=== PATIENT | male | born 1950 | race Hispanic/Latino ===

== ENCOUNTER 2022-02-12 20:23 | Emergency (ER) | payer OTHER ==
--- OUTSIDE RECORDS SUMMARY | 2022-02-12 20:30 | XMS REPORT | Clinical Summary ---
:1950 Author Organization [facility] MD [facility] Address [address] [place] [address] Care Team Providers Name Role Phone Jam Moses MD Unavailable [phone] Jay Rich MD Primary Care Provider Allergies No known active allergies Medications Medication Sig Dispensed Refills Start End Status Date Date acetaminophen Take 1 tablet 0 01/23/20 Ac tive (TYLENOL) 500 mg (500 mg) by 22 tabletIndications: mouth every 6 Spinal cord (six) hours as compression needed for mild pain. vit Take 1 capsule 30 capsule 0 01/23/20 Acti ve C,D-Oq-jnauq-lutein-z by mouth twice 22 eaxan 250-90-40-1 mg daily. capIndications: Spinal cord compression bisacodyl (DULCOLAX) Insert 1 30 suppository 0 01/23/20 Active 10 mg suppository 22 suppositoryIndication (10 mg) into s: Spinal cord the rectum at compression, bedtime. Neurogenic bowel Unwrap and remove each suppository from foil prior to insertion. lisinopril Take 1 tablet 30 tablet 0 01/24/20 Activ e (PRINIVIL,ZESTRIL) 10 (10 mg) by 22 mg tabletIndications: mouth every Spinal cord morning. compression, Penile cancer pantoprazole Take 1 tablet 30 tablet 0 01/24/20 Act cody (PROTONIX) 40 mg EC (40 mg) by 22 tabletIndications: mouth every Spinal cord morning before compression breakfast. traMADol (ULTRAM) 50 Take 1 tablet 30 tablet 0 01/23/20 Active mg tabletIndications: (50 mg) by 22 Spinal cord mouth every 6 compression (six) hours as needed for moderate pain. polyethylene glycol Take 17 g by 0 01/24/20 Active (MIRALAX) 17 g mouth daily. 22 packetIndications: Spinal cord compression, Neurogenic bowel senna (SENOKOT) 8.6 Take 3 tablets 90 tablet 0 01/24/20 Active mg tabletIndications: by mouth daily 22 Spinal cord with lunch. compression, Neurogenic bowel gabapentin Take 1 capsule 90 capsule 0 01/23/20 Act cody (NEURONTIN) 300 mg (300 mg) by capsuleIndications: mouth 3 Mass of thoracic (three) times structure a day. lisinopril Take 1 tablet 0 12/04/1901/23/ Disco ntinued (PRINIVIL,ZESTRIL) 40 by mouth every (Stop Taking mg tablet morning. at [facility]) metroNIDAZOLE Take 1 tablet 0 02/20/1903/05/ Di scontinued (FLAGYL) 500 mg by mouth 3 2021 (No t tablet (three) times Applic able) a day. cholecalciferol, Take 2,000 0 04/10/ Di scontinued vitamin D3, (VITAMIN Units by mouth 2021 (Not D3) 2,000 units tab daily. Applicable) tablet acetaminophen Take 325 mg by 0 04/10/ D iscontinued (TYLENOL) 325 mg mouth once as 2021 (Not tablet needed. Applicable ) traMADol (ULTRAM) 50 Take 1 tablet 12 tablet 0 03/10/19 03/03 / Discontinued mg tabletIndications: (50 mg) by 2021 (Therapy Carcinoma, NOS of mouth every 8 completed) penis, NOS (eight) hours as needed for severe pain. methocarbamol Take 1 tablet 12 tablet 0 03/10/19 03/03/ Di scontinued (ROBAXIN) 500 mg (500 mg) by 2021 ( Therapy tabletIndications: mouth every 8 completed) Carcinoma, NOS of (eight) hours penis, NOS as needed for muscle spasms. docusate sodium Take 1 capsule 60 capsule 0 03/10/1912/18/ Discontinued (Colace) 100 mg (100 mg) by 2021 (T herapy capsuleIndications: mouth 2 (two) completed) Carcinoma, NOS of times a day as penis, NOS needed for constipation. hyoscyamine sulfate Dissolve 1 6 tablet 0 03/10/19 03/03/ Discontinued (ANASPAZ) 0.125 mg tablet ([phone] (Therapy disintegrating mg) on the comp leted) tabletIndications: tongue every 8 Carcinoma, NOS of (eight) hours penis, NOS as needed for cramping. Do not take one day prior to urinary catheter removal. cephalexin (Keflex) Take 1 capsule 20 capsule 0 03/10/19 02/0 6/ 500 mg (500 mg) by 2021 capsuleIndications: mouth 4 (four) Carcinoma, NOS of times a day penis, NOS for 5 days. tamsulosin (FLOMAX) Take 1 capsule 30 capsule 0 03/10/1912/09 0/ Discontinued 0.4 mg 24 hr (0.4 mg) by 2021 (Ther apy capsuleIndications: mouth at completed) Carcinoma, NOS of bedtime. penis, NOS cephalexin (KEFLEX) Take 1 capsule 60 capsule 0 04/17/19 04/0 8/ 500 mg (500 mg) by 2021 capsuleIndications: mouth every 12 Carcinoma, NOS of (twelve) hours penis, NOS for 30 days. apixaban (Eliquis) Take 1 tablet 56 tablet 0 04/17/19 04/06/ 2.5 mg (2.5 mg) by 2021 tabletIndications: mouth every 12 Carcinoma, NOS of (twelve) hours penis, NOS for 28 days. acetaminophen Take 1 tablet 0 04/17/1912/29/ Di scontinued (Tylenol Extra (500 mg) by 2021 Strength) 500 mg mouth every 6 tabletIndications: (six) hours as Carcinoma, NOS of needed for penis, NOS mild pain. methylPREDNISolone TAKE BY MOUTH 0 11/25/1912/18/ Discontinued (MEDROL DOSEPACK) 4 DIRECTED ON 2021 (Not mg tablet INSIDE OF Applicable ) PACKAGE celecoxib (CeleBREX) TAKE 1 CAPSULE 0 10/30/1912/09 0/ Discontinued 200 mg capsule BY MOUTH TWICE 2021 (Not DAILY WITH Applicabl e) FOOD NEEDED methocarbamol TAKE 1 TABLET 0 11/25/1912/18/ Di scontinued (ROBAXIN) 750 mg BY MOUTH THREE 2021 (Not tablet TIMES DAILY Appli cable) NEEDED acetaminophen-codeine Take 1 tablet 60 tablet 0 12/23/1901/08 6/ Discontinued (Tylenol-Codeine #3) by mouth every 2021 (Stop Taking 300 mg-30 mg 6 (six) hours at Discharge) tabletIndications: as needed for Mass of thoracic moderate pain. structure gabapentin Take 1 capsule 60 capsule 1 12/23/19 continued (NEURONTIN) 300 mg (300 mg) by 2021 (Reorder) capsuleIndications: mouth 3 Mass of thoracic (three) times structure a day. Active Problems Problem Noted Date Secondary malignant neoplasm of bone 01/07/2022 Thoracic back pain 12/24/2021 Mass of chest wall 12/18/2021 Lymphedema 06/09/2021 Penile cancer 02/27/2021 Cancer Staging: Clinical stage from 02/27: Stage IIB (cT3, cN0, cM0) - Signed by Jay Rich MD on 04/14/2021 Hypertension 02/27/2021 Pelvic pain 02/03/2021 Paraparesis Other abnormality of gait Other fatigue Resolved Problems Problem Noted Date Resolved Date Other acute postoperative pain Encounters Date Type Specialty Care Team Description 02/03/2022 Documentation Urology Clark Herrera RN 01/23/2022 Orders Only Neurosurgery Sid Hernandez NP Postoperativ e visit (Primary Dx) 01/18/2022 Documentation Radiation Oncology Hsuam Avila MD 01/16/2022 Documentation Radiation Oncology Husam Avila MD 01/08/2022 Documentation Radiation Oncology Husam Avila MD 01/08/2022 Documentation Radiation Oncology Husam Avila MD 01/05/2022 Hospital Encounter Radiation Oncology Jay Rich MD 01/05/2022 Orders Only Radiation Oncology Ivis Jones APN 12/30/2021 Travel 12/30/2021 Orders Only Thoracic Surgery Mary Johns ANP 12/29/2021 Ancillary Procedure 12/29/2021 Anesthesia Event Jacoby Blount MD Kelly, Tamra M, CRNA 12/29/2021 Hospital Encounter Neuro/Rehab Olson, Thoracic back pain (Primary Dx); - MD Rell Spinal cord compression; 01/23/2022 Rubio Penile cancer; [place], Hypertension; Abelopher Other acute pos toperative pain; MD Kiko Pelvic pain; Damion Rashid MD Mass of chest wall; Lety Easley MD Lymphedema; Secondary malig nant neoplasm of bone; Other fatigue; Other abnormali ty of gait; Paraparesis; Mass of thoraci c structure; Neurogenic nelia l 12/29/2021 Surgery Bergeron LAMINECTOMY OF Kira, [facility] MD Kiko EXTRADURAL LESI ON; T2/3 decompress ion, C7-T4 fusion 12/29/2021 Hospital Encounter Radiology Mary Johns, Mediast inal mass ANP Veronique Underwood MD 12/29/2021 Telephone Thoracic Surgery Poly Núñez RN 12/29/2021 Travel 12/29/2021 Orders Only Thoracic Surgery Mary Johns ANP 12/26/2021 Hospital Encounter Lab Caitlyn Tineo, NOS cancer E, PA 12/26/2021 Hospital Encounter Radiology Layla, Encounter for other preprocedural examination (Primary Dx); MD Jay Mass of chest wall; Raysa Garcia Penis, NOS can cer GRACIELA Hoover 12/26/2021 Travel 12/26/2021 Orders Only Michelle Penis, NOS canc er Sharita Roland, ROXANNA (Primary Dx) 12/26/2021 Documentation Sharita Martinez RN 12/25/2021 Ancillary Procedure Radiology Mary Johns, Malign ant neoplasm ANP of upper lobe, right bronchus or fariha g 12/25/2021 Travel 12/24/2021 Telephone Thoracic Surgery Mary Johns ANP 12/23/2021 Ancillary Procedure Radiology Mary Johns, Medias tinal mass; ANP Malignant neopl asm of upper lobe, right bronchus or lung 12/23/2021 Hospital Encounter Lab Mary Johns, Mass of chest wall ANP 12/23/2021 Orders Only Radiology Caitlyn Tineo PA 12/23/2021 Travel 12/22/2021 Hospital Encounter Pulmonology Mary Johns Mediast inal mass ANP 12/22/2021 Consult Thoracic Surgery Roberto Grant, Mass of c hest wall (Primary Dx); Carcinoma, NOS of penis, NOS 12/22/2021 Orders Only Thoracic Surgery Mary Johns, Mass of c hest wall (Primary Dx); ANP Mass of thoraci c structure 12/22/2021 Orders Only Thoracic Surgery Roberto Grant, Mass of t horacic MD structure (Prim annmarie Dx) 12/22/2021 Travel 12/19/2021 Orders Only Neurosurgery Queen Lucasa Mass of tho racic structure (Primary Dx); A, 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 Hypertension 12/18/2021 Office Visit Urology Layla, Carcinoma, NOS of MD Jay penis, NOS 12/18/2021 Orders Only Radiology Marylin Ramirez MD 12/18/2021 Travel 12/18/2021 Orders Only Thoracic Surgery Mary Johns, Malignant neoplasm of upper lobe, right bronchus or lung (Primary Dx); ANP Mediastinal mas s 12/17/2021 Hospital Encounter Radiology Shilpa Monsalve, Carcin wild, NOS of PA penis, NOS 12/17/2021 Hospital Encounter Lab Layla, Carcinoma , NOS of MD Jay penis, NOS 12/17/2021 Travel 12/11/2021 Orders Only Urology [place], Carcinoma, NOS of Clarksebastian Thomas RN penis, NOS (Pr imary Dx) 12/11/2021 Orders Only Urology [place], Carcinoma, NOS of Clarksebastian Thomas RN penis, NOS (Pr imary Dx) 11/19/2021 Telephone Urology Jessica Van RN 10/08/2021 Telephone Urology Jessica Van RN 10/02/2021 Office Visit Urology Layla, Carcinoma, NOS of MD Jay penis, NOS 10/02/2021 Travel 10/01/2021 Ancillary Procedure Radiology Shilpa Monsalve, Carci noma, NOS of PA penis, NOS 10/01/2021 Hospital Encounter Lab Shilpa Monsalve, Carcin wild, NOS of PA penis, NOS 10/01/2021 Travel 07/29/2021 Hospital Encounter Physical Therapy Layla, Lymph edema MD Mary Thompson Kathleen, LIZBETH 07/29/2021 Travel 07/10/2021 Hospital Encounter Physical Therapy Layla, Lymph edema (Primary MD Jay Dx) Shahab iKdd, PT 07/10/2021 Travel 06/19/2021 Hospital Encounter Physical Therapy Layla, Lymph edema MD Bernabe Thompson Marc Anthony, PT 06/19/2021 Travel 06/09/2021 Hospital Encounter Physical Therapy Layla, Lymph edema (Primary Dx); MD Jay Carcinoma, NOS of penis, NOS Mary Gemma, PT 06/09/2021 Travel 05/29/2021 Office Visit Urology Layla, Carcinoma, NOS of MD Jay penis, NOS (Mica jose f Dx) 05/29/2021 Travel 05/28/2021 Telephone Urology Jessica Van RN 05/01/2021 Office Visit Urology Layla, Carcinoma, NOS of MD Jay penis, NOS 05/01/2021 Travel 04/11/2021 Surgery Layla, ROBOTIC ASSISTE D MD Jay INGUINAL LYMPHADENECTOMY 04/11/2021 Anesthesia Event Justo Blount MD 04/11/2021 Hospital Encounter Uro/Ortho/GI Layla, Carcinoma , NOS of - MD Jay penis, NOS 04/16/2021 04/11/2021 Travel 04/10/2021 Office Visit Urology Layla, Carcinoma, NOS of MD Jay penis, NOS 04/10/2021 Orders Only Urology Shilpa Monsalve PA 04/10/2021 Travel 04/09/2021 Anesthesia Event Anesthesiology Josefa Macias MA 04/09/2021 POEM Appointments Anesthesiology [facility], Carcinom a, NOS of penis, NOS; MD Jay Pre-surgery edda luation 04/09/2021 Hospital Encounter Lab Layla, Carcinoma , NOS of MD Jay penis, NOS 04/09/2021 Clinical Support Deng Rich, Suspected C OVID-19 (Primary Dx); MD Jay Carcinoma, NOS of penis, NOS Savannah Paulson RN 04/09/2021 Travel 03/27/2021 Orders Only Urology Shilpa Monsalve, Carcinoma, N OS of PA penis, NOS (Mica jose f Dx) 03/13/2021 Office Visit Urology Layla, Carcinoma, NOS of MD Jay penis, NOS (Mica jose f Dx) 03/13/2021 Travel 03/12/2021 Telephone Guicho Reilly NP 03/07/2021 Anesthesia Event Alexys Armenta MD 03/07/2021 Surgery Layla, COMPLETE AMPUTA TION MD Jay OF PENIS 03/07/2021 Hospital Encounter Transition Layla, Carcinoma , NOS of - MD Jay penis, NOS 03/11/2021 03/07/2021 Travel 03/06/2021 Anesthesia Event Anesthesiology Fina iMms MA 03/05/2021 POEM Appointments Anesthesiology Jay Rich MD 03/05/2021 Consult Internal Medicine Layla, Hypertensi on (Primary Dx); MD Jay Carcinoma, NOS of penis, NOS; Edward Contreras, Prediabetes 03/05/2021 Clinical Support Deng Rich, Suspected C OVID-19 (Primary Dx); MD Jay Carcinoma, NOS of penis, NOS Kati Alvarez, ROXANNA 03/05/2021 Travel 03/01/2021 Ancillary Procedure Radiology Layla, Carcinom a, NOS of MD Jay penis, NOS 03/01/2021 Hospital Encounter Radiology Layla, Carcinoma , NOS of MD Jay penis, NOS 03/01/2021 Hospital Encounter Lab Layla, Carcinoma , NOS of MD Jay penis, NOS 03/01/2021 Travel 02/27/2021 Office Visit Urology Layla, Carcinoma, NOS of MD Jay penis, NOS (Mica kohler Dx) 02/27/2021 NPR Patient Access Services 02/27/2021 Documentation Urology Rach Kelly 02/27/2021 Documentation Urology Rach Kelly 02/27/2021 Prep for Surgery Urology Tommy De La Torre Carcinoma , NOS of MD Jasbir penis, NOS (Mica jose f Dx) 02/27/2021 Travel after 02/12/2021 Surgical History Surgery Date Site/Laterality Comments MA AMPUTATION PENIS 03/07/2021 Midline Procedure: C OMPLETE COMPLETE AMPUTATION OF PE NIS; Surgeon: Jay Rich MD; Location[place]; Service: UROLOGY MA 03/07/2021 Midline Procedure: EXTER NAL URETHROTOMY/URETHROSTOMY URETHRO STOMY OF EXTERNAL XT SPX PERINEAL URETHRA PERINEAL URETHRA; Surgeon: Jay Rich MD; Location: [facility]; Service: UROLOGY MA INGUINOFEM LMPHADEC 04/11/2021 Bilateral Procedure : ROBOTIC SUPFC W/PEL LMPHADEC ASSISTED IN GUINAL LYMPHADENECTOMY; Surgeon: Jay Rich MD; Location: MAIN O R; Service: UROLOGY MA PERALTA EXC/EVAC ISPI LES 12/29/2021 - Spine/N/A Procedu re: LAMINECTOMY OF OTH/THN MAGUI XDRL THORACIC 12/30/2021 THORAC IC SPINE FOR EVACUATION OF EX TRADURAL LESION; T2/3 decompression, C 7-T4 fusion; Surgeon: Noel Motley MD ; Location: MAIN O R; Service: NEUROSU RGERY Medical devices from this surgery are in t he Medical Devices section. MA STEREOTACTIC COMPUTER 12/29/2021 - N/A Procedu re: STEREOTACTIC ASSISTED PX SPINAL 12/30/2021 COMPUTER-ASSI STED SPINAL PROCEDURE; Surge on: Noel Motley MD ; Location: MAIN O R; Service: NEUROSU RGERY Medical devices from this surgery are in t he Medical Devices section. Medical History Medical History Date Comments Hypertension Controlled on losart an Family History Medical History Relation Name Comments Benign prostatic hyperplasia Father Hypertension Father Hypertension Mother Relation Name Status Comments Father Mother Social History Tobacco Use Types Packs/Day Years Used Date Smoking Tobacco: Former Cigarettes 0.1 2 Smokeless Tobacco: Never Alcohol Use Standard Drinks/Week Comments Not Asked 0 (1 standard drink = 0.6 oz pure alcoho l) Occasional Education Answer Date Recorded What is the highest level of school you have High school gra duate 03/05/2021 completed or the highest degree you have received? Sex Assigned at Date Recorded Not on file Job Start Date Occupation Industry Not on file Not on file Not on file Obstetrics History Last Filed Vital Signs Vital Sign Reading Time Taken Comments Blood Pressure 106/65 01/23/2022 7:13 AM LOAN SERVICING REPRESENTATIVE Pulse 60 01/23/2022 7:13 AM LOAN SERVICING REPRESENTATIVE Temperature 37.2 C (99 F) 01/23/2022 7:13 AM LOAN SERVICING REPRESENTATIVE Respiratory Rate 17 01/23/2022 7:13 AM LOAN SERVICING REPRESENTATIVE Oxygen Saturation 94% 01/23/2022 7:13 AM LOAN SERVICING REPRESENTATIVE Inhaled Oxygen Concentration - - Weight 92.5 kg (203 lb 14.8 oz) 12/30/2021 11:31 AM LOAN SERVICING REPRESENTATIVE Height 166.5 cm (5' 5.55") 12/30/2021 11:31 AM LOAN SERVICING REPRESENTATIVE Body Mass Index 33.37 12/30/2021 11:31 AM LOAN SERVICING REPRESENTATIVE Plan of Treatment Date Type Specialty Care Team Description 02/13/2022 Office Visit Neurosurgery Noel Ramos MD [address], [place] [address] (Wo rk) 02/20/2022 Follow-Up Physical Medicine and Aleisha Andrade APN [address] [place], [place] [address] (Wo rk) Health Maintenance Due Date Last Done Comments COVID-19 Vaccination (#1) 1950 Medical Devices Implanted Type Area Sparmaker Device Shelf Model / Serial / Identifier Expiration Lot Date Dbx Mix 10cc - [id number] Skin/T N/A: MUSCULOSKELETAL 07/29/2023 [id number] / Implanted: Qty: 1 on 12/29/2021 by Noel Cerna MD at [facility] issue Spine TRANSPLANT FND 0232 [id number] / 30 Mm Crosslink N/A: PRICE KATERIN 2 [id number] / Implanted: Qty: 1 on 12/29/2021 by Noel Cerna MD at [facility] Spine / Procedures Procedure Name Priority Date/Time Associated Comments Diagnosis MANUAL DIFFERENTIAL AM 01/21/2022 6:25 Resul ts for this AM LOAN SERVICING REPRESENTATIVE procedure are i n the results section. Results CBC AM 01/21/2022 6:25 Results for this AM LOAN SERVICING REPRESENTATIVE procedure are i n the results section. CALCIUM LEVEL TOTAL AM 01/21/2022 6:25 Resul ts for this AM LOAN SERVICING REPRESENTATIVE procedure are i n the results section. .GLOMERULAR FILTRATION AM 01/21/2022 6:25 Re sults for this RATE AM LOAN SERVICING REPRESENTATIVE procedure are i n the results section. SERUM CREATININE AM 01/21/2022 6:25 Results for this AM LOAN SERVICING REPRESENTATIVE procedure are i n the results section. ELECTROLYTE PANEL AM 01/21/2022 6:25 Results for this AM LOAN SERVICING REPRESENTATIVE procedure are i n the results section. BLOOD UREA NITROGEN AM 01/21/2022 6:25 Resul ts for this AM LOAN SERVICING REPRESENTATIVE procedure are i n the results section. GLUCOSE LEVEL AM 01/21/2022 6:25 Results for this AM LOAN SERVICING REPRESENTATIVE procedure are i n the results section. C REACTIVE PROTEIN AM 01/21/2022 6:25 Result s for this AM LOAN SERVICING REPRESENTATIVE procedure are i n the results section. PREALBUMIN AM 01/21/2022 6:25 Results for this AM LOAN SERVICING REPRESENTATIVE procedure are i n the results section. COMPLETE BLOOD COUNT W/ AM 01/21/2022 6:25 DIFFERENTIAL AM LOAN SERVICING REPRESENTATIVE BASIC METABOLIC PANEL, AM 01/21/2022 6:25 CALCIUM TOTAL AM LOAN SERVICING REPRESENTATIVE MANUAL DIFFERENTIAL AM 01/19/2022 5:45 Resul ts for this AM LOAN SERVICING REPRESENTATIVE procedure are i n the results section. Results CBC AM 01/19/2022 5:45 Results for this AM LOAN SERVICING REPRESENTATIVE procedure are i n the results section. CALCIUM LEVEL TOTAL AM 01/19/2022 5:45 Resul ts for this AM LOAN SERVICING REPRESENTATIVE procedure are i n the results section. .GLOMERULAR FILTRATION AM 01/19/2022 5:45 Re sults for this RATE AM LOAN SERVICING REPRESENTATIVE procedure are i n the results section. SERUM CREATININE AM 01/19/2022 5:45 Results for this AM LOAN SERVICING REPRESENTATIVE procedure are i n the results section. ELECTROLYTE PANEL AM 01/19/2022 5:45 Results for this AM LOAN SERVICING REPRESENTATIVE procedure are i n the results section. BLOOD UREA NITROGEN AM 01/19/2022 5:45 Resul ts for this AM LOAN SERVICING REPRESENTATIVE procedure are i n the results section. GLUCOSE LEVEL AM 01/19/2022 5:45 Results for this AM LOAN SERVICING REPRESENTATIVE procedure are i n the results section. COMPLETE BLOOD COUNT W/ AM 01/19/2022 5:45 DIFFERENTIAL AM LOAN SERVICING REPRESENTATIVE BASIC METABOLIC PANEL, AM 01/19/2022 5:45 CALCIUM TOTAL AM LOAN SERVICING REPRESENTATIVE MANUAL DIFFERENTIAL AM 01/16/2022 6:08 Resul ts for this AM LOAN SERVICING REPRESENTATIVE procedure are i n the results section. Results CBC AM 01/16/2022 6:08 Results for this AM LOAN SERVICING REPRESENTATIVE procedure are i n the results section. CALCIUM LEVEL TOTAL AM 01/16/2022 6:08 Resul ts for this AM LOAN SERVICING REPRESENTATIVE procedure are i n the results section. .GLOMERULAR FILTRATION AM 01/16/2022 6:08 Re sults for this RATE AM LOAN SERVICING REPRESENTATIVE procedure are i n the results section. SERUM CREATININE AM 01/16/2022 6:08 Results for this AM LOAN SERVICING REPRESENTATIVE procedure are i n the results section. ELECTROLYTE PANEL AM 01/16/2022 6:08 Results for this AM LOAN SERVICING REPRESENTATIVE procedure are i n the results section. BLOOD UREA NITROGEN AM 01/16/2022 6:08 Resul ts for this AM LOAN SERVICING REPRESENTATIVE procedure are i n the results section. GLUCOSE LEVEL AM 01/16/2022 6:08 Results for this AM LOAN SERVICING REPRESENTATIVE procedure are i n the results section. COMPLETE BLOOD COUNT W/ AM 01/16/2022 6:08 DIFFERENTIAL AM LOAN SERVICING REPRESENTATIVE BASIC METABOLIC PANEL, AM 01/16/2022 6:08 CALCIUM TOTAL AM LOAN SERVICING REPRESENTATIVE XR ABDOMEN 1 VW PORTABLE STAT 01/14/2022 11:38 Results for this AM LOAN SERVICING REPRESENTATIVE procedure are i n the results section. MANUAL DIFFERENTIAL AM 01/14/2022 7:24 Resul ts for this AM LOAN SERVICING REPRESENTATIVE procedure are i n the results section. Results CBC AM 01/14/2022 7:24 Results for this AM LOAN SERVICING REPRESENTATIVE procedure are i n the results section. CALCIUM LEVEL TOTAL AM 01/14/2022 7:24 Resul ts for this AM LOAN SERVICING REPRESENTATIVE procedure are i n the results section. .GLOMERULAR FILTRATION AM 01/14/2022 7:24 Re sults for this RATE AM LOAN SERVICING REPRESENTATIVE procedure are i n the results section. SERUM CREATININE AM 01/14/2022 7:24 Results for this AM LOAN SERVICING REPRESENTATIVE procedure are i n the results section. ELECTROLYTE PANEL AM 01/14/2022 7:24 Results for this AM LOAN SERVICING REPRESENTATIVE procedure are i n the results section. BLOOD UREA NITROGEN AM 01/14/2022 7:24 Resul ts for this AM LOAN SERVICING REPRESENTATIVE procedure are i n the results section. GLUCOSE LEVEL AM 01/14/2022 7:24 Results for this AM LOAN SERVICING REPRESENTATIVE procedure are i n the results section. C REACTIVE PROTEIN AM 01/14/2022 7:24 Result s for this AM LOAN SERVICING REPRESENTATIVE procedure are i n the results section. PREALBUMIN AM 01/14/2022 7:24 Results for this AM LOAN SERVICING REPRESENTATIVE procedure are i n the results section. COMPLETE BLOOD COUNT W/ AM 01/14/2022 7:24 DIFFERENTIAL AM LOAN SERVICING REPRESENTATIVE BASIC METABOLIC PANEL, AM 01/14/2022 7:24 CALCIUM TOTAL AM LOAN SERVICING REPRESENTATIVE MANUAL DIFFERENTIAL AM 01/12/2022 6:42 Resul ts for this AM LOAN SERVICING REPRESENTATIVE procedure are i n the results section. Results CBC AM 01/12/2022 6:42 Results for this AM LOAN SERVICING REPRESENTATIVE procedure are i n the results section. CALCIUM LEVEL TOTAL AM 01/12/2022 6:42 Resul ts for this AM LOAN SERVICING REPRESENTATIVE procedure are i n the results section. .GLOMERULAR FILTRATION AM 01/12/2022 6:42 Re sults for this RATE AM LOAN SERVICING REPRESENTATIVE procedure are i n the results section. SERUM CREATININE AM 01/12/2022 6:42 Results for this AM LOAN SERVICING REPRESENTATIVE procedure are i n the results section. ELECTROLYTE PANEL AM 01/12/2022 6:42 Results for this AM LOAN SERVICING REPRESENTATIVE procedure are i n the results section. BLOOD UREA NITROGEN AM 01/12/2022 6:42 Resul ts for this AM LOAN SERVICING REPRESENTATIVE procedure are i n the results section. GLUCOSE LEVEL AM 01/12/2022 6:42 Results for this AM LOAN SERVICING REPRESENTATIVE procedure are i n the results section. COMPLETE BLOOD COUNT W/ AM 01/12/2022 6:42 DIFFERENTIAL AM LOAN SERVICING REPRESENTATIVE BASIC METABOLIC PANEL, AM 01/12/2022 6:42 CALCIUM TOTAL AM LOAN SERVICING REPRESENTATIVE MANUAL DIFFERENTIAL AM 01/09/2022 6:06 Resul ts for this AM LOAN SERVICING REPRESENTATIVE procedure are i n the results section. Results CBC AM 01/09/2022 6:06 Results for this AM LOAN SERVICING REPRESENTATIVE procedure are i n the results section. CALCIUM LEVEL TOTAL AM 01/09/2022 6:06 Resul ts for this AM LOAN SERVICING REPRESENTATIVE procedure are i n the results section. .GLOMERULAR FILTRATION AM 01/09/2022 6:06 Re sults for this RATE AM LOAN SERVICING REPRESENTATIVE procedure are i n the results section. SERUM CREATININE AM 01/09/2022 6:06 Results for this AM LOAN SERVICING REPRESENTATIVE procedure are i n the results section. ELECTROLYTE PANEL AM 01/09/2022 6:06 Results for this AM LOAN SERVICING REPRESENTATIVE procedure are i n the results section. BLOOD UREA NITROGEN AM 01/09/2022 6:06 Resul ts for this AM LOAN SERVICING REPRESENTATIVE procedure are i n the results section. GLUCOSE LEVEL AM 01/09/2022 6:06 Results for this AM LOAN SERVICING REPRESENTATIVE procedure are i n the results section. COMPLETE BLOOD COUNT W/ AM 01/09/2022 6:06 DIFFERENTIAL AM LOAN SERVICING REPRESENTATIVE BASIC METABOLIC PANEL, AM 01/09/2022 6:06 CALCIUM TOTAL AM LOAN SERVICING REPRESENTATIVE MANUAL DIFFERENTIAL AM 01/07/2022 5:47 Resul ts for this AM LOAN SERVICING REPRESENTATIVE procedure are i n the results section. Results CBC AM 01/07/2022 5:47 Results for this AM LOAN SERVICING REPRESENTATIVE procedure are i n the results section. CALCIUM LEVEL TOTAL AM 01/07/2022 5:47 Resul ts for this AM LOAN SERVICING REPRESENTATIVE procedure are i n the results section. .GLOMERULAR FILTRATION AM 01/07/2022 5:47 Re sults for this RATE AM LOAN SERVICING REPRESENTATIVE procedure are i n the results section. SERUM CREATININE AM 01/07/2022 5:47 Results for this AM LOAN SERVICING REPRESENTATIVE procedure are i n the results section. ELECTROLYTE PANEL AM 01/07/2022 5:47 Results for this AM LOAN SERVICING REPRESENTATIVE procedure are i n the results section. BLOOD UREA NITROGEN AM 01/07/2022 5:47 Resul ts for this AM LOAN SERVICING REPRESENTATIVE procedure are i n the results section. GLUCOSE LEVEL AM 01/07/2022 5:47 Results for this AM LOAN SERVICING REPRESENTATIVE procedure are i n the results section. C REACTIVE PROTEIN AM 01/07/2022 5:47 Result s for this AM LOAN SERVICING REPRESENTATIVE procedure are i n the results section. PREALBUMIN AM 01/07/2022 5:47 Results for this AM LOAN SERVICING REPRESENTATIVE procedure are i n the results section. COMPLETE BLOOD COUNT W/ AM 01/07/2022 5:47 DIFFERENTIAL AM LOAN SERVICING REPRESENTATIVE BASIC METABOLIC PANEL, AM 01/07/2022 5:47 CALCIUM TOTAL AM LOAN SERVICING REPRESENTATIVE POC GLUCOSE SCREEN Routine 01/06/2022 5:54 Result s for this PM LOAN SERVICING REPRESENTATIVE procedure are i n the results section. POC GLUCOSE SCREEN Routine 01/06/2022 1:05 Result s for this PM LOAN SERVICING REPRESENTATIVE procedure are i n the results section. POC GLUCOSE SCREEN Routine 01/06/2022 7:48 Result s for this AM LOAN SERVICING REPRESENTATIVE procedure are i n the results section. HSV/VZV DNA DETECTION Now 01/06/2022 6:08 Res ults for this AM LOAN SERVICING REPRESENTATIVE procedure are i n the results section. WOUND CULTURE W/ GRAM Now 01/06/2022 6:08 Res ults for this STAIN AM LOAN SERVICING REPRESENTATIVE procedure are i n the results section. POC GLUCOSE SCREEN Routine 01/05/2022 10:45 Resul ts for this PM LOAN SERVICING REPRESENTATIVE procedure are i n the results section. POC GLUCOSE SCREEN Routine 01/05/2022 7:27 Result s for this PM LOAN SERVICING REPRESENTATIVE procedure are i n the results section. POC GLUCOSE SCREEN Routine 01/05/2022 2:36 Result s for this PM LOAN SERVICING REPRESENTATIVE procedure are i n the results section. POC GLUCOSE SCREEN Routine 01/05/2022 8:08 Result s for this AM LOAN SERVICING REPRESENTATIVE procedure are i n the results section. MANUAL DIFFERENTIAL AM 01/05/2022 6:33 Resul ts for this AM LOAN SERVICING REPRESENTATIVE procedure are i n the results section. Results CBC AM 01/05/2022 6:33 Results for this AM LOAN SERVICING REPRESENTATIVE procedure are i n the results section. CALCIUM LEVEL TOTAL AM 01/05/2022 6:33 Resul ts for this AM LOAN SERVICING REPRESENTATIVE procedure are i n the results section. .GLOMERULAR FILTRATION AM 01/05/2022 6:33 Re sults for this RATE AM LOAN SERVICING REPRESENTATIVE procedure are i n the results section. SERUM CREATININE AM 01/05/2022 6:33 Results for this AM LOAN SERVICING REPRESENTATIVE procedure are i n the results section. ELECTROLYTE PANEL AM 01/05/2022 6:33 Results for this AM LOAN SERVICING REPRESENTATIVE procedure are i n the results section. BLOOD UREA NITROGEN AM 01/05/2022 6:33 Resul ts for this AM LOAN SERVICING REPRESENTATIVE procedure are i n the results section. GLUCOSE LEVEL AM 01/05/2022 6:33 Results for this AM LOAN SERVICING REPRESENTATIVE procedure are i n the results section. COMPLETE BLOOD COUNT W/ AM 01/05/2022 6:33 DIFFERENTIAL AM LOAN SERVICING REPRESENTATIVE BASIC METABOLIC PANEL, AM 01/05/2022 6:33 CALCIUM TOTAL AM LOAN SERVICING REPRESENTATIVE POC GLUCOSE SCREEN Routine 01/04/2022 10:24 Resul ts for this PM LOAN SERVICING REPRESENTATIVE procedure are i n the results section. POC GLUCOSE SCREEN Routine 01/04/2022 6:23 Result s for this PM LOAN SERVICING REPRESENTATIVE procedure are i n the results section. POC GLUCOSE SCREEN Routine 01/04/2022 11:32 Resul ts for this AM LOAN SERVICING REPRESENTATIVE procedure are i n the results section. POC GLUCOSE SCREEN Routine 01/04/2022 7:33 Result s for this AM LOAN SERVICING REPRESENTATIVE procedure are i n the results section. POC GLUCOSE SCREEN Routine 01/03/2022 10:41 Resul ts for this PM LOAN SERVICING REPRESENTATIVE procedure are i n the results section. POC GLUCOSE SCREEN Routine 01/03/2022 6:28 Result s for this PM LOAN SERVICING REPRESENTATIVE procedure are i n the results section. POC GLUCOSE SCREEN Routine 01/03/2022 12:42 Resul ts for this PM LOAN SERVICING REPRESENTATIVE procedure are i n the results section. MANUAL DIFFERENTIAL Routine 01/03/2022 7:38 Resul ts for this AM LOAN SERVICING REPRESENTATIVE procedure are i n the results section. Results CBC Routine 01/03/2022 7:38 Results for this AM LOAN SERVICING REPRESENTATIVE procedure are i n the results section. CALCIUM LEVEL TOTAL Routine 01/03/2022 7:38 Resul ts for this AM LOAN SERVICING REPRESENTATIVE procedure are i n the results section. .GLOMERULAR FILTRATION Routine 01/03/2022 7:38 Re sults for this RATE AM LOAN SERVICING REPRESENTATIVE procedure are i n the results section. SERUM CREATININE Routine 01/03/2022 7:38 Results for this AM LOAN SERVICING REPRESENTATIVE procedure are i n the results section. ELECTROLYTE PANEL Routine 01/03/2022 7:38 Results for this AM LOAN SERVICING REPRESENTATIVE procedure are i n the results section. BLOOD UREA NITROGEN Routine 01/03/2022 7:38 Resul ts for this AM LOAN SERVICING REPRESENTATIVE procedure are i n the results section. GLUCOSE LEVEL Routine 01/03/2022 7:38 Results for this AM LOAN SERVICING REPRESENTATIVE procedure are i n the results section. COMPLETE BLOOD COUNT W/ Routine 01/03/2022 7:38 DIFFERENTIAL AM LOAN SERVICING REPRESENTATIVE BASIC METABOLIC PANEL, Routine 01/03/2022 7:38 CALCIUM TOTAL AM LOAN SERVICING REPRESENTATIVE POC GLUCOSE SCREEN Routine 01/03/2022 7:32 Result s for this AM LOAN SERVICING REPRESENTATIVE procedure are i n the results section. POC GLUCOSE SCREEN Routine 01/02/2022 10:14 Resul ts for this PM LOAN SERVICING REPRESENTATIVE procedure are i n the results section. POC GLUCOSE SCREEN Routine 01/02/2022 7:49 Result s for this PM LOAN SERVICING REPRESENTATIVE procedure are i n the results section. POC GLUCOSE SCREEN Routine 01/02/2022 4:24 Result s for this PM LOAN SERVICING REPRESENTATIVE procedure are i n the results section. POC GLUCOSE SCREEN Routine 01/02/2022 8:13 Result s for this AM LOAN SERVICING REPRESENTATIVE procedure are i n the results section. MANUAL DIFFERENTIAL Routine 01/02/2022 6:50 Resul ts for this AM LOAN SERVICING REPRESENTATIVE procedure are i n the results section. Results CBC Routine 01/02/2022 6:50 Results for this AM LOAN SERVICING REPRESENTATIVE procedure are i n the results section. CALCIUM LEVEL TOTAL Routine 01/02/2022 6:50 Resul ts for this AM LOAN SERVICING REPRESENTATIVE procedure are i n the results section. .GLOMERULAR FILTRATION Routine 01/02/2022 6:50 Re sults for this RATE AM LOAN SERVICING REPRESENTATIVE procedure are i n the results section. SERUM CREATININE Routine 01/02/2022 6:50 Results for this AM LOAN SERVICING REPRESENTATIVE procedure are i n the results section. ELECTROLYTE PANEL Routine 01/02/2022 6:50 Results for this AM LOAN SERVICING REPRESENTATIVE procedure are i n the results section. BLOOD UREA NITROGEN Routine 01/02/2022 6:50 Resul ts for this AM LOAN SERVICING REPRESENTATIVE procedure are i n the results section. GLUCOSE LEVEL Routine 01/02/2022 6:50 Results for this AM LOAN SERVICING REPRESENTATIVE procedure are i n the results section. COMPLETE BLOOD COUNT W/ Routine 01/02/2022 6:50 DIFFERENTIAL AM LOAN SERVICING REPRESENTATIVE BASIC METABOLIC PANEL, Routine 01/02/2022 6:50 CALCIUM TOTAL AM LOAN SERVICING REPRESENTATIVE POC GLUCOSE SCREEN Routine 01/01/2022 10:03 Resul ts for this PM LOAN SERVICING REPRESENTATIVE procedure are i n the results section. POC GLUCOSE SCREEN Routine 01/01/2022 7:03 Result s for this PM LOAN SERVICING REPRESENTATIVE procedure are i n the results section. POC GLUCOSE SCREEN Routine 01/01/2022 1:48 Result s for this PM LOAN SERVICING REPRESENTATIVE procedure are i n the results section. POC GLUCOSE SCREEN Routine 01/01/2022 8:25 Result s for this AM LOAN SERVICING REPRESENTATIVE procedure are i n the results section. MANUAL DIFFERENTIAL Routine 01/01/2022 6:11 Resul ts for this AM LOAN SERVICING REPRESENTATIVE procedure are i n the results section. Results CBC Routine 01/01/2022 6:11 Results for this AM LOAN SERVICING REPRESENTATIVE procedure are i n the results section. CALCIUM LEVEL TOTAL Routine 01/01/2022 6:11 Resul ts for this AM LOAN SERVICING REPRESENTATIVE procedure are i n the results section. .GLOMERULAR FILTRATION Routine 01/01/2022 6:11 Re sults for this RATE AM LOAN SERVICING REPRESENTATIVE procedure are i n the results section. SERUM CREATININE Routine 01/01/2022 6:11 Results for this AM LOAN SERVICING REPRESENTATIVE procedure are i n the results section. ELECTROLYTE PANEL Routine 01/01/2022 6:11 Results for this AM LOAN SERVICING REPRESENTATIVE procedure are i n the results section. BLOOD UREA NITROGEN Routine 01/01/2022 6:11 Resul ts for this AM LOAN SERVICING REPRESENTATIVE procedure are i n the results section. GLUCOSE LEVEL Routine 01/01/2022 6:11 Results for this AM LOAN SERVICING REPRESENTATIVE procedure are i n the results section. COMPLETE BLOOD COUNT W/ Routine 01/01/2022 6:11 DIFFERENTIAL AM LOAN SERVICING REPRESENTATIVE BASIC METABOLIC PANEL, Routine 01/01/2022 6:11 CALCIUM TOTAL AM LOAN SERVICING REPRESENTATIVE POC GLUCOSE SCREEN Routine 12/31/2021 10:24 Resul ts for this PM LOAN SERVICING REPRESENTATIVE procedure are i n the results section. PREALBUMIN Routine 12/31/2021 7:14 Results for this PM LOAN SERVICING REPRESENTATIVE procedure are i n the results section. C REACTIVE PROTEIN Routine 12/31/2021 7:14 Result s for this PM LOAN SERVICING REPRESENTATIVE procedure are i n the results section. POC GLUCOSE SCREEN Routine 12/31/2021 7:11 Result s for this PM LOAN SERVICING REPRESENTATIVE procedure are i n the results section. XR CHEST 1 VW PORTABLE Routine 12/31/2021 4:04 Re sults for this PM LOAN SERVICING REPRESENTATIVE procedure are i n the results section. POC GLUCOSE SCREEN Routine 12/31/2021 1:06 Result s for this PM LOAN SERVICING REPRESENTATIVE procedure are i n the results section. POC GLUCOSE SCREEN Routine 12/31/2021 7:25 Result s for this AM LOAN SERVICING REPRESENTATIVE procedure are i n the results section. MANUAL DIFFERENTIAL Routine 12/31/2021 2:42 Resul ts for this AM LOAN SERVICING REPRESENTATIVE procedure are i n the results section. Results CBC Routine 12/31/2021 2:42 Results for this AM LOAN SERVICING REPRESENTATIVE procedure are i n the results section. CALCIUM LEVEL TOTAL Routine 12/31/2021 2:42 Resul ts for this AM LOAN SERVICING REPRESENTATIVE procedure are i n the results section. .GLOMERULAR FILTRATION Routine 12/31/2021 2:42 Re sults for this RATE AM LOAN SERVICING REPRESENTATIVE procedure are i n the results section. SERUM CREATININE Routine 12/31/2021 2:42 Results for this AM LOAN SERVICING REPRESENTATIVE procedure are i n the results section. ELECTROLYTE PANEL Routine 12/31/2021 2:42 Results for this AM LOAN SERVICING REPRESENTATIVE procedure are i n the results section. BLOOD UREA NITROGEN Routine 12/31/2021 2:42 Resul ts for this AM LOAN SERVICING REPRESENTATIVE procedure are i n the results section. GLUCOSE LEVEL Routine 12/31/2021 2:42 Results for this AM LOAN SERVICING REPRESENTATIVE procedure are i n the results section. COMPLETE BLOOD COUNT W/ Routine 12/31/2021 2:42 DIFFERENTIAL AM LOAN SERVICING REPRESENTATIVE BASIC METABOLIC PANEL, Routine 12/31/2021 2:42 CALCIUM TOTAL AM LOAN SERVICING REPRESENTATIVE POC GLUCOSE SCREEN Routine 12/30/2021 10:04 Resul ts for this PM LOAN SERVICING REPRESENTATIVE procedure are i n the results section. POC GLUCOSE SCREEN Routine 12/30/2021 6:17 Result s for this PM LOAN SERVICING REPRESENTATIVE procedure are i n the results section. BLOOD UREA NITROGEN STAT 12/30/2021 12:27 Resu lts for this PM LOAN SERVICING REPRESENTATIVE procedure are i n the results section. CALCIUM LEVEL TOTAL STAT 12/30/2021 12:27 Resu lts for this PM LOAN SERVICING REPRESENTATIVE procedure are i n the results section. .GLOMERULAR FILTRATION STAT 12/30/2021 12:27 R esults for this RATE PM LOAN SERVICING REPRESENTATIVE procedure are i n the results section. SERUM CREATININE STAT 12/30/2021 12:27 Results for this PM LOAN SERVICING REPRESENTATIVE procedure are i n the results section. ELECTROLYTE PANEL STAT 12/30/2021 12:27 Result s for this PM LOAN SERVICING REPRESENTATIVE procedure are i n the results section. GLUCOSE LEVEL STAT 12/30/2021 12:27 Results fo r this PM LOAN SERVICING REPRESENTATIVE procedure are i n the results section. MANUAL DIFFERENTIAL STAT 12/30/2021 12:27 Resu lts for this PM LOAN SERVICING REPRESENTATIVE procedure are i n the results section. Results CBC STAT 12/30/2021 12:27 Results for this PM LOAN SERVICING REPRESENTATIVE procedure are i n the results section. BASIC METABOLIC PANEL, STAT 12/30/2021 12:27 CALCIUM TOTAL PM LOAN SERVICING REPRESENTATIVE COMPLETE BLOOD COUNT W/ STAT 12/30/2021 12:27 DIFFERENTIAL PM LOAN SERVICING REPRESENTATIVE IOCT IMAGE GUIDANCE Routine 12/30/2021 10:28 Resu lts for this AM LOAN SERVICING REPRESENTATIVE procedure are i n the results section. POC GLUCOSE SCREEN Routine 12/30/2021 9:38 Result s for this AM LOAN SERVICING REPRESENTATIVE procedure are i n the results section. PATHOLOGY SURGICAL Routine 12/30/2021 7:35 Thoracic back pain Results for this INTERPRETATION AM LOAN SERVICING REPRESENTATIVE procedure are in the results section. OR TEG PATH FINAL REVIEW STAT 12/30/2021 6:50 Results for this AM LOAN SERVICING REPRESENTATIVE procedure are i n the results section. OR TEG PATH REVIEW 1 STAT 12/30/2021 6:50 Resu lts for this AM LOAN SERVICING REPRESENTATIVE procedure are i n the results section. OR TEG1 HEP STAT 12/30/2021 6:50 Results for this AM LOAN SERVICING REPRESENTATIVE procedure are i n the results section. OR TEG S1 STAT 12/30/2021 6:50 Results for this AM LOAN SERVICING REPRESENTATIVE procedure are i n the results section. OR TEG COAG 1 STAT 12/30/2021 6:50 AM LOAN SERVICING REPRESENTATIVE OR ARTERIAL BLOOD GAS STAT 12/30/2021 6:50 Res ults for this PLUS AM LOAN SERVICING REPRESENTATIVE procedure are i n the results section. POC HEMOCUE HEMOGLOBIN Routine 12/30/2021 5:52 Re sults for this AM LOAN SERVICING REPRESENTATIVE procedure are i n the results section. POC GLUCOSE SCREEN Routine 12/30/2021 5:52 Result s for this AM LOAN SERVICING REPRESENTATIVE procedure are i n the results section. TRANSFUSE RED BLOOD Routine 12/30/2021 4:46 CELLS AM LOAN SERVICING REPRESENTATIVE OR ARTERIAL BLOOD GAS STAT 12/30/2021 4:41 Res ults for this PLUS AM LOAN SERVICING REPRESENTATIVE procedure are i n the results section. OR ARTERIAL BLOOD GAS STAT 12/30/2021 4:00 Res ults for this PLUS AM LOAN SERVICING REPRESENTATIVE procedure are i n the results section. OR ARTERIAL BLOOD GAS STAT 12/30/2021 2:25 Res ults for this PLUS AM LOAN SERVICING REPRESENTATIVE procedure are i n the results section. OR ARTERIAL BLOOD GAS STAT 12/29/2021 10:56 Re sults for this PLUS PM LOAN SERVICING REPRESENTATIVE procedure are i n the results section. PREPARE FRESH FROZEN Routine 12/29/2021 10:31 Res ults for this PLASMA PM LOAN SERVICING REPRESENTATIVE procedure are i n the results section. PREPARE PLATELETS Routine 12/29/2021 10:30 Result s for this PM LOAN SERVICING REPRESENTATIVE procedure are i n the results section. PREPARE RBC Routine 12/29/2021 10:30 Results for this PM LOAN SERVICING REPRESENTATIVE procedure are i n the results section. CT CHEST ABDOMEN PELVIS STAT 12/29/2021 9:11 R esults for this W CONTRAST PM LOAN SERVICING REPRESENTATIVE procedure are i n the results section. INTRAOP MOBILE CT ([facility] 12/29/2021 9:[address]) PM LOAN SERVICING REPRESENTATIVE STEREOTACTIC 12/29/2021 9:06 Thoracic back pain COMPUTER-ASSISTED SPINAL PM LOAN SERVICING REPRESENTATIVE PROCEDURE LAMINECTOMY OF THORACIC 12/29/2021 9:06 Thoracic back pain SPINE FOR EVACUATION OF PM LOAN SERVICING REPRESENTATIVE EXTRADURAL LESION TMP CROSSMATCH STAT 12/29/2021 8:51 Results fo r this INTERPRETATION PM LOAN SERVICING REPRESENTATIVE procedure are in the results section. TMP INTERPRETATION STAT 12/29/2021 8:51 Result s for this ANTIBODY SCREEN NEGATIVE PM LOAN SERVICING REPRESENTATIVE pro cedure are in the results section. CLOT EXPIRATION DATE STAT 12/29/2021 8:51 Resu lts for this PM LOAN SERVICING REPRESENTATIVE procedure are i n the results section. ANTIBODY SCREEN STAT 12/29/2021 8:51 Results f or this PM LOAN SERVICING REPRESENTATIVE procedure are i n the results section. ABORH STAT 12/29/2021 8:51 Results for this PM LOAN SERVICING REPRESENTATIVE procedure are i n the results section. TYPE AND SCREEN STAT 12/29/2021 8:51 PM LOAN SERVICING REPRESENTATIVE MRI CERVICAL THORACIC STAT 12/29/2021 8:18 Res ults for this LUMBAR SPINE W WO PM LOAN SERVICING REPRESENTATIVE procedure are in CONTRAST the results section. FRACTIONATED BILIRUBIN Now 12/29/2021 5:29 Re sults for this PM LOAN SERVICING REPRESENTATIVE procedure are i n the results section. TOTAL PROTEIN Now 12/29/2021 5:29 Results for this PM LOAN SERVICING REPRESENTATIVE procedure are i n the results section. ASPARTATE Now 12/29/2021 5:29 Results for this AMINOTRANSFERASE PM LOAN SERVICING REPRESENTATIVE procedure a re in the results section. ALANINE AMINOTRANSFERASE Now 12/29/2021 5:29 Results for this PM LOAN SERVICING REPRESENTATIVE procedure are i n the results section. ALKALINE PHOSPHATASE Now 12/29/2021 5:29 Resu lts for this PM LOAN SERVICING REPRESENTATIVE procedure are i n the results section. ALBUMIN LEVEL Now 12/29/2021 5:29 Results for this PM LOAN SERVICING REPRESENTATIVE procedure are i n the results section. CALCIUM LEVEL TOTAL Now 12/29/2021 5:29 Resul ts for this PM LOAN SERVICING REPRESENTATIVE procedure are i n the results section. .GLOMERULAR FILTRATION Now 12/29/2021 5:29 Re sults for this RATE PM LOAN SERVICING REPRESENTATIVE procedure are i n the results section. SERUM CREATININE Now 12/29/2021 5:29 Results for this PM LOAN SERVICING REPRESENTATIVE procedure are i n the results section. ELECTROLYTE PANEL Now 12/29/2021 5:29 Results for this PM LOAN SERVICING REPRESENTATIVE procedure are i n the results section. BLOOD UREA NITROGEN Now 12/29/2021 5:29 Resul ts for this PM LOAN SERVICING REPRESENTATIVE procedure are i n the results section. GLUCOSE LEVEL Now 12/29/2021 5:29 Results for this PM LOAN SERVICING REPRESENTATIVE procedure are i n the results section. MANUAL DIFFERENTIAL STAT 12/29/2021 5:29 Resul ts for this PM LOAN SERVICING REPRESENTATIVE procedure are i n the results section. Results CBC STAT 12/29/2021 5:29 Results for this PM LOAN SERVICING REPRESENTATIVE procedure are i n the results section. APTT Now 12/29/2021 5:29 Results for this PM LOAN SERVICING REPRESENTATIVE procedure are i n the results section. PROTHROMBIN TIME Now 12/29/2021 5:29 Results for this PM LOAN SERVICING REPRESENTATIVE procedure are i n the results section. PHOSPHORUS LEVEL Now 12/29/2021 5:29 Results for this PM LOAN SERVICING REPRESENTATIVE procedure are i n the results section. MAGNESIUM LEVEL Now 12/29/2021 5:29 Results f or this PM LOAN SERVICING REPRESENTATIVE procedure are i n the results section. COMPREHENSIVE METABOLIC Now 12/29/2021 5:29 PANEL PM LOAN SERVICING REPRESENTATIVE COMPLETE BLOOD COUNT W/ Now 12/29/2021 5:29 DIFFERENTIAL PM LOAN SERVICING REPRESENTATIVE COVID-19 (SARS-COV-2) Now 12/29/2021 5:29 Res ults for this ASYMPTOMATIC-LT PM LOAN SERVICING REPRESENTATIVE procedure ar e in the results section. IR CT GUIDED BIOPSY Routine 12/29/2021 2:37 Mediastinal mass R esults for this MUSCLE/SOFT TISSUE CHEST PM LOAN SERVICING REPRESENTATIVE pro cedure are in WALL 60 the results section. PATHOLOGY BIOPSY Routine 12/29/2021 2:09 Mediastinal mass Resu lts for this INTERPRETATION PM LOAN SERVICING REPRESENTATIVE procedure are in the results section. INTRA-OPERATIVE Routine 12/29/2021 7:29 Results f or this MONITORING (IOM) AM LOAN SERVICING REPRESENTATIVE procedure a re in the results section. MANUAL DIFFERENTIAL Routine 12/26/2021 3:21 Resul ts for this PM LOAN SERVICING REPRESENTATIVE procedure are i n the results section. Results CBC Routine 12/26/2021 3:21 Results for this PM LOAN SERVICING REPRESENTATIVE procedure are i n the results section. RESEARCH PROTOCOL Routine 12/26/2021 3:21 Penis, NOS cancer R esults for this [id number] PM LOAN SERVICING REPRESENTATIVE procedure are in the results section. PROTHROMBIN TIME Routine 12/26/2021 3:21 Results for this PM LOAN SERVICING REPRESENTATIVE procedure are i n the results section. COMPLETE BLOOD COUNT W/ Routine 12/26/2021 3:21 DIFFERENTIAL PM LOAN SERVICING REPRESENTATIVE MRI BRAIN W WO CONTRAST Routine 12/25/2021 9:17 Malignant neop lasm Results for this AM LOAN SERVICING REPRESENTATIVE of upper lobe, procedure are in right bronchus or the result s lung section. PETCT CONTRAST ENHANCED Routine 12/23/2021 10:31 Mediast inal mass Results for this INITIAL TREATMENT AM LOAN SERVICING REPRESENTATIVE Malignant neoplasm proc edure are in STRATEGY of upper lobe, the results right bronchus or section. lung MD NGS BLOOD CONTROL Routine 12/23/2021 7:05 Resu lts for this AM LOAN SERVICING REPRESENTATIVE procedure are i n the results section. HP LB LIQUID BIOPSY Routine 12/23/2021 7:05 PANEL V1 INTERPRETATION AM LOAN SERVICING REPRESENTATIVE AND REPORT HP LB ROS1 FUSION Routine 12/23/2021 7:05 Mass of chest wall R esults for this ANALYSIS COLLECTION, AM LOAN SERVICING REPRESENTATIVE procedu re are in BLOOD the results section. HP LB RET FUSION Routine 12/23/2021 7:05 Mass of chest wall Re sults for this ANALYSIS COLLECTION, AM LOAN SERVICING REPRESENTATIVE procedu re are in BLOOD the results section. HP LB MET MUTATION Routine 12/23/2021 7:05 Mass of chest wall Results for this ANALYSIS COLLECTION, AM LOAN SERVICING REPRESENTATIVE procedu re are in BLOOD the results section. HP LB ERBB2 FULL GENE Routine 12/23/2021 7:05 Mass of chest wa ll Results for this MUTATION ANALYSIS AM LOAN SERVICING REPRESENTATIVE procedure are in COLLECTION, BLOOD the result s section. HP LB EML4/ALK FUSION Routine 12/23/2021 7:05 Mass of chest wa ll Results for this ANALYSIS COLLECTION, AM LOAN SERVICING REPRESENTATIVE procedu re are in BLOOD the results section. HP LB BRAF MUTATION Routine 12/23/2021 7:05 Mass of chest wall Results for this ANALYSIS COLLECTION, AM LOAN SERVICING REPRESENTATIVE procedu re are in BLOOD the results section. SPIROMETRY W/O DILATORS, Routine 12/22/2021 2:59 Mediastinal mass Results for this DLCO AND BODY PM LOAN SERVICING REPRESENTATIVE procedure are in PLETHSMOGRAPHIC LUNG the res ults VOLUMES section. CT CHEST W CONTRAST Routine 12/17/2021 9:59 Carcinoma, NOS of Results for this PM LOAN SERVICING REPRESENTATIVE penis, NOS procedure are i n the results section. FRACTIONATED BILIRUBIN Routine 12/17/2021 6:34 Carcinoma, NOS of Results for this PM LOAN SERVICING REPRESENTATIVE penis, NOS procedure are i n the results section. TOTAL PROTEIN Routine 12/17/2021 6:34 Carcinoma, NOS of Result s for this PM LOAN SERVICING REPRESENTATIVE penis, NOS procedure are i n the results section. ASPARTATE Routine 12/17/2021 6:34 Carcinoma, NOS of Results for this AMINOTRANSFERASE PM LOAN SERVICING REPRESENTATIVE penis, NOS procedure a re in the results section. ALANINE AMINOTRANSFERASE Routine 12/17/2021 6:34 Carcinoma, NO S of Results for this PM LOAN SERVICING REPRESENTATIVE penis, NOS procedure are i n the results section. ALKALINE PHOSPHATASE Routine 12/17/2021 6:34 Carcinoma, NOS of Results for this PM LOAN SERVICING REPRESENTATIVE penis, NOS procedure are i n the results section. ALBUMIN LEVEL Routine 12/17/2021 6:34 Carcinoma, NOS of Result s for this PM LOAN SERVICING REPRESENTATIVE penis, NOS procedure are i n the results section. CALCIUM LEVEL TOTAL Routine 12/17/2021 6:34 Carcinoma, NOS of Results for this PM LOAN SERVICING REPRESENTATIVE penis, NOS procedure are i n the results section. .GLOMERULAR FILTRATION Routine 12/17/2021 6:34 Carcinoma, NOS of Results for this RATE PM LOAN SERVICING REPRESENTATIVE penis, NOS procedure are i n the results section. SERUM CREATININE Routine 12/17/2021 6:34 Carcinoma, NOS of Res ults for this PM LOAN SERVICING REPRESENTATIVE penis, NOS procedure are i n the results section. ELECTROLYTE PANEL Routine 12/17/2021 6:34 Carcinoma, NOS of Re sults for this PM LOAN SERVICING REPRESENTATIVE penis, NOS procedure are i n the results section. BLOOD UREA NITROGEN Routine 12/17/2021 6:34 Carcinoma, NOS of Results for this PM LOAN SERVICING REPRESENTATIVE penis, NOS procedure are i n the results section. GLUCOSE LEVEL Routine 12/17/2021 6:34 Carcinoma, NOS of Result s for this PM LOAN SERVICING REPRESENTATIVE penis, NOS procedure are i n the results section. COMPREHENSIVE METABOLIC Routine 12/17/2021 6:34 Carcinoma, NOS of PANEL PM LOAN SERVICING REPRESENTATIVE penis, NOS CT PELVIS W CONTRAST Routine 10/01/2021 10:20 Carcinoma, NOS o f Results for this AM CDT penis, NOS procedure are i n the results section. POC CREATININE Routine 10/01/2021 8:39 Results fo r this AM CDT procedure are i n the results section. FRACTIONATED BILIRUBIN Routine 10/01/2021 8:37 Carcinoma, NOS of Results for this AM CDT penis, NOS procedure are i n the results section. TOTAL PROTEIN Routine 10/01/2021 8:37 Carcinoma, NOS of Result s for this AM CDT penis, NOS procedure are i n the results section. ASPARTATE Routine 10/01/2021 8:37 Carcinoma, NOS of Results for this AMINOTRANSFERASE AM CDT penis, NOS procedure a re in the results section. ALANINE AMINOTRANSFERASE Routine 10/01/2021 8:37 Carcinoma, NO S of Results for this AM CDT penis, NOS procedure are i n the results section. ALKALINE PHOSPHATASE Routine 10/01/2021 8:37 Carcinoma, NOS of Results for this AM CDT penis, NOS procedure are i n the results section. ALBUMIN LEVEL Routine 10/01/2021 8:37 Carcinoma, NOS of Result s for this AM CDT penis, NOS procedure are i n the results section. CALCIUM LEVEL TOTAL Routine 10/01/2021 8:37 Carcinoma, NOS of Results for this AM CDT penis, NOS procedure are i n the results section. .GLOMERULAR FILTRATION Routine 10/01/2021 8:37 Carcinoma, NOS of Results for this RATE AM CDT penis, NOS procedure are i n the results section. SERUM CREATININE Routine 10/01/2021 8:37 Carcinoma, NOS of Res ults for this AM CDT penis, NOS procedure are i n the results section. ELECTROLYTE PANEL Routine 10/01/2021 8:37 Carcinoma, NOS of Re sults for this AM CDT penis, NOS procedure are i n the results section. BLOOD UREA NITROGEN Routine 10/01/2021 8:37 Carcinoma, NOS of Results for this AM CDT penis, NOS procedure are i n the results section. GLUCOSE LEVEL Routine 10/01/2021 8:37 Carcinoma, NOS of Result s for this AM CDT penis, NOS procedure are i n the results section. COMPREHENSIVE METABOLIC Routine 10/01/2021 8:37 Carcinoma, NOS of PANEL AM CDT penis, NOS CALCIUM LEVEL TOTAL AM 04/16/2021 3:22 Resul ts for this AM LOAN SERVICING REPRESENTATIVE procedure are i n the results section. .GLOMERULAR FILTRATION AM 04/16/2021 3:22 Re sults for this RATE AM LOAN SERVICING REPRESENTATIVE procedure are i n the results section. SERUM CREATININE AM 04/16/2021 3:22 Results for this AM LOAN SERVICING REPRESENTATIVE procedure are i n the results section. ELECTROLYTE PANEL AM 04/16/2021 3:22 Results for this AM LOAN SERVICING REPRESENTATIVE procedure are i n the results section. BLOOD UREA NITROGEN AM 04/16/2021 3:22 Resul ts for this AM LOAN SERVICING REPRESENTATIVE procedure are i n the results section. GLUCOSE LEVEL AM 04/16/2021 3:22 Results for this AM LOAN SERVICING REPRESENTATIVE procedure are i n the results section. BASIC METABOLIC PANEL, AM 04/16/2021 3:22 CALCIUM TOTAL AM LOAN SERVICING REPRESENTATIVE COMPLETE BLOOD COUNT W/ AM 04/16/2021 3:22 R esults for this INDICES AM LOAN SERVICING REPRESENTATIVE procedure are i n the results section. CALCIUM LEVEL TOTAL AM 04/15/2021 3:28 Resul ts for this AM LOAN SERVICING REPRESENTATIVE procedure are i n the results section. .GLOMERULAR FILTRATION AM 04/15/2021 3:28 Re sults for this RATE AM LOAN SERVICING REPRESENTATIVE procedure are i n the results section. SERUM CREATININE AM 04/15/2021 3:28 Results for this AM LOAN SERVICING REPRESENTATIVE procedure are i n the results section. ELECTROLYTE PANEL AM 04/15/2021 3:28 Results for this AM LOAN SERVICING REPRESENTATIVE procedure are i n the results section. BLOOD UREA NITROGEN AM 04/15/2021 3:28 Resul ts for this AM LOAN SERVICING REPRESENTATIVE procedure are i n the results section. GLUCOSE LEVEL AM 04/15/2021 3:28 Results for this AM LOAN SERVICING REPRESENTATIVE procedure are i n the results section. BASIC METABOLIC PANEL, AM 04/15/2021 3:28 CALCIUM TOTAL AM LOAN SERVICING REPRESENTATIVE COMPLETE BLOOD COUNT W/ AM 04/15/2021 3:28 R esults for this INDICES AM LOAN SERVICING REPRESENTATIVE procedure are i n the results section. XR CHEST 1 VW PORTABLE STAT 04/14/2021 11:52 R esults for this PM LOAN SERVICING REPRESENTATIVE procedure are i n the results section. CALCIUM LEVEL TOTAL AM 04/14/2021 2:54 Resul ts for this AM LOAN SERVICING REPRESENTATIVE procedure are i n the results section. .GLOMERULAR FILTRATION AM 04/14/2021 2:54 Re sults for this RATE AM LOAN SERVICING REPRESENTATIVE procedure are i n the results section. SERUM CREATININE AM 04/14/2021 2:54 Results for this AM LOAN SERVICING REPRESENTATIVE procedure are i n the results section. ELECTROLYTE PANEL AM 04/14/2021 2:54 Results for this AM LOAN SERVICING REPRESENTATIVE procedure are i n the results section. BLOOD UREA NITROGEN AM 04/14/2021 2:54 Resul ts for this AM LOAN SERVICING REPRESENTATIVE procedure are i n the results section. GLUCOSE LEVEL AM 04/14/2021 2:54 Results for this AM LOAN SERVICING REPRESENTATIVE procedure are i n the results section. BASIC METABOLIC PANEL, AM 04/14/2021 2:54 CALCIUM TOTAL AM LOAN SERVICING REPRESENTATIVE COMPLETE BLOOD COUNT W/ AM 04/14/2021 2:54 R esults for this INDICES AM LOAN SERVICING REPRESENTATIVE procedure are i n the results section. CALCIUM LEVEL TOTAL AM 04/13/2021 2:29 Resul ts for this AM LOAN SERVICING REPRESENTATIVE procedure are i n the results section. .GLOMERULAR FILTRATION AM 04/13/2021 2:29 Re sults for this RATE AM LOAN SERVICING REPRESENTATIVE procedure are i n the results section. SERUM CREATININE AM 04/13/2021 2:29 Results for this AM LOAN SERVICING REPRESENTATIVE procedure are i n the results section. ELECTROLYTE PANEL AM 04/13/2021 2:29 Results for this AM LOAN SERVICING REPRESENTATIVE procedure are i n the results section. BLOOD UREA NITROGEN AM 04/13/2021 2:29 Resul ts for this AM LOAN SERVICING REPRESENTATIVE procedure are i n the results section. GLUCOSE LEVEL AM 04/13/2021 2:29 Results for this AM LOAN SERVICING REPRESENTATIVE procedure are i n the results section. BASIC METABOLIC PANEL, AM 04/13/2021 2:29 CALCIUM TOTAL AM LOAN SERVICING REPRESENTATIVE COMPLETE BLOOD COUNT W/ AM 04/13/2021 2:29 R esults for this INDICES AM LOAN SERVICING REPRESENTATIVE procedure are i n the results section. CALCIUM LEVEL TOTAL AM 04/12/2021 4:15 Resul ts for this AM LOAN SERVICING REPRESENTATIVE procedure are i n the results section. .GLOMERULAR FILTRATION AM 04/12/2021 4:15 Re sults for this RATE AM LOAN SERVICING REPRESENTATIVE procedure are i n the results section. SERUM CREATININE AM 04/12/2021 4:15 Results for this AM LOAN SERVICING REPRESENTATIVE procedure are i n the results section. ELECTROLYTE PANEL AM 04/12/2021 4:15 Results for this AM LOAN SERVICING REPRESENTATIVE procedure are i n the results section. BLOOD UREA NITROGEN AM 04/12/2021 4:15 Resul ts for this AM LOAN SERVICING REPRESENTATIVE procedure are i n the results section. BASIC METABOLIC PANEL, AM 04/12/2021 4:15 CALCIUM TOTAL AM LOAN SERVICING REPRESENTATIVE CLOT EXPIRATION DATE Routine 04/12/2021 4:13 Resu lts for this AM LOAN SERVICING REPRESENTATIVE procedure are i n the results section. TMP INTERPRETATION Routine 04/12/2021 4:13 Result s for this ANTIBODY SCREEN NEGATIVE AM LOAN SERVICING REPRESENTATIVE pro cedure are in the results section. ANTIBODY SCREEN Now 04/12/2021 4:13 Carcinoma, NOS of Resu lts for this AM LOAN SERVICING REPRESENTATIVE penis, NOS procedure are i n the results section. ABORH Now 04/12/2021 4:13 Carcinoma, NOS of Results for this AM LOAN SERVICING REPRESENTATIVE penis, NOS procedure are i n the results section. COMPLETE BLOOD COUNT W/ AM 04/12/2021 4:13 R esults for this INDICES AM LOAN SERVICING REPRESENTATIVE procedure are i n the results section. TYPE AND SCREEN Now 04/12/2021 4:13 Carcinoma, NOS of AM LOAN SERVICING REPRESENTATIVE penis, NOS ANION GAP Routine 04/11/2021 5:10 Results for this PM LOAN SERVICING REPRESENTATIVE procedure are i n the results section. MANUAL DIFFERENTIAL STAT 04/11/2021 5:10 Resul ts for this PM LOAN SERVICING REPRESENTATIVE procedure are i n the results section. Results CBC STAT 04/11/2021 5:10 Results for this PM LOAN SERVICING REPRESENTATIVE procedure are i n the results section. .GLOMERULAR FILTRATION Now 04/11/2021 5:10 Re sults for this RATE PM LOAN SERVICING REPRESENTATIVE procedure are i n the results section. SERUM CREATININE Now 04/11/2021 5:10 Results for this PM LOAN SERVICING REPRESENTATIVE procedure are i n the results section. COMPLETE BLOOD COUNT W/ Now 04/11/2021 5:10 DIFFERENTIAL PM LOAN SERVICING REPRESENTATIVE PHOSPHORUS LEVEL Now 04/11/2021 5:10 Results for this PM LOAN SERVICING REPRESENTATIVE procedure are i n the results section. MAGNESIUM LEVEL Now 04/11/2021 5:10 Results f or this PM LOAN SERVICING REPRESENTATIVE procedure are i n the results section. GLUCOSE, RANDOM Now 04/11/2021 5:10 Results f or this PM LOAN SERVICING REPRESENTATIVE procedure are i n the results section. SERUM CREATININE Now 04/11/2021 5:10 PM LOAN SERVICING REPRESENTATIVE BLOOD UREA NITROGEN Now 04/11/2021 5:10 Resul ts for this PM LOAN SERVICING REPRESENTATIVE procedure are i n the results section. CARBON DIOXIDE LEVEL Now 04/11/2021 5:10 Resu lts for this PM LOAN SERVICING REPRESENTATIVE procedure are i n the results section. CHLORIDE LEVEL Now 04/11/2021 5:10 Results f or this PM LOAN SERVICING REPRESENTATIVE procedure are i n the results section. POTASSIUM LEVEL Now 04/11/2021 5:10 Results f or this PM LOAN SERVICING REPRESENTATIVE procedure are i n the results section. SODIUM LEVEL Now 04/11/2021 5:10 Results for this PM LOAN SERVICING REPRESENTATIVE procedure are i n the results section. PATHOLOGY SURGICAL Routine 04/11/2021 11:06 Carcinoma, NOS of Results for this INTERPRETATION AM LOAN SERVICING REPRESENTATIVE penis, NOS procedure are in the results section. ROBOTIC ASSISTED 04/11/2021 6:04 Carcinoma, NOS of INGUINAL LYMPHADENECTOMY AM LOAN SERVICING REPRESENTATIVE penis, NOS Special Needs AA@[id number] URINALYSIS WITH STAT 04/10/2021 9:16 AM Result s for this MICROSCOPIC IF INDICATED LOAN SERVICING REPRESENTATIVE pro cedure are in the results section. TMP INTERPRETATION Routine 04/09/2021 8:56 AM Res ults for this ANTIBODY SCREEN NEGATIVE LOAN SERVICING REPRESENTATIVE pro cedure are in the results section. CLOT EXPIRATION DATE Routine 04/09/2021 8:56 AM R esults for this LOAN SERVICING REPRESENTATIVE procedure are i n the results section. ANTIBODY SCREEN Routine 04/09/2021 8:56 AM Carcinoma, NOS of R esults for this LOAN SERVICING REPRESENTATIVE penis, NOS procedure are i n the results section. ABORH Routine 04/09/2021 8:56 AM Carcinoma, NOS of Resu lts for this LOAN SERVICING REPRESENTATIVE penis, NOS procedure are i n the results section. FRACTIONATED BILIRUBIN Routine 04/09/2021 8:56 AM Carcinoma, N OS of Results for this LOAN SERVICING REPRESENTATIVE penis, NOS procedure are i n the results section. TOTAL PROTEIN Routine 04/09/2021 8:56 AM Carcinoma, NOS of Res ults for this LOAN SERVICING REPRESENTATIVE penis, NOS procedure are i n the results section. ASPARTATE Routine 04/09/2021 8:56 AM Carcinoma, NOS of Resu lts for this AMINOTRANSFERASE LOAN SERVICING REPRESENTATIVE penis, NOS procedure a re in the results section. ALANINE AMINOTRANSFERASE Routine 04/09/2021 8:56 AM Carcinoma, NOS of Results for this LOAN SERVICING REPRESENTATIVE penis, NOS procedure are i n the results section. ALKALINE PHOSPHATASE Routine 04/09/2021 8:56 AM Carcinoma, NOS of Results for this LOAN SERVICING REPRESENTATIVE penis, NOS procedure are i n the results section. ALBUMIN LEVEL Routine 04/09/2021 8:56 AM Carcinoma, NOS of Res ults for this LOAN SERVICING REPRESENTATIVE penis, NOS procedure are i n the results section. CALCIUM LEVEL TOTAL Routine 04/09/2021 8:56 AM Carcinoma, NOS of Results for this LOAN SERVICING REPRESENTATIVE penis, NOS procedure are i n the results section. .GLOMERULAR FILTRATION Routine 04/09/2021 8:56 AM Carcinoma, N OS of Results for this RATE LOAN SERVICING REPRESENTATIVE penis, NOS procedure are i n the results section. SERUM CREATININE Routine 04/09/2021 8:56 AM Carcinoma, NOS of Results for this LOAN SERVICING REPRESENTATIVE penis, NOS procedure are i n the results section. ELECTROLYTE PANEL Routine 04/09/2021 8:56 AM Carcinoma, NOS of Results for this LOAN SERVICING REPRESENTATIVE penis, NOS procedure are i n the results section. BLOOD UREA NITROGEN Routine 04/09/2021 8:56 AM Carcinoma, NOS of Results for this LOAN SERVICING REPRESENTATIVE penis, NOS procedure are i n the results section. GLUCOSE LEVEL Routine 04/09/2021 8:56 AM Carcinoma, NOS of Res ults for this LOAN SERVICING REPRESENTATIVE penis, NOS procedure are i n the results section. MANUAL DIFFERENTIAL Routine 04/09/2021 8:56 AM Carcinoma, NOS of Results for this LOAN SERVICING REPRESENTATIVE penis, NOS procedure are i n the results section. Results CBC Routine 04/09/2021 8:56 AM Carcinoma, NOS of Resu lts for this LOAN SERVICING REPRESENTATIVE penis, NOS procedure are i n the results section. TYPE AND SCREEN Routine 04/09/2021 8:56 AM Carcinoma, NOS of LOAN SERVICING REPRESENTATIVE penis, NOS HEMOGLOBIN A1C Routine 04/09/2021 8:56 AM Carcinoma, NOS of Re sults for this LOAN SERVICING REPRESENTATIVE penis, NOS procedure are i n the results section. COMPREHENSIVE METABOLIC Routine 04/09/2021 8:56 AM Carcinoma, NOS of PANEL LOAN SERVICING REPRESENTATIVE penis, NOS COMPLETE BLOOD COUNT W/ Routine 04/09/2021 8:56 AM Carcinoma, NOS of DIFFERENTIAL LOAN SERVICING REPRESENTATIVE penis, NOS COVID-19 (SARS-COV-2) Routine 04/09/2021 8:09 AM Suspected Results for this PCR ASYMPTOMATIC LOAN SERVICING REPRESENTATIVE COVID-19 procedure a re in the results section. CALCIUM LEVEL TOTAL AM 03/11/2021 2:40 AM Re sults for this LOAN SERVICING REPRESENTATIVE procedure are i n the results section. .GLOMERULAR FILTRATION AM 03/11/2021 2:40 AM Results for this RATE LOAN SERVICING REPRESENTATIVE procedure are i n the results section. SERUM CREATININE AM 03/11/2021 2:40 AM Resul ts for this LOAN SERVICING REPRESENTATIVE procedure are i n the results section. ELECTROLYTE PANEL AM 03/11/2021 2:40 AM Resu lts for this LOAN SERVICING REPRESENTATIVE procedure are i n the results section. BLOOD UREA NITROGEN AM 03/11/2021 2:40 AM Re sults for this LOAN SERVICING REPRESENTATIVE procedure are i n the results section. GLUCOSE LEVEL AM 03/11/2021 2:40 AM Results for this LOAN SERVICING REPRESENTATIVE procedure are i n the results section. PHOSPHORUS LEVEL AM 03/11/2021 2:40 AM Resul ts for this LOAN SERVICING REPRESENTATIVE procedure are i n the results section. MAGNESIUM LEVEL AM 03/11/2021 2:40 AM Result s for this LOAN SERVICING REPRESENTATIVE procedure are i n the results section. BASIC METABOLIC PANEL, AM 03/11/2021 2:40 AM CALCIUM TOTAL LOAN SERVICING REPRESENTATIVE COMPLETE BLOOD COUNT W/ AM 03/11/2021 2:40 AM Results for this INDICES LOAN SERVICING REPRESENTATIVE procedure are i n the results section. US FINE NEEDLE ASPIRATION Routine 03/10/2021 10:16 Results for this AM LOAN SERVICING REPRESENTATIVE procedure are i n the results section. US LOWER EXTREMITY Routine 03/10/2021 10:16 Resul ts for this LIMITED LEFT AM LOAN SERVICING REPRESENTATIVE procedure are i n the results section. CYTOLOGY IMAGE-GUIDED FNA Routine 03/10/2021 8:32 AM Carcinoma , NOS of Results for this INTERPRETATION LOAN SERVICING REPRESENTATIVE penis, NOS procedure are in the results section. CALCIUM LEVEL TOTAL AM 03/10/2021 2:21 AM Re sults for this LOAN SERVICING REPRESENTATIVE procedure are i n the results section. .GLOMERULAR FILTRATION AM 03/10/2021 2:21 AM Results for this RATE LOAN SERVICING REPRESENTATIVE procedure are i n the results section. SERUM CREATININE AM 03/10/2021 2:21 AM Resul ts for this LOAN SERVICING REPRESENTATIVE procedure are i n the results section. ELECTROLYTE PANEL AM 03/10/2021 2:21 AM Resu lts for this LOAN SERVICING REPRESENTATIVE procedure are i n the results section. BLOOD UREA NITROGEN AM 03/10/2021 2:21 AM Re sults for this LOAN SERVICING REPRESENTATIVE procedure are i n the results section. GLUCOSE LEVEL AM 03/10/2021 2:21 AM Results for this LOAN SERVICING REPRESENTATIVE procedure are i n the results section. PHOSPHORUS LEVEL AM 03/10/2021 2:21 AM Resul ts for this LOAN SERVICING REPRESENTATIVE procedure are i n the results section. MAGNESIUM LEVEL AM 03/10/2021 2:21 AM Result s for this LOAN SERVICING REPRESENTATIVE procedure are i n the results section. BASIC METABOLIC PANEL, AM 03/10/2021 2:21 AM CALCIUM TOTAL LOAN SERVICING REPRESENTATIVE COMPLETE BLOOD COUNT W/ AM 03/10/2021 2:21 AM Results for this INDICES LOAN SERVICING REPRESENTATIVE procedure are i n the results section. CALCIUM LEVEL TOTAL AM 03/09/2021 2:58 AM Re sults for this LOAN SERVICING REPRESENTATIVE procedure are i n the results section. .GLOMERULAR FILTRATION AM 03/09/2021 2:58 AM Results for this RATE LOAN SERVICING REPRESENTATIVE procedure are i n the results section. SERUM CREATININE AM 03/09/2021 2:58 AM Resul ts for this LOAN SERVICING REPRESENTATIVE procedure are i n the results section. ELECTROLYTE PANEL AM 03/09/2021 2:58 AM Resu lts for this LOAN SERVICING REPRESENTATIVE procedure are i n the results section. BLOOD UREA NITROGEN AM 03/09/2021 2:58 AM Re sults for this LOAN SERVICING REPRESENTATIVE procedure are i n the results section. GLUCOSE LEVEL AM 03/09/2021 2:58 AM Results for this LOAN SERVICING REPRESENTATIVE procedure are i n the results section. PHOSPHORUS LEVEL AM 03/09/2021 2:58 AM Resul ts for this LOAN SERVICING REPRESENTATIVE procedure are i n the results section. MAGNESIUM LEVEL AM 03/09/2021 2:58 AM Result s for this LOAN SERVICING REPRESENTATIVE procedure are i n the results section. BASIC METABOLIC PANEL, AM 03/09/2021 2:58 AM CALCIUM TOTAL LOAN SERVICING REPRESENTATIVE COMPLETE BLOOD COUNT W/ AM 03/09/2021 2:58 AM Results for this INDICES LOAN SERVICING REPRESENTATIVE procedure are i n the results section. CALCIUM LEVEL TOTAL AM 03/08/2021 4:00 AM Re sults for this LOAN SERVICING REPRESENTATIVE procedure are i n the results section. .GLOMERULAR FILTRATION AM 03/08/2021 4:00 AM Results for this RATE LOAN SERVICING REPRESENTATIVE procedure are i n the results section. SERUM CREATININE AM 03/08/2021 4:00 AM Resul ts for this LOAN SERVICING REPRESENTATIVE procedure are i n the results section. ELECTROLYTE PANEL AM 03/08/2021 4:00 AM Resu lts for this LOAN SERVICING REPRESENTATIVE procedure are i n the results section. BLOOD UREA NITROGEN AM 03/08/2021 4:00 AM Re sults for this LOAN SERVICING REPRESENTATIVE procedure are i n the results section. GLUCOSE LEVEL AM 03/08/2021 4:00 AM Results for this LOAN SERVICING REPRESENTATIVE procedure are i n the results section. PHOSPHORUS LEVEL AM 03/08/2021 4:00 AM Resul ts for this LOAN SERVICING REPRESENTATIVE procedure are i n the results section. MAGNESIUM LEVEL AM 03/08/2021 4:00 AM Result s for this LOAN SERVICING REPRESENTATIVE procedure are i n the results section. BASIC METABOLIC PANEL, AM 03/08/2021 4:00 AM CALCIUM TOTAL LOAN SERVICING REPRESENTATIVE COMPLETE BLOOD COUNT W/ AM 03/08/2021 4:00 AM Results for this INDICES LOAN SERVICING REPRESENTATIVE procedure are i n the results section. ANION GAP Routine 03/07/2021 6:08 PM Results f or this LOAN SERVICING REPRESENTATIVE procedure are i n the results section. .GLOMERULAR FILTRATION Now 03/07/2021 6:08 PM Results for this RATE LOAN SERVICING REPRESENTATIVE procedure are i n the results section. SERUM CREATININE Now 03/07/2021 6:08 PM Resul ts for this LOAN SERVICING REPRESENTATIVE procedure are i n the results section. HEMATOCRIT Now 03/07/2021 6:08 PM Results f or this LOAN SERVICING REPRESENTATIVE procedure are i n the results section. HEMOGLOBIN Now 03/07/2021 6:08 PM Results f or this LOAN SERVICING REPRESENTATIVE procedure are i n the results section. GLUCOSE, RANDOM Now 03/07/2021 6:08 PM Result s for this LOAN SERVICING REPRESENTATIVE procedure are i n the results section. SERUM CREATININE Now 03/07/2021 6:08 PM LOAN SERVICING REPRESENTATIVE BLOOD UREA NITROGEN Now 03/07/2021 6:08 PM Re sults for this LOAN SERVICING REPRESENTATIVE procedure are i n the results section. CARBON DIOXIDE LEVEL Now 03/07/2021 6:08 PM R esults for this LOAN SERVICING REPRESENTATIVE procedure are i n the results section. CHLORIDE LEVEL Now 03/07/2021 6:08 PM Results for this LOAN SERVICING REPRESENTATIVE procedure are i n the results section. POTASSIUM LEVEL Now 03/07/2021 6:08 PM Result s for this LOAN SERVICING REPRESENTATIVE procedure are i n the results section. SODIUM LEVEL Now 03/07/2021 6:08 PM Results f or this LOAN SERVICING REPRESENTATIVE procedure are i n the results section. PATHOLOGY SURGICAL STAT 03/07/2021 1:48 PM Carcinoma, NOS o f Results for this INTERPRETATION LOAN SERVICING REPRESENTATIVE penis, NOS procedure are in the results section. EXTERNAL URETHROSTOMY OF 03/07/2021 12:03 Carcinoma, N OS of EXTERNAL PERINEAL URETHRA PM LOAN SERVICING REPRESENTATIVE penis, NOS Special Needs AA@[id number] COMPLETE AMPUTATION OF PENIS 03/07/2021 12:03 PM LOAN SERVICING REPRESENTATIVE Carcinoma, NOS of penis, NOS Special Needs AA@[id number] TMP INTERPRETATION Routine 03/07/2021 9:38 AM Res ults for this ANTIBODY SCREEN NEGATIVE LOAN SERVICING REPRESENTATIVE pro cedure are in the results section. CLOT EXPIRATION DATE Routine 03/07/2021 9:38 AM R esults for this LOAN SERVICING REPRESENTATIVE procedure are i n the results section. ANTIBODY SCREEN Now 03/07/2021 9:38 AM Result s for this LOAN SERVICING REPRESENTATIVE procedure are i n the results section. ABORH Now 03/07/2021 9:38 AM Results f or this LOAN SERVICING REPRESENTATIVE procedure are i n the results section. TYPE AND SCREEN Now 03/07/2021 9:38 AM LOAN SERVICING REPRESENTATIVE COVID-19 (SARS-COV-2) Routine 03/05/2021 11:19 Suspected Results for this PCR ASYMPTOMATIC AM LOAN SERVICING REPRESENTATIVE COVID-19 procedure a re in the results section. EKG, 12-LEAD (SCHEDULED) Routine 03/05/2021 Carcinoma, NOS o f penis, NOS CT CHEST ABDOMEN W Routine 03/01/2021 2:09 PM Carcinoma, NOS o f Results for this CONTRAST LOAN SERVICING REPRESENTATIVE penis, NOS procedure are i n the results section. MRI PELVIS W WO CONTRAST Routine 03/01/2021 1:54 PM Carcinoma, NOS of Results for this PENIS LOAN SERVICING REPRESENTATIVE penis, NOS procedure are i n the results section. TMP INTERPRETATION Routine 03/01/2021 10:34 Resul ts for this ANTIBODY SCREEN NEGATIVE AM LOAN SERVICING REPRESENTATIVE pro cedure are in the results section. CLOT EXPIRATION DATE Routine 03/01/2021 10:34 Res ults for this AM LOAN SERVICING REPRESENTATIVE procedure are i n the results section. URINALYSIS WITH REFLEX TO Routine 03/01/2021 10:34 Results for this MICROSCOPIC REFERENCE LAB AM LOAN SERVICING REPRESENTATIVE pr ocedure are in the results section. ANTIBODY SCREEN Routine 03/01/2021 10:34 Carcinoma, NOS of Res ults for this AM LOAN SERVICING REPRESENTATIVE penis, NOS procedure are i n the results section. ABORH Routine 03/01/2021 10:34 Carcinoma, NOS of Result s for this AM LOAN SERVICING REPRESENTATIVE penis, NOS procedure are i n the results section. FRACTIONATED BILIRUBIN Routine 03/01/2021 10:34 Carcinoma, NOS of Results for this AM LOAN SERVICING REPRESENTATIVE penis, NOS procedure are i n the results section. TOTAL PROTEIN Routine 03/01/2021 10:34 Carcinoma, NOS of Resul ts for this AM LOAN SERVICING REPRESENTATIVE penis, NOS procedure are i n the results section. ASPARTATE Routine 03/01/2021 10:34 Carcinoma, NOS of Result s for this AMINOTRANSFERASE AM LOAN SERVICING REPRESENTATIVE penis, NOS procedure a re in the results section. ALANINE AMINOTRANSFERASE Routine 03/01/2021 10:34 Carcinoma, N OS of Results for this AM LOAN SERVICING REPRESENTATIVE penis, NOS procedure are i n the results section. ALKALINE PHOSPHATASE Routine 03/01/2021 10:34 Carcinoma, NOS o f Results for this AM LOAN SERVICING REPRESENTATIVE penis, NOS procedure are i n the results section. ALBUMIN LEVEL Routine 03/01/2021 10:34 Carcinoma, NOS of Resul ts for this AM LOAN SERVICING REPRESENTATIVE penis, NOS procedure are i n the results section. CALCIUM LEVEL TOTAL Routine 03/01/2021 10:34 Carcinoma, NOS of Results for this AM LOAN SERVICING REPRESENTATIVE penis, NOS procedure are i n the results section. .GLOMERULAR FILTRATION Routine 03/01/2021 10:34 Carcinoma, NOS of Results for this RATE AM LOAN SERVICING REPRESENTATIVE penis, NOS procedure are i n the results section. SERUM CREATININE Routine 03/01/2021 10:34 Carcinoma, NOS of Re sults for this AM LOAN SERVICING REPRESENTATIVE penis, NOS procedure are i n the results section. ELECTROLYTE PANEL Routine 03/01/2021 10:34 Carcinoma, NOS of R esults for this AM LOAN SERVICING REPRESENTATIVE penis, NOS procedure are i n the results section. BLOOD UREA NITROGEN Routine 03/01/2021 10:34 Carcinoma, NOS of Results for this AM LOAN SERVICING REPRESENTATIVE penis, NOS procedure are i n the results section. GLUCOSE LEVEL Routine 03/01/2021 10:34 Carcinoma, NOS of Resul ts for this AM LOAN SERVICING REPRESENTATIVE penis, NOS procedure are i n the results section. MANUAL DIFFERENTIAL Routine 03/01/2021 10:34 Carcinoma, NOS of Results for this AM LOAN SERVICING REPRESENTATIVE penis, NOS procedure are i n the results section. Results CBC Routine 03/01/2021 10:34 Carcinoma, NOS of Result s for this AM LOAN SERVICING REPRESENTATIVE penis, NOS procedure are i n the results section. TYPE AND SCREEN Routine 03/01/2021 10:34 Carcinoma, NOS of AM LOAN SERVICING REPRESENTATIVE penis, NOS THYROID STIMULATING Routine 03/01/2021 10:34 Carcinoma, NOS of Results for this HORMONE AM LOAN SERVICING REPRESENTATIVE penis, NOS procedure are i n the results section. THYROXINE Routine 03/01/2021 10:34 Carcinoma, NOS of Result s for this AM LOAN SERVICING REPRESENTATIVE penis, NOS procedure are i n the results section. HEMOGLOBIN A1C Routine 03/01/2021 10:34 Carcinoma, NOS of Resu lts for this AM LOAN SERVICING REPRESENTATIVE penis, NOS procedure are i n the results section. COMPREHENSIVE METABOLIC Routine 03/01/2021 10:34 Carcinoma, NO S of PANEL AM LOAN SERVICING REPRESENTATIVE penis, NOS COMPLETE BLOOD COUNT W/ Routine 03/01/2021 10:34 Carcinoma, NO S of DIFFERENTIAL AM LOAN SERVICING REPRESENTATIVE penis, NOS CONFIRM ABORH TYPE Routine 03/01/2021 10:32 Resul ts for this AM LOAN SERVICING REPRESENTATIVE procedure are i n the results section. after 02/12/2021 Results .Serum Creatinine (01/21/2022 6:25 AM LOAN SERVICING REPRESENTATIVE)Only the most recent of29 results within the time period is included. athologist Signature Creatinine 0.76 0.67 - 1.17 [facility] mg/dL [facility] Specimen Anatomical Collection Method Collection Time Receive d Time (Source) Location / / Volume Laterality Blood 01/21/2022 6:25 AM 6:44 LOAN SERVICING REPRESENTATIVE AM LOAN SERVICING REPRESENTATIVE Yessi Webb DO LAB BLOOD ORDERABLES Performing Organization Address City/State/ZIP Code Phon e Number [facility] Unless otherwise noted, [place] [address] [place] all lab tests performed by: Division of Pathology and Laboratory Medicine [address] (ABNORMAL) .CBC (01/21/2022 6:25 AM LOAN SERVICING REPRESENTATIVE)Only the most recent of18 resultswithin the time period is included. athologist Signature WBC 6.2 4.0 - 11.0 [place] [facility] RBC 3.80 (L) 4.50 - MT MD 6.00 M/uL [facility] Hgb 10.8 (L) 14.0 - MT MD 18.0 gm/dL [facility] Hct 33.4 (L) 40.0 - MT 54.0 % [facility] MCV 88 82 - 98 fL [facility] MCH 28.4 27.0 - MT MD 31.0 pg [facility] MCHC 32.3 31.0 - [place] MD 36.0 gm/dL [facility] RDW-SD 45.1 35.1 - MT 46.3 [facility] RDW-CV 14.1 12.0 - MT 15.5 % [facility] Platelet count 264 140 - 440 [place] K/uL [facility] MPV 9.3 4.0 - 10.4 MT [facility] INRBC 0.0 <=0.0 % [facility] Comment: The INRBC (instrument NRBC) value reflec ts the enumeration of nucleated red blood cells contained i n a 200uL sample of whole blood analyzed by the instrumen t. This value may differ from the NRBC value reported in a manual differential, which is based on a 100 cell differentia l. Specimen Anatomical Collection Method Collection Time Receive d Time (Source) Location / / Volume Laterality Blood 01/21/2022 6:25 AM 6:36 LOAN SERVICING REPRESENTATIVE AM LOAN SERVICING REPRESENTATIVE Yessi Webb DO LAB BLOOD ORDERABLES Performing Organization Address City/State/ZIP Code Phon e Number [facility] Unless otherwise noted, [place] [address] [place] all lab tests performed by: Division of Pathology and Laboratory Medicine [address] [facility] Glomerular Filtration Rate (01/21/2022 6:25 AM LOAN SERVICING REPRESENTATIVE)Only the most recent of29 resultswithin the time period is included. P athologist Signature eGFR 96 >=60 [place] mL/min/1.73 [facility] sq. m Comment: The eGFRcr is calculated with the 2020 KD-EPI creatinine equation using creatinine, patient's age, and sex for adults 18 years of age and older. Other factors, especially muscle mass, may affect accuracy and need to be considered. According to the Kidney Disease: Improvi ng Global Outcomes (KDIGO) CKD Work Group 2012 Clinical Practice Guideline, chronic kidney disease (CKD) is defined as the abnormalities of kidney structure or function, present for more than 3 months, with implications for health. CKD should be c lassified by cause, GFR category, and albuminuria category. KDIGO guidelines provide the following GFR categories Stage Description GFR mL/min/1.73 m2 G1* Normal or high >= 90 G2* Mildly decreased 60-89 G3a Mildly to moderately decreased 45-59 G3b Moderately to severely decreased 30- 44 G4 Severely decreased 15-29 G5 Kidney failure <15 *In the absence of evidence of kidney da mage, neither G1 nor G2 fulfill criteria for CKD. Specimen Anatomical Collection Method Collection Time Receive d Time (Source) Location / / Volume Laterality Blood 01/21/2022 6:25 AM 6:44 LOAN SERVICING REPRESENTATIVE AM LOAN SERVICING REPRESENTATIVE Yessi Mathewsuy ZainHarry LORENZO LAB BLOOD ORDERABLES Performing Organization Address City/State/ZIP Code Phon e Number [facility] Unless otherwise noted, [place] [address] [place] all lab tests performed by: Division of Pathology and Laboratory Medicine [address] (ABNORMAL) Differential (01/21/2022 6:25 AM LOAN SERVICING REPRESENTATIVE)Only the most recent of18 resultswithin the time period is included. athologist Signature Neutrophil % 65.9 42.0 - [facility] 66.0 % [facility] Lymphocyte % 12.2 (L) 24.0 - [facility] 44.0 % [facility] Monocyte % 8.3 (H) 2.0 - 7.0 [facility] % [facility] Eosinophil % 11.7 (H) 1.0 - 4.0 [facility] Basophil % 0.8 0.0 - 1.0 [facility] IGRE % 1.1 (H) 0.0 - 0.4 [facility] Comment: IGRE % count includes Metamyelo cytes, Myelocytes, and Promyelocytes. Neutrophil Abs 4.10 1.70 - 7.30 K/uL [facility] Lymphocyte Abs 0.76 (L) 1.00 - 4.80 K/uL [facility] Monocyte Abs 0.52 0.08 - 0.70 K/uL [facility] Eosinophil Abs 0.73 (H) 0.04 - 0.40 K/uL [facility] Basophil Abs 0.05 0.00 - 0.10 K/uL [facility] IG Abs 0.07 (H) 0.00 - 0.04 K/uL [facility] Specimen Anatomical Collection Method Collection Time Receive d Time (Source) Location / / Volume Laterality Blood 01/21/2022 6:25 AM 2 6:36 LOAN SERVICING REPRESENTATIVE AM LOAN SERVICING REPRESENTATIVE Yessi Irina RonMonica LORENZO LAB BLOOD ORDERABLES Performing Organization Address City/[facility] [address]/ZIP Code Phon e Number [facility] Unless otherwise noted, [address] all lab tests performed by: Division of Pathology and Laboratory Medicine [address] [place], [place] [id number] CRP (01/21/2022 6:25 AM LOAN SERVICING REPRESENTATIVE)Only the most recent of4 resultswithin the time period is included. P athologist Signature CRP 49.25 mg/L [facility] Comment: Reference ranges for HS CRP assay are as follows: Reference ranges when used to assess car diac risk: <1.00 mg/L Low cardiovascular risk 1.00-3.00 mg/L Average cardiovascular risk >3.00 mg/L High cardiovascular risk. Reference ranges when used to assess inf lammatory responses: Less than or equal to 10.00 mg/L. Specimen Anatomical Collection Method Collection Time Receive d Time (Source) Location / / Volume Laterality Blood 01/21/2022 6:25 AM 2 6:44 LOAN SERVICING REPRESENTATIVE AM LOAN SERVICING REPRESENTATIVE Lashonda CROSS LAB BLOOD ORDERABLES Performing Organization Address City/[facility] [address]/ZIP Code Phon e Number [facility] Unless otherwise noted, [address] all lab tests performed by: Division of Pathology and Laboratory Medicine [facility]5 [facility] BUN (01/21/2022 6:25 AM LOAN SERVICING REPRESENTATIVE)Only the most recent of29 resultswithin the time period is included. P athologist Signature BUN 15 6 - 23 [facility] mg/dL [facility] Specimen Anatomical Collection Method Collection Time Receive d Time (Source) Location / / Volume Laterality Blood 01/21/2022 6:25 AM 2 6:44 LOAN SERVICING REPRESENTATIVE AM LOAN SERVICING REPRESENTATIVE Yessi Irina RonMonica DO LAB BLOOD ORDERABLES Performing Organization Address City/[facility] [address]/ZIP [facility] Phon e Number [facility] Unless otherwise noted, [address] all lab tests performed by: Division of Pathology and Laboratory Medicine [facility] (ABNORMAL) Prealbumin (01/21/2022 6:25 AM LOAN SERVICING REPRESENTATIVE)Only the most recent of4 results within the time period is included. athologist Signature Prealbumin 14.0 (L) 20.0 - 40.0 [facility] mg/dL [facility] Specimen Anatomical Collection Method Collection Time Receive d Time (Source) Location / / Volume Laterality Blood 01/21/2022 6:25 AM 2 7:16 LOAN SERVICING REPRESENTATIVE AM LOAN SERVICING REPRESENTATIVE Lashonda CROSS LAB BLOOD ORDERABLES Performing Organization Address City/[facility] [address]/[facility] Phon e Number [facility] Unless otherwise noted, [address] all lab tests performed by: Division of Pathology and Laboratory Medicine [address] (ABNORMAL) Glucose Level (01/21/2022 6:25 AM LOAN SERVICING REPRESENTATIVE)Only the most recent of26 resultswithin the time period is included. athologist Signature Glucose Level 120 (H) 70 - 99 [facility] mg/dL [facility] Comment: Effective 09/04/15, the glucose reference intervals have been updated based on [place] Diabetes [employer] guidelines (Standards of Medical Care in Diabetes 2016. Diabetes Care 2016; 39: S13-S22). Fasting blood glucose: Normal: 70-99 mg/dL Impaired fasting glucose (increased risk for diabetes or pre-diabetes): 100- 125 mg/dL Diabetes mellitus: >/=126 mg/dL Random blood glucose: Normal: 70-199 mg/dL Note: Random glucose >100 mg/dL is assoc iated with increased risk for diabetes Specimen Anatomical Collection Method Collection Time Receive d Time (Source) Location / / Volume Laterality Blood 01/21/2022 6:25 AM 2 6:44 LOAN SERVICING REPRESENTATIVE AM LOAN SERVICING REPRESENTATIVE Yessi Webb DO LAB BLOOD ORDERABLES Performing Organization Address City/[facility] [address]/ZIP [facility] Phon e Number [facility] Unless otherwise noted, [address] all lab tests performed by: Division of Pathology and Laboratory Medicine [address] Calcium Level (01/21/2022 6:25 AM LOAN SERVICING REPRESENTATIVE)Only the most recent of27 resultswithin the time period is included. athologist Signature Calcium Lvl 8.9 8.4 - 10.2 [facility] mg/dL [facility] Specimen Anatomical Collection Method Collection Time Receive d Time (Source) Location / / Volume Laterality Blood 01/21/2022 6:25 AM 2 6:44 LOAN SERVICING REPRESENTATIVE AM LOAN SERVICING REPRESENTATIVE Yessi RonHarry LAB BLOOD ORDERABLES Performing Organization Address City/[facility] [address]/ZIP Code Phon e Number [facility] Unless otherwise noted, [address] all lab tests performed by: Division of Pathology and Laboratory Medicine [address] [place] [address] Electrolyte Panel (01/21/2022 6:25 AM LOAN SERVICING REPRESENTATIVE)Only the most recent of27 results within the time period is included. athologist Signature Sodium Lvl 140 136 - 145 [facility] mEq/L [facility] Potassium Lvl 4.7 3.5 - 5.1 [facility] mEq/L [facility] Chloride 104 98 - 107 [facility] mEq/L [facility] CO2 27 22 - 29 [facility] mEq/L [facility] Anion Gap 9 4 - 14 [facility] mEq/L [facility] Specimen Anatomical Collection Method Collection Time Receive d Time (Source) Location / / Volume Laterality Blood 01/21/2022 6:25 AM 2 6:44 LOAN SERVICING REPRESENTATIVE AM LOAN SERVICING REPRESENTATIVE Yessi EasleyMcdonald LAB BLOOD ORDERABLES Performing Organization Address City/[facility] [address]/ZIP Code Phon e Number [facility] Unless otherwise noted, [address] all lab tests performed by: Division of Pathology and Laboratory Medicine [address] [place] [address] XR Abdomen 1 View Portable (01/14/2022 11:38 AM LOAN SERVICING REPRESENTATIVE) Anatomical Region Laterality Modality Abdomen Digital Radiography Specimen (Source) Anatomical Collection Method Collection Time Re ceived Time Location / / Volume Laterality 01/14/2022 12:02 PM LOAN SERVICING REPRESENTATIVE Impressions 01/14/2022 12:15 PM LOAN SERVICING REPRESENTATIVE 1. Nonobstructive bowel gas pattern. 2. 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 Thoracic back pain Indication: Constipation Comparison: CT 12/29/2021 Technique: XR ABDOMEN 1 VW PORTABLE Findings: The bowel gas pattern is nonobstructive. Moderate nonspecific gaseous distention of the stomach. Moderate to large retained stool in the descending and sigmoid colon. The imaged lung bases are grossly clear. The regional osseous structures are inta ct. Procedure Note Caitlyn Gotti MD - 01/14/2022Formatt ing of this note might be different from the original. 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 Thoracic back pain Indication: Constipation Comparison: CT 12/29/2021 Technique: XR ABDOMEN 1 VW PORTABLE Findings: The bowel gas pattern is nonobstructive. Moderate nonspecific gaseous distention of the stomach. Moderate to large retained stool in the descending and sigmoid colon. The imaged lung bases are grossly clear. The regional osseous structures are inta ct. IMPRESSION: 1. Nonobstructive bowel gas pattern. 2. Moderate to large amount of retained stool in the descending and sigmoid colon Aleisha Andrade APN IMG DIAGNOSTIC IMAGING ORDE FALGUNI (ABNORMAL) POC Glucose Screen (01/06/2022 5:54 PM LOAN SERVICING REPRESENTATIVE)Only the most recent of31 resultswithin the time period is included. athologist Signature POC Glucose 133 (H) 70 - 99 [facility] mg/dL Comment: Capillary blood samples, e.g. obtained b y fingerstick, may have inaccurate results in patients with decreased peripheral blood flow. Method description: All results are alexys ured using Electrochemistry test methodology. The glucose in the sample mixes with the reagents on the test strip. The reaction produces an electric current. The amount of current produced is proportion al to the glucose concentration in the blood. PO Sample Type Capillary POC [facility] Performing Lab [facility] POC [facility]EL[facility] R Comment: [facility], [facility] [place] [address]; Lab Direct or: Alexia Palmer MD Specimen Anatomical Collection Method Collection Time Receive d Time (Source) Location / / Volume Laterality Blood 01/06/2022 5:54 PM 5:54 LOAN SERVICING REPRESENTATIVE PM LOAN SERVICING REPRESENTATIVE Damion Rashid MD POCT ORDERABLES - DEVICE Performing Organization Address City/State/ZIP Code Phon e Number POC [facility] HSV/VZV DNA Detection (01/06/2022 6:08 AM LOAN SERVICING REPRESENTATIVE) P athologist Signature HSV/VZV Forehead OTIS LY Specimen [facility] HSV-1 DNA Negative Negative [facility] HSV-2 DNA Negative Negative [facility] VZV DNA Negative Negative [facility] Comment: HSV 1+2/VZV DNA is a nucleic acid amplif ication test (NAAT) intended for the qualitative detection and differentiation of herpes simplex virus type 1, herpes simplex virus type 2, and varicella-zoster v irus DNA isolated and purified from cuta neous or mucocutaneous lesions from symptomatic p atients. Reference Range: DNA Negative When invalid results are obtained, a new specimen should be collected for repeat testing if clinically indicated. Specimen Anatomical Collection Method Collection Time Receive d Time (Source) Location / / Volume Laterality Lesion 01/06/2022 6:08 AM 7:05 LOAN SERVICING REPRESENTATIVE AM LOAN SERVICING REPRESENTATIVE Bridgett OWENS MICROBIOLOGY - GENERAL ORDER SYLVAIN Performing Organization Address City/State/ZIP Code Phon e Number [facility] Unless otherwise noted, [address] all lab tests performed by: Division of Pathology and Laboratory Medicine [address] (ABNORMAL) Wound Culture w/Gram Stain (01/06/2022 6:08 AM LOAN SERVICING REPRESENTATIVE) Component Value Ref Test Analysis Performed At Patholo gist Range Method Time Signature Final Report Many Staphylococcus coagulase negative OTIS LY Susceptibility performed upon request. Plates will be held for 5 days [facility] Path Review The results have been review ed and electronically signed by Pathologist: MT MD MISTI LAI MD #[id number] [facility] Gram Stain No WBC's seen. MT Report No organisms seen. [facility] Specimen Anatomical Collection Method Collection Time Receive d Time (Source) Location / / Volume Laterality Lesion (Cheek) 01/06/2022 6:08 AM 022 7:19 LOAN SERVICING REPRESENTATIVE AM LOAN SERVICING REPRESENTATIVE Bridgett OWENS MICROBIOLOGY - GENERAL ORDER SYLVAIN Performing Organization Address City/State/ZIP Code Phon e Number [facility] Unless otherwise noted, [address] all lab tests performed by: Division of Pathology and Laboratory Medicine [address] XR Chest 1 View Portable (12/31/2021 4:04 PM LOAN SERVICING REPRESENTATIVE)Only the most recent of2 resultswithin the time period is included. Anatomical Region Laterality Modality Chest Digital Radiography Specimen (Source) Anatomical Collection Method Collection Time Re ceived Time Location / / Volume Laterality 12/31/2021 4:24 PM LOAN SERVICING REPRESENTATIVE Impressions 12/31/2021 4:29 PM LOAN SERVICING REPRESENTATIVE Interval placement of cervicothoracic spine fixation hardware Linear opacity in the left lower lung li era represent atelectasis Narrative 12/31/2021 4:29 PM LOAN SERVICING REPRESENTATIVE FULL RESULT: Examination: XR CHEST 1 VW PORTABLE, 4:04 PM Clinical History: Thoracic back pain, pe nile cancer Indication: Baseline Chest X-Ray Comparison: 04/14/2021, CT 12/29/2021 Technique: Single portable anteroposteri or radiograph of the chest. Findings: The cardiomediastinal silhouette is unch anged. There is linear left lower lung opacity. Lytic changes of right posterior third rib is again noted. There is interval placement of cervicothoracic spine fi xation hardware. No pneumothorax or pleu ral effusion Procedure Note Brook Aragon MD - 12/31/2021 FULL RESULT: Examination: XR CHEST 1 VW PORTABLE, 4:04 PM Clinical History: Thoracic back pain, pe nile cancer Indication: Baseline Chest X-Ray Comparison: 04/14/2021, CT 12/29/2021 Technique: Single portable anteroposteri or radiograph of the chest. Findings: The cardiomediastinal silhouette is unch anged. There is linear left lower lung opacity. Lytic changes of right posterior third rib is again noted. There is interval placement of cervicothoracic spine fixation hardware. No pneumothorax or pleural effusion IMPRESSION: Interval placement of cervicothoracic sp ine fixation hardware Linear opacity in the left lower lung li era represent atelectasis Damion Rashid MD IMG DIAGNOSTIC IMAGING ORDER SYLVAIN iOCT Image Guidance (12/30/2021 10:28 AM LOAN SERVICING REPRESENTATIVE) Specimen (Source) Anatomical Location Collection Method / Collectio n Time Received Time / Laterality Volume Narrative Systemgenerated, Documentation - 022 10:29 AM LOAN SERVICING REPRESENTATIVE This procedure requires no interpretatio n from the radiologist. Noel Motley MD IMG CT ORDER SYLVAIN Pathology Surgical Interpretation (12/30/2021 7:35 AM LOAN SERVICING REPRESENTATIVE)Only the most recent of3 resultswithin the time period is included. Component Value Ref Test Analysis Performed Pathologis t Range Method Time At Signature Submitted Thoracic back pain 01/08/2022 [facility] Clinical [M54.6] 11:09 AM History LOAN SERVICING REPRESENTATIVE Diagnosis A: Spine, T2-T3 tumor: 01/08/2022 [facility] Electronically METASTATIC SQUAMOUS CELL CAR CINOMA INVOLVING BONE AND FIBROADIPOSE TISSUE, CONSISTENT WITH PATIENT'S KNOWN PENILE PRIMARY. 11:09 AM signed by Mario Marie MD on 01/08/2022 at 11:09 AM Gross A: 01/08/2022 [facility] Description Spine, t2-t3 tumor---permane nt---or 35---: Consists of multiple barone- brown to barone-white fragments of bone aggregating to 6.2 x 5.0 x 3.0 cm. [employer] Operator sections are submitted in cassettes A1-A6 following decalcification. DF 11:09 AM LOAN SERVICING REPRESENTATIVE Biomarker A3 01/08/2022 [facility] Block(s) 11:09 AM LOAN SERVICING REPRESENTATIVE Disclaimer "Some tests 01/08/2022 [facility] reported here may 11:09 AM have been LOAN SERVICING REPRESENTATIVE developed and performance characteristics determined by [facility] Pathology and Laboratory Medicine. These tests have not been specifically cleared or approved by the U.S. Food and Drug Administration. If applicable, controls were reviewed and showed appropriate reactivity." Specimen Anatomical Collection Method Collection Time Receive d Time (Source) Location / / Volume Laterality Tissue (Spine) 12/30/2021 7:35 AM 022 8:05 LOAN SERVICING REPRESENTATIVE AM LOAN SERVICING REPRESENTATIVE Noel Motley MD LAB PATHOLOG Y ORDERABLES Performing Organization Address City/State/ZIP Code Phon e Number [facility] [employer] [facility], [place] [phone] [place] TEG Path Final Review (12/30/2021 6:50 AM LOAN SERVICING REPRESENTATIVE) Patholo gist Method Time Signature OR TEG Path SEE TEG UT MD Review Final PATH REVIEW [facility] Comment: JONATHON CONDE MD, PhD - [id number] Dictated by: JONATHON CONDE MD, PhD - [id number] Dictated Date/Time: 12.31.2021 9:[address] Transcribed Date/Time: 12.31.2021 9:00 AM LOAN SERVICING REPRESENTATIVE Electronically Signed By: Josue GE, PhD - [id number] on 12.31.2021 9:00 AM C Specimen Anatomical Collection Method Collection Time Receive d Time (Source) Location / / Volume Laterality Blood 12/30/2021 6:50 AM 6:50 LOAN SERVICING REPRESENTATIVE AM LOAN SERVICING REPRESENTATIVE Jacoby Blount MD LAB BLOOD ORDERABLES Performing Organization Address City/State/ZIP Code Phon e Number [facility] Unless otherwise noted, [place], [place] [id number] [place] [address] all lab tests performed by: Division of Pathology and Laboratory Medicine [address] [place] TEG Path Review 1 (12/30/2021 6:50 AM LOAN SERVICING REPRESENTATIVE) Component Value Ref Test Analysis Performed Pathologis t Range Method Time At Signature OR TEG Path THE RESULTS OF THE MT MD Review 1 PLAIN AND HEPARINASE JC CHANNELS ARE SIMILAR CANCER AND INDICATIVE OF A CENTER HYPERCOAGULABILITY WITH ENHANCED ENZYMATIC ACTIVITY WELL PLATELET-FIBRINOGEN INTERACTION. SUGGEST CLINICOPATHOLOGICAL CORRELATION. Comment: JONATHON CONDE MD, PhD - [id number] Dictated by: JONATHON CONDE MD, PhD - [id number] Dictated Date/Time: 12.30.2021 8:[address] Transcribed Date/Time: 12.30.2021 8:49 AM LOAN SERVICING REPRESENTATIVE Electronically Signed By: Josue GE, PhD - [id number] on 12.30.2021 8:49 AM C Specimen Anatomical Collection Method Collection Time Receive d Time (Source) Location / / Volume Laterality Blood 12/30/2021 6:50 AM 6:50 LOAN SERVICING REPRESENTATIVE AM LOAN SERVICING REPRESENTATIVE Jacoby Blount MD LAB BLOOD ORDERABLES Performing Organization Address City/State/ZIP Code Phon e Number [facility] Unless otherwise noted, [place] [address] CENTER all lab tests performed by: Division of Pathology and Laboratory Medicine [address] (ABNORMAL) OR TEG S1 (12/30/2021 6:50 AM LOAN SERVICING REPRESENTATIVE) Analysis Performed At Patho logist Time Signature OR TEG 1 Date 12/30/2021 [facility] OR TEG 1 Time 07:26 [facility] OR T1 SP 3.6 minute(s) [facility] Comment: R minus SP (0.7-1.1 minutes) OR T1 R 3.9 (L) 5.0 - 10.0 minute(s) MT AND [facility] OR T1 K 1.1 1.0 - 3.0 minute(s) MT MD [facility] OR T1 Angle 74.5 (H) 53.0 - 72.0 degrees MT MD [facility] OR T1 MA 73.2 (H) 50.0 - 70.0 mm [facility] OR T1 G 13.6 (H) 4.5 - 11.0 K d/sc [place] MD [facility] OR T1 EPL 0.0 0.0 - 15.0 % [facility] OR T1 CI 3.9 (H) -3.0 - 3.0 [facility] Comment: The Thrombelastograph (TEG) 5000 analyze r is a non-invasive diagnostic instrument designed to monitor and analyze the coagulation state of a blood sample in order to assist in the assessment of patient clinical hemostasis condition. The TEG uses a stationary cylindrical cup that oscillat es a patient sample at an angle of 4 45 . Each rotation cycle lasts 10 seconds. A pin suspended in the sample by a torsion wire monitors the motion and records the changes in the resulting clot. (Applies to OR T1 Angle, OR T1 Cl, OR T1 EPL, OR T1 G, OR T1 K, OR T1 MA, OR T1 R, and OR T1 SP) The population for which this test may b e used has been modified, validated and extended for use on patients of age 11 years or older by the Division of Pathology and Laboratory Medicine. This laboratory is certified under the Clinical Laboratory Improvement Amendments (CLIA) as qualifi ed to perform high complexity clinical laboratory testing. Specimen Anatomical Collection Method Collection Time Receive d Time (Source) Location / / Volume Laterality Blood 12/30/2021 6:50 AM 6:59 LOAN SERVICING REPRESENTATIVE AM LOAN SERVICING REPRESENTATIVE Jacoby Blount MD LAB BLOOD ORDERABLES Performing Organization Address City/State/ZIP Code Phon e Number [facility] Unless otherwise noted, [place] [address] [place] all lab tests performed by: Division of Pathology and Laboratory Medicine [address] (ABNORMAL) OR TEG1 Hep (12/30/2021 6:50 AM LOAN SERVICING REPRESENTATIVE) Analysis Performed At Patho logist Time Signature OR TEG 1 Date 12/30/2021 [facility] OR TEG 1 Time 07:27 [facility] OR T1 SP Hep 3.7 minute(s) [facility] Comment: R HEP minus SP HEP (0.7-1.1 min utes) OR T1 R Hep 4.0 (L) 5.0 - 10.0 minute(s) [facility] T1 K Hep 1.2 1.0 - 3.0 minute(s) MT MD [facility] OR T1 Angle Hep 73.7 (H) 53.0 - 72.0 degrees [facility] OR T1 MA Hep 72.0 (H) 50.0 - 70.0 mm MT [facility] OR T1 G Hep 12.8 (H) 4.5 - 11.0 K d/sc MT MD [place] [facility] OR T1 EPL Hep 0.0 0.0 - 15.0 % MT MD POLO Carty [facility] OR T1 CI Hep 3.6 (H) -3.0 - 3.0 [facility] Comment: The Thrombelastograph (TEG) 5000 analyze r is a non-invasive diagnostic instrument designed to monitor and analyze the coagulation state of a blood sample in order to assist in the assessment of patient clinical hemostasis condition. The TEG uses a stationary cylindrical cup that oscillat es a patient sample at an angle of 4 45 . Each rotation cycle lasts 10 seconds. A pin suspended in the sample by a torsion wire monitors the motion and records the changes in the resulting clot. ( Applies to OR T1 Angle Hep, OR T1 Cl H ep, OR T1 EPL Hep, OR T1 G Hep, OR T1 K Hep, OR T1 MA Hep, OR T1 R Hep, and OR T1 SP Hep) The population for which this test may b e used has been modified, validated and extended for use on patients of age 11 years or older by the Division of Pathology and Laboratory Medicine. This laboratory is certified under the Clinical Laboratory Improvement Amendments (CLIA) as qualifi ed to perform high complexity clinical laboratory testing. Specimen Anatomical Collection Method Collection Time Receive d Time (Source) Location / / Volume Laterality Blood 12/30/2021 6:50 AM 6:59 LOAN SERVICING REPRESENTATIVE AM LOAN SERVICING REPRESENTATIVE Jacoby Blount MD LAB BLOOD ORDERABLES Performing Organization Address City/State/ZIP Code Phon e Number [facility] Unless otherwise noted, [place] [address] [place] all lab tests performed by: Division of Pathology and Laboratory Medicine [address] (ABNORMAL) OR ABG+ (ABG, Na, K, Cl, Glu, Hct, Lactate, Ion Ca) (12/30/2021 6:50 AM LOAN SERVICING REPRESENTATIVE)Only the most recent of5 resultswithin the time period is included. P athologist Signature OR Sodium, 141 136 - 146 [facility] arterial mEq/L [facility] [place] Comment: Methodology: The ABL90 Flex Plus analyze r is an in vitro diagnostic portable, automated analyzer that measures electrolytes in whole blood. This analyzer uses potentiometry to measure K+, Na+, and Cl- . The potential of an electrode chain is measured by a voltmeter, and related to the concent ration of the sample. OR Potassium, arterial 4.1 3.4 - 4.5 mEq/L U [facility] Comment: Methodology: The ABL90 Flex Plus analyze r is an in vitro diagnostic portable, automated analyzer that measures electrolytes in whole blood. This analyzer uses potentiometry to measure K+, Na+, and Cl- . The potential of an electrode chain is measured by a voltmeter, and related to the concent ration of the sample. OR Chloride, arterial 109 (H) 98 - 106 mEq/L [facility] Comment: Methodology: The ABL90 Flex Plus analyze r is an in vitro diagnostic portable, automated analyzer that measures electrolytes in whole blood. This analyzer uses potentiometry to measure K+, Na+, and Cl- . The potential of an electrode chain is measured by a voltmeter, and related to the concent ration of the sample. OR Glucose, arterial 179 (H) 70 - 105 mg/dL [facility] Comment: Methodology: The ABL90 Flex Plus analyze r is an in vitro diagnostic portable, automated analyzer that measures metabolites in whole blood. This analyzer uses amperometry to measure glucose and lactate. The magnitude of an electrical current that flows through an electrode chain is proportion al to the concentration of the substance that is oxidized or reduced at an electrode in the chain. OR Hemoglobin, arterial 12.0 (L) 13.5 - 17.5 g/dL [facility] Comment: Methodology: The ABL90 Flex Plus analyze r is an in vitro diagnostic portable, automated analyzer that measures hemoglobin in whole blood. This analyzer uses spectrophotometry to measure hemoglobin. Light passes through a cuvette that contains a hemolyzed blood sample. Hematocrit is de rived from the total hemoglobin multiplied by the standard value 0.0301. OR Hematocrit, arterial 37 (L) 42 - 52 % [facility] OR Lactate, arterial 1.5 (H) 0.4 - 0.8 mmol/L [facility] Comment: Methodology: The ABL90 Flex Plus analyze r is an in vitro diagnostic portable, automated analyzer that measures metabolites in whole blood. This analyzer uses amperometry to measure glucose and lactate. The magnitude of an electrical current that flows through an electrode chain is proportion al to the concentration of the substance that is oxidized or reduced at an electrode in the chain. OR Ion calcium, arterial 1.15 1.15 - 1.29 mmol/L [facility] Comment: Methodology: The ABL90 Flex Plus analyze r is an in vitro diagnostic portable, automated analyzer that measures electrolytes in whole blood. This analyzer uses potentiometry to measure Ca2+. The potential of an electrode chain is measured by a voltmeter, and related to the concentrat ion of the sample. OR pH Art 7.38 7.35 - 7.45 [facility] OR pCO2 Art 42.2 35.0 - 48.0 mmHg [facility] OR pO2 Art 187 (H) 83 - 108 mmHg [facility] OR HCO3 Art 25 21 - 28 mmol/L [facility] Comment: Methodology: The ABL90 Flex Plus analyze r is an in vitro diagnostic portable, automated analyzer that measures electrolytes in whole blood. This analyzer uses potentiometry to measure K+, Na+, Cl-, and HCO3. The potential of an electrode chain is measured by a voltmeter, and related to the concentration of the sample. OR Anion Gap, arterial 8 7 - 16 mmol/L [facility] Comment: Methodology: The ABL90 Flex Plus analyze r is an in vitro diagnostic portable, automated analyzer that measures electrolytes in whole blood. This analyzer uses potentiometry to measure electrolytes. Th e potential of an electrode chain is leslye sured by a voltmeter, and related to the concentrat ion of the sample. Anion gap is derived as the difference between the concentration of cations and anions. OR Base Excess Art -1 -2 - 3 mmol/L MT MD [facility] OR O2 Sat Art 100 (H) 95 - 99 % [facility] Comment: The ABL90 Flex Plus analyzer is an in vi tro diagnostic portable, automated analyzer that measures pH, blood gas, electrolytes, hemoglobin, glucose and lactate in whole blood. This analyzer uses the meth [employer]gent[employer] noted to perform quantitative measurement of the parameters listed when tested or as noted with indicated analytes. 1) K+, Na+ and Cl-, Anion Gap, Glucose , Lactate, Hemoglobin, and HCO3 -NOTE: Methodology is noted with specific analyte(s) when reported. 2) pH and pCO2 are measured by potenti ometry. The potential of an electrode chain is measured by a voltmeter, and related to the concentration of the sample. 3) pO2 is measured by optical pO2. The optical system for pO2 is based on the ability of O2 to reduce the intensity and time constant of the phosphorescence from a phosphorescent dye that is in contact with the sample. 4) sO2 is measured by spectrophotometr y. Light passes through a cuvette that contains a hemolyzed blood sample. The absorption spectrum is used to calculate oximetry parameters. FLOW/ FiO2 50% MT MD [facility] Art Draw Site Art Line [facility] Art Kiko Test Not Performed MT MD LANDON ESCAMILLA [facility] Specimen Anatomical Collection Method Collection Time Receive d Time (Source) Location / / Volume Laterality Blood (Arterial 12/30/2021 6:50 AM 2021 6:57 Line) LOAN SERVICING REPRESENTATIVE AM LOAN SERVICING REPRESENTATIVE Narrative [facility] - 6:59 AM LOAN SERVICING REPRESENTATIVE 50% fio2 Jacoby Blount MD LAB BLOOD ORDERABLES Performing Organization Address [facility] [address]/ZIP [facility] Phon e Number [facility] Unless otherwise noted, [place] [address] [place] all lab tests performed by: Division of Pathology and Laboratory Medicine [address] [place] [address] (ABNORMAL) POC [facility] (12/30/2021 5:52 AM LOAN SERVICING REPRESENTATIVE) athologist Signature POC [facility] 12.2 (L) 14.0 - 18.0 POC [facility] gm/dL Comment: Method description: The hemoglobin emma ntration in blood is determined as azidemethemoglobin utilizing a microcuvette with a dry reagent system and a dual wavelength photometer. Sodium deoxycholate lyses the erythrocytes, releasing the hemoglobin. Sodium nitrite converts the hemoglobin m ethemoglobin then the sodium azide converts this product to azidemethemoglobin. The absorbance is measured and the hemoglobin level is calculated. Measurements are taken at 570nm and 880 nm to correct for any turbidity in the sample. Performing Lab [facility] POC [facility] R Comment: [facility], [address] [place] [address], [place] [address]; Lab Direct or: Alexia Palmer MD Specimen Anatomical Collection Method Collection Time Receive d Time (Source) Location / / Volume Laterality Blood 12/30/2021 5:52 AM 5:52 LOAN SERVICING REPRESENTATIVE AM LOAN SERVICING REPRESENTATIVE Noel Motley MD POCT ORDERAB LES - DEVICE Performing Organization Address [facility] [address]/[facility] Phon e Number POC [facility] Transfuse RBC: (12/30/2021 4:57 AM LOAN SERVICING REPRESENTATIVE) Jacoby Blount MD BLOOD TRANSFUSION ORDERABLES Prepare fresh frozen plasma:Transfusion Indications: O.R. Patient; Main OR 35, 4 Units (12/29/2021 10:31 PM LOAN SERVICING REPRESENTATIVE) athologist [facility] Product 4 [facility] Comment: Fresh Frozen Plasma Available - Order Form 03 when ready for product issue. Unit Number [id number] [facility] Product Code [id number] [facility] Unit Expiration [id number] [facility] Unit Blood Type 6200 [facility] Product Code Text PLASMA IR CPD UT MD ACOSTA [facility]ANNERANDI [facility] Unit Irradiated IRRADIATED UT MD POLO Carty [facility] Dispense Status RETURNED UT [facility] Unit Blood Type A Positive MT MD POLO Carty [facility] Comment: Unit Number [id number] [facility] Product Code [id number] [facility] Unit Expiration MT MD LANDON ESCAMILLA [facility] Unit Blood Type 6200 [facility] Product Code Text PLASMA IR CPD UT [facility] Unit Irradiated IRRADIATED UT MD POLO Carty [facility] Dispense Status RETURNED UT [facility] Unit Blood Type A Positive MT MD POLO Carty [facility] Comment: Unit Number [id number] MT [facility] Product Code [id number] [facility] Unit Expiration MT MD L[facility]ON [facility]A [facility] Unit Blood Type 5100 [facility] Product Code Text PLASMA IR CPD UT MD ACOSTA [facility]AN[facility]I [facility] Unit Irradiated IRRADIATED UT MD POLO Carty [facility] Dispense Status RETURNED MT [facility] Unit Blood Type O Positive MT MD POLO Carty [facility] Comment: Unit Number [id number] MT [facility] Product Code [id number] [facility] Unit Expiration UT MD [facility] Unit Blood Type 5100 UT [facility] Product Code Text PLASMA IR CPD UT MD [facility] [place] Unit Irradiated IRRADIATED UT MD POLO Carty [facility] Dispense Status RETURNED UT [facility] Unit Blood Type O Positive MT MD [facility] Comment: Unit Number [id number] MT [facility] Product Code [id number] MT [facility] Unit Expiration [id number] MT [facility] ANDI [facility] Unit Blood Type 5100 [facility] Product Code Text PLASMA IR CPD UT [facility] Unit Irradiated IRRADIATED MT [facility] Dispense Status RETURNED [facility] Unit Blood Type O Positive MT [facility] Comment: Unit Number [id number] [facility] Product Code [id number] MT [facility] Unit Expiration [id number] MT LANDONNEPTALI ESCAMILLA [facility] Unit Blood Type 5100 [facility] Product Code Text PLASMA IR CPD [facility] Unit Irradiated IRRADIATED MT [facility] Machelle [facility] Dispense Status RETURNED [facility] Unit Blood Type O Positive MT [facility] Comment: Unit Number [id number] [facility] Product Code [id number] MT [facility] Unit Expiration [id number] MT [facility] ANDI [facility] Unit Blood Type 9500 [facility] Product Code Text PLASMA IR CPD UT [facility] Unit Irradiated IRRADIATED MT [facility] Dispense Status RETURNED [facility] Unit Blood Type O Negative MT [facility] Comment: Unit Number [id number] [facility] Product Code [id number] MT [facility] Unit Expiration MT LANDON ANDI [facility] Unit Blood Type 9500 [facility] Product Code Text PLASMA IR CPD MT MD ACOSTA BANNERANDI [facility] Unit Irradiated IRRADIATED MT MD POLO Carty [facility] Dispense Status RETURNED [facility] Unit Blood Type O Negative MT [facility] Machelle [facility] Comment: Specimen Anatomical Collection Method Collection Time Receive d Time (Source) Location / / Volume Laterality Blood 12/29/2021 10:31 12/29/2021 PM LOAN SERVICING REPRESENTATIVE 10:30 PM LOAN SERVICING REPRESENTATIVE Jacoby Blount MD BLOOD BANK PRODUCT ORDERABLE S Performing Organization Address City/State/ZIP Code Phon e Number [facility] Unless otherwise noted, [address] all lab tests performed by: Division of Pathology and Laboratory Medicine [address] [place] [address] Prepare platelets:Transfusion Indications: O.R. Patient; Main OR 35, 1 Units (12/29/2021 10:30 PM LOAN SERVICING REPRESENTATIVE) athologist Signature PLT Product Approved [facility] Comment: Platelet order has been approve d. Order Form 3 when ready for product issue. Expect 2 hours for platelet concentratio n. Unit Number [id number] [facility] Product Code [id number] MT [facility] Unit Expiration [id number] MT LANDON ANDI [facility] Unit Blood Type 5100 [facility] Product Code Text PLATELET Aph IR LR BacM bag 1 [facility] Unit Irradiated IRRADIATED MT MD POLO Carty [facility] Dispense Status RETURNED [facility] Unit Blood Type O Positive MT [facility] Machelle [facility] Comment: Specimen Anatomical Collection Method Collection Time Receive d Time (Source) Location / / Volume Laterality Blood 12/29/2021 10:30 12/29/2021 PM LOAN SERVICING REPRESENTATIVE 10:30 PM LOAN SERVICING REPRESENTATIVE Jacoby Blount MD BLOOD BANK PRODUCT ORDERABLE S Performing Organization Address City/State/ZIP Code Phon e Number [facility] Unless otherwise noted, [place] [address] [place] all lab tests performed by: Division of Pathology and Laboratory Medicine [address] [place] [address] Prepare RBC:MAIN OR 35, 4 Units (12/29/2021 10:30 PM LOAN SERVICING REPRESENTATIVE) [facility] Method Time Signature Unit Number [id number] [facility] Product Code [id number] [facility] Unit [id number] [facility] Expiration [facility] Unit Blood 5100 [facility] Product Code RBCIRLR CPD AS1 [facility] Text 500mL [facility] Crossmatch [facility] Expiration [facility] Unit IRRADIATED [facility] Dispense RETURNED [facility] Unit Blood O Positive [facility] Comment: Product Boiler Tube Blower Location .BPAM [facility] Comment: Unit Number [id number] [facility] Product Code [id number] [facility] Unit Expiration MT MD [facility] Unit Blood Type 5100 [facility] Product Code Text RBCIRLR CPD AS1 500mL [facility] Crossmatch Expiration Date [facility] Unit Irradiated IRRADIATED MT [facility] Dispense Status RETURNED [facility] Unit Blood Type O Positive MT [facility] Comment: Product Boiler Tube Blower Location .[facility] Comment: Unit Number [id number] [facility] Product Code [id number] [facility] Unit Expiration [facility] Unit Blood Type 5100 [facility] Product Code Text RBCIRLR Aph ACDA AS3 Bag 1 [facility] Crossmatch Expiration Date [facility] Unit Irradiated IRRADIATED [facility] Dispense Status ISSUED [facility] Unit Blood Type O Positive [facility] Product Boiler Tube Blower Location .[facility] Comment: Unit Number [id number] [facility] Product Code [id number] [facility] Unit Expiration [id number] [facility] Unit Blood Type 5100 [facility] Product Code Text RBCIRLR Aph ACDA AS3 Bag 1 [facility] Crossmatch Expiration Date [facility] Unit Irradiated IRRADIATED [facility] Dispense Status RETURNED [facility] Unit Blood Type O Positive [facility] Comment: Product Boiler Tube Blower Location .[facility] Comment: Specimen Anatomical Collection Method Collection Time Receive d Time (Source) Location / / Volume Laterality Blood 12/29/2021 10:30 12/29/2021 PM LOAN SERVICING REPRESENTATIVE 10:30 PM LOAN SERVICING REPRESENTATIVE Jacoby Blount MD BLOOD BANK PRODUCT ORDERABLE S Performing Organization Address City/State/ZIP Code Phon e Number [facility] Unless otherwise noted, [place] [address] [place] all lab tests performed by: Division of Pathology and Laboratory Medicine [address] [facility] CT Chest Abdomen Pelvis with Contrast (12/29/2021 9:11 PM LOAN SERVICING REPRESENTATIVE) Anatomical Region Laterality Modality Abdomen, Pelvis, Chest Computed Tomograp hy Specimen (Source) Anatomical Collection Method Collection Time Re ceived Time Location / / Volume Laterality 12/29/2021 9:24 PM LOAN SERVICING REPRESENTATIVE Impressions 12/29/2021 9:55 PM LOAN SERVICING REPRESENTATIVE 1. 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 2. Stable soft tissue anterior and infer ior to symphysis pubis concerning for recurrent disease. 3. Stable bilateral external iliac metas tatic lymphadenopathy. Narrative 12/29/2021 9:55 PM LOAN SERVICING REPRESENTATIVE Examination: CT CHEST ABDOMEN PELVIS W C ONTRAST, 12/29/2021 9:11 PM Clinical History: Thoracic back pain Indication: Cancer complication or comor bidity assessment, Cancer staging or restaging, eval disease burden/evidence mets Comparison: PET/CT on 12/23/[address] chest chest and abdomen on 03/01/2021 Technique: CT of the chest, abdomen, and pelvis was performed with intravenous contrast. Findings: Chest: Heart: Heart normal in size. No pericard ial effusion. Lymph nodes: Stable prominent left axill annmarie lymph node measuring 0.9 x 1.1 cm unchanged since 03/01/2021. No mediastinal or hilar lymphadenopathy. Lungs and pleura: Bibasilar atelectasis. No consolidation, pleural effusion or pneumothorax. Abdomen/pelvis: Liver, gallbladder, bile ducts: Stable h epatic cysts No suspicious hepatic lesion. No biliary ductal dilatation. Gallbladder is unremarkable. Pancreas: No pancreatic lesion. No pancr eatic duct dilatation. Spleen:Normal in size. No splenic lesion . Adrenals:Unremarkable. No nodule. Kidneys:No hydronephrosis. No suspicious renal mass. Bowel and Mesentery:No bowel wall thicke lynn. No bowel obstruction. No mesenteric mass. Lymph Nodes: Bilateral external iliac ly mphadenopathy, FDG avid on PET/CT (series 6, image 288 and 285) measuring 0.9 x 1.7 cm on the right and 0.8 x 0.9 cm on the left concerning for metastatic disease . No retroperitoneal, mesenteric or ingu inal lymphadenopathy. Vessels:Patent. Bladder:No bladder wall thickening. Reproductive organs: Post total penectom y. A 2.6 x 2.3 cm soft tissue, anterior and inferior to symphysis pubis (series 6, image 313) concerning for recurrent disease. Smaller soft tissue on 10/01/2021 presumed to be postsurgical changes. Enlarged prostate measuring 6.8 x 5.9 cm with mass effect on posterior bladder wall. Musculoskeletal/Soft tissues: Stable right posterior second and third rib destructive mass with soft tissue component involving posterior chest wall and T2 and T3 vertebral bodies resulting in significant spinal narrowing at T2 and T3 level with concern for cord compressi on measuring 8.5 x 5.8 cm (6, image 34). The mass involves vertebral bodies, right transverse process, lamina, pedicle and spinous process. Small fat-containing left inguinal hernia. Procedure Note Joellen Lux MD - 12/29/2021 Examination: CT CHEST ABDOMEN PELVIS W Sarai DOS SANTOS, 12/29/2021 9:11 PM Clinical History: Thoracic back pain Indication: Cancer complication or comor bidity assessment, Cancer staging or restaging, eval disease burden/evidence mets Comparison: PET/CT on 12/23/[address] chest chest and abdomen on 03/01/2021 Technique: CT of the chest, abdomen, and pelvis was performed with intravenous contrast. Findings: Chest: Heart: Heart normal in size. No pericard ial effusion. Lymph nodes: Stable prominent left axill annmarie lymph node measuring 0.9 x 1.1 cm unchanged since 03/01/2021. No mediastinal or hilar lymphadenopathy. Lungs and pleura: Bibasilar atelectasis. No consolidation, pleural effusion or pneumothorax. Abdomen/pelvis: Liver, gallbladder, bile ducts: Stable h epatic cysts No suspicious hepatic lesion. No biliary ductal dilatation. Gallbladder is unremarkable. Pancreas: No pancreatic lesion. No pancr eatic duct dilatation. Spleen:Normal in size. No splenic lesion . Adrenals:Unremarkable. No nodule. Kidneys:No hydronephrosis. No suspicious renal mass. Bowel and Mesentery:No bowel wall thicke lynn. No bowel obstruction. No mesenteric mass. Lymph Nodes: Bilateral external iliac ly mphadenopathy, FDG avid on PET/CT (series 6, image 288 and 285) measuring 0.9 x 1.7 cm on the right and 0.8 x 0.9 cm on the left concerning for metastatic disease. No retroperitoneal, mesenteric or inguinal lymphadenopathy. Vessels:Patent. Bladder:No bladder wall thickening. Reproductive organs: Post total penectom y. A 2.6 x 2.3 cm soft tissue, anterior and inferior to symphysis pubis (series 6, image 313) concerning for recurrent disease. Smaller soft tissue on 10/01/2021 presumed to be postsurgical changes. Enlarged prostate measuring 6.8 x 5.9 cm with mass effect on posterior bladder wall. Musculoskeletal/Soft tissues: Stable right posterior second and third rib destructive mass with soft tissue component involving posterior chest wall and T2 and T3 vertebral bodies resulting in significant spinal narrowing at T2 and T3 level with concern for cord compression measuring 8 .5 x 5.8 cm (6, image 34). The mass involves vertebral bodies, right transverse process, lamina, pedicle and spinous process. Small fat-containing left inguinal hernia. IMPRESSION: 1. 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 2. Stable soft tissue anterior and infer ior to symphysis pubis concerning for recurrent disease. 3. Stable bilateral external iliac metas tatic lymphadenopathy. Rell Olson MD IMG CT ORDERABLES Clot Expiration Date (12/29/2021 8:51 PM LOAN SERVICING REPRESENTATIVE)Only the most recent of5 results within the time period is included. [facility] Method Time Signature T & S 01/01/2022 MT Expiration [facility] Specimen Anatomical Collection Method Collection Time Receive d Time (Source) Location / / Volume Laterality Blood 12/29/2021 8:51 PM 2 9:25 LOAN SERVICING REPRESENTATIVE PM LOAN SERVICING REPRESENTATIVE Noel Motley MD BLOOD BANK T EST ORDERABLES Performing Organization Address City/[facility] [address]/[facility] Phon e Number [facility] Unless otherwise noted, [address] all lab tests performed by: Division of Pathology and Laboratory Medicine [address] [place] [address] Eugenia TMP Interpretation Antibody Screen Negative (12/29/2021 8:51 PM LOAN SERVICING REPRESENTATIVE)Only the most recent of5 resultswithin the time period is included. [facility] Signature TMP Auto Neg At the [place] [facility] plasma shows no evidence of RBC alloantibodi es. Comment: KADI FINCH MD, PhD - [id number] Dictated by: KADI FINCH MD, Ph D - [id number] Dictated Date/Time: 12.30.2021 6:[address] Transcribed Date/Time: 12.30.2021 6:58 AM LOAN SERVICING REPRESENTATIVE Electronically Signed By: KADI FINCH MD, PhD - [id number] on 12.30.2021 6:58 AM C Specimen Anatomical Collection Method Collection Time Receive d Time (Source) Location / / Volume Laterality Blood 12/29/2021 8:51 PM 2 9:25 LOAN SERVICING REPRESENTATIVE PM LOAN SERVICING REPRESENTATIVE Noel Motley MD BLOOD BANK T EST ORDERABLES Performing Organization Address City/[facility] [address]/[facility] Phon e Number [facility] Unless otherwise noted, [address] all lab tests performed by: Division of Pathology and Laboratory Medicine [facility] Josue Bello TMP Interpretation Crossmatch (12/29/2021 8:51 PM LOAN SERVICING REPRESENTATIVE) [facility] Signature TMP XM Interp RBC units MT crossmatched for [facility] acceptable. Comment: KADI FINCH MD, PhD - [id number] Dictated by: KADI FINCH MD, Ph D - [id number] Dictated Date/Time: 12.30.2021 6:[address] Transcribed Date/Time: 12.30.2021 6:58 AM LOAN SERVICING REPRESENTATIVE Electronically Signed By: KADI FINCH MD, PhD - [id number] on 12.30.2021 6:58 AM C Specimen Anatomical Collection Method Collection Time Receive d Time (Source) Location / / Volume Laterality Blood 12/29/2021 8:51 PM 2 9:25 LOAN SERVICING REPRESENTATIVE PM LOAN SERVICING REPRESENTATIVE Noel Motley MD BLOOD BANK T EST ORDERABLES Performing Organization Address City/[facility] [address]/ZIP [facility] Phon e Number [facility] Unless otherwise noted, [address] all lab tests performed by: Division of Pathology and Laboratory Medicine [facility] ABORh (12/29/2021 8:51 PM LOAN SERVICING REPRESENTATIVE)Only the most recent of5 resultswithin the time period is included. athologist Signature ABORh. O POS [facility] Specimen Anatomical Collection Method Collection Time Receive d Time (Source) Location / / Volume Laterality Blood 12/29/2021 8:51 PM 2 9:25 LOAN SERVICING REPRESENTATIVE PM LOAN SERVICING REPRESENTATIVE Noel Motley MD BLOOD BANK T EST ORDERABLES Performing Organization Address City/State/[facility] Phon e Number [facility] Unless otherwise noted, [address] all lab tests performed by: Division of Pathology and Laboratory Medicine [facility]5 [facility] Antibody Screen (12/29/2021 8:51 PM LOAN SERVICING REPRESENTATIVE)Only the most recent of5 resultswithin the time period is included. P athologist Signature ABSC. Negative ABSC [facility] Specimen Anatomical Collection Method Collection Time Receive d Time (Source) Location / / Volume Laterality Blood 12/29/2021 8:51 PM 9:25 LOAN SERVICING REPRESENTATIVE PM LOAN SERVICING REPRESENTATIVE Noel Motley MD BLOOD BANK T EST ORDERABLES Performing Organization Address City/State/ZIP Code Phon e Number [facility] Unless otherwise noted, [place] [address] CENTER all lab tests performed by: Division of Pathology and Laboratory Medicine [address] [facility] MRI CERVICAL THORACIC LUMBAR SPINE W WO CONTRAST (12/29/2021 8:18 PM LOAN SERVICING REPRESENTATIVE) Anatomical Region Laterality Modality Spine, C-spine, T-spine, L-spine Magneti c Resonance Specimen (Source) Anatomical Collection Method Collection Time Re ceived Time Location / / Volume Laterality 12/29/2021 8:18 PM LOAN SERVICING REPRESENTATIVE Impressions 12/29/2021 8:38 PM LOAN SERVICING REPRESENTATIVE 1. Grade 3 cord compression at T2 and T3 due to pathologic fracture and metastatic involvement of posterior elements. Instability cannot be excluded. Dr. Marie discussed the findings with Dr. Olson at 7:30 PM on 12/29/2021. 2. No leptomeningeal metastasis. Narrative 12/29/2021 8:38 PM LOAN SERVICING REPRESENTATIVE FULL RESULT: Examination: MRI CERVICAL THORACIC LUMBA R SPINE W WO CONTRAST, 12/29/2021 8:18 PM. Clinical History: Thoracic back pain Indication: mass and new weakness, spina l level numbness below ~T4-5 in bilateral torso/legs Comparison: PET/CT 12/23/2021. Technique: Multiplanar, multisequence magnetic resonance imaging of the cervical, thoracic and lumbosacral spine was performed without and with intravenous contrast. Findings: Cervical Spine: Alignment is within norm al limits. Marrow signal is homogeneous. No abnormal cord signal or enhancement is identified. Thoracic Spine: Kyphosis of the thoracic spine is centered at T2-3. Pathologic fractures are present at T2 and T3 with circumferential epidural disease involving the anterior and posterior elements. Gra de 3 cord compression is noted around im age 31 of series 24 at T2 and T3. The dorsal epidural disease extends superiorly to the top of T1 and inferiorly to the T4-5 disc space level. Faint enhancement w ithin the T7 vertebral body may be heman gioma rather than metastasis given central T1 hyperintensity on image 11 of series 6. No abnormal cord signal or enhancement is identified. Lumbar Spine: Alignment is within norm al limits. Marrow signal is homogeneous. The conus ends at L1-L2. There is no significant canal stenosis or neural foraminal narrowing. No leptomeningeal disease is seen. Procedure Note Marisabel Beltran MD - 12/29/2021Formatting o f this note might be different from the original. FULL RESULT: Examination: MRI CERVICAL THORACIC LUMBA R SPINE W WO CONTRAST, 12/29/2021 8:18 PM. Clinical History: Thoracic back pain Indication: mass and new weakness, spina l level numbness below ~T4-5 in bilateral torso/legs Comparison: PET/CT 12/23/2021. Technique: Multiplanar, multisequence ma gnetic resonance imaging of the cervical, thoracic and lumbosacral spine was performed without and with intravenous contrast. Findings: Cervical Spine: Alignment is within norm al limits. Marrow signal is homogeneous. No abnormal cord signal or enhancement is identified. Thoracic Spine: Kyphosis of the thoracic spine is centered at T2-3. Pathologic fractures are present at T2 and T3 with circumferential epidural disease involving the anterior and posterior elements. Grade 3 cord compression is noted around image 3 1 of series 24 at T2 and T3. The dorsal epidural disease extends superiorly to the top of T1 and inferiorly to the T4-5 disc space level. Faint enhancement within the T7 vertebral body may be hemangioma rather than metas tasis given central T1 hyperintensity on image 11 of series 6. No abnormal cord signal or enhancement is identified. Lumbar Spine: Alignment is within normal limits. Marrow signal is homogeneous. The conus ends at L1-L2. There is no significant canal stenosis or neural foraminal narrowing. No leptomeningeal disease is seen. IMPRESSION: 1. Grade 3 cord compression at T2 and T3 due to pathologic fracture and metastatic involvement of posterior elements. Instability cannot be excluded. Dr. Marie discussed the findings with Dr. Olson at 7:30 PM on 12/29/2021. 2. No leptomeningeal metastasis. Rell Olson MD IMG MRI ORDERABLES COVID-19 (SARS-CoV-2)Asymptomatic-LT (12/29/2021 5:29 PM LOAN SERVICING REPRESENTATIVE) [facility] Method Time Signature COVID19 Not Detected Not Detected OTIS LY (SARS-CoV-2) [facility] COVID19 SARS Inpatient MT Indication Admission [facility] Covid 19 See Note [facility] Comment: The javid SARS-CoV-2 nucleic acid test f or use on the javid Liv System is a real-time RT-PCR assay intended for the qualitative detection of SARS-CoV-2 (COVID-19) viral RNA in nasopharyngeal swabs from either individuals suspected of COVID-1 9 by their healthcare provider or from any individu al, including individuals without symptoms or other reasons to suspect COVID-19. A fact sheet for patients provided by the retail banker ([employer]) can be reviewed at: https://www.[employer]ive[employer].gov/media/256263/downloa d. A fact sheet for Health Care providers is provided by the retail banker ([employer]) and can be reviewed at: https://www.[employer].gov/media/342774/download Results must be interpreted within the c ontext of all relevant clinical and laboratory findings and should not form the sole basis for a diagnosis or treatment decision. Positive results do not rule out bacterial infection or co- infection with other viruses. Negative results do not preclud e SARS-CoV-2 infection and must be combined with clinical observations, patient history, and/or epidemiological information. This assay has been authorized by the A for use only under Emergency Use Authorization (EUA) in laboratories that have been CLIA-certified to perform moderate-complexity and high-complexity tests. The Microbiology Laboratory at [facility], CLIA Accreditation #[id number] [place] CAP Accreditation #[id number], verified the performance characteristics of this assay. Internal controls are used to monitor all stages of the test process. Specimen (Source) Anatomical Collection Method Collection Time Re ceived Time Location / / Volume Laterality Nasopharyngeal Swab 12/29/2021 5:29 12/29 PM LOAN SERVICING REPRESENTATIVE 6:13 PM LOAN SERVICING REPRESENTATIVE Caroline England MD MICROBIOLOGY - GENERAL ORDER SYLVIAN Performing Organization Address City/State/ZIP Code Phon e Number [facility] Unless otherwise noted, [place] [address] [place] all lab tests performed by: Division of Pathology and Laboratory Medicine [address] Fractionated Bilirubin (12/29/2021 5:29 PM LOAN SERVICING REPRESENTATIVE)Only the most recent of5 results within the time period is included. athologist Signature Bili Total 0.4 <=1.2 mg/dL [facility] Comment: Indocyanine Green (ICG) may cause falsel y elevated bilirubin results. Total and direct bilirubin must not be measured from samples containing indocyanine green. False elevation of total bilirubin can b e seen in patients with IgG concentrations above 28 g/L. Bili Direct <0.2 <=0.3 mg/dL [facility] Comment: Indocyanine Green (ICG) may cau se falsely elevated bilirubin results. Total and direct bilirubin must not be measure d from samples containing indocyanine green. Bili Indirect See Note 0.0 - 0.9 mg/dL [place] MD [facility] Comment: Unable to calculate Indirect Bi lirubin result due to some parameters are outside reportable range Specimen Anatomical Collection Method Collection Time Receive d Time (Source) Location / / Volume Laterality Blood 12/29/2021 5:29 PM 2 5:41 LOAN SERVICING REPRESENTATIVE PM LOAN SERVICING REPRESENTATIVE Caroline England MD LAB BLOOD ORDERABLES Performing Organization Address City/[facility] [address]/[facility] Phon e Number [facility] Unless otherwise noted, [address] all lab tests performed by: Division of Pathology and Laboratory Medicine [address] aPTT (12/29/2021 5:29 PM LOAN SERVICING REPRESENTATIVE) athologist [facility] aPTT 30.1 22.8 - 34.2 [facility] Specimen Anatomical Collection Method Collection Time Receive d Time (Source) Location / / Volume Laterality Blood 12/29/2021 5:29 PM 2 5:38 LOAN SERVICING REPRESENTATIVE PM LOAN SERVICING REPRESENTATIVE Caroline England MD LAB BLOOD ORDERABLES Performing Organization Address City/[facility] [address]/[facility] Phon e Number [facility] Unless otherwise noted, [address] all lab tests performed by: Division of Pathology and Laboratory Medicine [facility]5 [facility] (ABNORMAL) Prothrombin Time with INR (12/29/2021 5:29 PM LOAN SERVICING REPRESENTATIVE)Only the most recent of2 resultswithin the time period is included. athologist Signature PT 13.9 11.9 - 14.1 [facility] INR 1.13 (H) 0.89 - 1.10 [facility] Specimen Anatomical Collection Method Collection Time Receive d Time (Source) Location / / Volume Laterality Blood 12/29/2021 5:29 PM 2 5:38 LOAN SERVICING REPRESENTATIVE PM LOAN SERVICING REPRESENTATIVE Caroline England MD LAB BLOOD ORDERABLES Performing Organization Address City/[facility] [address]/ZIP Code Phon e Number [facility] Unless otherwise noted, [address] all lab tests performed by: Division of Pathology and Laboratory Medicine [address] (ABNORMAL) ALT (12/29/2021 5:29 PM LOAN SERVICING REPRESENTATIVE)Only the most recent of5 resultswithin the time period is included. P athologist Signature ALT 56 (H) <=41 U/L [facility] Specimen Anatomical Collection Method Collection Time Receive d Time (Source) Location / / Volume Laterality Blood 12/29/2021 5:29 PM 2 5:41 LOAN SERVICING REPRESENTATIVE PM LOAN SERVICING REPRESENTATIVE Caroline England MD LAB BLOOD ORDERABLES Performing Organization Address City/[facility] [address]/[facility] Phon e Number [facility] Unless otherwise noted, [address] all lab tests performed by: Division of Pathology and Laboratory Medicine [address] Aspartate Aminotransferase (12/29/2021 5:29 PM LOAN SERVICING REPRESENTATIVE)Only the most recent of5 resultswithin the time period is included. P athologist Signature AST 30 <=40 U/L [facility] [facility] Specimen Anatomical Collection Method Collection Time Receive d Time (Source) Location / / Volume Laterality Blood 12/29/2021 5:29 PM 2 5:41 LOAN SERVICING REPRESENTATIVE PM LOAN SERVICING REPRESENTATIVE Caroline England MD LAB BLOOD ORDERABLES Performing Organization Address City/[facility] [address]/[facility] Phon e Number [facility] Unless otherwise noted, [address] all lab tests performed by: Division of Pathology and Laboratory Medicine [address] Total Protein (12/29/2021 5:29 PM LOAN SERVICING REPRESENTATIVE)Only the most recent of5 resultswithin the time period is included. P athologist Signature Total Protein 7.4 6.4 - 8.3 [facility] g/dL [facility] Specimen Anatomical Collection Method Collection Time Receive d Time (Source) Location / / Volume Laterality Blood 12/29/2021 5:29 PM 2 5:41 LOAN SERVICING REPRESENTATIVE PM LOAN SERVICING REPRESENTATIVE Caroline England MD LAB BLOOD ORDERABLES Performing Organization Address City/[facility] [address]/ZIP Code Phon e Number [facility] Unless otherwise noted, [address] all lab tests performed by: Division of Pathology and Laboratory Medicine [address] Phosphorus Level (12/29/2021 5:29 PM LOAN SERVICING REPRESENTATIVE)Only the most recent of6 resultswithin the time period is included. P athologist Signature Phosphorus 3.3 2.5 - 4.5 [facility] mg/dL [facility] Specimen Anatomical Collection Method Collection Time Receive d Time (Source) Location / / Volume Laterality Blood 12/29/2021 5:29 PM 2 5:41 LOAN SERVICING REPRESENTATIVE PM LOAN SERVICING REPRESENTATIVE Caroline England MD LAB BLOOD ORDERABLES Performing Organization Address City/[facility] [address]/ZIP Code Phon e Number [facility] Unless otherwise noted, [address] all lab tests performed by: Division of Pathology and Laboratory Medicine [address] (ABNORMAL) Alkaline Phosphatase (12/29/2021 5:29 PM LOAN SERVICING REPRESENTATIVE)Only the most recent of5 resultswithin the time period is included. P athologist Signature Alk Phos 151 (H) 40 - 129 [facility] U/L [facility] Specimen Anatomical Collection Method Collection Time Receive d Time (Source) Location / / Volume Laterality Blood 12/29/2021 5:29 PM 2 5:41 LOAN SERVICING REPRESENTATIVE PM LOAN SERVICING REPRESENTATIVE Caroline England MD LAB BLOOD ORDERABLES Performing Organization Address City/[facility] [address]/ZIP [facility] Phon e Number [facility] Unless otherwise noted, [address] all lab tests performed by: Division of Pathology and Laboratory Medicine [address] Magnesium Level (12/29/2021 5:29 PM LOAN SERVICING REPRESENTATIVE)Only the most recent of6 resultswithin the time period is included. P athologist Signature Magnesium 2.1 1.6 - 2.6 [facility] mg/dL [facility] Specimen Anatomical Collection Method Collection Time Receive d Time (Source) Location / / Volume Laterality Blood 12/29/2021 5:29 PM 2 5:41 LOAN SERVICING REPRESENTATIVE PM LOAN SERVICING REPRESENTATIVE Caroline England MD LAB BLOOD ORDERABLES Performing Organization Address City/State/ZIP Code Phon e Number [facility] Unless otherwise noted, [address] all lab tests performed by: Division of Pathology and Laboratory Medicine [address] [place] [address] Albumin Level (12/29/2021 5:29 PM LOAN SERVICING REPRESENTATIVE)Only the most recent of5 resultswithin the time period is included. athologist Signature Albumin Lvl 4.1 3.5 - 5.2 [facility] gm/dL [facility] Specimen Anatomical Collection Method Collection Time Receive d Time (Source) Location / / Volume Laterality Blood 12/29/2021 5:29 PM 2 5:41 LOAN SERVICING REPRESENTATIVE PM LOAN SERVICING REPRESENTATIVE Caroline England MD LAB BLOOD ORDERABLES Performing Organization Address City/[facility] [address]/[facility] Code Phon e Number [facility] Unless otherwise noted, [address] all lab tests performed by: Division of Pathology and Laboratory Medicine [facility]5 [facility] IR CT GUIDED BIOPSY MUSCLE/SOFT TISSUE CHEST WALL (12/29/2021 2:37 PM LOAN SERVICING REPRESENTATIVE) Anatomical Region Laterality Modality Soft Tissue/Muscle Computed Tomography Specimen (Source) Anatomical Location Collection Method / Collectio n Time Received Time / Laterality Volume Narrative 12/29/2021 3:01 PM LOAN SERVICING REPRESENTATIVE Table formatting from the original result was not included. Date of Procedure: 12/29/21 Attending Physician: Veronique Underwood MD [place] Operator: Robert Maza Pre Procedure Diagnosis: Mediastinal m ass Post Procedure Diagnosis: Unchanged Indication: New mass / nodule for tiss ue diagnosis and Research sampling Protocol Number: [id number] Title of Procedure: Percutaneous Computed Tomography-Guided Biopsy Operative Findings: Percutaneous image-guided biopsy of >1cm right posterior chest wall mass. Consent: The procedure, risks, indicat ions and alternatives were explained. All questions were answered a nd informed consent was obtained. I have reviewed the history and physical dictated by the mid-level practitioner / fellow. Sedation/Anesthesia: Moderate sedation for pain control and a nxiety was administered by a dedicated nurse under my supervision. There was continuous monitoring of oxygen saturation, heart rate and interm ittent monitoring of blood pressure during the procedure. Medicat ion given was midazolam and fentanyl. I was present for the admin istration of the medications indicated above. Procedure Events Event Event Time Sedation Start 12/29/2021 2:10 PM Sedation End 12/29/2021 2:25 PM Procedure in Detail: A time out was performed prior to the st art of the procedure and the correct patient, procedure, presence of consent, site, and side were confirmed with all members of the team. With the patient in the prone position, the skin overlying the area of interest was prepped and draped in the u sual sterile fashion. Lidocaine 1% was used for local anesthesia. Using a posterior approach under Compute d Tomography image-guidance, a 17 gauge needle was advanced down to the [facility] posterior chest wall mass. An image was obtained and placed into the edical record. Samples were obtained for evaluation. Sampling: Core Biopsy: An 18 gauge needle use d to obtain samples for surgical pathology evaluation. Total number of samples: 4 Research Biopsy: An 18 gauge needl e was used to obtain 5 core samples as per protocol. Specimens Disposition: Diagnostic Biopsy: The biopsy sampl es were submitted to pathology. Research Biopsy: The samples were s ubmitted to the appropriate research staff in the designated media as outline d in the protocol. Additional Comments: None Estimated Blood Loss: Minimal Immediate Complications: None Disposition: PACU Plan: 1. No follow-up with Interventional Radi ology required. I certify my physical presence at the [facility] of the procedure. I personally reviewed the image(s) and the MARINO's inte rpretation and agree with the written report. Mary GRIMES IMG IR ORDERABLES Pathology Biopsy Interpretation (12/29/2021 2:09 PM LOAN SERVICING REPRESENTATIVE) Component Value Ref Test Analysis Performed Pathologis t Range Method Time At Signature Submitted Mediastinal mass 12/30/2021 [facility] Clinical [R22.2] 12:05 PM History LOAN SERVICING REPRESENTATIVE Diagnosis A: Right chest wall, biopsy: 12/30/2021 [facility] Electronically SQUAMOUS CELL CARCINOMA INVOLVING FIBROUS TISSUE. (SEE COMME NT) 12:05 PM signed by LOAN SERVICING REPRESENTATIVE Rena gerber MD on 12/10 CESILIA/FUENTES at 12:05 P M Comment The patient has a 12/30/2021 [facility] known history of 12:05 PM penile squamous LOAN SERVICING REPRESENTATIVE cell carcinoma. [employer] Tractor Operator scanned slides from the previous specimen ([id number]) were reviewed, and show a similar morphology. In this clinical context, a metastatic squamous cell carcinoma is favored. However, a primary squamous cell carcinoma of chest wall/mediastinum cannot be entirely excluded. Clinical correlation is recommended. Gross A: 12/30/2021 [facility] Description Chest wall, right, biopsy: F our pink-red core biopsies ranging from 0.6 to 1.7 cm in length with a diameter of 0.1 cm, entirely submitted in A1. GM 12:05 PM LOAN SERVICING REPRESENTATIVE Biomarker Tumor: A1 12/30/2021 [facility] Block(s) 12:05 PM LOAN SERVICING REPRESENTATIVE Disclaimer "Some tests 12/30/2021 [facility] reported here may 12:05 PM have been LOAN SERVICING REPRESENTATIVE developed and performance characteristics determined by [facility] Pathology and Laboratory Medicine. These tests have not been specifically cleared or approved by the U.S. Food and Drug Administration. If applicable, controls were reviewed and showed appropriate reactivity." Specimen Anatomical Collection Method Collection Time Receive d Time (Source) Location / / Volume Laterality Tissue (Chest 12/29/2021 2:09 PM 12/30/19 3:10 Wall, Right) LOAN SERVICING REPRESENTATIVE PM LOAN SERVICING REPRESENTATIVE Mary Johns ANP LAB PATHOLOGY ORDERABLES Performing Organization Address City/State/ZIP Code Phon e Number [facility] [employer] [facility] [place] [address] [address] Intra-operative monitoring (IOM) (12/29/2021 7:29 AM LOAN SERVICING REPRESENTATIVE) Specimen (Source) Anatomical Location Collection Method / Collectio n Time Received Time / Laterality Volume Narrative Derick Zhou MD - 12/29/2021 7:29 AM LOAN SERVICING REPRESENTATIVE Derick Zhou MD 12/30/2021 8:12 AM Procedure: Spinal Cord monitoring using SSEPs & H waves. CPT codes: 70361, 92909, 37449 Somatosensory Evoked Potentials: Patient was fitted with bipolar stimulating stick-on electrodes placed o sandy bilateral median/ulnar nerves at the wrist and prince ateral posterior tibial nerves at the ankle. Recording electro santosh were placed over bilateral popliteal fossas and bilateral erb s point to monitor peripheral nerve transmission. Needle electrodes were affixed to the patient's scalp at the following loc ations: Cz, FPz, C3, and C4. A non-cephalic electrode was place d in one earlobe. A stick-on ground electrode was affixed to the patient's shoulder. Stimulation was done with a recurrent el ectrical stimulus of 0.2 -0.3 ms duration, repeated at 4.7 Hz. Cu rrent of 25-100 Amps was delivered in a staggered fashion to left and right extremities while responses were averaged until stab le waveforms were obtained (usually between 50 and 200 swe eps). Somatosensory evoked potentials (SSEPs) were recorded from scalp electrodes over the left and right somatosensory co rtex. Baseline recording was made after the patient was anestheti zed and positioned. Waveforms were saved for later compariso n during the operation. Latency and amplitude of the major evoke d components was noted. H waves: Bilateral tibial H waves were a ttempted from soleus/gastrocnemius muscles following p opliteal fossa stimulation. Results/Impression: Bilateral tibial a nd bilateral median SSEP and tibial H waves were obtained. Only r ight H wave is present at baseline. Bilateral tibial ssep are poor ly formed and low amplitude, left worse than right. The ab ove signals are overall stable. We anticipate preservation of po sterior column functions with no direct mechanical insult to the spinal cord and overall preservation of global spinal cord funct ion. Derick Zhou M.D. ([id number]) Tech Monitoring Time: 8 h Phys Monitoring Time: 6 h 12/30/21 Monitoring end time: 9(next day) Monitoring start time: 2329 Noel Motley MD NEUROLOGY OR DERABLES Research Protocol [id number] (12/26/2021 3:21 PM LOAN SERVICING REPRESENTATIVE) athologist Signature Research Prot [id number] [facility] Specimen Anatomical Collection Method Collection Time Receive d Time (Source) Location / / Volume Laterality Blood 12/26/2021 3:21 PM 4:00 LOAN SERVICING REPRESENTATIVE PM LOAN SERVICING REPRESENTATIVE Jay Rich MD [facility] Z CODES Performing Organization Address City/State/ZIP Code Phon e Number [facility] Unless otherwise noted, [place] [address] CENTER all lab tests performed by: Division of Pathology and Laboratory Medicine [facility]5 [facility] MRI Brain with and without Contrast (12/25/2021 9:17 AM LOAN SERVICING REPRESENTATIVE) Anatomical Region Laterality Modality Head Magnetic Resonance Specimen (Source) Anatomical Collection Method Collection Time Re ceived Time Location / / Volume Laterality 12/26/2021 3:03 PM LOAN SERVICING REPRESENTATIVE Impressions 12/27/2021 8:36 AM LOAN SERVICING REPRESENTATIVE No evidence of intracranial metastasis. Narrative 12/27/2021 8:36 AM LOAN SERVICING REPRESENTATIVE FULL RESULT: EXAMINATION: MRI BRAIN W WO CONTRAST on 12/25/2021 9:17 AM HISTORY: Malignant neoplasm of upper lob e, right bronchus or lung INDICATION: Cancer staging or restaging, 9 cm upper thoracic mass invading T spine COMPARISON: PET/CT dated 12/23/2021 TECHNIQUE: Multi-sequence MRI of the bra in with and without intravenous contrast as per standard departmental protocol. FINDINGS: No abnormal parenchymal or leptomeningea l enhancement is seen. There is no mass effect, midline shift or abnormal restricted diffusion. The ventricles and cerebral sulci are age-appropriate. No extra-ax ial fluid collection is seen. Scattered T2/FLAIR hyperintensities in the subcortical and periventricular white matter likely reflect chronic microangiopathic changes. No abnormal susceptibility artifact is noted in the brain parenchyma. The orbits and mastoid air cells are unr emarkable. There is trace mucosal thickening of the left maxillary sinus. No destructive osseous lesion is identified. Procedure Note Keyona Barron MD - 12/27/2021 FULL RESULT: EXAMINATION: MRI BRAIN W WO CONTRAST on 12/25/2021 9:17 AM HISTORY: Malignant neoplasm of upper lob e, right bronchus or lung INDICATION: Cancer staging or restaging, 9 cm upper thoracic mass invading T spine COMPARISON: PET/CT dated 12/23/2021 TECHNIQUE: Multi-sequence MRI of the bra in with and without intravenous contrast as per standard departmental protocol. FINDINGS: No abnormal parenchymal or leptomeningea l enhancement is seen. There is no mass effect, midline shift or abnormal restricted diffusion. The ventricles and cerebral sulci are age-appropriate. No extra-axial fluid collection is seen. Scattered T2/FLAIR h yperintensities in the subcortical and periventricular white matter likely reflect chronic microangiopathic changes. No abnormal susceptibility artifact is noted in the brain parenchyma. The orbits and mastoid air cells are unr emarkable. There is trace mucosal thickening of the left maxillary sinus. No destructive osseous lesion is identified. IMPRESSION: No evidence of intracranial metastasis. Mary GRIMES IMG MRI ORDERABLES PETCT Contrast Enhanced Initial Treatment Strategy (12/23/2021 10:31 AM LOAN SERVICING REPRESENTATIVE) Anatomical Region Laterality Modality Whole Body Positron Emission To mography (PET) Specimen (Source) Anatomical Collection Method Collection Time Re ceived Time Location / / Volume Laterality 12/23/2021 2:47 PM LOAN SERVICING REPRESENTATIVE Impressions 12/23/2021 3:05 PM LOAN SERVICING REPRESENTATIVE 1. T3 and right third rib mass presumably is a metastasis and appears to narrow the spinal canal. Local involvement extent would be better assessed with MRI. 2. Bilateral inguinal avid lymph nodes are concerning for tumor involvement. 3. Focal avidity anterior to the pubis may be related to the urethra reconstruction but is concerning for residual or recurrent tumor. 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 Indication: Staging. Determine initial t reatment strategy. Comparison: Chest CT 12/17/[address] exams Technique: F-18 fluorodeoxyglucose (FDG) 8.7 mCi was administered intravenously via left antecubital vein. To allow for distribution and uptake of radiotracer, the patient was asked to rest quietly fo r approximately 60-90 minutes. PET/CT imaging was performed from the skull vertex to upper thighs. CT scanning was done for attenuation correction, image registration, and diagnosis with scan paramete rs optimized to minimize radiation expos ure to the patient. SUV measurements are reported as maximum SUV based on body weight unless otherwise specified. Intravenous contrast media was administered. Findings: Head and Neck: No intracranial abnormali ty. The orbits and paranasal sinuses are normal. No cervical adenopathy. Chest: Cardiac chamber sizes are normal. Minimal left circumflex coronary calcifications. There is no mediastinal adenopathy. Scarring or atelectasis in the lower lungs. A minute nodule seen on the prio r exam are obscured by the atelectasis t tha. No suspicious pulmonary nodules. No pleural effusion. Abdomen and Pelvis: Hepatic cysts. The l iver is otherwise unremarkable. The spleen, pancreas, adrenals, kidneys and gallbladder are unremarkable. There is no mesenteric adenopathy. There is no retroperi toneal adenopathy. The prostate is mildl y enlarged but without focal lesion. The urinary bladder is normal. There are small inguinal lymph nodes bilaterally that are mildly FDG avid. No pelvic adenopath y. Focal avidity at the base of the peni s resection margin just anterior to the pubis appears to be slightly above the urethral reconstruction and there may have been some enhancing soft tissue at about this location on the prior CT exam. Musculoskeletal: Scattered small sclerot ic bone lesions in the pelvis have been present previously and are not FDG avid, likely benign. Destructive lytic lesion involving the third posterior right rib a nd an adjacent vertebral body is markedl y FDG avid, SUV max 16. The soft tissue component appears to narrow the spinal canal at this level and involves more than half of the vertebral body anteriorly. P osterior elements involvement extends ac ross the midline to include the spinous process and left lamina. No other bone lesions are demonstrated. Procedure Note Nikolas North MD - 12/23/2021Formatt ing of this note might be different from the original. 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 Indication: Staging. Determine initial t reatment strategy. Comparison: Chest CT 12/17/[address] exams Technique: F-18 fluorodeoxyglucose (FDG) 8.7 mCi was administered intravenously via left antecubital vein. To allow for distribution and uptake of radiotracer, the patient was asked to rest quietly for approximately 60-90 minutes. PET/CT imag ing was performed from the skull vertex to upper thighs. CT scanning was done for attenuation correction, image registration, and diagnosis with scan parameters optimized to minimize radiation exposure to the patie nt. SUV measurements are reported as maximum SUV based on body weight unless otherwise specified. Intravenous contrast media was administered. Findings: Head and Neck: No intracranial abnormali ty. The orbits and paranasal sinuses are normal. No cervical adenopathy. Chest: Cardiac chamber sizes are normal. Minimal left circumflex coronary calcifications. There is no mediastinal adenopathy. Scarring or atelectasis in the lower lungs. A minute nodule seen on the prior exam are obscured by the atelectasis today. No pires spicious pulmonary nodules. No pleural effusion. Abdomen and Pelvis: Hepatic cysts. The l iver is otherwise unremarkable. The spleen, pancreas, adrenals, kidneys and gallbladder are unremarkable. There is no mesenteric adenopathy. There is no retroperitoneal adenopathy. The prostate is mildly enlarged but with out focal lesion. The urinary bladder is normal. There are small inguinal lymph nodes bilaterally that are mildly FDG avid. No pelvic adenopathy. Focal avidity at the base of the penis resection margin just anterior to the pubis appears to be slightly above the urethral reconstruction and there may have been some enhancing soft tissue at about this location on the prior CT exam. Musculoskeletal: Scattered small sclerot ic bone lesions in the pelvis have been present previously and are not FDG avid, likely benign. Destructive lytic lesion involving the third posterior right rib and an adjacent vertebral body is markedly FDG avid, SUV max 16. The soft tissue component appears to narrow the spinal canal at this level and involves more than half of the vertebral body anteriorly. Posterior elements involvement extends across the midline to include th e spinous process and left lamina. No other bone lesions are demonstrated. IMPRESSION: 1. T3 and right third rib mass presumabl y is a metastasis and appears to narrow the spinal canal. Local involvement extent would be better assessed with MRI. 2. Bilateral inguinal avid lymph nodes a re concerning for tumor involvement. 3. Focal avidity anterior to the pubis m ay be related to the urethra reconstruction but is concerning for residual or recurrent tumor. Mary GRIMES IM PETCT ORDERABLES LB Liquid Biopsy Panel V1 Interpretation and Report (12/23/2021 7:05 AM LOAN SERVICING REPRESENTATIVE) Specimen Anatomical Collection Method Collection Time Receive d Time (Source) Location / / Volume Laterality 12/23/2021 7:05 AM 2 LOAN SERVICING REPRESENTATIVE 10:47 AM LOAN SERVICING REPRESENTATIVE Narrative This result has an attachment that is no t available. Mary GRIMES MDA [facility] ([place] L[facility]) LB EML4/ALK Fusion Analysis Collection, Blood (12/23/2021 7:05 AM LOAN SERVICING REPRESENTATIVE) athologist Signature Molecular Yes [facility] (Received) Specimen Anatomical Collection Method Collection Time Receive d Time (Source) Location / / Volume Laterality Blood 12/23/2021 7:05 AM 2 LOAN SERVICING REPRESENTATIVE 10:47 AM LOAN SERVICING REPRESENTATIVE Mary GRIMES MDA HP MD BLOOD COLLECTIONS Performing Organization Address City/State/ZIP Code Phon e Number [facility] Unless otherwise noted, [address] all lab tests performed by: Division of Pathology and Laboratory Medicine [address] LB ROS1 Fusion Analysis Collection, Blood (12/23/2021 7:05 AM LOAN SERVICING REPRESENTATIVE) athologist Signature Molecular Yes [facility] (Received) Specimen Anatomical Collection Method Collection Time Receive d Time (Source) Location / / Volume Laterality Blood 12/23/2021 7:05 AM 2 LOAN SERVICING REPRESENTATIVE 10:47 AM LOAN SERVICING REPRESENTATIVE Mary GRIMES MDA HP MD BLOOD COLLECTIONS Performing Organization Address City/State/ZIP Code Phon e Number [facility] Unless otherwise noted, [address] all lab tests performed by: Division of Pathology and Laboratory Medicine [facility] LB RET Fusion Analysis Collection, Blood (12/23/2021 7:05 AM LOAN SERVICING REPRESENTATIVE) athologist Signature Molecular Yes [facility] (Received) Specimen Anatomical Collection Method Collection Time Receive d Time (Source) Location / / Volume Laterality Blood 12/23/2021 7:05 AM 2 LOAN SERVICING REPRESENTATIVE 10:47 AM LOAN SERVICING REPRESENTATIVE Mary GRIMES MDA HP MD BLOOD COLLECTIONS Performing Organization Address City/State/ZIP Code Phon e Number [facility] Unless otherwise noted, [address] all lab tests performed by: Division of Pathology and Laboratory Medicine [address] LB MET Mutation Analysis Collection, Blood (12/23/2021 7:05 AM LOAN SERVICING REPRESENTATIVE) athologist Signature Molecular Yes [facility] (Received) Specimen Anatomical Collection Method Collection Time Receive d Time (Source) Location / / Volume Laterality Blood 12/23/2021 7:05 AM 2 LOAN SERVICING REPRESENTATIVE 10:47 AM LOAN SERVICING REPRESENTATIVE Mary GRIMES MDA HP MD BLOOD COLLECTIONS Performing Organization Address City/[facility] [address]/ZIP Code Phon e Number [facility] Unless otherwise noted, [address] all lab tests performed by: Division of Pathology and Laboratory Medicine Chelsea WOOD [id number] Full Gene Mutation Analysis Collection, Blood (12/23/2021 7:05 AM LOAN SERVICING REPRESENTATIVE) athologist Signature Molecular Yes [facility] (Received) Specimen Anatomical Collection Method Collection Time Receive d Time (Source) Location / / Volume Laterality Blood 12/23/2021 7:05 AM 2 LOAN SERVICING REPRESENTATIVE 10:47 AM LOAN SERVICING REPRESENTATIVE Mary GRIMES MDA HP MD BLOOD COLLECTIONS Performing Organization Address City/[facility] [address]/ZIP Code Phon e Number [facility] Unless otherwise noted, [address] all lab tests performed by: Division of Pathology and Laboratory Medicine Chelsea Bello LB BRAF Mutation Analysis Collection, Blood (12/23/2021 7:05 AM LOAN SERVICING REPRESENTATIVE) athologist Signature Molecular Yes [facility] (Received) Specimen Anatomical Collection Method Collection Time Receive d Time (Source) Location / / Volume Laterality Blood 12/23/2021 7:05 AM 2 LOAN SERVICING REPRESENTATIVE 10:47 AM LOAN SERVICING REPRESENTATIVE Mary GRIMES MDA HP MD BLOOD COLLECTIONS Performing Organization Address City/[facility] [address]/ZIP Code Phon e Number [facility] Unless otherwise noted, [address] all lab tests performed by: Division of Pathology and Laboratory Medicine Chelsea Bello MD NGS Blood Control (12/23/2021 7:05 AM LOAN SERVICING REPRESENTATIVE) athologist Signature Molecular Yes [facility] (Received) Specimen Anatomical Collection Method Collection Time Receive d Time (Source) Location / / Volume Laterality Blood 12/23/2021 7:05 AM 2 LOAN SERVICING REPRESENTATIVE 10:48 AM LOAN SERVICING REPRESENTATIVE Mary GRIMES MDA IP HP MOLECULAR DIAG IF ORDERABLES Performing Organization Address City/[facility] [address]/ZIP Code Phon e Number [facility] Unless otherwise noted, [address] all lab tests performed by: Division of Pathology and Laboratory Medicine [address] (ABNORMAL) SPIROMETRY W/O DILATORS, DLCO AND BODY PLETHSMOGRAPHIC LUNG VOLUMES (12/22/2021 2:59 PM LOAN SERVICING REPRESENTATIVE) Analysis Performed At Patho logist Time Signature FVC (L) pre 2.816 (L) 3.032 - 12/22/2021 [facility] 4.735 L 2:07 PM LOAN SERVICING REPRESENTATIVE FEV1 (L) pre 2.173 2.116 - 12/22/2021 [facility] 3.556 L 2:07 PM LOAN SERVICING REPRESENTATIVE FEV1/FVC (%) 77.177 63.719 - 12/22/2021 [facility] pre 83.075 % 2:07 PM LOAN SERVICING REPRESENTATIVE DLCO_SB 19.557 12.230 - 12/22/2021 [facility] ml/(min*mmHg) 28.817 2:07 PM LOAN SERVICING REPRESENTATIVE ml/(min*mm Hg) TLC (L) 4.635 (L) 5.351 - 12/22/2021 [facility] 7.654 L 2:07 PM LOAN SERVICING REPRESENTATIVE RV (L) 1.819 (L) 1.885 - 12/22/2021 [facility] 3.233 L 2:07 PM LOAN SERVICING REPRESENTATIVE RV/TLC (%) 39.245 32.668 - 12/22/2021 [facility] 50.632 % 2:07 PM LOAN SERVICING REPRESENTATIVE FVC (% pred) 73 % 12/22/2021 [facility] pre 2:07 PM LOAN SERVICING REPRESENTATIVE FEV1 (%pred) 77 % 12/22/2021 [facility] pre 2:07 PM LOAN SERVICING REPRESENTATIVE FEV1/FVC (% 105 % 12/22/2021 [facility] pred) pre 2:07 PM LOAN SERVICING REPRESENTATIVE TLC (% pred) 71 % 12/22/2021 [facility] 2:07 PM LOAN SERVICING REPRESENTATIVE RV (% pred) 71 % 12/22/2021 [place] 2:07 PM LOAN SERVICING REPRESENTATIVE RV/TLC (% 94 % 12/22/2021 [facility] pred) 2:07 PM LOAN SERVICING REPRESENTATIVE DLCO_SB (% 95 % 12/22/2021 [facility] pred) 2:07 PM LOAN SERVICING REPRESENTATIVE Specimen (Source) Anatomical Collection Method Collection Time Re ceived Time Location / / Volume Laterality 12/22/2021 1:45 PM LOAN SERVICING REPRESENTATIVE Narrative This result has an attachment that is no t available. Mary GRIMES PFT ORDERABLES Performing Organization Address City/State/ZIP Code Phon e Number [facility] Chest with Contrast (12/17/2021 9:59 PM LOAN SERVICING REPRESENTATIVE) Anatomical Region Laterality Modality Chest Computed Tomography Specimen (Source) Anatomical Collection Method Collection Time Re ceived Time Location / / Volume Laterality 12/18/2021 9:30 AM LOAN SERVICING REPRESENTATIVE Impressions 12/18/2021 9:39 AM LOAN SERVICING REPRESENTATIVE 1. Interval development of soft tissue mass posterior right upper chest wall eroding posterior right third and fourth ribs with involvement of the T3 and T4 vertebral body with likely moderate to cain re central canal narrowing. Contrast-enh anced spine/chest wall MRI could be obtained for further evaluation. 2. There are a few tiny pulmonary nodu les, likely stable. Attention CT follow-up. Narrative 12/18/2021 9:39 AM LOAN SERVICING REPRESENTATIVE FULL RESULT: Examination: CT CHEST W CONTRAST, 022 9:59 PM Clinical History: Carcinoma, NOS of peni s, NOS Indication: Other reason than lung cance r screening, suspected PE, or incidental pulmonary nodule, Chest mass Comparison: 03/01/2021 Technique: CT of the chest was performed using intravenous contrast. FINDINGS: 1. Partially visualized lower neck/thy roid with no acute findings. 2. No pericardial effusion. Trace freddy nary vascular calcifications. No central pulmonary embolus. 3. No suspicious adenopathy. 4. There are a few tiny nodular densit ies including series 3 images 56, 57, and 75, marked with arrows that are likely similar, with small size and differences in slice selection limiting comparison. 5. Limited upper abdomen. Small hiatal hernia. Tiny hepatic hypodensities similar. 6. Bones and soft tissues show interva l development of an ill-defined soft tissue mass measuring approximately 90 x 51 mm series 2 image 28 in the posterior right chest wall eroding posterior right th ird rib and right aspect of the T3 verte bral body including posterior elements. Probable significant tumor narrowing of the canal. Lesser erosive changes posterior right fourth rib and T4 vertebral body additionally noted. Procedure Note Andres Barlow MD - 11/10/2022 FULL RESULT: Examination: CT CHEST W CONTRAST, 022 9:59 PM Clinical History: Carcinoma, NOS of peni s, NOS Indication: Other reason than lung cance r screening, suspected PE, or incidental pulmonary nodule, Chest mass Comparison: 03/01/2021 Technique: CT of the chest was performed using intravenous contrast. FINDINGS: 1. Partially visualized lower neck/thyro id with no acute findings. 2. No pericardial effusion. Trace day ry vascular calcifications. No central pulmonary embolus. 3. No suspicious adenopathy. 4. There are a few tiny nodular densitie s including series 3 images 56, 57, and 75, marked with arrows that are likely similar, with small size and differences in slice selection limiting comparison. 5. Limited upper abdomen. Small hiatal h ernia. Tiny hepatic hypodensities similar. 6. Bones and soft tissues show interval development of an ill-defined soft tissue mass measuring approximately 90 x 51 mm series 2 image 28 in the posterior right chest wall eroding posterior right third rib and right aspect of the T3 vertebral body includin g posterior elements. Probable significant tumor narrowing of the canal. Lesser erosive changes posterior right fourth rib and T4 vertebral body additionally noted. IMPRESSION: 1. Interval development of soft tissue m ass posterior right upper chest wall eroding posterior right third and fourth ribs with involvement of the T3 and T4 vertebral body with likely moderate to severe central canal narrowing. Contrast-enhanced spine/chest wall MRI could be obtained for further evaluation. 2. There are a few tiny pulmonary nodule s, likely stable. Attention CT follow-up. Shilpa OWENS [place] CT ORDERABLES CT Pelvis with Contrast (10/01/2021 10:20 AM CDT) Anatomical Region Laterality Modality Pelvis Computed Tomography Specimen (Source) Anatomical Collection Method Collection Time Re ceived Time Location / / Volume Laterality 10/01/2021 10:59 AM CDT Impressions 10/01/2021 11:18 AM CDT Baseline postoperative exam with no spec ific evidence for metastatic disease in the pelvis. Other findings as above. Narrative 10/01/2021 11:18 AM CDT FULL RESULT: Examination: CT PELVIS W CONTRAST, 2021 10:20 AM Clinical History: Carcinoma, NOS of peni s, NOS Indication: Cancer staging or restaging, Clark Bartlett is a 71 year old male with penile cancer. In January 2021 the patient went to the emergency room after developing gross hematuria. During that eval uation a CT scan of the abdomen and pelv is was performed that showed what was felt to be nonspecific inguinal Comparison: Correlation with pelvic MRI 03/01/2021 Technique: CT of the pelvis was performe d with intravenous contrast. Findings: No enlarged retroperitoneal lymph nodes in the pelvis. There has been interval resection of bilateral inguinal lymph nodes. There is edema in the subcutaneous tissues of the anterior thighs. Skin thicke lynn and edema is seen at the mons pubis . There also has been interval radical penectomy. Prostate is enlarged. The urinary bladde r is unremarkable as visualized. Diverticulosis in the colon. No ascites. Small left fat-containing inguinal hernia. Osseous structures are stable. Procedure Note Anastasia Cast MD - 10/01/2021 FULL RESULT: Examination: CT PELVIS W CONTRAST, 2021 10:20 AM Clinical History: Carcinoma, NOS of peni s, NOS Indication: Cancer staging or restaging, Clark Bartlett is a 71 year old male with penile cancer. In January 2021 the patient went to the emergency room after developing gross hematuria. During that evaluation a CT scan of the abdomen and pelvis was pe rformed that showed what was felt to be nonspecific inguinal Comparison: Correlation with pelvic MRI 03/01/2021 Technique: CT of the pelvis was performe d with intravenous contrast. Findings: No enlarged retroperitoneal lymph nodes in the pelvis. There has been interval resection of bilateral inguinal lymph nodes. There is edema in the subcutaneous tissues of the anterior thighs. Skin thickening and edema is seen at the mons pubis. There also ca s been interval radical penectomy. Prostate is enlarged. The urinary bladde r is unremarkable as visualized. Diverticulosis in the colon. No ascites. Small left fat-containing inguinal hernia. Osseous structures are stable. IMPRESSION: Baseline postoperative exam with no spec ific evidence for metastatic disease in the pelvis. Other findings as above. Shilpa OWENS IMG CT ORDERABLES POC Creatinine (10/01/2021 8:39 AM CDT) P athologist Signature POC Crea 0.8 0.6 - 1.3 POC [facility] mg/dL Comment: Medications, especially hydroxyurea or s upplements, such as ascorbate, can interfere with test results causing a falsely and significantly higher result than expected. If a problem is suspected with a patient's result, a sample should be sent to the laboratory for confirmatory testing. Method description: The i-STAT is an sam lyzer used for in vitro quantification of various analytes in whole blood. The device uses a single disposable cartridge which contains microfabricated sensors, a calibration solution, fluidics system, and a waste chamber. Each test cartridge contains ch emically sensitive biosensors on a silicon chip that are configured to perform specific tests. The microfabricated sensors measure analyte concentration by an electrochemical assay. POC eGFR-AA 104 >=60 mL/min/1.73 m2 POC TEL[facility] OR Comment: Normal eGFR >= 60 mL/min/1.73 m2 The eGFR is calculated using the CKD-EPI equation. The eGFR declines with age. eGFR <60 mL/min/1.73 m2 is considered as "decreased" This equation should only be used for patients 18 and older. According to the National [employer] ion's Kidney Disease Outcome Quality Initiative (KDOQI) classification and 2012 Kidney Disease Improving Global Outcomes (KDIGO) Clinical Practice Guideline, the stage of CKD should be categorized based on estimated GFR. Stage Description GFR mL/min/1.73 m2 1 Kidney damage with normal or high GFR >=90 2 Kidney damage with mild decrease in GF R 60-89 3a Mild to moderate decrease in GFR 45-59 3b Moderate to severe decrease in GFR 30-44 4 Severe decrease in GFR 15-29 5 Kidney failure <15 (or dialysis) POC eGFR-TASHA 90 >=60 mL/min/1.73 m2 POC [facility] Comment: Normal eGFR >= 60 mL/min/1.73 m2 The eGFR is calculated using the CKD-EPI equation. The eGFR declines with age. eGFR <60 mL/min/1.73 m2 is considered as "decreased" This equation should only be used for patients 18 and older. According to the National [employer] ion's Kidney Disease Outcome Quality Initiative (KDOQI) classification and 2012 Kidney Disease Improving Global Outcomes (KDIGO) Clinical Practice Guideline, the stage of CKD should be categorized based on estimated GFR. Stage Description GFR mL/min/1.73 m2 1 Kidney damage with normal or high GFR >=90 2 Kidney damage with mild decrease in GF R 60-89 3a Mild to moderate decrease in GFR 45-59 3b Moderate to severe decrease in GFR 30-44 4 Severe decrease in GFR 15-29 5 Kidney failure <15 (or dialysis) POC Clean Dev Yes POC [facility] Performing Lab [facility] POC TELCO R Comment: [facility], [address] [facility] [facility] [address], [place] [address]; Lab Direct or: Alexia Palmer MD Specimen Anatomical Collection Method Collection Time Receive d Time (Source) Location / / Volume Laterality Blood 10/01/2021 8:39 AM 8:39 CDT AM CDT Shilpa OWENS POCT ORDERABLES - DEVICE Performing Organization Address City/State/ZIP Code Phon e Number POC [facility] (ABNORMAL) Complete Blood Count w/o Differential (04/16/2021 3:22 AM LOAN SERVICING REPRESENTATIVE)Only the most recent of9 resultswithin the time period is included. P athologist Signature WBC 7.5 4.0 - 11.0 [facility] RBC 4.07 (L) 4.50 - MT MD 6.00 [facility] Hgb 11.5 (L) 14.0 - MT MD 18.0 gm/dL [facility] Hct 34.6 (L) 40.0 - [place] MD 54.0 % [facility] MCV 85 82 - 98 [facility] MCH 28.3 27.0 - [place] MD 31.0 pg [facility] MCHC 33.2 31.0 - [place] MD 36.0 gm/dL [facility] RDW-SD 49.2 (H) 35.1 - MT MD 46.3 [facility] RDW-CV 15.9 (H) 12.0 - MT MD 15.5 % [facility] Platelet count 213 140 - 440 [facility] MPV 10.0 4.0 - 10.4 [facility] INRBC 0.0 <=0.0 % [facility] Comment: The INRBC (instrument NRBC) value reflec ts the enumeration of nucleated red blood cells contained i n a 200uL sample of whole blood analyzed by the instrumen t. This value may differ from the NRBC value reported in a manual differential, which is based on a 100 cell differentia l. Specimen Anatomical Collection Method Collection Time Receive d Time (Source) Location / / Volume Laterality Blood 04/16/2021 3:22 AM 2 3:44 LOAN SERVICING REPRESENTATIVE AM LOAN SERVICING REPRESENTATIVE Stu Reno MD LAB BLOOD ORDERABLES Performing Organization Address City/[facility] [address]/ZIP [facility] Phon e Number [facility] Unless otherwise noted, [address] all lab tests performed by: Division of Pathology and Laboratory Medicine [facility] Glucose, Random (04/11/2021 5:10 PM LOAN SERVICING REPRESENTATIVE)Only the most recent of2 resultswithin the time period is included. athologist Signature Glucose Random 204 (H) 70 - 199 [facility] mg/dL [facility] Comment: Effective 09/04/15, the glucose reference intervals have been updated based on [place] Diabetes Association guidelines (Standards of Medical Care in Diabetes 2016. Diabetes Care 2016; 39: S13-S22). Fasting blood glucose: Normal: 70-99 mg/dL Impaired fasting glucose (increased risk for diabetes or pre-diabetes): 100- 125 mg/dL Diabetes mellitus: >/=126 mg/dL Random blood glucose: Normal: 70-199 mg/dL Note: Random glucose >100 mg/dL is assoc iated with increased risk for diabetes Specimen Anatomical Collection Method Collection Time Receive d Time (Source) Location / / Volume Laterality Blood 04/11/2021 5:10 PM 2 5:25 LOAN SERVICING REPRESENTATIVE PM LOAN SERVICING REPRESENTATIVE Stu Reno MD LAB BLOOD ORDERABLES Performing Organization Address City/State/ZIP Code Phon e Number [facility] Unless otherwise noted, [address] all lab tests performed by: Division of Pathology and Laboratory Medicine [address] (ABNORMAL) Anion Gap (04/11/2021 5:10 PM LOAN SERVICING REPRESENTATIVE)Only the most recent of2 results within the time period is included. athologist Signature Anion Gap 15 (H) 4 - 14 [facility] mEq/L [facility] Specimen Anatomical Collection Method Collection Time Receive d Time (Source) Location / / Volume Laterality Blood 04/11/2021 5:10 PM 2 5:25 LOAN SERVICING REPRESENTATIVE PM LOAN SERVICING REPRESENTATIVE Stu Reno MD LAB BLOOD ORDERABLES Performing Organization Address City/[facility] [address]/[facility] Phon e Number [facility] Unless otherwise noted, [address] all lab tests performed by: Division of Pathology and Laboratory Medicine [address] Sodium Level (04/11/2021 5:10 PM LOAN SERVICING REPRESENTATIVE)Only the most recent of2 resultswithin the time period is included. P athologist Signature Sodium Lvl 140 136 - 145 [facility] mEq/L [facility] Specimen Anatomical Collection Method Collection Time Receive d Time (Source) Location / / Volume Laterality Blood 04/11/2021 5:10 PM 2 5:25 LOAN SERVICING REPRESENTATIVE PM LOAN SERVICING REPRESENTATIVE Stu Reno MD LAB BLOOD ORDERABLES Performing Organization Address [facility] [address]/[facility] e Number [facility] Unless otherwise noted, [address] all lab tests performed by: Division of Pathology and Laboratory Medicine [address] Potassium Level (04/11/2021 5:10 PM LOAN SERVICING REPRESENTATIVE)Only the most recent of2 resultswithin the time period is included. P athologist Signature Potassium Lvl 5.0 3.5 - 5.1 [facility] mEq/L [facility] Specimen Anatomical Collection Method Collection Time Receive d Time (Source) Location / / Volume Laterality Blood 04/11/2021 5:10 PM 2 5:25 LOAN SERVICING REPRESENTATIVE PM LOAN SERVICING REPRESENTATIVE Stu Reno MD LAB BLOOD ORDERABLES Performing Organization Address City/[facility] [address]/[facility] Phon e Number [facility] Unless otherwise noted, [address] all lab tests performed by: Division of Pathology and Laboratory Medicine [address] Chloride Level (04/11/2021 5:10 PM LOAN SERVICING REPRESENTATIVE)Only the most recent of2 resultswithin the time period is included. P athologist Signature Chloride 104 98 - 107 [facility] mEq/L [facility] Specimen Anatomical Collection Method Collection Time Receive d Time (Source) Location / / Volume Laterality Blood 04/11/2021 5:10 PM 2 5:25 LOAN SERVICING REPRESENTATIVE PM LOAN SERVICING REPRESENTATIVE Stu Reno MD LAB BLOOD ORDERABLES Performing Organization Address City/State/ZIP Code Phon e Number [facility] Unless otherwise noted, [address] all lab tests performed by: Division of Pathology and Laboratory Medicine [address] [place] [address] (ABNORMAL) Carbon Dioxide Level (04/11/2021 5:10 PM LOAN SERVICING REPRESENTATIVE)Only the most recent of2 resultswithin the time period is included. P athologist Signature CO2 21 (L) 22 - 29 [facility] mEq/L [facility] Specimen Anatomical Collection Method Collection Time Receive d Time (Source) Location / / Volume Laterality Blood 04/11/2021 5:10 PM 2 5:25 LOAN SERVICING REPRESENTATIVE PM LOAN SERVICING REPRESENTATIVE Stu Reno MD LAB BLOOD ORDERABLES Performing Organization Address City/[facility] [address]/ZIP Code Phon e Number [facility] Unless otherwise noted, [address] all lab tests performed by: Division of Pathology and Laboratory Medicine [address] [place] [address] Urinalysis w/Microscopic if Indicated (04/10/2021 9:16 AM LOAN SERVICING REPRESENTATIVE) Patholo gist Method Time Signature UA Color Straw Straw-Yel [facility] UA Appear Clear Clear [facility] UA Glucose NEG NEG mg/dL [facility] UA Bili NEG NEG [facility] UA Ketones NEG NEG mg/dL [facility] UA Spec Grav 1.014 1.003 - [place] MD 1.035 [facility] UA Blood NEG NEG [facility] UA pH 6.0 5.0 - 9.0 [facility] UA Protein NEG NEG mg/dL [facility] UA Urobilinogen NEG NEG [facility] UA Nitrite NEG NEG [facility] UA Leuk Est NEG NEG [facility] UA Comment See Comment [facility] Comment: No microscopic exam performed, physiochemical findings are negative Specimen Anatomical Collection Method Collection Time Receive d Time (Source) Location / / Volume Laterality Urine 04/10/2021 9:16 AM 2 9:34 LOAN SERVICING REPRESENTATIVE AM LOAN SERVICING REPRESENTATIVE Jay Rich MD URINE ORDERABLES Performing Organization Address City/State/ZIP Code Phon e Number [facility] Unless otherwise noted, [address] all lab tests performed by: Division of Pathology and Laboratory Medicine [address] (ABNORMAL) Hemoglobin A1c (04/09/2021 8:56 AM LOAN SERVICING REPRESENTATIVE)Only the most recent of2 resultswithin the time period is included. P athologist Signature A1C 6.0 (H) 4.3 - 5.6 % [facility] Comment: HbA1c values >=6.5% are diagnostic of di abetes mellitus. Diagnosis should be confirmed by repeat testing. Therapeutic Action suggested: >8.0% HbA1 c; Goal of therapy: <7.0% HbA1c Specimen Anatomical Collection Method Collection Time Receive d Time (Source) Location / / Volume Laterality Blood 04/09/2021 8:56 AM 9:42 LOAN SERVICING REPRESENTATIVE AM LOAN SERVICING REPRESENTATIVE Jay Rich MD LAB BLOOD ORDERABLES Performing Organization Address City/State/ZIP Code Phon e Number [facility] Unless otherwise noted, [address] all lab tests performed by: Division of Pathology and Laboratory [facility]le Bello MD COVID-19 (DARON-CoV-2) PCR Asymptomatic (04/09/2021 8:09 AM LOAN SERVICING REPRESENTATIVE)Only the most recent of2 resultswithin the time period is included. Component Value Ref Range Test Analysis Performed Pathologis t Method Time At Signature COVID19 SARS Pre-OR Procedure OTIS LY Indication [facility] COVID19 SARS Not Detected Not OTIS LY Result Detected [facility] COVID SARS SARS-CoV-2 NOT Detected. [place] [facility] Reference Range: Not Detected [facility] Methodology: The [employer] Real Time SARS-CoV-2 assay is a qualitative real-time reverse candles pourer polymerase chain reaction (hedge fund accountant-PCR) test to detect RNA from SARS-CoV-2 in nasal, nasopharyngeal and oropharyngeal swabs from patients with signs and symptoms of infection who ar e suspected of COVID-19 by their health care provider. The [employer] RealTime SARS-CoV-2 performed on the [place] [employer] System is a dual target assay with primers and probes for the RdRp and N genes. Results must be interpreted within the context of all relevant clinical and laboratory findings, and epidemiological risk factors. Positive results are indicative of the presence of SARS-CoV-2 RNA; clinical correlation with patient history and other diagnostic information is ne cessary to determine patient infection status. Positive results do not rule out bacterial infection or co-infection with other viruses. Negative results do not preclude SARS- CoV-2 infection and should not be used as the sole basis for patient management decisions. The [employer] RealTime SARS-CoV -2 assay is for in vitro diagnostic use under FDA Emergency Use Authorization only. Testing is limited to laboratories certified under the Clinical Laboratory Improvement Eileen ndments of 1988 (CLIA), 42U.S.C. 263a, to perform high complexity tests. The T est was performed by the CLIA-certified, high- complexity Molecular Diagnostics Laboratory (MDL) at [facility] under the Food and Drug Administration (FDA) s Emergency Use Authorization. Factsheet for patients: https://www.Qwikwirenderson.org/AbbottFac tSheetPatients Factsheet for healthcare pro viders: https://www.Qwikwirenderson.org/AbbottFactSheetHCP Test performed by: The [facility] Molecular Diagnostic Lab [address] [place] [address] Specimen (Source) Anatomical Collection Method Collection Time Re ceived Time Location / / Volume Laterality Nasopharyngeal Swab 04/09/2021 8:09 04/09 AM LOAN SERVICING REPRESENTATIVE 10:08 AM LOAN SERVICING REPRESENTATIVE Jay Rich MD MICROBIOLOGY - GENERAL ORDER SYLVAIN Performing Organization Address City/State/ZIP Code Phon e Number [facility] Unless otherwise noted, [place] [address] CENTER all lab tests performed by: Division of Pathology and Laboratory Medicine [address] [place] [address] US Fine Needle Aspiration (03/10/2021 10:16 AM LOAN SERVICING REPRESENTATIVE) Anatomical Region Laterality Modality Ultrasound Specimen (Source) Anatomical Collection Method Collection Time Re ceived Time Location / / Volume Laterality 03/10/2021 10:38 AM LOAN SERVICING REPRESENTATIVE Impressions 03/10/2021 10:48 AM LOAN SERVICING REPRESENTATIVE 1. Multiple prominent lymph nodes in the left groin. 2. Percutaneous ultrasound-guided fine-n eedle aspiration of the largest lymph node in the left groin. Preliminary cytopathology results indicate a benign node. Narrative 03/10/2021 10:48 AM LOAN SERVICING REPRESENTATIVE FULL RESULT: Examination: US LOWER EXTREMITY LIMITED LEFT, US FINE NEEDLE ASPIRATION, 03/10/2021 10:16 AM Clinical History: Penile cancer Indication: Enlarged lymph nodes, evalua te for metastatic disease Comparison: MRI 03/01/2021 Technique: Grayscale and color Doppler ultrasound of the left groin was performed. Subsequently, an ultrasound-guided fine-needle aspiration was performed, as described in detail below. Findings: Ultrasound evaluation sonographic evalua tion of the left groin demonstrates several prominent lymph nodes, the largest of which measures 1.4 x 0.9 cm. This lymph node is rounded and no fatty hilum is detected. The procedure(s) and associated risks, b enefits, and alternatives were explained in detail to the patient, who agreed to proceed and signed an informed consent form. All questions were answered. A timeo ut was performed verifying the correct p rocedure, correct name and correct site. The skin was prepped in the usual sterile fashion with ChloraPrep. Lidocaine 1 percent was administered for local anesthe jessi. Under direct sonographic guidance, the fine needle aspiration biopsy was performed using a 21-gauge needle and 2 passes were made. Preprocedure Diagnosis: Enlarged lymph n odes, possibly reactive Postprocedure Diagnosis: Enlarged lymph nodes, reactive Preliminary cytology results were negati ve for malignancy and final results are pending. Estimated Blood Loss: Negligible. Immediate Complications: There were no i mmediate complications, and the patient was discharged in good condition. Procedure Note Jocy Caballero MD - 03/10/2021Format ting of this note might be different from the original. FULL RESULT: Examination: US LOWER EXTREMITY LIMITED LEFT, US FINE NEEDLE ASPIRATION, 03/10/2021 10:16 AM Clinical History: Penile cancer Indication: Enlarged lymph nodes, evalua te for metastatic disease Comparison: MRI 03/01/2021 Technique: Grayscale and color Doppler u ltrasound of the left groin was performed. Subsequently, an ultrasound-guided fine-needle aspiration was performed, as described in detail below. Findings: Ultrasound evaluation sonographic evalua tion of the left groin demonstrates several prominent lymph nodes, the largest of which measures 1.4 x 0.9 cm. This lymph node is rounded and no fatty hilum is detected. The procedure(s) and associated risks, b enefits, and alternatives were explained in detail to the patient, who agreed to proceed and signed an informed consent form. All questions were answered. A timeout was performed verifying the correct procedur e, correct name and correct site. The skin was prepped in the usual sterile fashion with ChloraPrep. Lidocaine 1 percent was administered for local anesthesia. Under direct sonographic guidance, the fine needle as piration biopsy was performed using a 21-gauge needle and 2 passes were made. Preprocedure Diagnosis: Enlarged lymph n odes, possibly reactive Postprocedure Diagnosis: Enlarged lymph nodes, reactive Preliminary cytology results were negati ve for malignancy and final results are pending. Estimated Blood Loss: Negligible. Immediate Complications: There were no i mmediate complications, and the patient was discharged in good condition. IMPRESSION: 1. Multiple prominent lymph nodes in the left groin. 2. Percutaneous ultrasound-guided fine-n eedle aspiration of the largest lymph node in the left groin. Preliminary cytopathology results indicate a benign node. Jay Rich MD IMG US ORDERABLES US Lower Extremity Limited Left (03/10/2021 10:16 AM LOAN SERVICING REPRESENTATIVE) Anatomical Region Laterality Modality Leg, Extremity Ultrasound Specimen (Source) Anatomical Collection Method Collection Time Re ceived Time Location / / Volume Laterality 03/10/2021 10:38 AM LOAN SERVICING REPRESENTATIVE Impressions 03/10/2021 10:48 AM LOAN SERVICING REPRESENTATIVE 1. Multiple prominent lymph nodes in the left groin. 2. Percutaneous ultrasound-guided fine-n eedle aspiration of the largest lymph node in the left groin. Preliminary cytopathology results indicate a benign node. Narrative 03/10/2021 10:48 AM LOAN SERVICING REPRESENTATIVE FULL RESULT: Examination: US LOWER EXTREMITY LIMITED LEFT, US FINE NEEDLE ASPIRATION, 03/10/2021 10:16 AM Clinical History: Penile cancer Indication: Enlarged lymph nodes, evalua te for metastatic disease Comparison: MRI 03/01/2021 Technique: Grayscale and color Doppler ultrasound of the left groin was performed. Subsequently, an ultrasound-guided fine-needle aspiration was performed, as described in detail below. Findings: Ultrasound evaluation sonographic evalua tion of the left groin demonstrates several prominent lymph nodes, the largest of which measures 1.4 x 0.9 cm. This lymph node is rounded and no fatty hilum is detected. The procedure(s) and associated risks, b enefits, and alternatives were explained in detail to the patient, who agreed to proceed and signed an informed consent form. All questions were answered. A timeo ut was performed verifying the correct p rocedure, correct name and correct site. The skin was prepped in the usual sterile fashion with ChloraPrep. Lidocaine 1 percent was administered for local anesthe jessi. Under direct sonographic guidance, the fine needle aspiration biopsy was performed using a 21-gauge needle and 2 passes were made. Preprocedure Diagnosis: Enlarged lymph n odes, possibly reactive Postprocedure Diagnosis: Enlarged lymph nodes, reactive Preliminary cytology results were negati ve for malignancy and final results are pending. Estimated Blood Loss: Negligible. Immediate Complications: There were no i mmediate complications, and the patient was discharged in good condition. Procedure Note Jocy Caballero MD - 03/10/2021Format ting of this note might be different from the original. FULL RESULT: Examination: US LOWER EXTREMITY LIMITED LEFT, US FINE NEEDLE ASPIRATION, 03/10/2021 10:16 AM Clinical History: Penile cancer Indication: Enlarged lymph nodes, evalua te for metastatic disease Comparison: MRI 03/01/2021 Technique: Grayscale and color Doppler u ltrasound of the left groin was performed. Subsequently, an ultrasound-guided fine-needle aspiration was performed, as described in detail below. Findings: Ultrasound evaluation sonographic evalua tion of the left groin demonstrates several prominent lymph nodes, the largest of which measures 1.4 x 0.9 cm. This lymph node is rounded and no fatty hilum is detected. The procedure(s) and associated risks, b enefits, and alternatives were explained in detail to the patient, who agreed to proceed and signed an informed consent form. All questions were answered. A timeout was performed verifying the correct procedur e, correct name and correct site. The skin was prepped in the usual sterile fashion with ChloraPrep. Lidocaine 1 percent was administered for local anesthesia. Under direct sonographic guidance, the fine needle as piration biopsy was performed using a 21-gauge needle and 2 passes were made. Preprocedure Diagnosis: Enlarged lymph n odes, possibly reactive Postprocedure Diagnosis: Enlarged lymph nodes, reactive Preliminary cytology results were negati ve for malignancy and final results are pending. Estimated Blood Loss: Negligible. Immediate Complications: There were no i mmediate complications, and the patient was discharged in good condition. IMPRESSION: 1. Multiple prominent lymph nodes in the left groin. 2. Percutaneous ultrasound-guided fine-n eedle aspiration of the largest lymph node in the left groin. Preliminary cytopathology results indicate a benign node. Jay Rich MD IMG US ORDERABLES Cytology Image-Guided FNA Interpretation (03/10/2021 8:32 AM LOAN SERVICING REPRESENTATIVE) Component Value Ref Test Analysis Performed Pathologis t Range Method Time At Signature Gross A: 03/11/2021 [facility] Description Specimens procured: 3:02 PM 4 Diff Quik; 8 Pap Stain Slides LOAN SERVICING REPRESENTATIVE 10 ml, slightly cloudy bloody fluid in RPMI 1 Cell Block Date/Time Placed in Formalin: 03/10/21 11:30AM Size: 1.5 cm Immediate assessment for specimen adequacy was made x1 by Dr Al Mendez. Immediate Adequate 03/11/2021 [facility] Assessment cellularity, 3:02 PM favor benign LOAN SERVICING REPRESENTATIVE Major [facility]/benign 03/11/2021 [facility] Elect ronically Classification 3:02 PM lidya d by Oumar Mendze MD on 03/11/2021 a t 3:02 PM Diagnosis A. Lymph node, left groin, fine needle aspiration: 03/11/2021 [facility] Electronically 3:02 PM signed by Oumar No metastatic carcinoma identified REBEKA Mendez MD on Lymphoid tissue present 03/11/2021 at 3:02 PM Comment The cell block 03/11/2021 [facility] contributes to 3:02 PM the above LOAN SERVICING REPRESENTATIVE diagnosis. Retained/Biomark SR: 12 S, 1 CB 03/11/2021 [facility] er Testing 3:02 PM LOAN SERVICING REPRESENTATIVE Informational Some tests 03/11/2021 [facility] Points reported here may 3:02 PM have been LOAN SERVICING REPRESENTATIVE developed and performance characteristics determined by [facility] Pathology and Laboratory Medicine. These tests have not been specifically cleared or approved by the U.S. Food and Drug Administration. Specimen Anatomical Collection Method Collection Time Receive d Time (Source) Location / / Volume Laterality Fine Needle Asp 03/10/2021 8:32 AM 2021 9:56 (Groin, Left) LOAN SERVICING REPRESENTATIVE AM LOAN SERVICING REPRESENTATIVE Jay Rich MD LAB CYTOLOGY ORDERABLES Performing Organization Address City/State/ZIP Code Phon e Number [facility] [employer] [facility] [place] [address] [address] (ABNORMAL) Hemoglobin (03/07/2021 6:08 PM LOAN SERVICING REPRESENTATIVE) P athologist Signature Hgb 12.2 (L) 14.0 - 18.0 [facility] gm/dL CANCER CENTER Specimen Anatomical Collection Method Collection Time Receive d Time (Source) Location / / Volume Laterality Blood 03/07/2021 6:08 PM 2 6:15 LOAN SERVICING REPRESENTATIVE PM LOAN SERVICING REPRESENTATIVE Jay Rich MD LAB BLOOD ORDERABLES Performing Organization Address City/[facility] [address]/ZIP Code Phon e Number [facility] Unless otherwise noted, [address] all lab tests performed by: Division of Pathology and Laboratory Medicine [id number] (ABNORMAL) Hematocrit (03/07/2021 6:08 PM LOAN SERVICING REPRESENTATIVE) athologist Signature Hct 38.5 (L) 40.0 - 54.0 [facility] % CANCER CENTER Specimen Anatomical Collection Method Collection Time Receive d Time (Source) Location / / Volume Laterality Blood 03/07/2021 6:08 PM 2 6:15 LOAN SERVICING REPRESENTATIVE PM LOAN SERVICING REPRESENTATIVE Jay Rich MD LAB BLOOD ORDERABLES Performing Organization Address City/[facility] [address]/[facility] Phon e Number [facility] Unless otherwise noted, [address] all lab tests performed by: Division of Pathology and Laboratory Medicine [address] EKG, 12-Lead (Scheduled) (03/05/2021) Specimen (Source) Anatomical Location Collection Method / Collectio n Time Received Time / Laterality Volume Narrative This result has an attachment that is no t available. Jay Rich MD ECG ORDERABLES Performing Organization Address City/[facility] [address]/[facility] Phon e Number [facility] Chest Abdomen with Contrast (03/01/2021 2:09 PM LOAN SERVICING REPRESENTATIVE) Anatomical Region Laterality Modality Chest, Abdomen Computed Tomography Specimen (Source) Anatomical Collection Method Collection Time Re ceived Time Location / / Volume Laterality 03/03/2021 1:23 PM LOAN SERVICING REPRESENTATIVE Impressions 03/03/2021 1:25 PM LOAN SERVICING REPRESENTATIVE No CT evidence of metastases in the thor ax, abdomen. Narrative 03/03/2021 1:25 PM LOAN SERVICING REPRESENTATIVE FULL RESULT: Examination: CT CHEST ABDOMEN W CONTRAST , 03/01/2021 2:09 PM Clinical History: Carcinoma, NOS of peni s, NOS Indication: Suspected penile cancer Comparison: None Technique: CT of the chest and abdomen w as performed with intravenous contrast. Findings: Thorax: There is no evidence of abnormal ly enlarged mediastinal, hilar or axillary adenopathy identified. No evidence of supraclavicular adenopathy seen. No definite evidence of pulmonary parenchymal me tastases is seen. There is a linear opac ity in the right upper lobe on image 36 extending to the pleura, likely secondary to scarring. Perivascular groundglass opacity in the left lower lobe on image 78 is likely secondary to superadded infec tion/inflammation. No pleural or pericardial effusion. ABDOMEN: There are a few scattered well- demarcated low-attenuation lesions in the liver compatible with cysts. No definite evidence of metastases. The gallbladder appears normal. There is no biliary dil atation. The adrenal glands, the kidneys , the pancreas and the spleen are unremarkable. No evidence of retroperitoneal adenopathy Procedure Note Bhargavi Valenzuela MD - 03/03/2021Form atting of this note might be different from the original. FULL RESULT: Examination: CT CHEST ABDOMEN W CONTRAST , 03/01/2021 2:09 PM Clinical History: Carcinoma, NOS of peni s, NOS Indication: Suspected penile cancer Comparison: None Technique: CT of the chest and abdomen w as performed with intravenous contrast. Findings: Thorax: There is no evidence of abnormal ly enlarged mediastinal, hilar or axillary adenopathy identified. No evidence of supraclavicular adenopathy seen. No definite evidence of pulmonary parenchymal metastases is seen. There is a linear opacity in the right u pper lobe on image 36 extending to the pleura, likely secondary to scarring. Perivascular groundglass opacity in the left lower lobe on image 78 is likely secondary to superadded infection/inflammation. No pleural or pe ricardial effusion. ABDOMEN: There are a few scattered well- demarcated low-attenuation lesions in the liver compatible with cysts. No definite evidence of metastases. The gallbladder appears normal. There is no biliary dilatation. The adrenal glands, the kidneys, the pancrea s and the spleen are unremarkable. No evidence of retroperitoneal adenopathy IMPRESSION: No CT evidence of metastases in the thor ax, abdomen. Jay Rich MD IMG CT ORDERABLES MRI Pelvis with and without Contrast - Penis (03/01/2021 1:54 PM LOAN SERVICING REPRESENTATIVE) Anatomical Region Laterality Modality Pelvis Magnetic Resonance Specimen (Source) Anatomical Collection Method Collection Time Re ceived Time Location / / Volume Laterality 03/03/2021 9:00 AM LOAN SERVICING REPRESENTATIVE Impressions 03/03/2021 11:23 AM LOAN SERVICING REPRESENTATIVE * A 5.5 x 5.7 x 6.2 cm penile mass centered within the mid to tip of the penile shaft replacing the normal corpus spongiosum and corpora cavernosa. The penile urethra is narrowed with intraluminal sof t tissue suspicious for urethral invasio n. * Suspicious left lymph node/regional metastasis. Other indeterminate bilateral inguinal nodes. * Prostatomegaly. I personally reviewed these image(s) chanamartha easley with the resident's/fellow's interpretations, certify that if a procedure was performed I was physically present, and agree with the final report. Narrative 03/03/2021 11:23 AM LOAN SERVICING REPRESENTATIVE FULL RESULT: EXAMINATION: MRI PELVIS W WO CONTRAST PE NIS on 03/01/2021 1:54 PM CLINICAL HISTORY: Male, 71 years old wit h a penile mass for over a year in the context of gross hematuria, nonspecific inguinal and pelvic lymphadenopathy, enlarged prostate, bilateral epididymal cysts. INDICATION: Suspected penile cancer COMPARISON: None TECHNIQUE: MRI PELVIS W WO CONTRAST PENIS. Coronal dynamic postcontrast images, targeted on the penile lesion. FINDINGS: Oncological findings: Tumor: There is a 5.5 x 5.7 x 6.2 cm (AP X TRV X CC) heterogeneously enhancing mass with diffusion restriction, centered within the mid to tip of the penile shaft (series , 08/31 15/46 and 1550/166). The tu mor appears to involve the corpus spongi osum as well as both corpora cavernosa, especially from the mid shaft to the penile tip (series 10 image 6, 2; coronal dynamic series 13 image 775, 421). The peni le urethra is narrowed with intraluminal soft tissue (series /25), suspicious for urethral invasion. The proximal urethra is dilated (sagittal series 7 image 24). Vascular: The visualized lower aorta and IVC appea r patent. The internal iliac branches appear patent. Joe: The 1.1 x 1.6 cm left inguinal lymph nod e appears suspicious for joe metastasis given its morphology (series /). Additional smaller bilateral inguinal nodes appear indeterminate. Metastases: None identified. Other findings: PERITONEAL CAVITY/PERITONEUM: No suspicious peritoneal findings. GASTROINTESTINAL TRACT: No evidence of obstruction or adynamic i leus. No colonic wall thickening or surrounding inflammatory changes. OSSEOUS STRUCTURES: No suspicious bone findings. Degenerativ e changes of the spine. URINARY BLADDER: No bladder wall thickening, focal mass o r calculus. PELVIC VISCERA: Prostate size is enlarged, measuring 5.6 x 6.3 x 5.7 (AP X TRV X CC). Normal seminal vesicles. Procedure Note Luis M Easley MD - 03/03/2021 FULL RESULT: EXAMINATION: MRI PELVIS W WO CONTRAST PE NIS on 03/01/2021 1:54 PM CLINICAL HISTORY: Male, 71 years old wit h a penile mass for over a year in the context of gross hematuria, nonspecific inguinal and pelvic lymphadenopathy, enlarged prostate, bilateral epididymal cysts. INDICATION: Suspected penile cancer COMPARISON: None TECHNIQUE: MRI PELVIS W WO CONTRAST PENIS. Coronal dynamic postcontrast images, targeted on the penile lesion. FINDINGS: Oncological findings: Tumor: There is a 5.5 x 5.7 x 6.2 cm (AP X TRV X CC) heterogeneously enhancing mass with diffusion restriction, centered within the mid to tip of the penile shaft (series /, 08/31 15/46 and 1550/166). The tumor appears to involve the corpus spongiosum as well as both corpora cavernosa, especially from the mid shaft to the penile tip (series 10 image 6, 2; coronal dynamic series 13 image 775, 421). The penile urethra is narrowed with intraluminal soft tissue (series / 25), suspicious for urethral invasion. The proximal urethra is dilated (sagittal series 7 image 24). Vascular: The visualized lower aorta and IVC appea r patent. The internal iliac branches appear patent. Joe: The 1.1 x 1.6 cm left inguinal lymph nod e appears suspicious for joe metastasis given its morphology (series /). Additional smaller bilateral inguinal nodes appear indeterminate. Metastases: None identified. Other findings: PERITONEAL CAVITY/PERITONEUM: No suspicious peritoneal findings. GASTROINTESTINAL TRACT: No evidence of obstruction or adynamic i leus. No colonic wall thickening or surrounding inflammatory changes. OSSEOUS STRUCTURES: No suspicious bone findings. Degenerativ e changes of the spine. URINARY BLADDER: No bladder wall thickening, focal mass o r calculus. PELVIC VISCERA: Prostate size is enlarged, measuring 5.6 x 6.3 x 5.7 (AP X TRV X CC). Normal seminal vesicles. IMPRESSION: * A 5.5 x 5.7 x 6.2 cm penile mass cente red within the mid to tip of the penile shaft replacing the normal corpus spongiosum and corpora cavernosa. The penile urethra is narrowed with intraluminal soft tissue suspicious for urethral invasion. * Suspicious left lymph node/regional me tastasis. Other indeterminate bilateral inguinal nodes. * Prostatomegaly. I personally reviewed these image(s) chana easley with the resident's/fellow's interpretations, certify that if a procedure was performed I was physically present, and agree with the final report. Jay Rich MD IMG MRI ORDERABLES Urinalysis with Reflex to Microscopic Reference Lab (03/01/2021 10:34 AM LOAN SERVICING REPRESENTATIVE) Patholo gist Method Time Signature UA Color YELLOW YELLOW QUEST UA Appear CLEAR CLEAR [facility] Bili NEGATIVE NEGATIVE [facility] Ketones NEGATIVE NEGATIVE [facility] Spec Grav 1.018 1.001 - 1.035 [facility] Blood NEGATIVE NEGATIVE [facility] pH 5.5 5.0 - 8.0 [facility] Protein NEGATIVE NEGATIVE [facility] Nitrite NEGATIVE NEGATIVE [facility] Leuk Est NEGATIVE NEGATIVE [facility] Comment: Lab test performed by: Lab Mnemonic: [facility] [address] [id number] POLINA MOTLEY MD UA Glucose NEGATIVE NEGATIVE [facility] Specimen Anatomical Collection Method Collection Time Receive d Time (Source) Location / / Volume Laterality Urine 03/01/2021 10:34 03/01/2021 AM LOAN SERVICING REPRESENTATIVE 12:27 PM LOAN SERVICING REPRESENTATIVE Jay Rich MD URINE ORDERABLES Performing Organization Address City/State/ZIP Code Phon e Number [facility] (03/01/2021 10:34 AM LOAN SERVICING REPRESENTATIVE) athologist Signature TSH 2.06 0.27 - 4.20 [place] [facility] mcunit/mL [facility] Specimen Anatomical Collection Method Collection Time Receive d Time (Source) Location / / Volume Laterality Blood 03/01/2021 10:34 03/01/2021 AM LOAN SERVICING REPRESENTATIVE 10:53 AM LOAN SERVICING REPRESENTATIVE Jay Rich MD LAB BLOOD ORDERABLES Performing Organization Address City/State/ZIP Code Phon e Number [facility] Unless otherwise noted, [address] all lab tests performed by: Division of Pathology and Laboratory Medicine [address] T4 (03/01/2021 10:34 AM LOAN SERVICING REPRESENTATIVE) P athologist Signature T4 7.8 4.5 - 11.7 [facility]/ [facility] Specimen Anatomical Collection Method Collection Time Receive d Time (Source) Location / / Volume Laterality Blood 03/01/2021 10:34 03/01/2021 AM LOAN SERVICING REPRESENTATIVE 10:53 AM LOAN SERVICING REPRESENTATIVE Jay Rich MD LAB BLOOD ORDERABLES Performing Organization Address City/State/ZIP Code Phon e Number [facility] Unless otherwise noted, [address] all lab tests performed by: Division of Pathology and Laboratory Medicine [address] Confirm ABORh (03/01/2021 10:32 AM LOAN SERVICING REPRESENTATIVE) athologist Signature ABORh Confirm. O [facility] Specimen Anatomical Collection Method Collection Time Receive d Time (Source) Location / / Volume Laterality Blood 03/01/2021 10:32 03/01/2021 AM LOAN SERVICING REPRESENTATIVE 11:29 AM LOAN SERVICING REPRESENTATIVE Jay Rich MD BLOOD BANK TEST ORDERABLES Performing Organization Address City/State/ZIP Code Phon e Number [facility] Unless otherwise noted, [address] all lab tests performed by: Division of Pathology and Laboratory Medicine [facility] after 02/12/2021 Insurance Payer Benefit Plan / Subscriber ID Effective Dates Phone Addre ss Type Group AETNA MEDICARE AETNA MEDICARE [id number] 2022-Stephanie [address] [place] [address] Advance Directives Type Date Recorded 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 Advance Directives: 12/30/2021 Directive to Physicians Living Will and Family or Surrogates-Tatyana clements Will Advance Directives: 12/30/2021 Medical Arnie r of Grain Drier Operator Medical Power of Grain Drier Operator Advance Directives: 12/26/2021 Directive to Physicians Living Will and Family or Surrogates-Livin g Will Advance Directives: 12/26/2021 Medical Arnie r of Grain Drier Operator Medical Power of Grain Drier Operator Code Status Date Activated Date Inactivated Comments Full Code 12/30/2021 11:33 AM 01/23/2022 1:51 PM Code Status Date Activated Date Inactivated Comments Full Code 04/11/2021 6:31 PM 04/16/2021 3:10 PM Full Code 03/07/2021 9:24 PM 03/11/2021 2:21 PM Care Teams Pigs Feet Finisher Relationship Specialty Start Date End Date Jam Moses MD PCP - External Referring Urology 02/17/21 [id number] [place] [address] Jay Rich MD PCP - General Urology 02/26/21 [facility] [place] [address]
--- OUTSIDE RECORDS SUMMARY | 2022-02-12 20:34 | XMS REPORT | Continuity of Care Document ---
:1950 Author Organization [facility] t Address [address] [place] [address] Care Team Providers Name Role Phone [phone] Primary Care Physician Unavailable SYSTEM, PROVIDER NOT IN Attending Clinician Unavailable Clark Herrera RN Attending Clinician Unavailable Rell Olson MD Attending Clinician Rubio Motley MD, Veronica Hoover Attending Clinici an Stacia Glasgow MD. Attending Clinician Lety Easley MD Attending Clinician LETY EASLEY Attending Clinician Unavailable Sid Hernandez NP Attending Clinician Husam Acuña MD Attending Clinician HUSAM ACUÑA Attending Clinician Unavailable STACIA GLASGOW Attending Clinician Unavailable BERTHA RICH Attending Clinician Unavailable Layla LY, Bertha Attending Clinician Ivis Jones APN Attending Clinician Jacoby Blount MD Attending Clinician Tatum Geller CRNA Attending Clinician Aamir Mejia Attending Clinician Veronique Underwood MD Attending Clinician AAMIR JOHNS Attending Clinician Unavailable Poly Núñez RN Attending Clinician Unavailable Caitlyn Hinton Attending Clinician CAITLYN TINEO Attending Clinician Unavailable Raysa Johns Attending Clinician Michelle MCKNIGHT, Sharita Roland Attending Clinician Unavailable Richard LY, Desirae Attending Clinician DESIRAE RAMOS Attending Clinician Unavailable Lance ORTEGA, Vidhi Campa Attending Clinician Ashley LY, Marylin Attending Clinician Shilpa Barnes Attending Clinician SHILPA CORRAL Attending Clinician Unavailable Jessica Van RN Attending Clinician Unavailable Mary PT, Gemma Attending Clinician Bernabe PTShahab Attending Clinician Justo Blount MD Attending Clinician Josefa Macias MA Attending Clinician Unavailable Savannah Paulson RN Attending Clinician Tommie ORTEGA, Guicho Roland Attending Clinician Alexys Armenta MD Attending Clinician Fina Mims MA Attending Clinician Unavailable Diane LY, Edward Novoa Attending Clinician Kati Alvarez RN Attending Clinician Unavailable Britt LY, Tommy Martell Attending Clinician Rach Kelly Attending Clinician VERONICA RAMOS Admitting Clinician Unavailable BERTHA RICH Admitting Clinician Unavailable Payers Payer Name Policy Type Policy Number Effective Date Expiration Date S 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 00:00: [place] of bone of bone 00 MD [facility] Thoracic Thoracic Disease Active 2021-02 Unive rs back pain back pain 1-16 ity of 00:00: [place] MD [facility] [place] Disease Active 2021-02 Univers chest wall chest wall 1-10 it y of 00:00: [place] MD [facility] Lymphedema Lymphedema Disease Active U nivers 5-02 ity of 00:00: [place] MD [facility] [place] 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 -20 ity of 00:00: [place] MD Crissy barney [facility] Hypertensi Hypertensi Disease Active U nivers on on - ity of 00:00: [place] MD [facility] Pelvic Pelvic Disease Active 2020-02 Univers pain pain 2-27 ity of 00:00: [place] MD Crissy barney [facility] Paraparesi Paraparesi Disease Active U nivers s s ity of [place] MD Crissy barney [facility] Other Other Disease Active Univers abnormalit abnormalit it y of [place] [facility]issy barney [facility] Other Other Disease Active Univers fatigue fatigue ity of [place] MD Crissy barney [facility] Other Other Disease Resolve 2022-01-22 2022-01-22 Univers acute acute d 00:00:00 13:40:14 it[place] of [place]operat [place]operat [place] cody pain cody pain [facility] Allergies, Adverse Reactions, Alerts This patient has no known allergies or adverse reactions. Family History Family Member Diagnosis Comments Start Date Stop Date Source Natural father Benign prostatic Univ ersity of [place] hyperplasia MD [facility] Natural father Hypertension Universi ty of [place] [facility] Natural mother Hypertension Universi ty of [place] [facility] Social History Social Habit Start Date Stop Date Quantity Comments Source History of tobacco Current smoker Un iversity of use [place] MD Keaton stanley [facility] Alcohol intake 2022-01-14 2022-01-14 University of 00:00:00 00:00:00 Radha stanley [facility] Education 2021-03-05 2021-03-05 13 University of 00:00:00 00:00:00 [place] MD Keaton stanley [facility] Cigarettes smoked 2021-02-27 2021-02-27 Univers ity of current (pack per 00:00:00 00:00:00 [place] Josue Romo ) - Reported Cancer Ce nter Cigarette 2021-02-27 2021-02-27 University of pack-years 00:00:00 00:00:00 [place] MD Keaton stanley [facility] Tobacco use and 2021-02-27 2021-02-27 Smokeless tobacco Un iversity of exposure 00:00:00 00:00:00 non-user [place] MD Keaton stanley [facility] Alcohol Comment 2021-02-27 2021-02-27 Occasional Universit y of 00:00:00 00:00:00 [place] MD Keaton stanley [facility] Sex Ass[birth year] At [birth year] Universit y of 00:00:00 00:00:00 [place] MD Keaton stanley [facility] Smoking Status Start Date Stop Date Source Ex-smoker 2021-02-27 00:00:00 2021-02-27 00:00:00 Universi ty of [facility] Medications Ordered Filled Start Stop Current Ordering Indication Dosage Frequency Signature Comments Components Source Medication Medication Date Date Medication? Clinician (SIG) Name Name lisinopril 2021-02 Yes Penile 10mg Take 1 Uni vers (PRINIVIL,Z 2-16 cancer tablet (10 ity of ESTRIL) 10 00:00: mg) by [place] mg tablet 00 mouth every Anderso morning. n [facility] pantoprazol 2021-02 Yes Spinal cord 40mg Take 1 Univers e 2-16 compression tablet (40 it y of (PROTONIX) 00:00: mg) by [place] 40 mg EC 00 mouth tablet every [place] morning n before Cancer breakfast. [place] polyethylen 2021-02 Yes Neurogenic 17g Take 17 g Univers e glycol 2-16 bowel by mouth ity of (MIRALAX) 00:00: daily. Radha 17 g packet 00 MD Crissy barney [facility] senna 2021-02 Yes Neurogenic 3{tbl} Take 3 Un yajaira (SENOKOT) 2-16 bowel tablets by ity of 8.6 mg 00:00: mouth Radha tablet 00 daily with lunch. [facility] acetaminoph 2021-02 Yes Spinal cord 500mg Take 1 Univers en 2-15 compression tablet ity of (TYLENOL) 00:00: (500 mg) [place] 500 mg 00 by mouth MD tablet every 6 [place]o (six) n hours as Cancer needed for Center mild pain. vit 2021-02 Yes Spinal cord 1{capsu Take 1 U nivers C,E-Zn-priti 2-15 compression le} capsule by ity of r-lutein-ze 00:00: mouth [place] axan 00 twice MD 250-90-40-1 daily. Alex o mg cap n Cancer Center bisacodyl 2021-02 Yes Neurogenic 10mg Insert 1 Univers (DULCOLAX) 2-15 bowel suppositor it y of 10 mg 00:00: y (10 mg) [place] suppository 00 into the MD rectum at Anderso bedtime. n Unwrap and Cancer remove Center each suppositor y from foil prior to insertion. traMADol 2021-02 Yes Spinal cord 50mg Take 1 Univers (ULTRAM) 50 2-15 compression tablet (50 ity of mg tablet 00:00: mg) by [place] 00 mouth MD every 6 [place]o (six) n hours as Cancer needed for Center moderate pain. gabapentin 2021-02 Yes [place] of 300mg Take 1 U nivers (NEURONTIN) 2-15 thoracic capsule i ty of 300 mg 00:00: structure (300 mg) [place] capsule 00 by mouth 3 MD (three) Anders[place] times a n day. Cancer Center acetaminoph 2021-02- No [place] of 1{tbl} Take 1 Univers en-codeine 1-14 12-16 thoracic tablet by ity of (Tylenol-Co 00:00: 00:00 structure mouth [place] deine #3) 00 :00 every 6 MD 300 mg-30 (six) Anderso mg tablet hours as n needed for Cancer moderate Center pain. gabapentin 2021-02- No [place] of 300mg Take 1 Univers (NEURONTIN) 1-14 12-15 thoracic capsule ity of 300 mg 00:00: 00:00 structure (300 mg) [place] capsule 00 :00 by mouth 3 MD (three) Anders[place] times a n day. Cancer [place] methylPREDN 2021-02- No TAKE BY Un yajaira ISolone 0-17 11-10 MOUTH ity of (MEDROL 00:00: 00:00 DIRECTED [place] DOSEPACK) 4 00 :00 ON INSIDE MD mg tablet OF PACKAGE Jorge rso n Cancer Center methocarbam 2021-02- No TAKE 1 Uni vers ol 017 11-10 TABLET BY ity of (ROBAXIN) 00:00: 00:00 MOUTH [place] 750 mg 00 :00 THREE MD tablet TIMES [place] DAILY n NEEDED Cancer Center celecoxib 2021- No TAKE 1 Unive rs (CeleBREX) 10-29 11-10 CAPSULE BY it y of 200 mg 00:00: 00:00 MOUTH [place] capsule 00 :00 TWICE MD DAILY WITH [place] FOOD n NEEDED Cancer Center acetaminoph No Carcinoma, 500mg Take 1 Univers en (Tylenol 04-16 NOS of tablet ity of Extra 00:00: 00:00 penis, NOS (500 mg) [place] Strength) 00 :00 by mouth MD 500 mg every 6 Anderso tablet (six) n hours as Cancer needed for Center mild pain. cephalexin No Carcinoma, 500mg Take 1 Univers (KEFLEX) 04-16-09 NOS of capsule ity o f 500 mg 00:00: 04:59 penis, NOS (500 mg) [place] capsule 00 :00 by mouth MD every 12 [place]o (twelve) n hours for Cancer 30 days. [place] apixaban 2021- Carcinoma, 2.5mg Take 1 Univers (Eliquis) 04-16 04-07 NOS of tablet ity o f 2.5 mg 00:00: 04:59 penis, NOS (2.5 mg) [place] tablet 00 :00 by mouth MD every 12 [place]o (twelve) n hours for Cancer 28 days. [place] acetaminoph 2021- No 325mg Take 325 Univers en 04-10 03-03 mg by ity of (TYLENOL) 10:54: 00:00 mouth once [place] 325 mg 19 :00 as needed. MD tablet Anderso n Cancer Center cholecalcif 2021- No 2000U Take 2,000 Univers antony, 3 03-03 Units by ity of vitamin D3, 10:54: 00:00 mouth [place] (VITAMIN 16 :00 daily. D3) 2,000 [place] units tab n tablet Cancer Center docusate Carcinoma, 100mg Take 1 Univers sodium 03-10 11-10 NOS of capsule ity of (Colace) 00:00: 00:00 penis, NOS (100 mg) [place] 100 mg 00 :00 by mouth 2 MD capsule (two) [place] times a n day as Cancer needed for Center constipati on. tamsulosin Carcinoma, .4mg Take 1 Univers (FLOMAX) 03-10 11-10 NOS of capsule ity o f 0.4 mg 24 00:00: 00:00 penis, NOS (0.4 mg) [place] hr capsule 00 :00 by mouth MD at Anderso bedtime. n Cancer Center traMADol Carcinoma, 50mg Take 1 Univers (ULTRAM) 50 03-10 03-03 NOS of tablet (50 ity of mg tablet 00:00: 00:00 penis, NOS mg) by [place] 00 :00 mouth MD every 8 [place]o (eight) n hours as Cancer needed for Center severe pain. methocarbam Carcinoma, 500mg Take 1 Univers ol 03-10-03 NOS of tablet ity of (ROBAXIN) 00:00: 00:00 penis, NOS (500 mg) [place] 500 mg 00 :00 by mouth MD tablet every 8 [place]o (eight) n hours as Cancer needed for Center muscle spasms. hyoscyamine Carcinoma, .125mg Dissolve 1 Univers sulfate 03-10-03 NOS of tablet ity of (ANASPAZ) 00:00: 00:00 penis, NOS (0.125 mg) [place] 0.125 mg 00 :00 on the MD disintegrat tongue Alex o ing tablet every 8 n (eight) Cancer hours as Center needed for cramping. Do not take one day prior to urinary catheter removal. cephalexin No Carcinoma, 500mg Take 1 Univers (Keflex) 03-10 02-07 NOS of capsule ity o f 500 mg 00:00: 05:59 penis, NOS (500 mg) [place] capsule 00 :00 by mouth 4 MD (four) [place] times a n day for 5 Cancer days. Center metroNIDAZO No 1{tbl} Take 1 U nivers LE (FLAGYL) 02-20 tablet by it y of 500 mg 00:00: 00:00 mouth 3 [place] tablet 00 :00 (three) MD times a Andersguillermo day. n [facility] lisinopril 2020-02 No 40mg Take 1 Univ ers (PRINIVIL,Z 01-23 tablet by it y of ESTRIL) 40 00:00: 00:00 mouth [place] mg tablet 00 :00 every MD morning. Anderso n [facility] Vital Signs Vital Name Observation Time Observation Value Comments Source Systolic blood 2022-01-23 13:13:59 106 mm[Hg] Univer sity of pressure [facility] Diastolic blood 2022-01-23 13:13:59 65 mm[Hg] Unive rsity of pressure [place] MD Johnson on [facility] Heart rate 2022-01-23 13:13:59 60 /min [facility] MD [facility] Body temperature 2022-01-23 13:13:59 37.22 Ani [facility] Respiratory rate 2022-01-23 13:13:59 17 /min [facility] Oxygen saturation in 2022-01-23 13:13:59 94 /min [facility] blood by Radha hammond Pulse oximetry [facility] Body height 2021-12-30 17:31:00 166.5 cm [facility] Body weight 2021-12-30 17:31:00 92.5 kg [facility] MD [facility] BMI 2021-12-30 17:31:00 33.37 kg/m2 [facility] MD Johnson on [facility] Procedures Procedure Date / Time Performing Clinician Source Performed BASIC METABOLIC PANEL, 2022-01-21 12:25:00 Viviane Chery [facility] CALCIUM TOTAL [facility] COMPLETE BLOOD COUNT W/ 2022-01-21 12:25:00 [facility] PREALBUMIN 2022-01-21 12:25:00 Luis Quijanoyuriy Meyer o f [facility] C REACTIVE PROTEIN 2022-01-21 12:25:00 Lashonda Quijano y [facility] GLUCOSE LEVEL 2022-01-21 12:25:00 Yessi Webb Universit y [facility] BLOOD UREA NITROGEN 2022-01-21 12:25:00 Yessi Webb Unive rsity of [facility] ELECTROLYTE PANEL 2022-01-21 12:25:00 Yessi Webb Univers ity [facility] SERUM CREATININE 2022-01-21 12:25:00 Yessi Webb Universi [facility] .GLOMERULAR FILTRATION 2022-01-21 12:25:00 Yessi Webb Un iversity of [place] RATE [facility] CALCIUM LEVEL TOTAL 2022-01-21 12:25:00 [facility] Results CBC 2022-01-21 12:25:[address] [facility] y [facility] MANUAL DIFFERENTIAL 2022-01-21 12:25:00 [facility] BASIC METABOLIC PANEL, 2022-01-19 11:45:00 [facility] CALCIUM TOTAL [facility] COMPLETE BLOOD COUNT W/ 2022-01-19 11:45:00 Viviane Chery [facility] DIFFERENTIAL [facility] GLUCOSE LEVEL 2022-01-19 11:45:00 Yessi Webb Universit y [facility] BLOOD UREA NITROGEN 2022-01-19 11:45:00 Yessi Webb Unive rsity of [facility] ELECTROLYTE PANEL 2022-01-19 11:45:00 Yessi Webb Univers ity [facility] SERUM CREATININE 2022-01-19 11:45:00 Yessi Webb Universi of [facility] .GLOMERULAR FILTRATION 2022-01-19 11:45:00 Yessi Webb Un iversity of [place] RATE [facility] CALCIUM LEVEL TOTAL 2022-01-19 11:45:00 Ron-Harry, An Irina Unive rsity of [facility] Results CBC 2022-01-19 11:45:00 RonMonica, An Irina Universit y of [facility] Center MANUAL DIFFERENTIAL 2022-01-19 11:45:00 RonMonica, An Irina Unive rsity of [facility] BASIC METABOLIC PANEL, 2022-01-16 12:08:00 Viviane Chery erskandy of [place] CALCIUM TOTAL [facility] COMPLETE BLOOD COUNT W/ 2022-01-16 12:08:00 Viviane Chery verskandy of [facility] GLUCOSE LEVEL 2022-01-16 12:08:00 Yessi Webbuy Universit y of [facility] BLOOD UREA NITROGEN 2022-01-16 12:08:00 Jon, Yessi Mathewsuy Unive rsity of [facility] ELECTROLYTE PANEL 2022-01-16 12:08:00 Yessi Webb Univers ity of [facility] SERUM CREATININE 2022-01-16 12:08:00 Yessi Webb Universi ty of [facility] .GLOMERULAR FILTRATION 2022-01-16 12:08:00 Yessi Webb Un iversity of [facility] CALCIUM LEVEL TOTAL 2022-01-16 12:08:00 Jon, An Irina Unive rsity of [facility] Results CBC 2022-01-16 12:08:00 Jon, An Irina Universit y of [facility] Center MANUAL DIFFERENTIAL 2022-01-16 12:08:00 Jon, An Irina Unive rsity of [facility] XR ABDOMEN 1 VW PORTABLE 2022-01-14 17:38:11 Aleisha Andrade of [place] Rochelle [facility] BASIC METABOLIC PANEL, 2022-01-14 13:24:00 Viviane [facility] [place] CALCIUM TOTAL [facility] COMPLETE BLOOD COUNT W/ 2022-01-14 13:24:00 Viviane Chery Uni versity of [place] DIFFERENTIAL [facility] PREALBUMIN 2022-01-14 13:24:00 [facility] C REACTIVE PROTEIN 2022-01-14 13:24:00 [facility] Center GLUCOSE LEVEL 2022-01-14 13:24:00 Yessi Webb Universit y of [facility] BLOOD UREA NITROGEN 2022-01-14 13:24:00 Yessi Webb Unive rsity of [facility] ELECTROLYTE PANEL 2022-01-14 13:24:00 Yessi Webb Univers ity of [facility] SERUM CREATININE 2022-01-14 13:24:00 Yessi Webb Universi ty of [facility] .GLOMERULAR FILTRATION 2022-01-14 13:24:00 Yessi Webb Un iversity of [place] RATE [facility] CALCIUM LEVEL TOTAL 2022-01-14 13:24:00 Yessi Webb [facility]ive [facility] of [facility] Results CBC 2022-01-14 13:24:00 Yessi Webb Universit y of [facility] Center MANUAL DIFFERENTIAL 2022-01-14 13:24:00 Yessi Webb Unive rsity of [facility] BASIC METABOLIC PANEL, 2022-01-12 12:42:00 Viviane Chery [facility] [place] CALCIUM TOTAL [facility] COMPLETE BLOOD COUNT W/ 2022-01-12 12:42:00 Viviane Chery [facility] [place] DIFFERENTIAL [facility] GLUCOSE LEVEL 2022-01-12 12:42:00 Yessi Webb Universit y of [facility] BLOOD UREA NITROGEN 2022-01-12 12:42:00 Yessi Webb Irina Unive rsity of [facility] ELECTROLYTE PANEL 2022-01-12 12:42:00 Yessi Webb Univers ity of [facility] SERUM CREATININE 2022-01-12 12:42:00 Yessi Webb Irina Universi ty of [facility] .GLOMERULAR FILTRATION 2022-01-12 12:42:00 Yessi Webb Un iversity of [place] RATE [facility] CALCIUM LEVEL TOTAL 2022-01-12 12:42:00 Yessi Webb Irina Unive rsity of [facility] Results CBC 2022-01-12 12:42:00 Yessi Webb Universit y of [facility] MANUAL DIFFERENTIAL 2022-01-12 12:42:00 Yessi Webb Unive rsity of [facility] BASIC METABOLIC PANEL, 2022-01-09 12:06:00 Viviane Chery ersity of [place] CALCIUM TOTAL [facility] COMPLETE BLOOD COUNT W/ 2022-01-09 12:06:00 Viviane Chery [facility] versity of [place] DIFFERENTIAL [facility] GLUCOSE LEVEL 2022-01-09 12:06:00 Yessi Webb Universit y of [facility] BLOOD UREA NITROGEN 2022-01-09 12:06:00 Yessi Webb Unive rsity of [facility] ELECTROLYTE PANEL 2022-01-09 12:06:00 Yessi Webb Univers ity of [facility] Center SERUM CREATININE 2022-01-09 12:06:00 Yessi Webb Irina Universi ty of [facility] .GLOMERULAR FILTRATION 2022-01-09 12:06:00 Yessi Webb Un iversity of [place] RATE [facility] Center CALCIUM LEVEL TOTAL 2022-01-09 12:06:00 Yessi Webbuy Unive rsity of [facility] Center Results CBC 2022-01-09 12:06:[address] [facility] y [facility] er Center MANUAL DIFFERENTIAL 2022-01-09 12:06:00 Yessi Webbe rsity [facility] BASIC METABOLIC PANEL, 2022-01-07 11:47:00 [facility] CALCIUM TOTAL [facility] COMPLETE BLOOD COUNT W/ 2022-01-07 11:47:00 Viviane Chery [facility] DIFFERENTIAL [facility] PREALBUMIN 2022-01-07 11:47:00 Samm [facility] f [facility] C REACTIVE PROTEIN 2022-01-07 11:47:00 Lashonda Quijano [facility] GLUCOSE LEVEL 2022-01-07 11:47:[address] [facility] y [facility] BLOOD UREA NITROGEN 2022-01-07 11:47:00 [facility]ess[facility] ELECTROL[facility]TE PANEL 2022-01-07 11:47:00 Yessi Webby [facility] SERUM CREATININE 2022-01-07 11:47:00 Yessi Webb ty [facility] .GLOMERULAR FILTRATION 2022-01-07 11:47:00 Yessi Webb Un iverskandy [facility] RATE [facility] CALCIUM LEVEL TOTAL 2022-01-07 11:47:00 [facility]essi Webb [facility] Results CBC 2022-01-07 11:47:[address] [facility] y [facility] er Center MANUAL DIFFERENTIAL 2022-01-07 11:47:00 [facility]ess[facility] Webb [facility] POC GLUCOSE SCREEN 2022-01-06 23:54:[address] [facility] y [facility] er Center POC GLUCOSE SCREEN 2022-01-06 19:05:00 Stacia Glasgow [facility] er Center POC GLUCOSE SCREEN 2022-01-06 13:48:00 Stacia Glasgow [facility] WOUND CULTURE W/ GRAM 2022-01-06 12:08:[address] [facility] STAIN [facility] HSV/VZV DNA DETECTION 2022-01-06 12:08:00 Bridgett Loja [facility] POC GLUCOSE SCREEN 2022-01-06 04:45:00 Stacia Glasgow [facility] POC GLUCOSE SCREEN 2022-01-06 01:27:00 Stacia Glasgow [facility] Center POC GLUCOSE SCREEN 2022-01-05 20:36:00 Stacia Glasgow [facility] POC GLUCOSE SCREEN 2022-01-05 14:08:00 Stacia Glasgow [facility] BASIC METABOLIC PANEL, 2022-01-05 12:33:00 Viviane Chery [facility] CALCIUM TOTAL [facility] COMPLETE BLOOD COUNT W/ 2022-01-05 12:33:00 Viviane Chery [facility] DIFFERENTIAL [facility] GLUCOSE LEVEL 2022-01-05 12:33:00 [facility]LO[facility]REA NITROGEN 2022-01-05 12:33:00 Yessi Webb [facility] ELECTROLYTE PANEL 2022-01-05 12:33:00 Yessi Webb y [facility] SERUM CREATININE 2022-01-05 12:33:00 Yessi Wbeb ty [facility] .GLOMERULAR FILTRATION 2022-01-05 12:33:00 Yessi Webb [facility] RATE [facility] CALCIUM LEVEL TOTAL 2022-01-05 12:33:00 Yessi Webb [facility] Results CBC 2022-01-05 12:33:00 Yessi Webb [facility] Center MANUAL DIFFERENTIAL 2022-01-05 12:33:00 [facility] POC GLUCOSE SCREEN 2022-01-05 04:24:00 Stacia Glasgow [facility] POC GLUCOSE SCREEN 2022-01-05 00:23:00 Stacia Glasgow [facility] POC GLUCOSE SCREEN 2022-01-04 17:32:00 Stacia Glasgow [facility] POC GLUCOSE SCREEN 2022-01-04 13:33:00 Stacia Glasgow [facility] POC GLUCOSE SCREEN 2022-01-04 04:41:00 Stacia Glasgow [facility] POC GLUCOSE SCREEN 2022-01-04 00:28:00 Stacia Glasgow [facility] POC GLUCOSE SCREEN 2022-01-03 18:42:00 Stacia Glasgow [facility] BASIC METABOLIC PANEL, 2022-01-03 13:38:[address] [facility] CALCIUM TOTAL [facility] COMPLETE BLOOD COUNT W/ 2022-01-03 13:38:00 Lashonda Quijano [facility] DIFFERENTIAL [facility] GLUCOSE LEVEL 2022-01-03 13:38:00 Lashonda Quijano o [facility] BLOOD UREA NITROGEN 2022-01-03 13:38:00 Lashonda Quijano [facility] ELECTROLYTE PANEL 2022-01-03 13:38:00 Lashonda Quijano [facility] SERUM CREATININE 2022-01-03 13:38:00 Lashonda Quijano [facility] .GLOMERULAR FILTRATION 2022-01-03 13:38:00 Lashonda Quijano [facility] RATE [facility] CALCIUM LEVEL TOTAL 2022-01-03 13:38:00 Lashonda Quijano [facility] Results CBC 2022-01-03 13:38:00 Lashonda Quijano [facility] Center MANUAL DIFFERENTIAL 2022-01-03 13:38:00 Lashonda Quijano [facility] POC GLUCOSE SCREEN 2022-01-03 13:32:00 Stacia Glasgow [facility] Center POC GLUCOSE SCREEN 2022-01-03 04:14:00 Stacia Glasgow [facility] POC GLUCOSE SCREEN 2022-01-03 01:49:00 Stacia Glasgow [facility] POC GLUCOSE SCREEN 2022-01-02 22:24:00 Stacia Glasgow [facility] POC GLUCOSE SCREEN 2022-01-02 14:13:00 Stacia Glasgow [facility] BASIC METABOLIC PANEL, 2022-01-02 12:50:[address] [facility] CALCIUM TOTAL [facility] COMPLETE BLOOD COUNT W/ 2022-01-02 12:50:00 Lashonda Quijano [facility] DIFFERENTIAL [facility] GLUCOSE LEVEL 2022-01-02 12:50:00 Lashonda Quijano [facility] BLOOD UREA NITROGEN 2022-01-02 12:50:00 Lashonda Quijano [facility] ELECTROLYTE PANEL 2022-01-02 12:50:00 [facility] 2022-01-02 12:50:00 [facility] .GLOMERULAR FILTRATION 2022-01-02 12:50:[address] [facility] RATE [facility] CALCIUM LEVEL TOTAL 2022-01-02 12:50:00 Lashonda Quijano [facility] Results CBC 2022-01-02 12:50:00 Lashonda Quijano [facility] Center MANUAL DIFFERENTIAL 2022-01-02 12:50:00 Lashonda Quijano [facility] POC GLUCOSE SCREEN 2022-01-02 04:03:00 Stacia Glasgow [facility] POC GLUCOSE SCREEN 2022-01-02 01:03:00 Stacia Glasgow [facility] POC GLUCOSE SCREEN 2022-01-01 19:48:00 Stacia Glasgow [facility] Center POC GLUCOSE SCREEN 2022-01-01 14:25:00 Stacia Glasgow [facility] BASIC METABOLIC PANEL, 2022-01-01 12:11:[address] [facility] CALCIUM TOTAL [facility] COMPLETE BLOOD COUNT W/ 2022-01-01 12:11:00 Lashonda Quijano [facility] DIFFERENTIAL [facility] GLUCOSE LEVEL 2022-01-01 12:11:00 [facility] BLOOD UREA NITROGEN 2022-01-01 12:11:00 Angelic Gomez [facility] ELECTROLYTE PANEL 2022-01-01 12:11:00 Patricia [facility] SERUM CREATININE 2022-01-01 12:11:00 Patricia [facility] .GLOMERULAR FILTRATION 2022-01-01 12:11:00 [facility] RATE [facility] CALCIUM LEVEL TOTAL 2022-01-01 12:11:00 Angelic Gomez [facility] Results CBC 2022-01-01 12:11:00 [facility] MANUAL DIFFERENTIAL 2022-01-01 12:11:00 Angelic Gomez [facility] POC GLUCOSE SCREEN 2022-01-01 04:24:00 Stacia Glasgow [facility] C REACTIVE PROTEIN 2022-01-01 01:14:00 Lashonda Quijano [facility] PREALBUMIN 2022-01-01 01:14:00 Lashonda Quijano [facility] POC GLUCOSE SCREEN 2022-01-01 01:11:00 Stacia Glasgow [facility] XR CHEST 1 VW PORTABLE 2021-12-31 22:04:41 [facility] POC GLUCOSE SCREEN 2021-12-31 19:06:00 Rubio Motley [facility] POC GLUCOSE SCREEN 2021-12-31 13:25:00 Rubio Motley [facility] BASIC METABOLIC PANEL, 2021-12-31 08:42:[address] [facility] CALCIUM TOTAL [facility] COMPLETE BLOOD COUNT W/ 2021-12-31 08:42:00 Lashonda Quijano [facility] DIFFERENTIAL [facility] GLUCOSE LEVEL 2021-12-31 08:42:00 Angelic Gomez [facility] BLOOD UREA NITROGEN 2021-12-31 08:42:00 Angelic Gomez [facility] ELECTROLYTE PANEL 2021-12-31 08:42:00 [facility] SERUM CREATININE 2021-12-31 08:42:00 Patricia [facility] .GLOMERULAR FILTRATION 2021-12-31 08:42:00 Angelic [facility] RATE [facility] CALCIUM LEVEL TOTAL 2021-12-31 08:42:00 Angelic Gomez [facility] Results CBC 2021-12-31 08:42:00 Angelic Gomez [facility] MANUAL DIFFERENTIAL 2021-12-31 08:42:00 Angelic Gomez [facility] POC GLUCOSE SCREEN 2021-12-31 04:04:00 Rubio Motley [facility] POC GLUCOSE SCREEN 2021-12-31 00:17:00 Lis Ramos [facility] Veronica Hoover MD [facility] COMPLETE BLOOD COUNT W/ 2021-12-30 18:27:00 Angelic Gomez [facility] DIFFERENTIAL [facility] BASIC METABOLIC PANEL, 2021-12-30 18:27:00 Angelic [facility] CALCIUM TOTAL [facility] Results CBC 2021-12-30 18:27:00 Angelic Gomez [place] [facility] MANUAL DIFFERENTIAL 2021-12-30 18:27:00 Angelic Gomez [facility] GLUCOSE LEVEL 2021-12-30 18:27:00 Angelic Gomez [place] o f [facility] ELECTROLYTE PANEL 2021-12-30 18:27:00 [facility] SERUM CREATININE 2021-12-30 18:27:00 Angelic Gomez [facility] .GLOMERULAR FILTRATION 2021-12-30 18:27:00 Angelic [facility] RATE [facility] CALCIUM LEVEL TOTAL 2021-12-30 18:27:00 Angelic Gomez [facility] BLOOD UREA NITROGEN 2021-12-30 18:27:00 Angelic Gomez [facility] IOCT IMAGE GUIDANCE 2021-12-30 16:28:54 Chucky [facility] POC GLUCOSE SCREEN 2021-12-30 15:38:00 Rell Olson [facility] PATHOLOGY SURGICAL 2021-12-30 13:35:00 Lis Ramos [facility] INTERPRETATION Veronica Hoover MD [facility] OR ARTERIAL BLOOD GAS PLUS 2021-12-30 12:50:00 [facility] TEG COAG 1 2021-12-30 12:50:00 Khoa Murray [facility] OR TEG S1 2021-12-30 12:50:00 Jacoby Blount [facility] OR TEG1 HEP 2021-12-30 12:50:00 Jacoby Blount [facility] OR TEG PATH REVIEW 1 2021-12-30 12:50:00 Jacoby Blount [facility] OR TEG PATH FINAL REVIEW 2021-12-30 12:50:00 Jacoby Blount [facility] POC GLUCOSE SCREEN 2021-12-30 11:52:00 Rell Olson [facility] POC HEMOCUE HEMOGLOBIN 2021-12-30 11:52:00 Rubio Motley, [facility] TRANSFUSE RED BLOOD CELLS 2021-12-30 10:46:00 Tatum Geller [facility] OR ARTERIAL BLOOD GAS PLUS 2021-12-30 10:41:00 Boris Hummel [facility] OR ARTERIAL BLOOD GAS PLUS 2021-12-30 10:00:00 Boris Hummel [facility] OR ARTERIAL BLOOD GAS PLUS 2021-12-30 08:25:00 Boris Hummel [facility] OR ARTERIAL BLOOD GAS PLUS 2021-12-30 04:56:00 Tatum [facility]eller [facility] PREPARE FRESH FROZEN 2021-12-30 04:31:00 Tatum Geller [facility] PLASMA [facility] PREPARE RBC 2021-12-30 04:30:00 Tatum Geller [facility] PREPARE PLATELETS 2021-12-30 04:30:00 Tatum Geller [facility] CT CHEST ABDOMEN PELVIS W 2021-12-30 03:11:13 Rell Olson [place] CONTRAST [facility] LAMINECTOMY OF THORACIC 2021-12-30 03:06:00 Rubio Motley [facility] SPINE FOR EVACUATION OF Veronica Hoover MD [facility] Cancer EXTRADURAL LESION Center STEREOTACTIC 2021-12-30 03:06:[address] [facility] COMPUTER-ASSISTED SPINAL Veronica Dickson [facility] PROCEDURE Center INTRAOP MOBILE CT (Airo 2021-12-30 03:06:00 Rubio Motley [facility] CT) Veronica Lara [facility] TYPE AND SCREEN 2021-12-30 02:51:00 Jeffery Mai [facility] ABORH 2021-12-30 02:51:[address] [facility] Veronica Lara [facility] ANTIBODY SCREEN 2021-12-30 02:51:[address] [facility] Veronica Hoover MD [facility] CLOT EXPIRATION DATE 2021-12-30 02:51:00 Gracie Ramos [facility] Veronica Hoover MD [facility] TMP INTERPRETATION 2021-12-30 02:51:00 Lis Ramos [facility] ANTIBODY SCREEN NEGATIVE Veronica Dickson [facility] TMP CROSSMATCH 2021-12-30 02:51:[address] [facility] INTERPRETATION Veronica Lara [facility] MRI CERVICAL THORACIC 2021-12-30 02:18:00 Rell Olson [facility] LUMBAR SPINE W WO CONTRAST MD Dickson [facility] COVID-19 (SARS-COV-2) 2021-12-29 23:29:00 Caroline England [facility] ASYMPTOMATIC-LT [facility] COMPLETE BLOOD COUNT W/ 2021-12-29 23:29:00 Caroline England [facility] DIFFERENTIAL [facility] COMPREHENSIVE METABOLIC 2021-12-29 23:29:00 [facility] PANEL [facility] MAGNESIUM LEVEL 2021-12-29 23:29:00 Caroline England [facility] PHOSPHORUS LEVEL 2021-12-29 23:29:00 Caroline England [facility] PROTHROMBIN TIME 2021-12-29 23:29:00 Caroline England [facility] APTT 2021-12-29 23:29:00 Caroline England [facility] Results CBC 2021-12-29 23:29:00 Caroline England [facility] MANUAL DIFFERENTIAL 2021-12-29 23:29:00 Caroline England [facility] GLUCOSE LEVEL 2021-12-29 23:29:00 Caroline England [facility] BLOOD UREA NITROGEN 2021-12-29 23:29:00 Caroline England [facility] ELECTROLYTE PANEL 2021-12-29 23:29:00 Caroline England [facility] SERUM CREATININE 2021-12-29 23:29:00 Caroline England [facility] .GLOMERULAR FILTRATION 2021-12-29 23:29:00 Caroline England [facility] RATE [facility] CALCIUM LEVEL TOTAL 2021-12-29 23:29:00 Caroline England [facility] ALBUMIN LEVEL 2021-12-29 23:29:00 Caroline England [facility] ALKALINE PHOSPHATASE 2021-12-29 23:29:00 Caroline England [facility] ALANINE AMINOTRANSFERASE 2021-12-29 23:29:00 Caroline England [facility] ASPARTATE AMINOTRANSFERASE 2021-12-29 23:29:00 Caroline England [facility] TOTAL PROTEIN 2021-12-29 23:29:00 Caroline England [facility] FRACTIONATED BILIRUBIN 2021-12-29 23:29:00 Caroline England [facility] CT GUIDED BIOPSY 2021-12-29 20:37:31 Aamir Johns [facility] MUSCLE/SOFT TISSUE CHEST MD Patel ban [address] PATHOLOGY BIOPSY 2021-12-29 20:09:00 Andreas Aamir [facility] INTERPRETATION [facility] INTRA-OPERATIVE MONITORING 2021-12-29 13:29:23 Rubio augustine, [facility] ([facility]) Veronica Hoover MD [facility] COMPLETE BLOOD COUNT W/ 2021-12-26 21:21:00 Caitlyn Tineo Un [facility] DIFFERENTIAL [facility] PROTHROMBIN TIME 2021-12-26 21:21:00 Caitlyn Tineo [facility] RESEARCH PROTOCOL 2021-12-26 21:21:00 Bertha Rich [id number] Results CBC 2021-12-26 21:21:00 Caitlyn Tineo [facility] MANUAL DIFFERENTIAL 2021-12-26 21:21:00 Caitlyn Tineo [facility] MRI BRAIN W WO CONTRAST 2021-12-25 15:17:52 Aamir Johns [facility] PETCT CONTRAST ENHANCED 2021-12-23 16:31:16 Aamir Johns [facility] INITIAL TREATMENT STRATEGY MD Dickson [facility] HP LB BRAF MUTATION 2021-12-23 13:05:00 Aamir Johns [facility] ANALYSIS COLLECTION, BLOOD MD Yessi douglass [facility] HP LB EML4/ALK FUSION 2021-12-23 13:05:[address] [facility] ANALYSIS COLLECTION, BLOOD MD [facility] HP LB [id number] FULL GENE 2021-12-23 13:05:[address] [facility] MUTATION ANALYSIS [facility] COLLECTION, BLOOD Center HP LB MET MUTATION 2021-12-23 13:05:00 Aamir Johns [facility] ANALYSIS COLLECTION, BLOOD MD [facility] HP LB RET FUSION ANALYSIS 2021-12-23 13:05:00 [facility] COLLECTION, BLOOD [facility] HP LB ROS1 FUSION ANALYSIS 2021-12-23 13:05:00 Aamir Johns [facility] COLLECTION, BLOOD [facility] HP LB LIQUID BIOPSY PANEL 2021-12-23 13:05:00 Aamir Johns [facility] V1 INTERPRETATION AND MD Crissy barney [facility] NGS BLOOD CONTROL 2021-12-23 13:05:00 Aamir Johns [facility] SPIROMETRY W/O DILATORS, 2021-12-22 20:59:52 Aamir Johns [facility] DLCO AND BODY [facility] PLETHSMOGRAPHIC LUNG Center VOLUMES CT CHEST W CONTRAST 2021-12-18 03:59:00 Shilpa Corral [facility] COMPREHENSIVE METABOLIC 2021-12-18 00:34:00 [facility]pit [facility] PANEL [facility] GLUCOSE LEVEL 2021-12-18 00:34:00 Layla, [facility] BLOOD UREA NITROGEN 2021-12-18 00:34:00 LaylaBertha nielson [facility] ELECTROLYTE PANEL 2021-12-18 00:34:00 Layla, [facility] SERUM CREATININE 2021-12-18 00:34:00 Layla, [facility] .GLOMERULAR FILTRATION 2021-12-18 00:34:00 Layla, [facility] RATE [facility] CALCIUM LEVEL TOTAL 2021-12-18 00:34:00 Layla [facility] ALBUMIN LEVEL 2021-12-18 00:34:00 Layla, [facility] ALKALINE PHOSPHATASE 2021-12-18 00:34:00 Layla, Bertha [facility] ALANINE AMINOTRANSFERASE 2021-12-18 00:34:00 LaylaBertha [facility] ASPARTATE AMINOTRANSFERASE 2021-12-18 00:34:00 Layla, [facility] TOTAL PROTEIN 2021-12-18 00:34:00 Layla, [facility] FRACTIONATED BILIRUBIN 2021-12-18 00:34:00 Layla, [facility] CT PELVIS W CONTRAST 2021-10-01 15:20:00 Shilpa Corral [facility] POC CREATININE 2021-10-01 13:39:00 Shilpa Corral [facility] COMPREHENSIVE METABOLIC 2021-10-01 13:37:00 Shilpa Corral [facility] GLUCOSE LEVEL 2021-10-01 13:37:00 Shilpa Corral [facility] BLOOD UREA NITROGEN 2021-10-01 13:37:00 Shilpa Corral [facility] ELECTROLYTE PANEL 2021-10-01 13:37:00 Bello [facility] SERUM CREATININE 2021-10-01 13:37:00 Bello [facility] .GLOMERULAR FILTRATION 2021-10-01 13:37:00 Shilpa Corral [facility] RATE [facility] CALCIUM LEVEL TOTAL 2021-10-01 13:37:00 Shilpa Corral [facility] ALBUMIN LEVEL 2021-10-01 13:37:00 Shilpa Corral [facility] ALKALINE PHOSPHATASE 2021-10-01 13:37:00 Shilpa Corral [facility] ALANINE AMINOTRANSFERASE 2021-10-01 13:37:00 Shilpa Corarl [facility] ASPARTATE AMINOTRANSFERASE 2021-10-01 13:37:00 Shilpa Corral [facility] TOTAL PROTEIN 2021-10-01 13:37:00 Shilpa Corral o f [facility] FRACTIONATED BILIRUBIN 2021-10-01 13:37:00 Shilpa Corral [facility] COMPLETE BLOOD COUNT W/ 2021-04-16 09:22:00 Rowdy [facility] BASIC METABOLIC PANEL, 2021-04-16 09:22:00 Stu [facility] CALCIUM TOTAL [facility] GLUCOSE LEVEL 2021-04-16 09:22:00 Rowdy [facility] f [facility] BLOOD UREA NITROGEN 2021-04-16 09:22:00 Rowdy [facility] ELECTROLYTE PANEL 2021-04-16 09:22:00 Rowdy [facility] SERUM CREATININE 2021-04-16 09:22:00 Rowdy [facility] .GLOMERULAR FILTRATION 2021-04-16 09:22:00 Sut [facility] RATE [facility] CALCIUM LEVEL TOTAL 2021-04-16 09:22:00 Rowdy Stu [facility] COMPLETE BLOOD COUNT W/ 2021-04-15 09:28:00 Rowdy [facility] BASIC METABOLIC PANEL, 2021-04-15 09:28:00 Rowdy Stu [facility] CALCIUM TOTAL [facility] GLUCOSE LEVEL 2021-04-15 09:28:00 Mieleno [facility] o f [facility] BLOOD UREA NITROGEN 2021-04-15 09:28:00 Mieleno [facility] ELECTROLYTE PANEL 2021-04-15 09:28:00 Miest, [facility] SERUM CREATININE 2021-04-15 09:28:00 Miest, [facility] .GLOMERULAR FILTRATION 2021-04-15 09:28:00 MiAngella johansener [facility] CALCIUM LEVEL TOTAL 2021-04-15 09:28:00 Miest [facility] XR CHEST 1 VW PORTABLE 2021-04-15 05:52:52 MarburyAyad [facility] COMPLETE BLOOD COUNT W/ 2021-04-14 08:54:00 Miest Stu [facility] BASIC METABOLIC PANEL, 2021-04-14 08:54:00 [facility] CALCIUM TOTAL [facility] GLUCOSE LEVEL 2021-04-14 08:54:00 Miest [facility] o f [facility] BLOOD UREA NITROGEN 2021-04-14 08:54:00 Miest [facility] ELECTROLYTE PANEL 2021-04-14 08:54:00 Miest, [facility] SERUM CREATININE 2021-04-14 08:54:00 Miest, [facility] .GLOMERULAR FILTRATION 2021-04-14 08:54:00 MiestStu [facility] CALCIUM LEVEL TOTAL 2021-04-14 08:54:00 Miest, Stu [facility] COMPLETE BLOOD COUNT W/ 2021-04-13 08:29:00 Miest Stu [facility] BASIC METABOLIC PANEL, 2021-04-13 08:29:00 Miest [facility] CALCIUM TOTAL [facility] GLUCOSE LEVEL 2021-04-13 08:29:00 Miest [facility] o f [facility] BLOOD UREA NITROGEN 2021-04-13 08:29:00 Miest, [facility] ELECTROLYTE PANEL 2021-04-13 08:29:00 Miest, [facility] SERUM CREATININE 2021-04-13 08:29:00 Miest, [facility] .GLOMERULAR FILTRATION 2021-04-13 08:29:00 MiestStu [facility] CALCIUM LEVEL TOTAL 2021-04-13 08:29:00 Miest, [facility] BASIC METABOLIC PANEL, 2021-04-12 10:15:00 Miest [facility] CALCIUM TOTAL [facility] BLOOD UREA NITROGEN 2021-04-12 10:15:00 Miest, [facility] ELECTROLYTE PANEL 2021-04-12 10:15:00 Miest, [facility] SERUM CREATININE 2021-04-12 10:15:00 Miest, [facility] .GLOMERULAR FILTRATION 2021-04-12 10:15:00 Mieleno [facility] CALCIUM LEVEL TOTAL 2021-04-12 10:15:00 Miest [facility] TYPE AND SCREEN 2021-04-12 10:13:00 Layla, [facility] COMPLETE BLOOD COUNT W/ 2021-04-12 10:13:00 Stu [facility] INDICES [facility] ABORH 2021-04-12 10:13:00 Layla, [facility] ANTIBODY SCREEN 2021-04-12 10:13:00 Layla, [facility] TMP INTERPRETATION 2021-04-12 10:13:00 Layla, [facility] ANTIBODY SCREEN NEGATIVE MD Patel [facility] CLOT EXPIRATION DATE 2021-04-12 10:13:00 LaylaBertha richmond [facility] SODIUM LEVEL 2021-04-11 23:10:00 Mieleno [facility] POTASSIUM LEVEL 2021-04-11 23:10:00 Mieleno [facility] CHLORIDE LEVEL 2021-04-11 23:10:00 Rowdy [facility] CARBON DIOXIDE LEVEL 2021-04-11 23:10:[address] [facility] BLOOD UREA NITROGEN 2021-04-11 23:10:00 Rowdy [facility] SERUM CREATININE 2021-04-11 23:10:00 Rowdy, [facility] GLUCOSE, RANDOM 2021-04-11 23:10:00 Rowdy [facility] MAGNESIUM LEVEL 2021-04-11 23:10:00 Rowdy [facility] PHOSPHORUS LEVEL 2021-04-11 23:10:00 Mieleno [facility] COMPLETE BLOOD COUNT W/ 2021-04-11 23:10:00 Rowdy [facility] DIFFERENTIAL [facility] SERUM CREATININE 2021-04-11 23:10:00 Rowdy [facility] .GLOMERULAR FILTRATION 2021-04-11 23:10:00 Stu [facility] RATE [facility] Results CBC 2021-04-11 23:10:00 Rowdy [facility] MANUAL DIFFERENTIAL 2021-04-11 23:10:00 Rowdy [facility] ANION GAP 2021-04-11 23:10:00 Rowdy [facility] PATHOLOGY SURGICAL 2021-04-11 17:06:00 Bertha Rich [facility] INTERPRETATION [facility] ROBOTIC ASSISTED INGUINAL 2021-04-11 12:04:00 [facility] URINALYSIS WITH 2021-04-10 15:16:00 Layla, [facility] MICROSCOPIC IF INDICATED MD Patel [facility] COMPLETE BLOOD COUNT W/ 2021-04-09 14:56:00 Layla, [facility]tha [facility] DIFFERENTIAL [facility] COMPREHENSIVE METABOLIC 2021-04-09 14:56:00 LaylaBertha [facility] PANEL [facility] HEMOGLOBIN A1C 2021-04-09 14:56:00 Layla, [facility] TYPE AND SCREEN 2021-04-09 14:56:00 Layla, [facility] Results CBC 2021-04-09 14:56:00 Layla, [facility] MANUAL DIFFERENTIAL 2021-04-09 14:56:00 Layla, [facility] GLUCOSE LEVEL 2021-04-09 14:56:00 Layla, [facility] BLOOD UREA NITROGEN 2021-04-09 14:56:00 [facility] E[facility] 2021-04-09 14:56:00 [facility] SERUM CREATININE 2021-04-09 14:56:00 Layla, [facility] .GLOMERULAR FILTRATION 2021-04-09 14:56:00 [facility] R[facility] CALCIUM LEVEL TOTAL 2021-04-09 14:56:00 Layla [facility] ALBUMIN LEVEL 2021-04-09 14:56:00 Layla, [facility] ALKALINE PHOSPHATASE 2021-04-09 14:56:00 LaylaBertha [facility] ALANINE AMINOTRANSFERASE 2021-04-09 14:56:00 [facility] ASPARTATE AMINOTRANSFERASE 2021-04-09 14:56:00 [facility] T[facility] PROTEIN 2021-04-09 14:56:00 Layla, [facility] FRACTIONATED BILIRUBIN 2021-04-09 14:56:00 [facility] 2021-04-09 14:56:00 Layla, [facility] ANTIBODY SCREEN 2021-04-09 14:56:00 Layla, [facility] CLOT EXPIRATION DATE 2021-04-09 14:56:00 Layla, [facility] TMP INTERPRETATION 2021-04-09 14:56:00 Layla, Bertha [facility] ANTIBODY SCREEN NEGATIVE MD Patel [facility] COVID-19 (SARS-COV-2) 2021-04-09 14:09:00 LaylaBertha richmond [facility] PCR ASYMPTOMATIC [facility] COMPLETE BLOOD COUNT W/ 2021-03-11 08:40:00 Tommy De La Torre [facility] BASIC METABOLIC PANEL, 2021-03-11 08:40:00 Tommy De La Torre [facility] CALCIUM TOTAL [facility] MAGNESIUM LEVEL 2021-03-11 08:40:00 Tommy De La Torre [facility] PHOSPHORUS LEVEL 2021-03-11 08:40:00 Tommy De La Torre [facility] GLUCOSE LEVEL 2021-03-11 08:40:00 Layla, [facility] BLOOD UREA NITROGEN 2021-03-11 08:40:00 Layla, [facility] ELECTROLYTE PANEL 2021-03-11 08:40:00 Layla, [facility] SERUM CREATININE 2021-03-11 08:40:00 Layla, [facility] .GLOMERULAR FILTRATION 2021-03-11 08:40:00 LaylaBertha nielson [facility] CALCIUM LEVEL TOTAL 2021-03-11 08:40:00 LaylaBertha nielson [facility] US LOWER EXTREMITY LIMITED 2021-03-10 16:16:27 Tommy De La Torre [facility] LEFT [facility] US FINE NEEDLE ASPIRATION 2021-03-10 16:16:27 Tommy De La Torre [facility] CYTOLOGY IMAGE-GUIDED FNA 2021-03-10 14:32:00 LaylaBertha nielson [facility] INTERPRETATION [facility] COMPLETE BLOOD COUNT W/ 2021-03-10 08:21:00 Tommy De La Torre [facility] BASIC METABOLIC PANEL, 2021-03-10 08:21:00 Tommy De La Torre [facility] CALCIUM TOTAL [facility] MAGNESIUM LEVEL 2021-03-10 08:21:00 Tommy De La Torre [facility] PHOSPHORUS LEVEL 2021-03-10 08:21:00 Tommy De La Torre [facility] GLUCOSE LEVEL 2021-03-10 08:21:00 Layla, [facility] BLOOD UREA NITROGEN 2021-03-10 08:21:00 Bertha Rich [facility] ELECTROLYTE PANEL 2021-03-10 08:21:00 LaylaBertha nielson [facility] SERUM CREATININE 2021-03-10 08:21:00 Layla, [facility] .GLOMERULAR FILTRATION 2021-03-10 08:21:00 Bertha Rich [facility] CALCIUM LEVEL TOTAL 2021-03-10 08:21:00 LaylaBertha nielson [facility] COMPLETE BLOOD COUNT W/ 2021-03-09 08:58:00 Tommy De La Torre [facility] BASIC METABOLIC PANEL, 2021-03-09 08:58:00 Tommy De La Torre [facility] CALCIUM TOTAL [facility] MAGNESIUM LEVEL 2021-03-09 08:58:00 Tommy De La Torre [facility] PHOSPHORUS LEVEL 2021-03-09 08:58:00 [facility] GLUCOSE LEVEL 2021-03-09 08:58:00 Layla [facility] BLOOD UREA NITROGEN 2021-03-09 08:58:00 Layla, [facility] ELECTROLYTE PANEL 2021-03-09 08:58:00 Layla [facility] SERUM CREATININE 2021-03-09 08:58:00 Layla, [facility] .GLOMERULAR FILTRATION 2021-03-09 08:58:00 Layla, [facility] RATE [facility] CALCIUM LEVEL TOTAL 2021-03-09 08:58:00 Layla, [facility] COMPLETE BLOOD COUNT W/ 2021-03-08 10:00:00 Tommy De La Torre [facility] BASIC METABOLIC PANEL, 2021-03-08 10:00:00 Tommy De La Torre [facility] CALCIUM TOTAL [facility] MAGNESIUM LEVEL 2021-03-08 10:00:00 Tommy De La Torre [facility] PHOSPHORUS LEVEL 2021-03-08 10:00:00 [facility] GLUCOSE LEVEL 2021-03-08 10:00:00 Layla, [facility] BLOOD UREA NITROGEN 2021-03-08 10:00:00 Layla, [facility] ELECTROLYTE PANEL 2021-03-08 10:00:00 Bertha Rich [facility] SERUM CREATININE 2021-03-08 10:00:00 Layla [facility] .GLOMERULAR FILTRATION 2021-03-08 10:00:00 Layla [facility] CALCIUM LEVEL TOTAL 2021-03-08 10:00:00 Layla [facility] SODIUM LEVEL 2021-03-08 00:08:00 Tommy De La Torrep [facility] POTASSIUM LEVEL 2021-03-08 00:08:00 Tommy De La Torrep [facility] CHLORIDE LEVEL 2021-03-08 00:08:00 Tommy De La Torrep [facility] CARBON DIOXIDE LEVEL 2021-03-08 00:08:00 Tommy [facility]re [facility] BLOOD UREA NITROGEN 2021-03-08 00:08:00 Tommy [facility] SERUM CREATININE 2021-03-08 00:08:00 Tommy De La Torre [facility] GLUCOSE, RANDOM 2021-03-08 00:08:00 Tommy De La Torre [facility] HEMOGLOBIN 2021-03-08 00:08:00 Tommy [facility] HEMAT[facility] 2021-03-08 00:08:00 Tommy De La Torrep [facility] SERUM CREATININE 2021-03-08 00:08:00 Layla [facility] .GLOMERULAR FILTRATION 2021-03-08 00:08:00 [facility] 2021-03-08 00:08:00 Layla, [facility] PATHOLOGY SURGICAL 2021-03-07 19:48:00 Bertha Rich [facility] INTERPRETATION [facility] COMPLETE AMPUTATION OF 2021-03-07 18:03:00 [facility] EXTERNAL URETHROSTOMY OF 2021-03-07 18:03:00 Bertha [facility] EXTERNAL PERINEAL URETHRA MD Joshi [facility] TYPE AND SCREEN 2021-03-07 15:38:00 David Trujillo [facility] ABORH 2021-03-07 15:38:00 David Trujillo [facility] ANTIBODY SCREEN 2021-03-07 15:38:00 David Trujillo [facility] CLOT EXPIRATION DATE 2021-03-07 15:38:00 David Trujillo [facility] TMP INTERPRETATION 2021-03-07 15:38:00 David Trjuillo [facility] ANTIBODY SCREEN NEGATIVE MD Patel [facility] COVID-19 (SARS-COV-2) 2021-03-05 17:19:00 [facility] ASYMPTOMATIC [facility] EKG, 12-LEAD (SCHEDULED) 2021-03-05 00:00:00 Tommy De La Torre [facility] CT CHEST ABDOMEN W 2021-03-01 20:09:49 Tommy De La Torre [facility] CONTRAST [facility] MRI PELVIS W WO CONTRAST 2021-03-01 19:54:00 Tommy De La Torre [facility] PENIS [facility] COMPLETE BLOOD COUNT W/ 2021-03-01 16:34:00 Tommy De La Torre [facility] DIFFERENTIAL [facility] COMPREHENSIVE METABOLIC 2021-03-01 16:34:00 Tommy De La Torre [facility] PANEL [facility] HEMOGLOBIN A1C 2021-03-01 16:34:00 Tommy De La Torre [facility] THYROXINE 2021-03-01 16:34:00 Tommy De La Torre [facility] THYROID STIMULATING 2021-03-01 16:34:00 Tommy De La Torre Un [facility] HORMONE [facility] TYPE AND SCREEN 2021-03-01 16:34:00 Tommy De La Torre [facility] Results CBC 2021-03-01 16:34:00 Layla, [facility] MANUAL DIFFERENTIAL 2021-03-01 16:34:00 Layla, [facility] GLUCOSE LEVEL 2021-03-01 16:34:00 Layla, [facility] BLOOD UREA NITROGEN 2021-03-01 16:34:00 Layla, [facility] ELECTROLYTE PANEL 2021-03-01 16:34:00 LaylaBertha richmond [facility] SERUM CREATININE 2021-03-01 16:34:00 Layla, [facility] .GLOMERULAR FILTRATION 2021-03-01 16:34:00 Layla, [facility] CALCIUM LEVEL TOTAL 2021-03-01 16:34:00 Layla, [facility] ALBUMIN LEVEL 2021-03-01 16:34:00 Layla, [facility] ALKALINE PHOSPHATASE 2021-03-01 16:34:00 Layla, [facility] ALANINE AMINOTRANSFERASE 2021-03-01 16:34:00 LaylaBertha nielson [facility] ASPARTATE AMINOTRANSFERASE 2021-03-01 16:34:00 Layla, [facility] TOTAL PROTEIN 2021-03-01 16:34:00 Layla, [facility] FRACTIONATED BILIRUBIN 2021-03-01 16:34:00 LaylaBertha richmond [facility] ABORH 2021-03-01 16:34:00 LaylaBertha nielson [facility] ANTIBODY SCREEN 2021-03-01 16:34:00 LaylaBertha richmond [facility] URINALYSIS WITH REFLEX TO 2021-03-01 16:34:00 [facility] CLOT EXPIRATION DATE 2021-03-01 16:34:00 LaylaBertha richmond [facility] TMP INTERPRETATION 2021-03-01 16:34:00 LaylaBertha richmond [facility] ANTIBODY SCREEN NEGATIVE MD Patel [facility] CONFIRM ABORH TYPE 2021-03-01 16:32:00 [facility] Planned Activity Planned Date Details Comments Source Future Scheduled 2022-02-11 COVID-19 Vaccination [facility] Test 08:15:09 (#1) [code = COVID-19 [facility] Vaccination (#1)] Center Encounters Start End Encounter Admission Attending Care Care Encounter Source Date/Time Date/Time Type Type Clinicians Facility Department ID 2021-12-22 Outpatient SYSTEM, [facility] JON [id number] 10:26:20 PROVIDER Alex o ector 2021-07-02 Outpatient SYSTEM, [facility] JON [id number] 11:28:01 PROVIDER Alex o ector 2021-05-19 Outpatient SYSTEM, [facility] JON [id number] 08:44:43 PROVIDER Alex o ector 2021-02-17 Outpatient SYSTEM, [facility] JON [id number] 16:04:05 PROVIDER Alex o ector 2022-02-03 2022-02-03 Documentat Javier, 1.2.840.1 [id number] Eze 00:00:00 00:00:00 ion Clark O 28414.1.1 it y of 3.412.2.7 [place] .3.886747 .8 [facility] 2021-12-29 2022-01-23 [facility] Rell Olson 1.2.840.1 [id number] [facility] 17:02:00 11:51:00 Encounter Veronica Ramos linda 07586.1.1 ity of [place] Y. 3.412.2.7 [place] .3.009598 .8 [facility] 2021-12-29 2022-01-23 Inpatient LETY TODD MDA PM\\T\\R [id number] MD 17:02:00 11:51:00 [facility] 2022-01-23 2022-01-23 Orders Sid Hernandez 1.2.840.1 [id number] Univers 00:00:00 00:00:00 Only 46086.1.1 ity of 3.412.2.7 [place] .3.022180 MD Melendez8 [facility] 2022-01-18 2022-01-18 Documentat Husam Acuña 1.2.840.1 [id number] Univers 00:00:00 00:00:00 ion 02634.1.1 ity of 3.412.2.7 [place] .3.722430 MD Melendez8 [facility] 2022-01-17 2022-01-17 Inpatient LETY TODD MDA MDA [id number] MD 19:16:49 19:18:10 Alex o 2022-01-16 2022-01-16 Documentat Husam Acuña 1.2.840.1 [id number] Univers 00:00:00 00:00:00 ion 37586.1.1 ity of 3.412.2.7 [place] .3.050953 MD Melendez8 [facility] 2022-01-15 2022-01-15 Inpatient HUSAM LE MDA MDA [id number] MD 09:28:06 12:17:32 Alex o n 2022-01-12 2022-01-12 Inpatient LETY TODD MDA MDA [id number] MD 16:30:15 17:01:33 Alex o n 2022-01-08 2022-01-08 Documentat Husam Acuña 1.2.840.1 [id number] Univers 00:00:00 00:00:00 ion 50220.1.1 ity of 3.412.2.7 [place] .3.723693 MD Melendez8 [facility] 2022-01-08 2022-01-08 Documentat Husam Acuña 1.2.840.1 [id number] Univers 00:00:00 00:00:00 ion 11864.1.1 ity of 3.412.2.7 [place] .3.594038 MD Melendez8 [facility] 2022-01-07 2022-01-07 Inpatient STACIA MANCILLA [facility] [id number] 07:59:59 08:15:58 Alextwyla barney 2022-01-05 2022-01-05 Outpatient [facility] [id number] [place] 06:00:00 23:59:00 BERTHA barney 2022-01-05 2022-01-05 [facility], 1.2.840.1 [id number] [facility] 06:00:00 23:59:00 Encounter Bertha 68514.1.1 it y of 3.412.2.7 [place] .3.709212 MD Melendez8 [facility] 2022-01-05 2022-01-05 [facility] Karen, 1.2.840.1 [id number] Univers 00:00:00 00:00:00 Only Ivis Salas 50834.1.1 it y of 3.412.2.7 [place] .3.718547 MD [place] [facility] 2022-01-02 2022-01-02 Inpatient STACIA MANCILLA [facility] MDA [id number] 14:14:38 14:53:07 Alextwyla barney 2021-12-29 2021-12-30 Anesthesia Jacoby Blount 1.2.840.1 [id number] Univers 21:26:00 09:19:00 Event Tatum Geller 73093.1.1 ity of 3.412.2.7 [place] .3.708945 MD Melendez8 [facility] 2021-12-30 2021-12-30 Travel 1.2.840.1 1.2.602.928 [id number] Univers 00:00:00 00:00:00 24998.1.1 350.1.13.41 ity of 3.412.2.7 [place].3.698 [place] .3.521755 084.8 MD Melenedz8 [facility] 2021-12-30 2021-12-30 Orders Andreas, 1.2.840.1 [id number] Univers 00:00:00 00:00:00 Only Aamir 89745.1.1 ity of 3.412.2.7 [place] .3.011682 MD [place] [facility] 2021-12-29 2021-12-29 Ancillary 1.2.840.1 [id number] Univers 21:50:00 23:10:00 Procedure 59554.1.1 it y of 3.412.2.7 [place] .3.044006 MD [place] [facility] 2021-12-29 2021-12-29 Surgery Bergeron 1.2.840.1 [id number] Univers 16:08:00 22:08:00 Alexis 62172.1.1 ity of e, 3.412.2.7 [place] [facility] .3.263102 MD Hoover .8 [facility] 2021-12-29 2021-12-29 Emergency [facility] [id number] 21:47:59 21:47:59 Alex li 2021-12-29 2021-12-29 Hospital Aamir Johns 1.2.840.1 [id number] Univers 12:49:43 17:01:00 Encounter Veronique Underwood 40129.1.1 ity of 3.412.2.7 [place] .3.200409 MD [place] [facility] 2021-12-29 2021-12-29 Outpatient EL JON JOHNS MDA [id number] 12:49:43 17:01:00 AAMIR barney 2021-12-29 2021-12-29 Telephone Poly Núñez 1.2.840.1 [id number] Univers 00:00:00 00:00:00 A 00082.1.1 ity of 3.412.2.7 [place] .3.986359 MD Melendez8 [facility] 2021-12-29 2021-12-29 Travel 1.2.840.1 1.2.134.760 [id number] Univers 00:00:00 00:00:00 90995.1.1 350.1.13.41 ity of 3.412.2.[place].3.698 [place] .3.650207 084.8 MD Melendez8 [facility] 2021-12-29 2021-12-29 Orders Andreas, 1.2.840.1 [id number] Univers 00:00:00 00:00:00 Only Aamir 40657.1.1 ity of 3.412.2.7 [place] .3.092196 MD Melendez8 [facility] 2021-12-26 2021-12-26 [facility] Noman 1.2.840.1 [id number] [facility] 15:18:15 23:59:00 Encounter Caitlyn Roberts 92147.1.1 it y of 3.412.2.7 [place] .3.303464 MD Melendez8 [facility] 2021-12-26 2021-12-26 Outpatient ISIDORO TINEO [facility] [id number] 15:18:15 23:59:00 CAITLYN barney 2021-12-26 2021-12-26 [facility] 1.2.840.1 [id number] Univers 14:34:18 15:17:00 Encounter Raysa Garcia 07303.1.1 ity of 3.412.2.7 [place] .3.887729 MD Melendez8 [facility] 2021-12-26 2021-12-26 Outpatient [facility] MDA [id number] 14:34:18 15:17:00 BERTHA Alex o ector 2021-12-26 2021-12-26 Travel 1.2.840.1 1.2.602.618 [id number] Univers 00:00:00 00:00:00 87957.1.1 350.1.13.41 ity of 3.412.2.[place]3.698 [place] .3.665726 084.8 MD Melendez8 [facility] 2021-12-26 2021-12-26 Orders Michelle, 1.2.840.1 [id number] Univers 00:00:00 00:00:00 Only Sharita Luna 50229.1.1 it y of 3.412.2.7 [place] .3.351931 MD [place] 2021-12-26 2021-12-26 Documentat Michelle, 1.2.840.1 [id number] Univers 00:00:00 00:00:00 ion Sharita Luan 50451.1.1 it y of 3.412.2.7 [place] .3.794466 MD [place] 2021-12-25 2021-12-25 Ancillary Andreas, 1.2.840.1 [id number] Univers 08:15:00 10:00:00 Procedure Aamir 19888.1.1 it y of 3.412.2.7 [place] .3.468791 MD [place] 2021-12-25 2021-12-25 Outpatient ISIDORO JOHNS, [facility] [id number] 07:30:24 07:30:24 AAMIR barney 2021-12-25 2021-12-25 Travel 1.2.840.1 1.2.342.020 [id number] Univers 00:00:00 00:00:00 18910.1.1 350.1.13.41 ity of 3.412.2.[place].3.698 [place] .3.503893 084.8 MD Melendez8 [facility] 2021-12-24 2021-12-24 Telephone Andreas, 1.2.840.1 [id number] Univers 00:00:00 00:00:00 Aamir 79358.1.1 ity of 3.412.2.7 [place] .3.944972 MD [place] [facility] 2021-12-23 2021-12-23 [facility] Newman, 1.2.840.1 [id number] Univers 06:57:01 23:59:00 Encounter Aamir 53177.1.1 it y of 3.412.2.7 [place] .3.445326 MD [place] [facility] 2021-12-23 2021-12-23 Outpatient ISIDORO JOHNS JON [facility] [id number] MD 06:57:01 23:59:00 AAMIR barney 2021-12-23 2021-12-23 Ancillary Andreas, 1.2.840.1 [id number] Univers 08:30:00 11:00:00 Procedure Aamir 65035.1.1 it y of 3.412.2.7 [place] .3.748321 MD [place] 2021-12-23 2021-12-23 Outpatient ISIDORO JOHNS JON [facility] [id number] MD 07:11:19 07:11:19 AAMIR barney 2021-12-23 2021-12-23 Orders Noman, 1.2.840.1 [id number] Univers 00:00:00 00:00:00 Only Caitlyn Roberts 97005.1.1 ity of 3.412.2.7 [place] .3.759040 MD [place] [facility] 2021-12-23 2021-12-23 Travel 1.2.840.1 1.2.191.909 [id number] Univers 00:00:00 00:00:00 51375.1.1 350.1.13.41 ity of 3.412.2.7 [place]7.3.698 [place] .3.581872 084.8 MD Melendez8 [facility] 2021-12-22 2021-12-22 Hospital Andreas, 1.2.840.1 [id number] Univers 13:00:00 23:59:00 Encounter Aamir 81964.1.1 it y of 3.412.2.7 [place] .3.628574 MD [place] 2021-12-22 2021-12-22 Outpatient ISIDORO JOHNS [facility] MDA [id number] NM 13:00:00 23:59:00 [facility]IR [facility] 2021-12-22 2021-12-22 Consult Richard, 1.2.840.1 [id number] Univers 12:00:00 13:27:58 Desirae 81908.1.1 ity of 3.412.2.7 [place] .3.635135 MD [place] 2021-12-22 2021-12-22 Outpatient RICHARD [facility] MDA [id number] NM 11:50:30 13:27:58 DESIRAE [facility] 2021-12-22 2021-12-22 Orders Newman, 1.2.840.1 [id number] Univers 00:00:00 00:00:00 Only Aamir 13407.1.1 ity of 3.412.2.7 [place] .3.942152 MD [place] 2021-12-22 2021-12-22 Orders Richard, 1.2.840.1 [id number] Univers 00:00:00 00:00:00 Only Desirae 38588.1.1 ity of 3.412.2.7 [place] .3.337764 MD [place] 2021-12-22 2021-12-22 Travel 1.2.840.1 1.2.431.046 [id number] Univers 00:00:00 00:00:00 68870.1.1 350.1.13.41 ity of 3.412.2.7 [place].3.698 [place]3.777313 084.8 [place] [facility] 2021-12-19 2021-12-19 Orders Lance, 1.2.840.1 [id number] Univers 00:00:00 00:00:00 Only Vidhi Campa 86158.1.1 ity of 3.412.2.7 [place] .3.332361 MD [facility] 2021-12-18 2021-12-18 [facility], 1.2.840.1 [id number] [facility] 13:30:00 15:55:31 Visit Bertha 55936.1.1 ity of 3.412.2.7 [place] .3.033900 MD Melendez8 [facility] 2021-12-18 2021-12-18 Outpatient [facility] [id number] [place] 13:10:03 15:55:31 BERTHA [facility] 2021-12-18 2021-12-18 Orders Marylin Ramirez 1.2.840.1 [id number] Univers 00:00:00 00:00:00 Only 29177.1.1 ity of 3.412.2.7 [place] .3.751501 MD Melendez8 [facility] 2021-12-18 2021-12-18 Travel 1.2.840.1 1.2.757.078 [id number] Univers 00:00:00 00:00:00 77720.1.1 350.1.13.41 ity of 3.412.2.[place].3.698 [place] .3.263193 084.8 [place] [facility] 2021-12-18 2021-12-18 Orders Andreas, 1.2.840.1 [id number] Univers 00:00:00 00:00:00 Only Aamir 00249.1.1 ity of 3.412.2.7 [place] .3.415600 MD [place] [facility] 2021-12-17 2021-12-17 [facility], 1.2.840.1 [id number] Univers 18:45:50 23:59:00 Ricardo Massey 06436.1.1 it y of 3.412.2.7 [place] .3.373984 MD [facility] 2021-12-17 2021-12-17 Outpatient ISIDORO CORRAL [facility] [id number] 18:45:50 23:59:00 SHILPA li ector 2021-12-17 2021-12-17 [facility], 1.2.840.1 [id number] [facility] 18:23:08 18:44:00 Encounter Bertha 69273.1.1 it y of 3.412.2.7 [place] .3.643269 MD [facility]8 [facility] 2021-12-17 2021-12-17 Outpatient [facility] [id number] [place] 18:23:08 18:44:00 BERTHA Alex li ector 2021-12-17 2021-12-17 Travel 1.2.840.1 [id number] [id number] [facility] 00:00:00 00:00:00 47231.1.1 350.1.13.41 ity of 3.412.2.7 2.[place].7.3.698 [place] .3.854134 084.8 MD [facility] 2021-12-11 2021-12-11 Orders Javier, 1.2.840.1 [id number] [facility] 00:00:00 00:00:00 [place] O 20394.1.1 it y of 3.412.2.7 [place] .3.824987 MD [facility] 2021-12-11 2021-12-11 Orders Javier, 1.2.840.1 [id number] [facility] 00:00:00 00:00:00 [place] O 40720.1.1 it y of 3.412.2.7 [place] .3.726160 MD [facility] 2021-11-19 2021-11-19 Telephone Carlota, 1.2.840.1 [id number] [facility] 00:00:00 00:00:00 Jessica Aguilera 05070.1.1 it y of 3.412.2.7 [place] .3.312944 MD Melendez8 [facility] 2021-10-08 2021-10-08 Telephone Carlota, 1.2.840.1 [id number] [facility] 00:00:00 00:00:00 Jessica Aguilera 86606.1.1 it y of 3.412.2.7 [place] .3.605321 MD Melendez8 [facility] 2021-10-02 2021-10-02 [facility], 1.2.840.1 [id number] [facility] 08:00:00 09:20:53 Visit Bertha 38278.1.1 ity of 3.412.2.7 [place] .3.754273 MD [facility] 2021-10-02 2021-10-02 Outpatient [facility] [id number] [place] 07:15:44 09:20:53 BERTHA barney 2021-10-02 2021-10-02 Travel 1.2.840.1 1.2.550.027 [id number] [id number] [facility] 00:00:00 00:00:00 12772.1.1 350.1.13.41 ity of 3.412.2.7 [place].3.698 [place].5515[place] 084.8 MD [facility] 2021-10-01 2021-10-01 [facility] 1.2.840.1 [id number] [facility] 07:26:58 23:59:00 Encounter Shilpa 29605.1.1 it y of 3.412.2.7 [place] .3.869615 MD Melendez8 [facility] 2021-10-01 2021-10-01 Outpatient [facility] [id number] [place] 07:26:58 23:59:00 SHILPA barney 2021-10-01 2021-10-01 [facility] 1.2.840.1 [id number] [facility] 08:30:00 10:55:00 Procedure Shilpa 70296.1.1 it y of 3.412.2.7 [place] .3.670852 MD [facility] 2021-10-01 2021-10-01 Outpatient ISIDORO CORRAL [facility] [id number] 07:27:15 07:27:15 SHILPA Joshitwyla barney 2021-10-01 2021-10-01 Travel 1.2.840.1 1.2.694.323 0289 [id number] [facility] 00:00:00 00:00:00 48080.1.1 350.1.13.41 ity of 3.412.2.7 [place].3.698 [place].477330 084.8 MD [facility] 2021-07-29 2021-07-29 [facility] Bertha 1.2.840.1 [id number] [facility] 13:05:08 23:59:00 Gemma Larkin 95657.1.1 ity of 3.412.2.7 [place] .3.737954 MD [facility] 2021-07-29 2021-07-29 [facility] [id number] 13:05:08 23:59:00 BERTHA barney 2021-07-29 2021-07-29 Travel 1.2.840.1 1.2.614.406 5470 [id number] [facility] 00:00:00 00:00:00 87879.1.1 350.1.13.41 ity of 3.412.2.7 [place].7.3.698 [place] .3.811528 084.8 MD [facility] 2021-07-10 2021-07-10 [facility] Bertha 1.2.840.1 [id number] [facility] 08:19:14 23:59:00 Encounter Shahab Kidd 02354.1.1 ity of 3.412.2.7 [place] .3.904888 MD [facility] 2021-07-10 2021-07-10 Outpatient [facility] [id number] 08:19:14 23:59:00 BERTHA barney 2021-07-10 2021-07-10 Travel 1.2.840.1 1.2.041.239 1592 [id number] [facility] 00:00:00 00:00:00 84976.1.1 350.1.13.41 ity of 3.412.2.7 2.[place].7.3.698 [place] .3.209962 084.8 MD Melendez8 [facility] 2021-06-19 2021-06-19 [facility] 1.2.840.1 [id number] [facility] 08:12:36 23:59:00 Encounter Shahab Kidd 52583.1.1 ity of 3.412.2.7 [place] .3.921316 MD [facility] 2021-06-19 2021-06-19 [facility] [id number] 08:12:36 23:59:00 BERTHA barney 2021-06-19 2021-06-19 Travel 1.2.840.1 1.2.098.550 9735 [id number] [facility] 00:00:00 00:00:00 10392.1.1 350.1.13.41 ity of 3.412.2.7 2.[place].7.3.698 [place] .3.389455 084.8 MD [facility] 2021-06-09 2021-06-09 [facility] Bertha 1.2.840.1 [id number] [facility] 13:01:30 23:59:00 Encounter Gemma Hernandez 99672.1.1 ity of 3.412.2.7 [place] .3.051919 MD [facility] [facility] 2021-06-09 2021-06-09 Outpatient [facility] [id number] MD 13:01:30 23:59:00 BERTHA barney 2021-06-09 2021-06-09 Travel 1.2.840.1 1.2.412.884 [id number] [id number] [facility] 00:00:00 00:00:00 30561.1.1 350.1.13.41 ity of 3.412.2.7 2.[place].7.3.698 [place] .3.706167 084.8 MD [facility] 2021-05-29 2021-05-29 Office Layla, 1.2.840.1 [id number] [facility] 09:00:00 11:41:03 Visit Bertha 61068.1.1 ity of 3.412.2.7 [place] .3.872524 MD [facility] 2021-05-29 2021-05-29 Outpatient [facility] [id number] 08:31:04 11:41:03 BERTHA [facility] 2021-05-29 2021-05-29 Travel 1.2.840.1 1.2.726.319 [id number] [id number] [facility] 00:00:00 00:00:00 59436.1.1 350.1.13.41 ity of 3.412.2.7 2.2.7.3.698 [place] .3.843355 084.8 MD [facility] 2021-05-28 2021-05-28 Telephone Carlota, 1.2.840.1 [id number] [facility] 00:00:00 00:00:00 Jessica Aguilera 41607.1.1 it y of 3.412.2.7 [place] .3.341925 MD [facility] 2021-05-01 2021-05-01 Office Layla, 1.2.840.1 [id number] [facility] 10:00:00 10:30:00 Visit Bertha 24793.1.1 ity of 3.412.2.7 [place] .3.569425 MD [facility] 2021-05-01 2021-05-01 Outpatient [facility] [id number] 08:37:17 08:37:17 BERTHA Alextwyla barney 2021-05-01 2021-05-01 Travel 1.2.840.1 1.2.944.155 [id number] [id number] [facility] 00:00:00 00:00:00 94784.1.1 350.1.13.41 ity of 3.412.2.7 2.2.7.3.698 [place] .3.276855 084.8 MD [facility] 2021-04-11 2021-04-16 [place] [address].2.840.1 [id number] [facility] 05:06:00 13:04:00 Encounter Bertha 82428.1.1 it y of 3.412.2.7 [place] .3.328751 MD [facility] 2021-04-11 2021-04-16 [facility] Urology [id number] [place] 05:06:00 13:04:00 BERTHA barney 2021-04-11 2021-04-11 Anesthesia [place], 1.2.840.1 [id number] [facility] 07:00:00 16:04:00 Event Justo Trinh 61940.1.1 it y of 3.412.2.7 [place] .3.359071 MD [facility] 2021-04-11 2021-04-11 [place] [address].2.840.1 [id number] [facility] 07:00:00 14:20:00 Bertha 05814.1.1 ity of 3.412.2.7 [place] .3.975445 MD [facility] 2021-04-11 2021-04-11 Travel 1.2.840.1 1.2.297.243 0895 [id number] [facility] 00:00:00 00:00:00 32255.1.1 350.1.13.41 ity of 3.412.2.7 2.2.7.3.698 [place] .3.563664 084.8 MD [facility] 2021-04-10 2021-04-10 [facility], 1.2.840.1 [id number] [facility] 10:30:00 11:53:02 Visit Bertha 08074.1.1 ity of 3.412.2.7 [place] .3.926570 MD [facility] 2021-04-10 2021-04-10 Outpatient [facility] [id number] 09:45:04 11:53:02 BERTHA barney 2021-04-10 2021-04-10 Orders Bello, 1.2.840.1 [id number] [facility] 00:00:00 00:00:00 Only Shilpa 83629.1.1 ity of 3.412.2.7 [place] .3.088361 MD Melendez8 [facility] 2021-04-10 2021-04-10 Travel 1.2.840.1 1.2.976.781 4409 [id number] [facility] 00:00:00 00:00:00 48099.1.1 350.1.13.41 ity of 3.412.2.7 2.2.7.3.698 [place] .3.256594 084.8 MD Melendez8 [facility] 2021-04-09 2021-04-09 Anesthesia Macias, 1.2.840.1 [id number] [facility] 23:59:59 23:59:59 Event Josefa Roberts 55286.1.1 it y of 3.412.2.7 [place] .3.417912 MD [facility] 2021-04-09 2021-04-09 [facility], 1.2.840.1 [id number] [facility] 08:39:48 23:59:00 Encounter Bertha 21717.1.1 it y of 3.412.2.7 [place] .3.732754 MD [facility] 2021-04-09 2021-04-09 Outpatient [facility] [id number] 08:39:48 23:59:00 BERTHA barney 2021-04-09 2021-04-09 Outpatient [facility] [id number] 09:32:39 11:38:13 BERTHA barney 2021-04-09 2021[facility]04-09 [facility].840[facility]1 [id number] [facility] 09:00:00 11:38:13 Appointmen Bertha 64793.1.1 i ty of ts 3.412.2.7 [place] .3.358678 MD Melendez8 [facility] 2021-04-09 2021-04-09 [facility].840.1 [id number] [facility] 08:15:00 08:15:00 Support Savannah Paulson 15983.1.1 ity of 3.412.2.7 [place] .3.260604 MD [facility] 2021-04-09 2021-04-09 Outpatient [facility] [id number] 08:03:06 08:11:27 BERTHA barney 2021-04-09 2021-04-09 Travel 1.2.840.1 1.2.379.651 3001 [id number] [facility] 00:00:00 00:00:00 77079.1.1 350.1.13.41 ity of 3.412.2.7 2.2.7.3.698 [place] .3.293035 084.8 MD [place] [facility] 2021-03-27 2021-03-27 Orders Bello, 1.2.840.1 [id number] [facility] 00:00:00 00:00:00 Only Shilpa 41258.1.1 ity of 3.412.2.7 [place] .3.923059 MD [facility] 2021-03-13 2021-03-13 Outpatient [facility] [id number] 11:27:57 14:23:12 BERTHA barney 2021-03-13 2021-03-13 Office [facility], 1.2.840.1 [id number] [facility] 10:00:00 14:23:12 Visit Bertha 44631.1.1 ity of 3.412.2.7 [place] .3.184792 MD [facility] 2021-03-13 2021-03-13 Travel 1.2.840.1 1.2.566.208 9812 [id number] [facility] 00:00:00 00:00:00 71583.1.1 350.1.13.41 ity of 3.412.2.7 2.2.7.3.698 [place] .3.553033 084.8 MD [facility] 2021-03-12 2021-03-12 Telephone [place], 1.2.840.1 [id number] [facility] 00:00:00 00:00:00 Guicho Roland 45722.1.1 ity of 3.412.2.7 [place] .3.210063 MD [facility] 2021-03-07 2021-03-[address]840[address]1 [id number] [facility] 09:14:00 12:21:00 Encounter Bertha 33828.1.1 it y of 3.412.2.7 [place] .3Al560410 MD [facility] 2021-03-07 2021-03-11 [facility] Urology [id number] MD 09:14:00 12:21:00 BERTHA barney 2021-03-07 2021-03-07 Anesthesia Kathi, 1.2.840.1 [id number] [facility] 13:02:00 17:03:00 Event Alexys Santos 19781.1.1 it y of 3.412.2.7 [place] .3.539869 MD [facility] 2021-03-07 2021-03-[address]840[address]1 [id number] [facility] 11:20:00 16:05:00 Bertha 23747.1.1 ity of 3.412.2.7 [place] .3Al507841 .8 [facility] 2021-03-07 2021-03-07 Travel 1.2.840.1 1.2.526.888 [id number] [id number] [facility] 00:00:00 00:00:00 22961.1.1 350.1.13.41 ity of 3.412.2.7 2.2.7.3.698 [place] .3.433784 084.8 .8 [facility] 2021-03-06 2021-03-06 Anesthesia Mims, 1.2.840.1 [id number] [facility] 11:55:17 11:55:17 Event Fina Sauer 80495.1.1 it y of 3.412.2.7 [place] .3.472754 MD Melendez8 [facility] 2021-03-05 2021-03-05 Consult Bertha Rich 1.2.840.1 [id number] [facility] 14:30:00 16:39:02 Edward Contreras 34637.1.1 ity of 3.412.2.7 [place] .3.505745 MD Melendez8 [facility] 2021-03-05 2021-03-05 Outpatient [facility] [id number] 11:40:46 16:39:02 BERTHA barney 2021-03-05 2021-03-05 [facility] Layla, 1.2.840.1 [id number] Univers 16:00:00 16:00:00 Appointmikayla Thompson 98128.1.1 i ty of ts 3.412.2.7 [place] .3.681334 MD Melendez8 [facility] 2021-03-05 2021-03-05 Outpatient [facility] [id number] 11:40:32 14:53:47 BERTHA barney 2021-03-05 2021-03-05 Clinical LaylaBertha nielson 1.2.840.1 [id number] [facility] 12:45:00 12:45:00 Support Kati Alvarez 50476.1.1 ity of 3.412.2.7 [place] .3.910012 MD [facility] 2021-03-05 2021-03-05 [facility] [id number] 11:11:41 11:21:53 BERHTA Alextwyla barney 2021-03-05 2021-03-05 [facility] [id number] 10:39:41 11:07:14 BERTHA barney 2021-03-05 2021-03-05 Travel 1.2.840.1 1.2.078.956 9614 [id number] [facility] 00:00:00 00:00:00 67830.1.1 350.1.13.41 ity of 3.412.2.7 2.2.7.3.698 [place] .3.154874 084.8 MD [facility] 2021-03-01 2021-03-01 [facility], 1.2.840.1 [id number] [facility] 11:45:03 23:59:00 Encounter Bertha 61541.1.1 it y of 3.412.2.7 [place] .3.043284 MD [facility] 2021-03-01 2021-03-01 [facility] [id number] [id number] [place] 11:45:03 23:59:00 BERTHA barney 2021-03-01 2021-03-01 [facility], 1.2.840.1 [id number] [facility] 12:15:00 14:00:00 Procedure Bertha 29066.1.1 it y of 3.412.2.7 [place] .3.149543 MD Melendez8 [facility] 2021-03-01 2021-03-01 [facility], 1.2.840.1 [id number] [facility] 10:15:55 11:44:00 Encounter Bertha 53905.1.1 it y of 3.412.2.7 [place] .3.396464 MD [facility] 2021-03-01 2021-03-01 Outpatient [facility] [id number] 10:15:55 11:44:00 BERTHA barney 2021-03-01 2021-03-01 Outpatient [facility] [id number] 10:42:16 10:42:16 BERTHA barney 2021-03-01 2021-03-01 Travel 1.2.840.1 1.2.243.089 2943 [id number] [facility] 00:00:00 00:00:00 14311.1.1 350.1.13.41 ity of 3.412.2.7 2.[place].7.3.698 [place] .3.249597 084.8 .8 [facility] 2021-02-27 2021-02-27 Outpatient [facility] [id number] 09:43:03 15:13:06 BERTHA barney 2021-02-27 2021-02-27 Office Layla, 1.2.840.1 [id number] [facility] 09:30:00 15:13:06 Visit Bertha 80205.1.1 ity of 3.412.2.7 [place] .3.244238 MD Melendez8 [facility] 2021-02-27 2021-02-27 Outpatient [facility] [id number] MD 09:37:58 09:38:11 Alex barney 2021-02-27 2021-02-27 NPR 1.2.840.1 [id number] [facility] 08:30:00 09:38:11 22291.1.1 ity of 3.412.2.7 [place] .3.030796 MD Melendez8 [facility] Homexiomara barney [facility] 2021-02-27 2021-02-27 Prep for Britt, 1.2.840.1 [id number] [facility] 00:00:00 00:00:00 Surgery Tommy 87121.1.1 ity of Jasbir 3.412.2.7 [place] .3.465981 MD Melendez8 [facility] 2021-02-27 2021-02-27 Travel 1.2.840.1 1.2.071.670 3122 [id number] [facility] 00:00:00 00:00:00 69252.1.1 350.1.13.41 ity of 3.412.2.7 2.2.7.3.698 [place] .3.414079 084.8 MD [facility] 2021-02-27 2021-02-27 Documentat Leticia, 1.2.840.1 [id number] [facility] 00:00:00 00:00:00 zeke Loyd 93607.1.1 ity of 3.412.2.7 [place] .3.291366 MD [facility] 2021-02-27 2021-02-27 Documentat Leticia, 1.2.840.1 [id number] [facility] 00:00:00 00:00:00 zeke Loyd 27794.1.1 ity of 3.412.2.7 [place] .3.219782 MD [facility] Results Test Description Test Time Test Comments Results Result Comments Source Prealbumin 2022-01-21 20:18:38 Test Item Value Reference Range Interpretation Comme nts Prealbumin (test code = 6855) 14.0 mg/dL 20.0-40.0 L Lab Interpretation (test code = 64776-5) [facility]normal [place] [facility] 13:28:40 Test Item Value Reference Range Interpretation Comments CRP (test code = 49.25 mg/[place] [address]-6) CRP assay are a s follows: Reference range s when used to assess cardi ac risk: <1.00 mg/L Low cardiovascular risk 1.00-3.00 mg/L Average cardiovascular risk >3.00 mg/L High cardi ovascular risk.Reference ranges when used to assess inflammatory re sponses: Less than or eq ual to 10.00 mg/L. [place] [facility] Rate 2022-01-21 13:16:35 Test Item Value Reference Range Interpretation Comments eGFR (test code = 96 See_Comment The eGFRcr [place] [address]) the 2020 CKD-EP I creatinine equation using creatinine, patient's age, and sex for adults 18 years of age and older. Other fa ctors, especially musc le mass, may affect accuracy and need to be considered.A ccording to the Kidney Dise ase: Improving Global Outcomes (KDIGO) CKD Work Group 2012 Clinical Practice Guidel ine, chronic kidney disease (CKD) is defined as the abnormalities of kidney struc ture or function, prese nt for more than 3 months, with implications fo r health. CKD should be class ified by cause, GFR carlos gory, and albuminuria cat egory. KDIGO guidelines prov franco the following GFR c ategoriesStage Description GFR mL/min/1.73 m2G1* Normal or high >= 90G2* Mildly decrease d 60-89G3a Mildly to moder ately decreased 45-59 G3b Moderately to severely dec reased 30-44G4 Severely decrea sed 15-29G5 Kidney failure <15*In the absence of evid ence of kidney damage, neither G1 nor G2 fulfill criteri a for CKD. [Automated mess age] The system which Locality nerated this result transmit sher reference range: >=60 mL/ min/1.73 sq. m. The referenc e range was not used to int erpret this result as dora l/abnormal. [facility].Serum Cqsmsqsevw3882-67-94 13:16:34 Test Item Value Reference Range Interpretation Comments Creatinine (test code = 2160-0) 0.76 mg/dL 0.67-1.17 [place] [facility] Nkxkh7565-25-07 13:16:33 Test Item Value Reference Range Interpretation Comments Calcium Lvl (test code = 79757-7) 8.9 mg/dL 8.4-10.2 [place] [facility] Center[facility]UN2022-12-14 13:16:32 Test Item Value Reference Range Interpretation Comments BUN (test code = 3094-0) 15 mg/dL 6-23 [place] [facility] CenterElectrolyte Yvhjr7728-21-59 13:16:31 Test Item Value Reference Range Interpretation Comments Sodium Lvl (test code = 140 See_Comment [Au tomated message] The 2951-2) system which Locality nerated this result tra nsmitted reference range : 136 - 145 mEq/L. The reference range was not u sed to interpret this result as normal/abnormal . Potassium Lvl (test 4.7 See_Comment [Automa sher message] The code = 2823-3) system which generated this result tra nsmitted reference range : 3.5 - 5.1 mEq/L. The reference range was not u sed to interpret this result as normal/abnormal . Chloride (test code = 104 See_Comment [Auto mated message] The ) system which ge nerated this result tra nsmitted reference range : 98 - 107 mEq/L. The refe rence range was not u sed to interpret this result as normal/abnormal . CO2 (test code = 27 See_Comment [Automated message] The 2027-10) system which ge nerated this result tra nsmitted reference range : 22 - 29 mEq/L. The refe rence range was not u sed to interpret this result as normal/abnormal . Anion Gap (test code = 9 See_Comment [Aut omated message] The ) system which ge nerated this result tra nsmitted reference range : 4 - 14 mEq/L. The refe rence range was not u sed to interpret this result as normal/abnormal . [place] [facility] CenterGl[facility] [id number] 13:16:29 Test Item Value Reference Range Interpretation Comments Glucose Level (test code 120 mg/dL 70-99 H Eff ective 09/04/15, = 2345-7) the glucose reference inter vals have been updat ed based on Americ an Diabetes Associ ation guidelines (Standards of Medical Care in Diabetes 2016. Diabetes Care 2 016; 39: S13-S22).Fa sting blood glucose:Normal: 70-99 mg/dLImpa ired fasting glucose (increased risk for diabetes or pre-diabetes): 100-125 mg/dLDiabetes mellitus: >/=12 6 mg/dL Random bl ood glucose:Normal: 70-199 mg/dLNot e: Random glucose >100 mg/dL is associ ated with increased risk for diabetes Lab Interpretation (test Abnormal code = 40126-3) [place] [facility] CenterDifferential2022-12-14 12:47:01 Test Item Value Reference Range Interpretation Comments Neutrophil % (test code = 65.9 % 42.0-66.0 770-8) Lymphocyte % (test code = 12.2 % 24.0-44.0 L 736-9) Monocyte % (test code = 8.3 % 2.0-7.0 H 5905-5) Eosinophil % (test code = 11.7 % 1.0-4.0 H 713-8) Basophil % (test code = 0.8 % 0.0-1.0 706-2) IGRE % (test code = 1.1 % 0.0-0.4 H IGRE % c ount 95944-1) includes Metamyelocytes, Myelocytes, and Promyelocytes. Neutrophil Abs (test code 4.10 K/uL 1.70-7.30 = 751-8) Lymphocyte Abs (test code 0.76 K/uL 1.00-4.80 L = 731-0) Monocyte Abs (test code = 0.52 K/uL 0.08-0.70 742-7) Eosinophil Abs (test code 0.73 K/uL 0.04-0.40 H = 711-2) Basophil Abs (test code = 0.05 K/uL 0.00-0.10 704-7) IG Abs (test code = 0.07 K/uL 0.00-0.04 H 55983-6) Lab Interpretation (test Abnormal code = 39617-2) [facility] Cancer Lovejoy.[id number] 12:46:53 Test Item Value Reference Range Interpretation Comments WBC (test code = 6.2 K/uL 4.0-11.0 6690-2) RBC (test code = 789-8) 3.80 See_Comment L [Au tomated message] The system P4RC generated this result transmitted ref erence range: 4.50 - 6 .00 M/uL. The refer ence range was not u sed to interpret this result as normal/abnor mal. Hgb (test code = 718-7) 10.8 See_Comment L [Au tomated message] The system P4RC generated this result transmitted ref erence range: 14.0 - 1 8.0 gm/dL. The refe rence range was not u sed to interpret this result as normal/abnor mal. Hct (test code = 33.4 % 40.0-54.0 L 4544-3) MCV (test code = 787-2) 88 fL 82-98 MCH (test code = 785-6) 28.4 pg 27.0-31.0 MCHC (test code = 32.3 See_Comment [Automate d message] 786-4) The system P4RC generated this result transmitted ref erence range: 31.0 - 3 6.0 gm/dL. The refe rence range was not u sed to interpret this result as normal/abnor mal. RDW-SD (test code = 45.1 fL 35.1-46.3 72143-4) RDW-CV (test code = 14.1 % 12.0-15.5 788-0) Platelet count (test 264 K/uL 140-440 code = 777-3) MPV (test code = 9.3 fL 4.0-10.4 83701-8) INRBC (test code = 0.0 % See_Comment The INRBC (instrument 02973-8) NRBC) value ref lects the enumeration of nucleated red b lood cells contained in a 200uL sampleof whole blood analyzed by the instrument. Thi s value maydiffer from the NRBC value repo rted in a manual differential,wh ich is based on a 100 cell differential. [Automated mess age] The system P4RC generated this result transmitted ref erence range: <=0.0. T he reference range was not used to int erpret this result as normal/abnormal . Lab Interpretation Abnormal (test code = 57303-1) [place] [facility] Center[facility] w/Gram Stain 2022-01-09 00:07:54 Test Item Value Reference Interpretation Comments Range Final Report (test Many Staphylococcus A code = 8488) coagulase negativeSusceptibility performed upon request. Plates will be held for 5 days Path Review (test The results have been A code = 8492) reviewed and electronically signed by Pathologist:MISTI LAI MD #[id number] Gram Stain Report No WBC's seen.No organisms A (test code = seen. 31426-8) Lab Interpretation Abnormal (test code = 71255-1) [facility] Surgical Interpretation 2022-01-08 17:09:15 Test Item Value Reference Range Interpretation Comments Submitted Clinical History b9vboHVpHISek6evIGJ (test code = 85044) mbGFuZzEwMzNcZnRuYm pcdWMxIHtccnRmMVxzc 6YiB2KvCeQrTSwmxuCq XGRlZmxhbmcxMDMzXGZ 0bmJqXHVjMVxkZWZmMH boRm1qfRDyuEreIqMoO FFpb2ggeyYYezaaeBj9 u6ueIKDkUdJ1hFZpGBx xO9eddyHrlHOlSNKqAZ m1mP11CPBkcZ6bvJPrE ZvvzkIcBoQ1FPamOIPd XfY3SVVwhDLcHFQnU1v yZWQwXGdyZWVuMFxibH LaELC5vDphw6E8lLLsu GVldHtcZjBcZnMyMiBO q6RxOYy1mAuaH6VoOLB gWmE1eVGfHMHkTNnzWW ZwOBPktcB9aM26PCwde pS9hWMyq6Hod15sa402 lD6sqLYoGYC3IGRrGKV ucSVkBDHxSAA1FOTamV BxY0yoXYXaTR4lnjqvO ZkkQQmiQSRctNF3OTNh kDPmT3FbORUlHKqcVKI aagb0BnCjRp5icIFrfL ccRBewt2jiq6jdpZYdW gn1DUSxPpTiQqveNIsi h5Jce7irKLKpon1jSOE 7dONzcBthm7Y4pWPuKG YqxUNrkiLgGCZjOzM4I PrjNO6yje60PZObCJL8 xg7hkONokEiujwWzgJD dRQdqH7CzVLMos042TQ JmW8FrTEJpd8F5ncQxY uAdJXCzmYR2tcK3DELn FVl3hBGnsfN9gdQptNE yN7llbN2kGHIgZB2kur jmj8eoHKtwBJtvNLHto KU8pdS3JMHsbRRvS6Rh dB4fAFEeHCmvBRIuwdk 8JcVzCp1ecCKpgYhvEA xzYmtwYWdlXHBnbmNvb nRccGduZGVjXHBsYWlu XHBsYWluXGYwXGZzMjR diKyxaTwosA2oJzMnXj HgUYjwAG0cCRNaS8nyh YAtHVTtGZXsA6uoZoFn tT3liVegXBtewbMrTEJ am8PbQ5dcYGNhI2lkuL SkyjYiWPX7QnTiJGOmS WluXGYxXGZzMjJcbGFu ZzEwMzNcaGljaFxmMVx vLfQdXKVpSBngY9aaBm LoViKcNsauEHD7vM== Diagnosis (test code = 34) x1rrtUNfGUQegTZzOEG wMlxhbnNpXHNwbHRwZ3 MsxzxeEHnrFG2tHF3sl GxhdHRveWVuXGRlZmYw s9rub424uBYny7qbITV BjajikRj5hKoxI44sn6 P6XgcyC6smYGIxLIefV DVeBRggrZZkZIr5OGRf cGVydzEyMjQwXHBhcGV lvUM1LTQxUY6ewbhqRZ ckAElmZARxkyT3SWEdt LLwE5JjBMWkAY1hijxq CUZ3DTrfJGFxNQF8DsL lTRXsz2Porou1YsBwmR FyZFxwbGFpblxmczIwX GNmMSBBOiBTcGluZSwg DABzWQWezSGvu2A0VJH vauhmoWfoUTexwJ52Qz GqZ2EuZL6HMQODUNHUC RMhY4XONS3EDFQzK7FV VBZDPPMKDA1BGTHpKA2 SY1aJXP6PVQHDTtNmAN 9GTAFFOhHFIGDQRC5LO SBUSVNTVUUsIENPTlNJ L6XYZwJpX6aKHFYFNTM ZNW5EW6ErG70BP05sGM SOWNuOQYRDWQ8XNqhgZ FxwYXJ9 Gross Description (test f4ttlHHfDYKpzYFBIEE code = [id number]) sTVOjSR3puDtlrMf8eP fxVRRcxeG9mMKdSUqkw 3weDWG6j6sfoyTCNpps GYEtMB6sJUqnIHEjIC2 nZmUwXGRlZmYxXHBhcG VydzEyMjQwXHBhcGVya HI3WRWsUX5fhgirAOlv IMfuLYBittT1BYYxsIB eD5NcBLHqJV9quvpxSZ K3PJHSKtivVy2avFArq HtcZjFcZmNoYXJzZXQw EBYoaWhyGECdJSc7cB5 LJuunW83ly4X6Ajx0ZZ FbGLZwM0YsUU1mXOAzb BDcA18EIuwyGVV3DENP MzpxXnzbiDodu0PipRO cXHNnIFxcaWQgNTEwMD AgXFxkYiBPVlIgIiAxM UFaGSKjKyY9DRd0LTWZ KMAoYqA9BHNgEOL7LRc 5NBSsBQ5jVJmgoQIvDW swIcbuMBlpL942CFgiG JHlA8GaZ6EgKCgoEkAm XGlkIDUxMDAyIFxcZGI oN9THVYMwPHSkTpPrTe AcEOo5JBpgK4JPNPHyV IJ7JaO8OSAdAcC5MOr2 ZVBPAi9gVMY7QDC5XUW 9UIZ4WLY5OGFsKCEtOj BcXHNzIDMgXFxmbCBcX J1opRzgBFYgIM0CIRHs YWluXGJcZnMyMCBBOlx wYXIgDQpccGFyZCANCl xwbGFpblxiXGZzMjBcc AgxgR3ciHNlN8ogNtTr MlxlcGljTmVzdERvYzE gDQpcbHRycGFyXGxpbj BccmluMFxzYTMwXGVwa NALr5EpZSDZLnagZEXq KFskfpZdDDOqtB3uTYU 9Lj43KaQ9qV6lde3nWN Uyhu4drqMmrF8bGR9wT IL6IQ2bJsYiNwNvE78l b7rraYVzz9YetAKajBo fwRVdfCWjZOPyk2maEH MyWFUiur15cJt0WXXrk cXsuZTwnVHtk4KhBw5r JRAaW1jhADmiaPteUfJ 5ojX2JzVgoVP3DbRxlM ZkRiIfN93qQVBTUJCvR OMkjpCcjJt7JWRcRNB9 vF2epvWmxaDiq7GdsXo 6lZYzOAwyGXRbs6TayM JryjKPTQe3PRKuCDTjG ws7NUXuPi1nhN63tU8y HDVdQ1HgF3dylZVopVy vblxjZjAgLiAgXHByb3 WhC8S8NRVsYRylr4mmY SBtOJdap1FlDYfCUKEI BY4IEL8seRJ3HYoOB3Z DR2kUuZKbNXJ4uWX1QH OWBnadrYH5uCX2mQ11I MSpDLQjqPWpUYveC768 CDE2ZBFjOYfes9igGSV kRZupg5FeASrMWZFXBX 5AUK6cuRD6PXmGH0XEM HwyMTAxNnwxfFVTRVJ8 IOvkkFwxdJj1p6ommGB gw0c3IEscERN9zLkmvD FpblxsdHJjaFxmczIwI G0QZXBkMRypwWzjFAYz MCANClxlcGljTmVzdER pOiK3TNIdhBWsZFF5QQ 5meAnnWQWeD7JeG7Etn cE7JXFifgLZMwfgnsUv IA0KfQ== Biomarker Block(s) (test o2ncvHSmHDUbwGIcMIB code = 9841) wMlxhbnNpXHNwbHRwZ3 DgbckmHNctBU9aET3da GxhdHRveWVuXGRlZmYw w0xdv426tIFzt8pwSUU SndmhyYi0xXvoW72gp2 Y1QumaN01nxCVjXXG9V TIyNDBccGFwZXJoMTU4 WXFryYJzN0niQEAaWQ7 hcmdyMTgwMFxtYXJndD X8XMTjeVNpF9AxDGPsH RjvNMXgfuu8RiUyJy9d dGVyeTcyMFxwYXJkXHB sYWluXGZzMjAgQTNccG FyfQ== Disclaimer (test code = z6nyiFRzBDSpfCKhHoB 9844) lPAMaKUBde5ozUKKrsH FuZzEwMzNcZnRuYmpcd HKuFSWaIyDyq2czt247 bREmu3hqVXVsUuY6dGC hNIRxjRUfG089VUJwQV vat0iot8FiVGMzhZIym 6H8QVQXkswqjZx2pLer H53nv9P9MdgdA2oxFRQ zRULlK5IfBI3eEEVtEy h9DIW1PUW9DOJiPCSiB 8BmRV7dTKHilXIsGXn7 b4sdnJxfZJLkMMA7m3c oUZczijXaVX9dnf6ctW x4s2idsnBhWXUuKYTde RSEFWYdM6XcrAveJr3s hZh9rNutIkvmPKL0Xhc 9YK2rqo30nuc0sUosUH SmtumoRoN1MJehLEXyh ikoVNu4KMzgESAxfEF4 WCQchFKaK5XfPNGsEM7 khgr6WVK7SCpnYGXzCx Y9GFUspQStZYGrwDloF Bppy862YSO1RhLwFM4i U1Jsf2J8yN3awYFwAVZ qkDIaAtLrKGHriu0deT DkWUkdq0LnHCH5hrF1f LQugIFfLVAkYW68Bprb l2NqVkhkHYS2SADivaS co4Kba4buGuSapxYcP2 gvM9TcFBMlHQIlFVIcL xTmloMgm1Xsd8TmvNEg gDg0i8htXUIgZBFlyYq ne2pqYHI5AWTeP4N6vL Tcw9fkNBipGRFpwMM2x oO8EIFjjEBnU8DmtD9y OBYuMS6abug5p8rkSIW 9HPwuCPHxWbR7ezV6BB BcaGVhZGVyeTcyMFxmb 435INH2CjNbPBXqb7Iw T7RwhNkgP83nqWxmW39 wLZQfjDfiiQ3vwOwosN 5cZjBcZnMyNFxxbFxwb LMvabsiJHsaweC1CEjm xgpqBGVhAYsyW1kjNbC hDYUgoPgxHFkoz6EfCK ClSWXzTbivxmU8MRQWb 83uEASkc0EgULWhhM2i rZKyURuhcjZffPZ3PJq hdmUgYmVlbiBkZXZlbG 0gJROnIV0dBKCgeeWrr h4iivVmUUNsLCEvA0Gn cmlzdGljcyBkZXRlcm1 hvmUtSLR4IYHQAN0QYI TpBERob50oDBXlyPhlq P6rhRVlgtApPXLde2Ci bQ1xqRRLUVUyG6xhZR5 hAYpss6LijJFqbXTmpI V7MUPvu6HeSbFykiTcm MNnwYNqS1AnxEaoC6vp QXUwEOFpryXbhWEdp5D pQTVoaYQ0kRAuAS8WMz OIj56tHKTdLWZKkrCtI NWyrAfxxPJ7haZ8eX3w LiBJZiBhcHBsaWNhYmx mKVVyt268az8oajV6NL CgZFAiuccbv6LuLDUrE JNygL77FLQpYVDuuc6s oslgcCIhpdOrV8Wddsh 2vB8pENAcCDipODWcQR ZzMjJcbGFuZzEwMzNca GljaFxmMVxkYmNoXGYx HDutQ5peSwYcRhQgKbj wYXJ9 [facility] Glucose Omyaji8123-41-97 00:05:59 Test Item Value Reference Interpretation Comments Range POC Glucose (test 133 mg/dL 70-99 H Capillary blood code = 5651) samples, e.g. obtained by fingerstick, ma y have inaccurate resu lts in patients with decreased perip heral blood flow. Met hod description: Al l results are leslye sured using Electrochemistr y test methodology. Th e glucose in the sample mixes with the reagents on the test strip. The reac tion produces an beata ctric current. The am ount of current prod uced is proportional to the glucose concentration i n the blood. PO Sample Type (test Capillary code = 9554) Performing Lab (test [facility] code = 89943) [facility] n[facility], [address], [place] [address]; Internal Medicine Nurse Practitioner: Bambi Palmer MD Lab Interpretation Abnormal (test code = 55233-1) [facility] Sbrezqpmi4584-25-57 19:15:05 Test Item Value Reference Range Interpretation Comments HSV/VZV Specimen Forehead Info (test code = 9626) HSV-1 DNA (test Negative Negative code = 9623) HSV-2 DNA (test Negative Negative code = 9624) VZV DNA (test code Negative Negative HSV 1+2/V ZV DNA is a = 9625) nucleic acid am plification test (NAAT) int ended for the qualitative detection and differentia tion of herpes simplex virus type 1, herpes simpl ex virus type 2, and varicella-zoste r virus DNA isolated and pu rified from cutaneous or mu cocutaneous lesions from sy mptomatic patients.Refere nce Range: DNA NegativeWhe n invalid results are obt ained, a new specimen sh ould be collected for r epeat testing if clin ically indicated. [facility] Center[facility] plasma:Transfusion Indications: O.R. Patient; Main OR 35, 4 Tbuog1089-36-27 07:44:18 Test Item Value Reference Range Interpretation Comments FFP Product Ready 4 Fresh Froz en Plasma (test code = 91250-5) Availa ble - Order Form 03 when re emy for product iss ue. Unit Number (test [id number] code = 7002) Product Code (test R1528W87 code = 7003) Unit Expiration (test [id number] code = 790842) Unit Blood Type (test 9500 code = 7004) Product Code Text PLASMA IR CPD (test code = 946482) Unit Irradiated (test IRRADIATED code = 962961) Dispense Status (test RETURNED code = 7001) Unit Blood Type (test O Negative code = 7005) ____ [facility] Center[facility] TE[facility] Path Final Thbauf6355-47-40 15:00:55 Test Item Value Reference Range Interpretation Comments OR TEG Path SEE TEG PATH Review Final REVIEW 1. (test code = __JONATHON CONDE MD, PhD - 9060) 08568Hxiaqmzj b y: JONATHON CONDE MD , PhD - [id number] D ate/Time: 12.31.2021 9:00 AM SUBSYSTEMS ENGINEER Transcribed Deng e/Time: 12.31.2021 9:00 AM CSTElectronical ly Signed By: JONATHON Barney MD, PhD - [id number] on 12.10 9:[address] [facility]2022-11-23 08:21:23 Test Item Value Reference Interpretation Comments Range POC HHGB (test code 12.2 See_Comment L Method d escription: The = 6677) hemoglobin concentration i n blood is determined a s azidemethemoglo bin utilizing a microcuvette wi th a dry reagent system and a dual wavelength photometer. Sod ium deoxycholate ly ses the erythrocytes, r eleasing the hemoglobin. Sodium nitrite convert s the hemoglobin methemoglobin t hen the sodium azide co nverts this product to azidemethemoglo bin. The absorbance is m easured and the hemoglo bin level is calcul ated. Measurements ar e taken at 570nm and 88 0 nm to correct for any turbidity in th e sample. [Automa sher message] The sy stem which generated this result transmit sher reference range : 14.0 - 18.0 gm/dL. The reference range was not used to interpr et this result as normal/abnormal . Performing Lab (test MDA Main Main Ca [facility] code = 75740) [facility] MD Yessi d[facility], [address], [place], [place] [address]; Internal Medicine Nurse Practitioner: Bambi Palmer MD Lab Interpretation Abnormal (test code = 16676-4) [facility] RBC:MAIN OR 35, 4 Units 2021-12-31 05:10:00 Test Item Value Reference Range Interpretation Comments Unit Number (test [id number] code = 7002) Product Code (test F3890T25 code = 7003) Unit Expiration [id number] (test code = 043663) Unit Blood Type 5100 (test code = 7004) Product Code Text RBCIRLR Aph ACDA AS3 (test code = Bag 1 242315) Crossmatch [id number] Expiration Date (test code = 872203) Unit Irradiated IRRADIATED (test code = 399451) Dispense Status RETURNED (test code = 7001) Unit Blood Type O Positive ____ (test code = 7005) _ ____ Product [employer] .BPAM ____ Location (test ___ code = 504906) ___ ____ [facility] Center[facility] Bi[facility] Interpretation 2021-12-30 18:05:38 Test Item Value Reference Range Interpretation Comments Submitted Clinical History o5rauYXhUDIjc8zzOYX (test code = 59348) mbGFuZzEwMzNcZnRuYm pcdWMxIHtccnRmMVxzc 2HhS3TtArZbFHzorvWq XGRlZmxhbmcxMDMzXGZ 0bmJqXHVjMVxkZWZmMH mgPc4usGWceTktBwSlG JNod1wczgQDkpxqdJa2 f4onYSImGiA3fZXoZZo iJ5qegaLyxKMhRXVkLG v9uC72EQQlzM8feZElK BujqkIlLmM1TAguILJv ZzL5MNAkcRKkYHGtP8w yZWQwXGdyZWVuMFxibH QnYSY5rWzdq4L8pVJpe GVldHtcZjBcZnMyMiBO p6EaAXg0uXbrD2BsINR kEnF7eVRfVJAvDCexYN MzJVVuvcC1bH90XRdia vL3qBGca7Jxx62be024 aX5ruYHsYBY4NMVvKIW izCTpVVDeOGF6HGQbiD NwF8lgNGMzHA1ocdbwK IxsOKaqFZWmwTC4UEKx yVWqO7MqLDUmIAukNBX eore2QbWlWi9woIVdxC dfSPres8gyo9yovGMhN ym0MVHcQfPwEipnJGfy s3Yep6zsRQUnue6vRIY 2vIKsvTjmk9N1qCPcWE RmvXLnmvZmWJWtYuZ9H RqtHI7ogk34AMDcHHL7 sh0gsPIzpQepjgUziZO xLPtiA1YjSVUdw516VN UrI9UsKJGdu4I2oaHlB tStMBGtkID2qyO7ZLNt ZKu4iJQuarW4nqMzpGS tE6pdwG5oVLUxLH8koj hbj0rxYYkgUDsfAHBwk RJ8tyP8TPItlVDlZ7Ly uO5sRQGdYCmuGAHcetv 4BfJkRa8mkLGheLfaEA xzYmtwYWdlXHBnbmNvb nRccGduZGVjXHBsYWlu XHBsYWluXGYwXGZzMjR kdCqgvDafrN6gUoQiQr StZInaFJ9qZNUnQ8lwt ZGxKYVeOLPnQ1pyXpKl jE0ouCxcTLydbuDiGE0 oHXojq5QtvwPgTL9fa1 DiB3RjTl4ySNmedVIch lxmMVxmczIyXGxhbmcx GIEiGHkfS6hjCqZbJIC ghHumVItlo3TsYTDcIW ZzMjJccGFyfX0= Diagnosis (test code = 34) l7ccdLJcRLErfHKlDAV wMlxhbnNpXHNwbHRwZ3 ClqqetRZboME5wMW8iq GxhdHRveWVuXGRlZmYw j0ofx822mRMel2gaGWN IeneoaBi0aLkeD14yi4 H1FxpoL0nhLFMeNWoxK ELvCQrbqNJpDLy0TONk cGVydzEyMjQwXHBhcGV jnKP1MDFzPB5cqeseDJ xuLMkiXEOwzvD5BPUgx TArM3HyCGDhII7nnuml VAQ8VKceOGIoZXJ4UkH vNQQlq7Kjnvu5DzGhaV FyZFxwbGFpblxmczIwX GNmMSBBOiBSaWdodCBj ePBqtUC9QPjcKBEaoN4 ir4m6MCXapzorwXrpOT wwyQ68ZrJhE7NdGVUCO ERAH7RWYJXXIOqsR0AJ W4xMI47NGRtMUb7PGrv ZDnWQFPPWS4GBRVYEH2 KGLI4oNKDQGOMCE01TI A4GYGwuTQMmiKPnNOxs SCHhqURtJClfW2GGGhl wYXJ9 Comment (test code = 9835) s0bltNYtYXHhlQNoYMZ wMlxhbnNpXHNwbHRwZ3 HdfcxjLMzoZO7oIE2nx GxhdHRveWVuXGRlZmYw p7xpk935qKIwn9faBLI WwzlyjLx9wCpxG20qq7 R5PrggL97eaYEtJOU3U TIyNDBccGFwZXJoMTU4 CXYicRQtC0lqLLNfSN2 hcmdyMTgwMFxtYXJndD S3IEGiyRIbX8LcVXOhD MrrFQYnydm2IbXnCw0y dGVyeTcyMFxwYXJkXHR 3Nfb8XOdfvITjjuqbyz TuBEVlGNXoUVLfSL76E VqacpTxQCyhm2epZOvs j3Coxqalm1SmbYIeeNg jFVQrjTDsy0ScBGSpmK uuK9AqQ7ddi70jJhFCJ NZxUNPxnwNaeAd0QXAt L9XqyhUbAATzqCYdbkG vwr6hIFGhKVNazxF0oC 61wuCbwGJotF0npkMcC jOqCIHaRfQ5UXktz8Op ZSByZXZpZXdlZCwgYW5 rKESpq7bkKNZtqE6oqL CfAN0bjuHdq9drQ9dgU SyeAYYuoKLcE7jbuice HUreW85kmQA4tKuxCRX jvLR6GBW9DQUeTpVevK XsnS89mkCvDQfrCBBwe bVruw8pYRTtqfHuZSHv xkMvOhGMj9jzubOqOFQ vCIOwvV0uysiqc1I0ZJ 7wdFHcN7VmmQTtEJPod M3peLAky7VdB0got8Hq g2VwtK8bGBSyGJC8wM0 0xVZhUQ5qs6JeRlJfQV 50aXJlbHkgZXhjbHVkZ UGdFQDvlC3eV2CfEGYh pzZzwTT1pQ9lSVtjAVQ iI60vgMFfODLgRcwzFX J9 Gross Description (test s5nybESrCDGquGVnXGV code = 6819078259) wMlxhbnNpXHNwbHRwZ3 JjqtlfJJkbJX9hHM0fa GxhdHRveWVuXGRlZmYw z5djk127hEOzg8lxAZE RxyehjKr2bYktZ78am2 F0PvsoM1tkVRUsICcdR YDlBHmknJTzIAp7GHQu cGVydzEyMjQwXHBhcGV xnZQ3STXuRH0onwalGL jyMEadKFDsbcD3GOTat SHvN8VaPGAzWG3bxkit UTP2PBwaYNIrZQV6IoG uGXRgz7Xakby1RhH0OM bjGIJoN3IuU3EfFXiyG CB3YXEyMWAsAGKxCV3Z RsUuEOPbIxF6LkNwZPD TQFNjAuW2YYOwVRRXBX ZwFZBmXFn8JjZeUySwG FJSIDEyMzAwMDAwMjEg XFxuaCBcXHQgMSBcXGZ eSIhicbP4l8tuDGRkyD LlYFW4COgonKIgBNLmX DIgXFxkYiBPVlIgIiAx LTDhRhjpBiI4PUa8LHK ZSkSuHpYmDGLcJdq3Mf frSEz1TPx2GSyMSbVgI YdgZRG7DfcyXQJ5GRy9 ZZokqRZtAQtrn3XvXhQ bMTZnKGtwimP0YJEwcn GglQwgsF1gKezvyiKpJ MM1YZQcwnmcMHLyNGWx YuOuIVBvT0lvXcEhLFA dRpFtDUAgN8dvRPPaSD BsYWluXGJcZnMyMFxjZ vTwN6nhp2Ksh0OtgTue qgzcbTSmUYOov2NlaXc gIpCpY6YmNPFUc5NeRK BpbmstcmVkIGNvcmUgY ddtmALfYEZrtjOkZ3gx XiTkrc2aQXTtUsA1kwY cLxqeJ68rsA3ueFQuG4 RoIHdpdGggYSBkaWFtZ HKceyXcJmAwBpAaH31q LWGnbRkpKJe5TEU8Wq8 ivIDiOMExvlRWXE7eLW bvxi40VKJ1l1kajJVvG AqoOjmohITbbtM3SYcN XGTATGiHDrHhBT9cFKs JTktCRUdJTnwyMTAxNn gsmWAWJWC0AYsuxChoy Je2o6grhQGdt3t8MUim VFA1wMqMw6zttOCjCGc pUdvpxOVopoI0MDeOEZ LNNHiXGmWqIT4yJJqTM coAMpI8XsBmECU7UNqO Q4EIzDE6Qft9ITx1qEe cZmxkcnNsdCBcJzFjfX 1kbToeeR1iTfHfRYxdB CEjC5XrU1BzxtL0n9ly jKkcu6LfqFLdPI4ftFG yfQ== Biomarker Block(s) (test i2brwHMpQHWutIUaYJS code = 9841) wMlxhbnNpXHNwbHRwZ3 RuebblJAgwDG5bAM2zt GxhdHRveWVuXGRlZmYw o9blx416bBFau0spNEI WceuvlMi2tRtbL69fg3 K1MpfeN85idJBuYHW7V TIyNDBccGFwZXJoMTU4 FJByePEiI7bwOPCgOQ6 hcmdyMTgwMFxtYXJndD Y7QBYdsPXeQ6CcSIKzN ErvAOZffid1CyWgCi5h dGVyeTcyMFxwYXJkXHB sYWluXGZzMjAgVHVtb3 D8ELOzWIMvbr5= Disclaimer (test code = v2lmnIGcUIUvzUXoNwE 9849) vZRPyFHVnx6ipMJJpfA FuZzEwMzNcZnRuYmpcd NMiCORbZaHqh4jrs435 cFFqm3xrAONkIsX9lRP jLXZcyFFgG316WLVfNV zmz8zsa9SuHETdoSPcc 4H9WUSCwmnobCr7tQhu N28ng2V6XpbwF8gwBSK lMLVbX0KcAO0fQMRnKz g0CDU2SFU1EYXjCUCwK 3MrVH6lIGBwbALoOJj9 c5hrpXewOQWzEID9e0c oUBmjbvElLF1hvl6ikB d1k9yxmbBxXIRvPWUbu NVHXEThH9BuzJnxWc0r jBi0bVunElgiZVO5Jny 4AA0nim80fdh5xWfkLL ZyyyptVhM1TNvaTPZqh shuYIp2VFneYJRvuVJ5 HDZsdMSgS3GrMVOrJU7 dztn0NDG4FGvbFDTgQj I6SYMciIOfSGEgyXrnZ Rsdi408PWH8OjHjCB9a I6Duu5A3uK4awFDcAIP xjQRsOrVsKHSmnx7foL ClJQywo0WsCOZ2quP6b JMrrKKeJWCuQG36Mtdi r0TqBtgqSTQ6COPlyoF na6Euc4cxNyRsouOvW8 lyK2ZfXPTwJNNvIPArH tRvixVig6Jpr3ZhjIZf oFv0v3tqQJIfQYChxGa lb0vrZDH2SLOgY6N5nW Ysy6smJFaaPPEavCU7g oW2TMJadLBiC9VmkS9g WDJxQE2ocbm8f1gfNDM 3RMhzAMDbWgD3nuA8SE BcaGVhZGVyeTcyMFxmb 329IWY5OyPkTOWrd8Nz I3IpbUkhH31yjYzmM27 zWJCidYnzvT0xcQrswT 5cZjBcZnMyNFxxbFxwb LPzvchcDInxtpP4VTmw wrdpKLQlUElpO1cyFjE sBAKrvVkbXAtcc3GfSX XgQMCmJevtgpI2YIITk 90wSCCvb5GfUSPnjF4k qKAmNPvoiqNryQG7BPd hdmUgYmVlbiBkZXZlbG 4mEDBfFO8jKZEskhYqn z2wuqBwCFKvVHTwM8Ek cmlzdGljcyBkZXRlcm1 ygtBlHGY4LQFUXL0FWC AdDKScx38tKXBquZuun E9qwMVwztLhAQFsk3Sm yT9wxMQRKIXtZ7qvOB4 yAXuic9PrgTCnrAOreT O0JTBmc1CrPjEjqpEle QHfoPUhI1LnhPfcD5tz RHOjQCKgsgXpqUSlu4Q uLJNeuPJ6oLGlAK8MBr QIp07gHBBqGSFKyfYcQ YIxkKlozCQ0fnR6hE3h LiBJZiBhcHBsaWNhYmx aOOWml644lj2gkxH1QT FaQBUwofsns5MxELJtA JRcqL06NVWcRNQqtw3y udyddQLpbsQsY4Wiugj 9oB9kIWDnABdoNFGkAH ZzMjJcbGFuZzEwMzNca GljaFxmMVxkYmNoXGYx EPkzZ6jdJcXnSqWpVot wYXJ9 [facility] platelets:Transfusion Indications: O.R. Patient; Main OR 35, 1 Xjaup2622-39-88 15:42:53 Test Item Value Reference Range Interpretation Comments PLT Product Ready Approved Platelet o rder (test code = has been 36640-3) approved. Order Form 3 when ready for product issue. Expect 2 hours for platelet concentration. Unit Number (test [id number] code = 7002) Product Code (test L0505G85 code = 7003) Unit Expiration (test code = 866873) Unit Blood Type 5100 (test code = 7004) Product Code Text PLATELET Aph IR LR (test code = BacM bag 1 076026) Unit Irradiated IRRADIATED (test code = 586258) Dispense Status RETURNED (test code = 7001) Unit Blood Type O Positive ____ (test code = 7005) _ ____ [facility] TEG Path Review 14:49:42 Test Item Value Reference Interpretation Comments Range OR TEG Path THE RESULTS OF THE PLAIN ___ Review 1 AND HEPARINASE CHANNELS ____ (test code ARE SIMILAR AND XI AOPING = 9056) INDICATIVE OF A MD ELTON, PhD - HYPERCOAGULABILITY WITH 1087 8Dictated by: ENHANCED ENZYMATIC JONATHON CONDE MD, PhD ACTIVITY WELL - [id number] ictated PLATELET-FIBRINOGEN Date/Bob e: 12.30.2021 INTERACTION. SUGGEST 8:49 AM SUBSYSTEMS ENGINEER CLINICOPATHOLOGICAL Transcri bed CORRELATION. Date/Time: 12.10 8:49 AM CSTElectronical ly Signed By: MARJAN CONDE MD, PhD - 1 0878 on 12.30.2021 8 :49 AM C [facility] TEG1 [id number] 14:31:25 Test Item Value Reference Range Interpretation Comments OR TEG 1 Date (test 12/30/2021 code = 8962) OR TEG 1 Time (test 07:27 code = 8963) OR T1 SP Hep (test 3.7 minute(s) R HEP min us SP HEP code = 8972) (0.7-1.1 minute s) OR T1 R Hep (test 4.0 See_Comment L [Automate d message] code = 8973) The system P4[employer] generated this result transmitted ref erence range: 5.0 - 10 .0 minute(s). The reference range was not used to interpr et this result as normal/abnormal . OR T1 K Hep (test 1.2 See_Comment [Automate d message] code = 8974) The system [employer] h generated this result transmitted ref erence range: 1.0 - 3. 0 minute(s). The reference range was not used to interpr et this result as normal/abnormal . OR T1 Angle Hep (test 73.7 See_Comment H [Auto mated message] code = 8975) The system [employer] generated this result transmitted ref erence range: 53.0 - 7 2.0 degrees. The re ference range was not u sed to interpret this result as normal/abnor mal. OR T1 MA Hep (test 72.0 mm 50.0-70.0 H code = 8976) OR T1 G Hep (test 12.8 See_Comment H [Automate d message] code = 8977) The system [employer] generated this result transmitted ref erence range: 4.5 - 11 .0 K d/sc. The refer ence range was not u sed to interpret this result as normal/abnor mal. OR T1 EPL Hep (test 0.0 % 0.0-15.0 code = 8978) OR T1 CI Hep (test 3.6 -3.0-3.0 H The Throm belastograph code = 8979) (TEG) 5000 anal yzer is a non-invasive diagnostic inst rument designed to mon itor and analyze the coa gulation state of a bloo d sample in order to ass ist in the assessment of patient clinica l hemostasis cond ition. The TEG uses a stationary cyli ndrical cup that oscill ates a patient sample at an angle of 4 45 . Each rotation cycle lasts 10 second s. A pin suspended in th e sample by a torsion wi re monitors the mo tion and records the myah nges in the resulting c lot. ( Applies to OR T 1 Angle Hep, OR T1 Cl H ep, OR T1 EPL Hep, OR T1 G Hep, OR T1 K He p, OR T1 MA Hep, OR T1 R Hep, and OR T1 SP He p) The population for which this test may b e used has been modifi ed, validated and e xtended for use on hawa ents of age 11 years or older by the Division of Pathology and Laboratory [facility]. This laboratory is certified under the Clinical Labora tory Improvement Eileen ndments (CLIA) as quali fied to perform high co mplexity clinical labora tory testing. Lab Interpretation Abnormal (test code = 35807-0) [facility] TEG [id number] 14:30:21 Test Item Value Reference Range Interpretation Comments OR TEG 1 Date (test 12/30/2021 code = 8962) OR TEG 1 Time (test 07:26 code = 8963) OR T1 SP (test code = 3.6 minute(s) R mercy s SP (0.7-1.1 8964) minutes) OR T1 R (test code = 3.9 See_Comment L [Autom ated message] 8965) The system [employer] generated this result transmitted ref erence range: 5.0 - 10 .0 minute(s). The reference range was not used to interpr et this result as normal/abnormal . OR T1 K (test code = 1.1 See_Comment [Autom ated message] 8966) The system [employer] generated this result transmitted ref erence range: 1.0 - 3. 0 minute(s). The reference range was not used to interpr et this result as normal/abnormal . OR T1 Angle (test 74.5 See_Comment H [Automate d message] code = 8967) The system [employer] generated this result transmitted ref erence range: 53.0 - 7 2.0 degrees. The re ference range was not u sed to interpret this result as normal/abnor mal. OR T1 MA (test code = 73.2 mm 50.0-70.0 H 8968) OR T1 G (test code = 13.6 See_Comment H [Autom ated message] 8969) The system [employer] generated this result transmitted ref erence range: 4.5 - 11 .0 K d/sc. The refer ence range was not u sed to interpret this result as normal/abnor mal. OR T1 EPL (test code 0.0 % 0.0-15.0 = 8970) OR T1 CI (test code = 3.9 -3.0-3.0 H The rombelastograph 8971) (TEG) 5000 anal yzer is a non-invasive diagnostic inst rument designed to mon itor and analyze the coa gulation state of a bloo d sample in order to ass ist in the assessment of patient clinica l hemostasis cond ition. The TEG uses a stationary cyli ndrical cup that oscill ates a patient sample at an angle of 4 45 . Each rotation cycle lasts 10 second s. A pin suspended in th e sample by a torsion wi re monitors the mo tion and records the myah nges in the resulting c lot. (Applies to OR T1 Angle, OR T1 Cl , OR T1 EPL, OR T1 G, O R T1 K, OR T1 MA, OR T1 R, and OR T1 SP) The population for which this test may b e used has been modifi ed, validated and e xtended for use on hawa ents of age 11 years or older by the Division of [facility]ology [facility]. This laboratory is certified under the Clinical Labora tory Improvement Eileen ndments (CLIA) as quali fied to perform high co mplexity clinical labora tory testing. Lab Interpretation Abnormal (test code = 32046-4) [facility] ABG+ (ABG, Na, K, Cl, Glu, Hct, Lactate, Ion Ca)2021-12-30 12:59:28 Test Item Value Reference Interpretation Comments Range OR Sodium, arterial 141 See_Comment Methodol ogy: The ABL90 (test code = [place] [address]-2) an in vitro christina gnostic portable, autom ated analyzer that m easures electrolytes in whole blood. This sam lyzer uses potentiome try to measure K+, Na+ , and Cl-. The potent ial of an electrode ch ain is measured by a voltmeter, and related to the concentr ation of the sample. [Automated mess age] The system whic h generated this result transmitted ref erence range: 136 - 14 6 mEq/L. The refe rence range was not u sed to interpret this result as normal/abnor mal. OR Potassium, 4.1 See_Comment Methodology: T he ABL90 arterial (test code Flex Plu s analyzer is = 56103-5) an in vitro christina gnostic portable, autom ated analyzer that m easures electrolytes in whole blood. This sam lyzer uses potentiome try to measure K+, Na+ , and Cl-. The potent ial of an electrode ch ain is measured by a voltmeter, and related to the concentr ation of the sample. [Automated mess age] The system whic h generated this result transmitted ref erence range: 3.4 - 4. 5 mEq/L. The refe rence range was not u sed to interpret this result as normal/abnor mal. OR Chloride, 109 See_Comment H Methodology: Th e ABL90 arterial (test code Flex Plu s analyzer is = 94230-6) an in vitro christina gnostic portable, autom ated analyzer that m easures electrolytes in whole blood. This sam lyzer uses potentiome try to measure K+, Na+ , and Cl-. The potent ial of an electrode ch ain is measured by a voltmeter, and related to the concentr ation of the sample. [Automated mess age] The system [employer] generated this result transmitted ref erence range: 98 - 106 mEq/L. The reference r qi was not used to interpret this result as normal/abnor mal. OR Glucose, arterial 179 mg/dL 70-105 H Methodo logy: The ABL90 (test code = [place] [address]-7) an in vitro christina gnostic portable, autom ated analyzer that m easures metabolites in whole blood. This sam lyzer uses amperometr y to measure glucose and lactate. The ma gnitude of an electrica l current that fl ows through an elec trode chain is propor tional to the concentr ation of the substanc e that is oxidized or reduced at an electrode in the chain. OR Hemoglobin, 12.0 g/dL 13.5-17.5 L Methodology: The ABL90 arterial (test code Flex Plu s analyzer is = 79970-6) an in vitro christina gnostic portable, autom ated analyzer that m easures hemoglobin in w hole blood. This sam lyzer uses spectropho tometry to measure hemo globin. Light passes th rough a cuvette that co ntains a hemolyzed blo od sample. Hematoc rit is derived from th e total hemoglobin mult iplied by the standard value 0.0301. OR Hematocrit, 37 % 42-52 L arterial (test code = 76150-5) OR Lactate, arterial 1.5 mmol/L 0.4-0.8 H Methodo logy: The ABL90 (test code = 2518-9) Flex Pl us analyzer is an in vitro christina gnostic portable, autom ated analyzer that m easures metabolites in whole blood. This sam lyzer uses amperometr y to measure glucose and lactate. The ma gnitude of an electrica l current that fl ows through an elec trode chain is propor tional to the concentr ation of the substanc e that is oxidized or reduced at an electrode in the chain. OR Ion calcium, 1.15 mmol/L 1.15-1.29 Methodology: The ABL90 arterial (test code Flex Plu s analyzer is = 04321-2) an in vitro christina gnostic portable, autom ated analyzer that m easures electrolytes in whole blood. This sam lyzer uses potentiome try to measure Ca2+. T he potential of an electrode chain is measured by a voltmeter, and related to the concentr ation of the sample. OR pH Art (test code 7.38 7.35-7.45 = 2744-1) OR pCO2 Art (test 42.2 See_Comment [Automate d message] code = 2018-) The system [employer] generated this result transmitted ref erence range: 35.0 - 4 8.0 mmHg. The refer ence range was not u sed to interpret this result as normal/abnor mal. OR pO2 Art (test 187 See_Comment H [Automated message] code = 2703-7) The system [employer] generated this result transmitted ref erence range: 83 - 108 mmHg. The reference r qi was not used to interpret this result as normal/abnor mal. OR HCO3 Art (test 25 mmol/L 21-28 Methodolog y: The ABL90 code = 1960-4) Flex Plus sam lyzer is an in vitro christina gnostic portable, autom ated analyzer that m easures electrolytes in whole blood. This sam lyzer uses potentiome try to measure K+, Na+ , Cl-, and HCO3. The potential of an electrode chain is measured by a voltmeter, and related to the concentr ation of the sample. OR Anion Gap, 8 mmol/L 7-16 Methodology: T he ABL90 arterial (test code Flex Plu s analyzer is = 9327) an in vitro christina gnostic portable, autom ated analyzer that m easures electrolytes in whole blood. This sam lyzer uses potentiome try to measure electro lytes. The potential o f an electrode chain is measured by a voltmeter, and related to the concentr ation of the sample. Anion gap is derived as the difference betw een the concentration o f cations and ani ons. OR Base Excess Art -1 mmol/L -2-3 (test code = 1925-7) OR O2 Sat Art (test 100 % 95-99 H The ABL9 0 Flex Plus code = 2708-6) analyzer is a n in Cloubrain diagnosti c portable, autom ated analyzer that m easures pH, blood gas, electrolytes, hemoglobin, glu cose and lactate in whole blood. This sam lyzer uses the method ologies noted to perfor m quantitative measurement of the parameters list ed when tested or as no sher with indicated analytes.1) K+, Na+ and Cl-, Anion Gap, Glucose, Lactat e, Hemoglobin, and HCO3 -NOTE: Methodol ogy is noted with spec [facility] analyte(s) when reported.2) pH and pCO2 are measur ed by potentiometry. The potential of an electrode chain is measured by a voltmeter, and related to the concentr ation of the sample.3 ) pO2 is measured by optical pO2. The optica l system for pO2 is based on the ab ility of O2 to reduce the intensity and t martina constant of the phosphorescence from a phosphorescent dye that is in cont act with the sample .4) sO2 is measured by spectrophotomet ry. Light passes th rough a cuvette that co ntains a hemolyzed blo od sample. The abs orption spectrum is use d to calculate oxime try parameters. FLOW/ FiO2 (test 50% code = 5568) Art Draw Site (test Art Line code = 4824) Art Kiko Test (test Not Performed code = 14950-6) LYNDSAY (test code = 50% fio2 LYNDSAY) Lab Interpretation Abnormal (test code = 66404-5) [facility] CenterT[facility] Interpretation Antibody Screen Jyxfyovi7824-96-19 12:58:18 Test Item Value Reference Range Interpretation Comments TMP Auto Neg At the present ABSC Interp time, patient (test code = plasma shows no ____KADI Moon ORREA 7535) evidence of RBC MD JOSETTE, P hD - alloantibodies. [id number] d by: Josue CRUZ, PhD - [id number] D ate/Time: 12.30.2021 6:58 AM SUBSYSTEMS ENGINEER Transcribed Deng e/Time: 12.30.2021 6:58 AM CSTElectronical ly Signed By: KADI FINCH MD, PhD - [id number] on 12.30.2021 6 :58 AM C [facility] CenterTMP Interpretation Crossmatch 2021-12-30 12:58:17 Test Item Value Reference Range Interpretation Comments TMP XM Interp RBC units (test code = crossmatched for 7566) transfusion appear MARTIR BOWIE acceptable. MD JOSETTE, PhD - [id number] b y: KADI FINCH MD, PhD - [id number] Date/Time: 12.10 6:58 AM SUBSYSTEMS ENGINEER Tra nscribed Date/Time: 12.10 6:58 AM CSTElectronical ly Signed By: Josue LAWSON, PhD - [id number] on 2021 6:58 AM C [facility] CenterAntibody Nwhpsi1546-40-30 04:46:02 Test Item Value Reference Range Interpretation Comments ABSC. (test code = 890-4) Negative ABSC [facility] CenterClot Expiration [id number] 04:46:01 Test Item Value Reference Range Interpretation Comments T & S Expiration (test code = 01/01/2022 5318) [facility] CenterABORh2022-11-22 04:46:00 Test Item Value Reference Range Interpretation Comments ABORh. (test code = 882-1) O POS [facility] CenterCOVID-19 (SARS-CoV-2)Jnrhugiiwsml-[id number] 01:30:06 Test Item Value Reference Range Interpretation Comments COVID19 Not Detected Not Detected (SARS-CoV-2) (test code = 63923-9) COVID19 SARS Inpatient Indication (test Admission code = 02192) Covid 19 Comment See Note The javid S ARS-CoV-2 (test code = [place] [address]) use on the melanie s Liv System is a lilliam l-time RT-PCR assay in tended for the qualita tive detection of SARS-CoV-2 (COV ID-19) viral RNA in nasopharyngeal swabs from either individuals rosa pected of COVID-19 by their healthcare prov ider or from any individual, inc luding individuals wit hout symptoms or oth er reasons to susp ect COVID-19. A fac t sheet for patie nts provided by the rv repair technician ([employer]) can be rev iewed at: https://www.fda .gov/m edia/517360/rodrigo nload. A fact sheet fo Health Care pro viders is provided by the rv repair technician ([employer]) and can be reviewed at: https://www.fda .gov/m edia/337464/rodrigo nload Results must be interpreted wit hin the context of all relevant clinic al and laboratory find ings and should not form the sole basis for a diagnosis or treatment decis ion. Positive result s do not rule out bacterial infec tion or co-infection with other viruses. Negative result s do not preclude SARS-CoV-2 infe ction and must be com bined with clinical observations, p atient history, and/or epidemiological information. Th is assay has been authorized by t FDA for use only un elizabeth Emergency Use Authorization ( EUA) in laboratories that have been CLIA-certified to perform moderate-comple xity and high-comple xity tests. The [facility], CLIA Accreditation #[id number] and CAP Accreditation #[id number], verif ied the performance characteristics of this assay. Int ernal controls are us ed to monitor all sta ges of the test proces s. [facility] CenterFractionated Vlypzuskb1578-36-54 00:08:09 Test Item Value Reference Range Interpretation Comments Bili Total (test 0.4 mg/dL See_Comment Indocyanine Green (ICG) code = 1974-2) may cause fal sely elevated biliru bin results. Total and direct bilirubin must not be measured from s amples containing indo cyanine green. False el evation of total bilirubin can be seen in patient s with IgG concentrations above 28 g/L. [Automated message] The system P4[employer] generated this result transmitted ref erence range: <=1.2. T he reference range was not used to interpr et this result as normal/abnormal . Bili Direct (test See_Comment Indocyanin e Green (ICG) code = 1967-) may cause fal sely elevated biliru bin results. Total and direct bilirubin must not be measured from s amples containing indo cyanine green. [Automat ed message] The sy stem which generated this result transmitted ref erence range: <=0.3. T he reference range was not used to interpr et this result as normal/abnormal . Bili Indirect (test See Note 0.0-0.9 Unable t o calculate code = 1970-) Indirect Bili west result due to some par ameters are outside rep ortable range [facility] CenterTotal Bhksfej9118-57-46 00:08:06 Test Item Value Reference Range Interpretation Comments Total Protein (test code = 2885-2) 7.4 g/dL 6.4-8.3 [facility] CenterMagnesium Kvzbi0484-05-66 00:08:05 Test Item Value Reference Range Interpretation Comments Magnesium (test code = 59396-2) 2.1 mg/dL 1.6-2.6 [facility] CenterAlkaline Vbqghaszxpn6535-06-11 00:08:04 Test Item Value Reference Range Interpretation Comments Alk Phos (test code = 6768-6) 151 U/L 40-129 H Lab Interpretation (test code = Abnormal 79707-3) [facility] CenterALT2022-11-22 00:08:02 Test Item Value Reference Range Interpretation Comments ALT (test code = 1742-6) 56 U/L See_Comment H [A utomated message] The system P4RC generated this result transmitted ref erence range: <=41. Th e reference range was not used to int erpret this result as normal/abnormal . Lab Interpretation (test Abnormal code = 50348-0) [facility] CenterPhosphorus [id number] 00:08:01 Test Item Value Reference Range Interpretation Comments Phosphorus (test code = 2777-1) 3.3 mg/dL 2.5-4.5 [facility] CenterAlbumin Eafnj3739-94-15 00:07:56 Test Item Value Reference Range Interpretation Comments Albumin Lvl (test code 4.1 See_Comment [Aut omated message] The = 175-7) system which ge nerated this result tra nsmitted reference range : 3.5 - 5.2 gm/dL. The refe rence range was not used to interpret this result as normal/abnormal . [facility] CenterAspartate Aminotransferase 2021-12-30 00:07:55 Test Item Value Reference Range Interpretation Comments AST (test code = 30 U/L See_Comment [Automated message] The 1919-09) system which ge nerated this result transmit sher reference range : <=40. The reference range was not used to interpr et this result as dora l/abnormal. [facility] CenteraPTT2022-11-22 00:05:30 Test Item Value Reference Range Interpretation Comments aPTT (test code = 30.1 See_Comment [Automate d message] The 74272-1) system which ge nerated this result transmit sher reference range : 22.8 - 34.2 second(s). The reference range was not used to interpr et this result as dora l/abnormal. [facility] CenterProthrombin Time with [id number] 00:02:58 Test Item Value Reference Range Interpretation Comments PT (test code = 5902-2) 13.9 See_Comment [Au tomated message] The system whic h generated this result transmitted ref erence range: 11.9 - 1 4.1 second(s). The reference range was not used to int erpret this result as normal/abnormal . INR (test code = 6301-6) 1.13 0.89-1.10 H Lab Interpretation (test Abnormal code = 51844-4) [facility] CenterResearch Protocol [id number] 2021-12-29 15:55:59 Test Item Value Reference Range Interpretation Comments Research Prot (test code = 7189) [id number] [facility] CenterComplete PFT (Michele, DLCO, LV) 2021-12-24 00:00:00 Test Item Value Reference Range Interpretation Comments FVC (L) pre (test code = 2.816 L 3.032-4.735 L 9507) FEV1 (L) pre (test code 2.173 L 2.116-3.556 = 9505) FEV1/FVC (%) pre (test 77.177 % 63.719-83.075 code = 9509) DLCO_SB ml/(min*mmHg) 19.557 See_Comment [Auto mated message] (test code = 9515) The syste m which generated this result transmitted ref erence range: 12.230 - 28.817 ml/(min* mmHg). The reference r qi was not used to interpret this result as normal/abnor mal. TLC (L) (test code = 4.635 L 5.351-7.654 L 9513) RV (L) (test code = 1.819 L 1.885-3.233 L 9514) RV/TLC (%) (test code = 39.245 % 32.668-50.632 9517) FVC (% pred) pre (test 73 % code = 9520) FEV1 (%pred) pre (test 77 % code = 9518) FEV1/FVC (% pred) pre 105 % (test code = 9522) TLC (% pred) (test code 71 % = 9526) RV (% pred) (test code = 71 % 9527) RV/TLC (% pred) (test 94 % code = 9528) DLCO_SB (% pred) (test 95 % code = 9529) Lab Interpretation (test Abnormal code = 48855-5) [facility] CenterMD NGS Blood [id number] 16:51:19 Test Item Value Reference Range Interpretation Comments Molecular Diagnostics (Received) (test Yes code = 8400) [facility] CenterLB ROS1 Fusion Analysis Collection, [id number] 16:48:14 Test Item Value Reference Range Interpretation Comments Molecular Diagnostics (Received) (test Yes code = 8400) [facility] RET Fusion Analysis Collection, [id number] 16:48:13 Test Item Value Reference Range Interpretation Comments Molecular Diagnostics (Received) (test Yes code = 8400) [facility] MET Mutation Analysis Collection, [id number] 16:48:12 Test Item Value Reference Range Interpretation Comments Molecular Diagnostics (Received) (test Yes code = 8400) [facility] ERBB2 Full Gene Mutation Analysis Collection, [id number] 16:48:11 Test Item Value Reference Range Interpretation Comments Molecular Diagnostics (Received) (test Yes code = 8400) [facility] EML4/ALK Fusion Analysis Collection, [id number] 16:48:10 Test Item Value Reference Range Interpretation Comments Molecular Diagnostics (Received) (test Yes code = 8400) [facility] BRAF Mutation Analysis Collection, [id number] 16:48:09 Test Item Value Reference Range Interpretation Comments Molecular Diagnostics (Received) (test Yes code = 8400) [facility] Awrdkzafgo5318-87-09 13:41:04 Test Item Value Reference Range Interpretation Comments POC Crea (test 0.8 mg/dL 0.6-1.3 Medications, code = 84372-5) especially h ydroxyurea or supplements, such as ascorbate, c an interfere with test results causing a falsely and significantly h igher result than exp ected. If a problem is suspected with a patient's resul t, a sample should b e sent to the [facility] for confirmatory te sting. Method descript ion: The i-STAT is a n analyzer used f or in vitro quantific ation of various anal ytes in whole blood. Th e device uses a s tracy disposable cart ridge which contains microfabricated sensors, a niesha bration solution, fluid ics system, and a w aste chamber. Each t est cartridge conta ins chemically sens itive biosensors on a silicon chip th at are configured to p erform specific tests. The microfabricated sensors measure analyte concent ration by an electroch emical assay. POC eGFR-AA (test 104 See_Comment Normal eGF R >= 60 code = 60603-4) mL/min/1.73 m2 The eGFR is calcula sher using the CKD-E PI equation. The e GFR declines with a ge. eGFR <60 mL/min /1.73 m2 is considere d as "decreased" Thi s equation should only be used for pat ients 18 and older. According to th e National Kidney Foundation's dney Disease Outcome Quality Initiat cody (KDOQI) classif ication and 2012 Kidney Disease Improvi ng Global Outcomes (KDIGO) Clinica l Practice Guidel ine, the stage of CK D should be categ orized based on estima sher GFR. Stage Desc ription GFR mL/min/1.73 m21 Kidney damage w ith normal or high GFR >=902 Kidney da mage with mild decre ase in GFR 60-893a Mil d to moderate decrea se in GFR 45-593b Mod erate to severe decre ase in GFR 30-444 Jessica re decrease in GFR 15-295 Kidney failure <15 (or dialysis) [Auto mated message] The sy stem which generated this result transmit sher reference range : >=60 mL/min/1.73 m2. The reference range was not used to int erpret this result as normal/abnormal . POC eGFR-TASHA (test 90 See_Comment Normal eG FR >= 60 code = 81000-4) mL/min/1.73 m2 The eGFR is calcula sher using the CKD-E PI equation. The e GFR declines with a ge. eGFR <60 mL/min /1.73 m2 is considere d as "decreased" Thi s equation should only be used for pat ients 18 and older. According to th e National Kidney Foundation's dney Disease Outcome Quality Initiat cody (KDOQI) classif ication and 2012 Kidney Disease Improvi ng Global Outcomes (KDIGO) Clinica l Practice Guidel ine, the stage of CK D should be categ orized based on estima sher GFR. Stage Desc ription GFR mL/min/1.73 m21 Kidney damage w ith normal or high GFR >=902 Kidney da mage with mild decre ase in GFR 60-893a Mil d to moderate decrea se in GFR 45-593b Mod erate to severe decre ase in GFR 30-444 Jessica re decrease in GFR 15-295 Kidney failure <15 (or dialysis) [Auto mated message] The sy stem which generated this result transmit sher reference range : >=60 mL/min/1.73 m2. The reference range was not used to int erpret this result as normal/abnormal . POC Clean Dev Yes (test code = 6672) Performing Lab [facility] (test code = [facility] [address]) Clinical Lab, [address] [facility] [place], [place] [address]; Internal Medicine Nurse Practitioner: Bambi Palmer MD [facility] Cancer LovejoyComplete Blood Count w/o [id number] 10:10:52 Test Item Value Reference Range Interpretation Comments WBC (test code = 7.5 K/uL 4.0-11.0 6690-2) RBC (test code = 789-8) 4.07 See_Comment L [Au tomated message] The system P4RC generated this result transmitted ref erence range: 4.50 - 6 .00 M/uL. The refer ence range was not u sed to interpret this result as normal/abnor mal. Hgb (test code = 718-7) 11.5 See_Comment L [Au tomated message] The system P4RC generated this result transmitted ref erence range: 14.0 - 1 8.0 gm/dL. The refe rence range was not u sed to interpret this result as normal/abnor mal. Hct (test code = 34.6 % 40.0-54.0 L 4544-3) MCV (test code = 787-2) 85 fL 82-98 MCH (test code = 785-6) 28.3 pg 27.0-31.0 MCHC (test code = 33.2 See_Comment [Automate d message] 786-4) The system P4RC generated this result transmitted ref erence range: 31.0 - 3 6.0 gm/dL. The refe rence range was not u sed to interpret this result as normal/abnor mal. RDW-SD (test code = 49.2 fL 35.1-46.3 H 16747-7) RDW-CV (test code = 15.9 % 12.0-15.5 H 788-0) Platelet count (test 213 K/uL 140-440 code = 777-3) MPV (test code = 10.0 fL 4.0-10.4 39543-8) INRBC (test code = 0.0 % See_Comment The INRBC (instrument 06664-8) NRBC) value ref lects the enumeration of nucleated red b lood cells contained in a 200uL sampleof whole blood analyzed by the instrument. Thi s value maydiffer from the NRBC value repo rted in a manual differential,wh ich is based on a 100 cell differential. [Automated mess age] The system P4RC generated this result transmitted ref erence range: <=0.0. T he reference range was not used to int erpret this result as normal/abnormal . Lab Interpretation Abnormal (test code = 32941-0) [facility] CenterAnion [id number] 23:54:20 Test Item Value Reference Range Interpretation Comments Anion Gap (test code = 15 See_Comment H [Aut omated message] 14426-6) The system P4RC generated this result transmitted ref erence range: 4 - 14 m Eq/L. The reference r qi was not used to interpret this result as normal/abnor mal. Lab Interpretation (test Abnormal code = 33172-2) [facility] CenterGlucose, [id number] 23:54:19 Test Item Value Reference Range Interpretation Comments Glucose Random (test 204 mg/dL 70-199 H Effecti ve 09/04/15, code = 2345-7) the glucose reference inter vals have been updat ed based on Americ an Diabetes Associ ation guidelines (Standards of Medical Care in Diabetes 2016. Diabetes Care 2 016; 39: S13-S22).Fa sting blood glucose:Normal: 70-99 mg/dLImpa ired fasting glucose (increased risk for diabetes or pre-diabetes): 100-125 mg/dLDiabetes mellitus: >/=12 6 mg/dL Random bl ood glucose:Normal: 70-199 mg/dLNot e: Random glucose >100 mg/dL is associ ated with increased risk for diabetes Lab Interpretation (test Abnormal code = 87939-6) [facility] CenterChloride [id number] 23:54:18 Test Item Value Reference Range Interpretation Comments Chloride (test code = 104 See_Comment [Auto mated message] The ) system which ge nerated this result tra nsmitted reference range : 98 - 107 mEq/L. The refe rence range was not u sed to interpret this result as normal/abnormal . [facility] CenterPotassium [id number] 23:54:16 Test Item Value Reference Range Interpretation Comments Potassium Lvl (test 5.0 See_Comment [Automa sher message] The code = 2823-3) system which generated this result tra nsmitted reference range : 3.5 - 5.1 mEq/L. The reference range was not u sed to interpret this result as normal/abnormal . [facility] CenterCarbon Dioxide [id number] 23:54:15 Test Item Value Reference Range Interpretation Comments CO2 (test code = 2027-10) 21 See_Comment L [A utomated message] The system whic h generated this result transmitted ref erence range: 22 - 29 mEq/L. The reference r qi was not used to interpret this result as normal/abnor mal. Lab Interpretation (test Abnormal code = 84287-0) [facility] [id number] 23:54:14 Test Item Value Reference Range Interpretation Comments Sodium Lvl (test code 140 See_Comment [Auto mated message] The = 1-2) system which ge nerated this result tra nsmitted reference range : 136 - 145 mEq/L. The refe rence range was not used to interpret this result as normal/abnormal . [facility] CenterUrinalysis w/Microscopic if Qtadcrqqu4593-05-79 15:58:47 Test Item Value Reference Range Interpretation Comments UA Color (test code Straw Straw-Yellow = 64723-1) UA Appear (test code Clear Clear = 5767-9) UA Glucose (test NEG NEG mg/dL code = 5792-7) UA Bili (test code = NEG NEG 5770-3) UA Ketones (test NEG NEG mg/dL code = 5797-6) UA Spec Grav (test 1.014 1.003-1.035 code = 5810-7) UA Blood (test code NEG NEG = 5794-3) UA pH (test code = 6.0 5.0-9.0 5803-2) UA Protein (test NEG NEG mg/dL code = 5804-0) UA Urobilinogen NEG NEG (test code = 5818-0) UA Nitrite (test NEG NEG code = 5802-4) UA Leuk Est (test NEG NEG code = 5799-2) UA Comment (test See Comment No microsco pic exam code = 96146-1) performed, physiochemical findings are ne gative [facility] CenterMD COVID-19 (DARON-CoV-2) PCR Ewutoeamjomb0736-72-89 23:54:12 Test Item Value Reference Interpretation Comments Range COVID19 SARS Pre-OR Procedure Indication (test code = 03742) COVID19 SARS Result Not Detected Not Detected (test code = 26704-1) COVID19 SARS SARS-CoV-2 NOT Detected. Interpretation (test Reference Range: Not code = 64786) Detected Methodology: The [employer] RealTime SARS-CoV-2 assay is a qualitative real-time reverse senior construction project manager polymerase chain reaction (production material handler-PCR) test to detect RNA from SARS-CoV-2 in nasal, nasopharyngeal and oropharyngeal swabs from patients with signs and symptoms of infection who are suspected of COVID-19 by their health care provider. The [employer] RealTime SARS-CoV-2 performed on the Brain Parade000 System is a dual target assay with primers and probes for the RdRp and N genes. Results must be interpreted within the context of all relevant clinical and laboratory findings, and epidemiological risk factors. Positive results are indicative of the presence of SARS-CoV-2 RNA; clinical correlation with patient history and other diagnostic information is necessary to determine patient infection status. Positive results do not rule out bacterial infection or co-infection with other viruses. Negative results do not preclude SARS-CoV-2 infection and should not be used as the sole basis for patient management decisions. The [employer] RealTime SARS-CoV-2 assay is for in vitro diagnostic use under FDA Emergency Use Authorization only. Testing is limited to laboratories certified under the Clinical Laboratory Improvement Amendments of 1988 (CLIA), 42U.S.C. 263a, to perform high complexity tests. The Test was performed by the CLIA-certified, high-complexity Molecular Diagnostics Laboratory (MDL) at [facility] under the Food and Drug Administration (FDA) s Emergency Use Authorization. Factsheet for patients: https://www.mdanderson.org/ AbbottFactSheetPatientsFact sheet for healthcare providers: https://www.mdanderson.org/ AbbottFactSheetHCP Test performed by:[facility] [address] [place] [address] [facility] CenterHemoglobin [id number] 15:58:18 Test Item Value Reference Range Interpretation Comments A1C (test code = 4548-4) 6.0 % 4.3-5.6 H HbA 1c values >=6.5% are diagnostic of diabetes mellitus.Diagno sis should be confi rmed by repeat testing.Therape utic Action suggeste d: >8.0% HbA1c; Go al oftherapy: <7.0 % HbA1c Lab Interpretation (test Abnormal code = 53084-0) [facility] CenterCytology Image-Guided FNA Acgmijtzkfjvth4270-15-90 21:02:51 Test Item Value Reference Range Interpretation Comments Gross Description (test m0oljTAwFDWtcIR5SdR code = 7618896665) hCVUvv4www7HpbEAjwF CqZYkzgCHujxMepz58v QN2uS37RA7iKQArYkQ3 SMEirqR4Qoz4BFHjDQR zxOIrZ835j5xtc6qlrq HhrDE7HEXnOTFuO3XtZ K0hPGSxjEEhX61haNPy QHR2XUEdMDDwdDZkDEM kGHM6MSJupDLvS3eeHB NhGX0payoiRYgjVRhtZ LDlmRY3OCQwrCQlY3Lp YUQzRZhsOFQfppu1HpZ lMz5fyLFatFmiENqjZA Tzv1pdCOKygWUqION4M FxcaWQgNTEwMDAgXFx0 WYCdRVzywZTjQY4aeBe wNczpiFokt8XjbHOdUR lkIDUxMDAyIFxcZGIgT 1ZSICIgQzMzOTAyNSIg NTj0YTviV7MCXXOwZHB 9USF5RtD6ItE6DNj7ER LETl5xHUBsRMJ0OSM6H JG4IxejQQbadSHcCLdn ZmwgXFxmIEFyaWFsIFx cZnMgMTAgXFxmYiBcXG 5jfVxwbGFpblxiXGZzM jAgQTpccGFyXGIwXGNm LMIXmLGksZ1aisTtsWV lQ4ToBEB4VPIwfjG9KT RpZmYgUXVpazsgOCBQY GKtM4OcsY9qM8bqQUBq XHBhciAxMCBtbCwgXHB ve8EqL0F4CWWyFYoab1 flYVAaYPgbf3VfCFqSP HWKMU3OZZ4gyPV5BPuP AXZIQ1vYbJX9LfFgrHC 4QC23CYZnMMTkdDPlBS arT993e7qsH2j9fSewD 6eooRM5MTscyn41JGP2 FOkdReykxNZ6XLmcPmc gmO2ifOULOVEQCwxAFg zkewFuZH6WJLxJYvZLO G57Sg82QWDnYVEjxEHc VHuwO994Lnuqu4T6w8j maWVsZHtcKlxmbGRpbn A2LLyFOMSAWEmKZpFkS U0qIJiWROBVYzC5Xs79 NKYzXKMkrCNcQEjkC32 1DENkSTfxCAImy0EoE1 RcZnMyMFxjZjEgIGZsd Ktnt5rqdYLcUXgmCvih zNTyreA2MEcMAIWXEAi IWhWpEQ5bMYzMU8DSXz K7AfS1AnC8RAojyOxwV bgnfwPkiHIbUyLtcK9c lBqjqT5eUqRzDNolSzV gIGluIFJQTUlccGFyXG NmMCAxIENlbGwgQmxvY 2tccGFyIERhdGUvVGlt TQIDcTOsPTFlhB0hSb4 qlCMurR74XTttxr93RT M1l3ylaGPlNTkeXnssc FLizwX4JQfHBVFFJHbR LyYxJN9zHVuPNtbJHRa FHyr2ODK9GcdcrFMTFO UPELDHDYpuxQc2ODc5u XtcZmxkcnNsdCBcJzFj hX8zMJ7nPG9fDdlgIxj vnJW9JCeuRcsytL4erT BIWVBFUkxJTksgbmFtZ H8LNK9GOG5NbWTbNQbb uXN7JI3SCRbKTPQXjSY 7lVpgiUf6r4gcbWYgz0 w7TLhdQBB6rQzwcGYph lxmczIwICAxMTozMEFN XHBhclxjZjFccGFyIFN iemN8MJWwGRVfmOwhCG TlZA5kCWQmBODsXMQzw 6Sbn56syhWeHy6xAWTl TXNieSAcFMFbNTS5NPC 5IHdhcyBtYWRlIFxwcm 67ERF8k8oeiKKzYGngN yaafLWpuqD2DAhARJFY FSrRAaBfVR0zGBzXF0P IXJmAGeucXKz8JOi8oP N5u1tdaNPxb5w3ZXwjE NZ3jKbkh6wrmBTvJYjs KydlvVWjacE8QUfTBMD FPGzWFaTsZX6aKGfPA4 RXQaY4LjD8ZaQ9SEp6x XtcZmxkcnNsdCBcJzFj bN5ufSpjkZ5vCeAjJQb kEnQeXYA0BRUpYfHWwT 5pt9qtzNlyr8PgfPKpH Q40INGeqCPdWXK7ZE5w fVxwYXJcdiBTTUFSVEx CU8MyKEQAKUBJRRSdRp MROS9jOoV9CqW1SD85O fhpSkL8JbW5zPI4FBKF PUZGBMkRC8CtROIZYDI RTZJmVR1LFOtSXCVVIZ NOR46FIICPZXALP5CPS 0pFGKCnm3Onl51hnXhO LTLWNJHTS86QFOMDLQP AS2XMQYBXSZCYTHjMQE ALFv8WEIZFABFEYQ6YF UdJTiAxXHtmbHVpZDoy NWS1LPf5AKj9nCXnv1W ytWX2FgL8VrAkePPSDR ZLNRaAXBPJPx8SAWTJF UZIPS1LAxAfW2PELD9Y La6WZZBRFPMYJF9SYWc VXmVmN7YAKK1XEg0KBJ YWMITHQN7ZOfKuPSVUM 1NUUnNOJ1tiMVWBEQAM CWHzTwHWTG0oADXBMW9 HXCGPIYMEB16CKVRDSF HIG4CNYP0= Immediate Assessment (test Adequate code = 9837) cellularity, favor benign Major Classification (test NFMC/benign code = 9839) Diagnosis (test code = 34) y4chtNYxQAQmvIJ8AvK wJBNaw3ofc7YphLKtuI TrSUntlOWqctUyrx39g ZH5nU89PZ4cVBWcVtD8 SCQlsmC0Jdv3UZUxXWV daUCmC851a1psn4dazq FyaAQ3ZTOyNHRhE0OzL V8aZFCgxREuJ81ijBJk JEL1RRZpTJKnpSDaVLR iJNR0CUSwaISfM5lmAT BqOI8eiwrwVFajGExrC LZkiKB7DRBuxTCnV9Yz WBTeAEupJSKeybb9QsS jIu3mmCOytVlwUIwtN1 yirH1jPwQ1PFanA1cja J3fVSq2MFwiAPWcxAB5 fwS3WDWfoMWsZ8QsnW7 wXUIfCR4cglp4p6cqHK G1LVjzJHAuFcT1qvL4G DBccGFyZFxwbGFpblxm czIwXGNmMSBBLiBMeW1 bqXXzl2CbATKdOAA8XB aib9hdOZKyyT6nCZ3gD GOoLXMqu2VbevZ2lP6m OlxwYXJcdGFiXHBhclx saTcyMCBObyBtZXRhc3 EzmEcaJNHjibFdtu6gL SBpZGVudGlmaWVkXHBh twLNaO1ixO6rFHM3cBM toJTskMYhx8EjhUquCC J9 Comment (test code = 9835) l0kxpJUmERTktAR7NbM rEXEfc1mtf8EavPWehI BcETbhsDVzxrUenh59x NY0cJ97NE9zGDTdBfS9 XSMersK4Upm2ZGGgGGU dcCMmO055y2nxq8ykgm RkzDE6FTThHDOtY1YzC D6vCRCdtQYwQ22mvMJh CSM7DIWxFGMayZPqIOP tELR6XYJbiEYuE7vwKL FlZN1ebifgWTasIXvaH MKdeVD7TWXnyZRyF2In MISsTHwlJFRdnob2YeF kMn5dwMJooRlyGIiwQI JkXHBsYWluXGZzMjBcY 2YxIFRoZSBjZWxsIGJs j2DaVKRdynVhfCM9rNZ nTTXyLWGaTPLwUt00WY DdzZItbr3pkHOzDCadC jAgIFxwYXJ9 Retained/Biomarker Testing f7uuuBLfKYUxjER7JzE (test code = 9838) iPMKfl0txr8KspFSirY OxTMmicBStocVlqp76g SM1yE45ID7yILQcDcY7 QPCrnyY4Abr6EJPmZVN roRWiT972y7gvq7nvqg OeoYA8jXooVMVexldeM fC9JTjiZYBismiaFRb7 OBhxYMWzhPE2LXRicRM mL6CrOIUnMO3mshn2NI C6LAanYRUcBlS7KFJwj IEeAYYluQlhLHfuu757 EJV2MqQvXIKhckBlcIc apK0tPwDzSNPBPvgmOR IgUywgMSBDQlxwYXJ9 Informational Points (test b1wcsWZbHKOwzQLvZhY code = 9836) aOZTjISZjg7siGNQzbT FuZzEwMzNcZnRuYmpcd QUuMDTwRaElq3obx334 qTZxg3vjRGJqGsC4hVM qMMSetIBfS302GCNbOS fnu0qbo9DuUUCyvNOnc 9Q0RZDQNQqtJASZVWc9 m0iaVxBiQiJ9iGPjTEj sK6odpoNbuIMgYVTwCN j8tQ69KUJohN2rzPXbV PafxcTpNrP9YUhdPNKn YfW0UWSnbNAySZKdA7d yZWQwXGdyZWVuMFxibH ToARW0xJcvw3C6fWIrk GVldHtcZjBcZnMyMiBO u6CpPZh2jUijL1QuJFT rUwK6aXOrHPMfBFlzPL FkYBMtfeF4xR35FYyms jZ5tFLwm4Bkq80cs550 uU5xiZDgLLP9EJXsHOI hpJHeRCSpNDC1INHzhG EpX8dfQWWpSU6sxudiO WzhCGsvJTIvlGO5ROSk fAQzV7KsIPWdFZenURD yqug3AnOxRo3vuPDmoA odFVjyt1ifp7scvESsQ qq1BNTxLwYgCqtcJKes n7Ebm8suOSFgay1cXHE 2wRGgzVejh5R8yHYvBE LpzZOhmuXcWNDbPrS9Z NqaXI0aos24MNLdPHY3 kh5lkRZteZanbvMsfHH tIOxwJ0WhSYSxb092JY JhV7PjSTQqe6T0hiDzV yOtENAtgMP5nhV9MTNs QAd8lETuzwT6evBuwGO mX9csvT5tZBKdIG3dsp orz8ilLKptSKuiVJIcz VQ0eeI9JDMbaKLvN5Dj vJ5gPFEqYZywSRNsgkw 6NdKeCb6ivGAonOmwXV xzYmtwYWdlXHBnbmNvb nRccGduZGVjXHBsYWlu XHBsYWluXGYwXGZzMjR tnNnreMcmxZ5wNbWyOj BpOJilDD4rNXAhV0wvm ERtUKUvQHEsU7tuCfBj nA5wuSmfNCxspgH5UQn uD15wZTB6YZE6lrFiTP NrknIhQZWmAODdPE2fb SYyAFSkDFKnTX6xDMH3 ZWxvcGVkIGFuZCBwZXJ bl4JaDB8dXTOglIAlQY M4NKCtg2PnL4RuBUX4C RPqdE3kTTJmlJAUPZRY RCBBbmRlcnNvbiBQYXR ij3lyZ3ltRU5uWUdtPn 9yYXRvcnkgTWVkaWNpb oTxCYPjJSYxQUBlr8Qc BKjuctLpxh53CJWnFG4 os8EhL2xkzDMmwYy3TD BkJFEzHOJxh0KmLRWry b01WFWdWyzktIzfZYOh Ta9pHi5vQMNrjvTnCUP 5XwFPNE8rprhhqOAgsW oeer4nVSYvYZbiHENbP GZzMjJcbGFuZzEwMzNc aGljaFxmMlxkYmNoXGY tKXaeE3qbLwZnTmTiFm xwYXJ9 [facility] 00:23:36 Test Item Value Reference Range Interpretation Comments Hct (test code = 4544-3) 38.5 % 40.0-54.0 L Lab Interpretation (test code = Abnormal 44690-3) [facility] 00:23:35 Test Item Value Reference Range Interpretation Comments Hgb (test code = 718-7) 12.2 See_Comment L [Au tomated message] The system whic h generated this result transmitted ref erence range: 14.0 - 1 8.0 gm/dL. The refe rence range was not u sed to interpret this result as normal/abnor mal. Lab Interpretation (test Abnormal code = 11627-1) [facility]inal[facility] with Reflex to Microscopic Reference [id number] 23:45:29 Test Item Value Reference Range Interpretation Comments UA Color (test code = YELLOW YELLOW 7877) UA Appear (test code CLEAR CLEAR = 7868) UA Bili (test code = NEGATIVE NEGATIVE 7871) UA Ketones (test code NEGATIVE NEGATIVE = 7884) UA Spec Grav (test 1.018 1.001-1.035 code = 7894) UA Blood (test code = NEGATIVE NEGATIVE 7872) UA pH (test code = 5.5 5.0-8.0 7909) UA Protein (test code NEGATIVE NEGATIVE = 7890) UA Nitrite (test code NEGATIVE NEGATIVE = 7888) UA Leuk Est (test NEGATIVE NEGATIVE Lab test p erformed code = 7886) by:Lab Mnemonic : [facility] [id number] [place] [id number] MOTLEY MD UA Glucose (test code NEGATIVE NEGATIVE = 7881) [facility] CenterConfirm [id number] 19:29:44 Test Item Value Reference Range Interpretation Comments ABORh Confirm. (test code = 882-1) O POS [facility] [id number] 17:28:42 Test Item Value Reference Range Interpretation Comments T4 (test code = 7493) 7.8 See_Comment [Auto mated message] The system which ge nerated this result transmit sher reference range : 4.5 - 11.7 mcg/dL. The ref erence range was not used to interpret this result as normal/abnormal . [facility] CenterTSH20[facility]-01-22 17:28:41 Test Item Value Reference Range Interpretation Comments TSH (test code = 2.06 See_Comment [Automated message] The 7578) system which ge nerated this result transmit sher reference range : 0.27 - 4.20 mcunit/mL. The reference range was not used to interpr et this result as dora l/abnormal. [facility] [place]
[2022-02-12] MEDS ORDERED: LIDOCAINE 4% PATCH ONE (20:41)
--- NOTE | 2022-02-12 20:45 | ER ---
Nurse's Notes [facility] [place] Name: Clark Bartlett Age: 72 yrs Sex: Male : 1950 Arrival Date: 02/12/2022 Time: 20:24 Bed 7 Private MD: Diagnosis: Right upper back pain Presentation: 02/12 20:25 Initial Sepsis Screen: Does the patient meet any 2 criteria? HR > 90 bpm. Yes Does the jb4 patient have a suspected source of infection? No. Patient's initial sepsis screen is negative. Risk Assessment: Do you want to hurt yourself or someone else? Patient reports no desire to harm self or others. 20:25 Acuity: ROLANDO 3 jb4 20:25 Chief complaint: Patient states: PT recently had spinal surgery to the upper back, kd3 between the shoulder blades to remove a mass in December. Today, the pt had sudden right shoulder pain and began to tremble. The patient's daughter called EMS. The patient has a follow up appointment tomorrow but wanted to come in to get checked out. PT currently complains of 1 out of 10 pain after the daughter put bengay to the area. Ebola Screen: No symptoms or risks identified at this time. 20:25 Method Of Arrival: EMS: [facility] kd3 20:28 Coronavirus screen: Vaccine status: Patient reports receiving the 2nd dose of the covid kd3 vaccine. Onset of symptoms was February 12, 2022. Triage Assessment: 20:28 General: Appears in no apparent distress. comfortable, Behavior is calm, cooperative. kd3 Pain: Complains of pain in right scapular area. Neuro: Level of Consciousness is awake, alert, obeys commands, Oriented to person, place, time, situation. Cardiovascular: Patient's skin is warm and dry. Respiratory: Airway is patent Trachea midline Respiratory effort is even, unlabored, Respiratory pattern is regular, symmetrical. Historical: - Home Meds: 20:28 lisinopril 40 mg Oral tab 1 tab once daily [Active]; sulfamethoxazole-trimethoprim kd3 800-160 mg Oral tab 1 tab twice a day [Active]; - Immunization history:: Adult Immunizations up to date. - Social history:: Smoking status: unknown. Screenin:26 [facility] ED Fall Risk Assessment (Adult) History of falling in the last 3 months, jb4 including since admission No falls in past 3 months (0 pts) Confusion or Disorientation No (0 pts) Intoxicated or Sedated No (0 pts) Impaired Gait No (0 pts) Mobility Assist Device Used No (0 pt) Altered Elimination No (0 pt) Score/Fall Risk Level 0 - 2 = Low Risk Oriented to surroundings, Maintained a safe environment. Abuse screen: Denies threats or abuse. Nutritional screening: No deficits noted. Tuberculosis screening: No symptoms or risk factors identified. Assessment: 20:26 General: Appears in no apparent distress. comfortable, Behavior is calm, cooperative, jb4 appropriate for age. Pain: Complains of pain in right scapular area Pain does not radiate. Pain currently is 1 out of 10 on a pain scale. Quality of pain is described as aching. Neuro: Level of Consciousness is awake, alert, obeys commands, Oriented to person, place, time, situation. Cardiovascular: Patient's skin is warm and dry. Respiratory: Airway is patent Respiratory effort is even, unlabored, Respiratory pattern is regular, symmetrical. GI: No signs and/or symptoms were reported involving the gastrointestinal system. : No signs and/or symptoms were reported regarding the genitourinary system. EENT: No signs and/or symptoms were reported regarding the EENT system. Derm: Skin is intact, Skin is pink, warm \T\ dry. Musculoskeletal: Circulation, motion, and sensation intact. Range of motion: intact in all extremities. 20:57 General: pt is Discharged. Waiting for Son to return with the slide board and 3 wheelchair to go home with.. Vital Signs: 20:25 BP 170 / 83; Pulse 99; Resp 19; Temp 99.3(O); Pulse Ox 98% on R/A; Weight 81.65 kg (R); jb4 Height 5 ft. 6 in. (167.64 cm) (R); Pain 1/10; 20:25 Body Mass Index 29.05 (81.65 kg, 167.64 cm) jb4 ED Course: 20:24 Patient arrived in ED. jb4 20:24 Scarlet Mejia MD is Attending Physician. sd2 20:25 Sierra Estrada, ROXANNA is Primary Nurse. kd3 20:26 Triage completed. jb4 20:26 Patient has correct armband on for positive identification. Placed in gown. Bed in low jb4 position. Call light in reach. Side rails up X 1. Client placed on continuous cardiac and pulse oximetry monitoring. NIBP monitoring applied. secretary bookkeeper on. 20:28 Arm band placed on right wrist. kd3 20:59 No provider procedures requiring assistance completed. Patient did not have IV access kd3 during this emergency room visit. Administered Medications: 20:42 Drug: Lidoderm Patch 5 % (700 mg/patch) 1 patches Route: Topical; Site: affected area; jb4 Medication: 20:26 VIS not applicable for this client. jb4 Outcome: 20:45 Discharge ordered by . sd2 20:59 Discharged to home via wheelchair, with family. kd3 20:59 Condition: stable 20:59 Discharge instructions given to patient, Instructed on discharge instructions, follow up and referral plans. Demonstrated understanding of instructions, follow-up care. 21:16 Patient left the ED. kd3 Signatures: Raji Wolfe RN RN jb4 Sierra Estrada RN RN kd3 Scarlet Mejia MD MD sd2
--- NOTE | 2022-02-12 20:45 | EDPHYS ---
Physician Documentation [facility] [place] Name: Clark Bartlett Age: 72 yrs Sex: Male : 1950 Arrival Date: 02/12/2022 Time: 20:24 Bed 7 Private MD: ED Physician Scarlet Mejia HPI: 02/12 20:37 This 72 yrs old Male presents to ER via EMS with complaints of R upper back sd2 pain. 20:37 72-year-old male presents via EMS with chief complaint of right-sided upper back pain. 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 He has been doing well since he was discharged in January and continuing with physical therapy but does not have good use of his legs yet and uses his arms to maneuver most of the time. He reports today he became tremulous and felt cold and then started to feel some pain in his right upper back and shoulder area. He reports that once he got warm and ate some food he felt better. He also placed some Bengay on the area which has improved his pain to a 1 out of 10. He reports the pain felt like a tightness and a soreness. He denies any radiation of the pain into his chest, shortness of breath, fevers, recent illness, vomiting, diarrhea, weakness, numbness or tingling.. Historical: - Home Meds: 20:28 lisinopril 40 mg Oral tab 1 tab once daily [Active]; sulfamethoxazole-trimethoprim kd3 800-160 mg Oral tab 1 tab twice a day [Active]; - Immunization history:: Adult Immunizations up to date. - Social history:: Smoking status: unknown. ROS: 20:37 Constitutional: Negative for fever, chills, and weight loss, Eyes: Negative for injury, sd2 pain, redness, and discharge, Cardiovascular: Negative for chest pain, palpitations, and edema, Respiratory: Negative for shortness of breath, cough, wheezing. Abdomen/GI: Negative for abdominal pain, nausea, vomiting, diarrhea. 20:37 Skin: Negative for injury, rash, and discoloration, Neuro: Negative for headache, numbness and tingling. 20:37 MS/extremity: Positive for pain, Negative for injury or acute deformity, decreased range of motion, deformity, paresthesias. Exam: 20:37 Constitutional: This is a well developed, well nourished patient who is awake, alert, sd2 and in no acute distress. Head/Face: Normocephalic, atraumatic. Eyes: EOMI, normal conjunctiva bilaterally Chest/axilla: Normal chest wall appearance and motion. Nontender with no deformity. Cardiovascular: Regular rate and rhythm with a normal S1 and S2. No gallops, murmurs, or rubs. 2+ distal pulses. Respiratory: Lungs have equal breath sounds bilaterally, clear to auscultation and percussion. No rales, rhonchi or wheezes noted. No increased work of breathing, no retractions or nasal flaring. Abdomen/GI: Soft, non-tender, with normal bowel sounds. No guarding or rebound. No evidence of tenderness throughout. Skin: Warm, dry with normal turgor. Normal color with no rashes, no lesions, and no evidence of cellulitis. MS/ Extremity: Pulses equal, no cyanosis. Neurovascular intact. Full, normal range of motion. Point tenderness to palpation over inferior scapula area, no obvious deformity, no midline spinal tenderness, midline incision c/d/i Psych: Awake, alert, with orientation to person, place and time. Behavior, mood, and affect are within normal limits. Vital Signs: 20:25 BP 170 / 83; Pulse 99; Resp 19; Temp 99.3(O); Pulse Ox 98% on R/A; Weight 81.65 kg (R); jb4 Height 5 ft. 6 in. (167.64 cm) (R); Pain 1/10; 20:25 Body Mass Index 29.05 (81.65 kg, 167.64 cm) jb4 MDM: 20:24 Patient medically screened. sd2 20:37 Differential Diagnosis Differential diagnosis includes but is not limited to: Spasm, sd2 strain, sprain, contusion, doubt fracture, doubt postoperative complication, doubt ACS among others. Data reviewed: vital signs, nurses notes, EMS record. Counseling: I had a detailed discussion with the patient and/or guardian regarding: the historical points, exam findings, and any diagnostic results supporting the discharge/admit diagnosis, the need for outpatient follow up, to return to the emergency department if symptoms worsen or persist or if there are any questions or concerns that arise at home. Medical screen evaluation completed. [facility] emergency medical condition absent. ED course: I had a discussion with the patient regarding the area of his pain which is point tender over his inferior scapula in the muscular area. There is no associated deformity and the patient has not had any trauma. There are no neurologic deficits. The patient's pain has almost completely resolved and he is feeling improved. He does use his arms frequently to his current issues with his leg since his surgery. I suspect the patient likely had a muscle spasm that has since improved. Reports having similar pain when he was in the hospital previously after his surgery which was also found to be muscular at that time. He is not concerned about a cardiac issues and EKG and labs were offered. The patient is in agreement to forego labs, EKG and x-ray at this time. He does have a scheduled appointment with his neurologist at [facility] tomorrow morning. He verbalizes understanding of discharge plan and strict return precautions at this time.. Administered Medications: 20:42 Drug: Lidoderm Patch 5 % (700 mg/patch) 1 patches Route: Topical; Site: affected area; jb4 Disposition Summary: 02/12/22 20:45 Discharge Ordered Location: Home sd2 Problem: new sd2 Symptoms: have improved sd2 Condition: Stable sd2 Diagnosis - Right upper back pain sd2 Followup: sd2 - With: Private Physician - When: Tomorrow - Reason: Recheck today's complaints, Continuance of care, Re-evaluation by your physician Discharge Instructions: - Discharge Summary Sheet sd2 - Acute Back Pain, Adult sd2 - Shoulder Pain sd2 Forms: - Medication Reconciliation Form sd2 - Thank You Letter sd2 - Antibiotic Education sd2 - Prescription Opioid Use sd2 Signatures: Raji Wolfe, RN RN jb4 Sierra Estrada RN RN kd3 Scarlet Mejia MD MD sd2
[2022-02-12 21:55] VITALS: BP 170/83; TEMP 99.3; O2SAT 98
== END 2022-02-12 21:16 | disposition home or self-care (01) ==
LOC: ER 20:23
DX: M54.9 Dorsalgia, unspecified (principal)
CPT/HCPCS: 99284; J2001